=== PATIENT | female | born 1970 | race Caucasian/White ===

== ENCOUNTER → 2016-06-05 | Outpatient (CLI) | payer OTHER ==
[~2016-06-05] MED LIST: ACET160L7 PO; BENT10CA PO; COLA100C PO; DICY10SO PO; EQ A PO; IBUP80TA PO; LIDOCAINE 2% INJ 100 MG/5 ML SDV (FOR ANES.) As Ordered ONE; LISI-538 PO; NEUR300C PO; NS 1,000 ML IV SCH; OXYC1TAB23 PO; PROPOFOL 200 MG/20 ML VIAL As Ordered ONE; ZYRT10CA PO; fentaNYL 100 MCG/2 ML INJECTION (J3010) As Ordered ONE
--- NOTE | 2016-06-05 12:55 | ROOR ---
Patient Name: Krystal Robb Procedure Date: 06/05/2016 12:39 PM Date of : 1970 Age: 45 Room: [facility] Gender: Female Note Status: Finalized Procedure: Upper GI endoscopy Indications: Epigastric abdominal pain, Diarrhea, Endoscopy to assess diarrhea in patient suspected of having disease of the small-bowel Providers: Roger NORWOOD MD Referring MD: Cherelle DINH NP Requesting Provider: Medicines: Monitored Anesthesia Care Complications: No immediate complications. Procedure: Pre-Anesthesia Assessment: - The heart rate, respiratory rate, oxygen saturations, blood pressure, adequacy of pulmonary ventilation, and response to care were monitored throughout the procedure. The Endoscope was introduced through the mouth, and advanced to the third part of duodenum. The upper GI endoscopy was accomplished without difficulty. The patient tolerated the procedure well. Findings: The esophagus was normal. The stomach was normal. The examined duodenum was normal. Biopsies for histology were taken with a cold forceps for evaluation of celiac disease. Impression: - Normal esophagus. - Normal stomach. - Normal examined duodenum. Biopsied. Recommendation: - Telephone endoscopist for pathology results in 2 weeks. Roger Norwood MD Roger NORWOOD MD 06/05/2016 12:54:27 PM This report has been signed electronically. Number of Addenda: 0 Note Initiated On: 06/05/2016 12:39 PM Estimated Blood Loss: Estimated blood loss: none.
--- NOTE | 2016-06-05 13:10 | ROOR ---
Patient Name: Krystal Robb Procedure Date: 06/05/2016 12:39 PM Date of : 1970 Age: 45 Room: [facility] Gender: Female Note Status: Finalized Procedure: Colonoscopy Indications: Generalized abdominal pain, Clinically significant diarrhea of unexplained origin Providers: Roger NORWOOD MD Referring MD: Cherelle DINH NP Requesting Provider: Medicines: Monitored Anesthesia Care Complications: No immediate complications. Procedure: Pre-Anesthesia Assessment: - The heart rate, respiratory rate, oxygen saturations, blood pressure, adequacy of pulmonary ventilation, and response to care were monitored throughout the procedure. The Colonoscope was introduced through the anus and advanced to 10 cm into the ileum. The colonoscopy was performed without difficulty. The patient tolerated the procedure well. The quality of the bowel preparation was good. Findings: The perianal and digital rectal examinations were normal. (Exam: Complete, Prep: Good or Excellent.) Small Internal Hemorrhoids. The entire examined colon appeared normal on direct and retroflexion views. The terminal ileum appeared normal. Biopsies for histology were taken with a cold forceps for evaluation of microscopic colitis. Impression: - (Exam: Complete, Prep: Good or Excellent.) - Small Internal Hemorrhoids. - The entire examined colon is normal on direct and retroflexion views. - The examined portion of the ileum was normal. - Biopsies were taken with a cold forceps for evaluation of microscopic colitis. Recommendation: - Telephone endoscopist for pathology results in 2 weeks. - Miralax 1 capful (17 grams) in 8 ounces of water PO BID. - Note: I have reviewed multiple CT scans you have had over the past few years. The common theme is that the radiologist notes moderate to large stool on almost all the scans. (including the one in april 2016). I suspect your diarrhea is actually caused by severe constipation with "overflow" loose stool symptoms. The treatment for this is the daily routine use of laxative regimen.--I will try you on Miralax TWICE a day.--script sent to your pharmacy. Roger Norwood MD Roger NORWOOD MD 06/05/2016 1:10:46 PM This report has been signed electronically. Number of Addenda: 0 Note Initiated On: 06/05/2016 12:39 PM Estimated Blood Loss: Estimated blood loss: none.
[2016-06-05 13:30] VITALS: BP 136/88
== END | disposition home or self-care (01) ==
LOC: M OPP 11:01
PROVIDERS: ATTEND Internal Medicine Gastroenterology
DX: R19.7 Diarrhea, unspecified (principal); K64.8 Other hemorrhoids; R10.13 Epigastric pain; J45.909 Unspecified asthma, uncomplicated; I10 Essential (primary) hypertension; F17.200 Nicotine dependence, unspecified, uncomplicated; Z79.899 Other long term (current) drug therapy; Z97.2 Presence of dental prosthetic device (complete) (partial)
CPT/HCPCS: 43239; 45380; 88305; J3010

== ENCOUNTER 2016-06-23 08:49 | Emergency (ER) | payer OTHER ==
[~2016-06-23 08:49] MED LIST changes: -LIDOCAINE 2% INJ 100 MG/5 ML SDV (FOR ANES.) As Ordered ONE; -NS 1,000 ML IV SCH; -PROPOFOL 200 MG/20 ML VIAL As Ordered ONE; -fentaNYL 100 MCG/2 ML INJECTION (J3010) As Ordered ONE
[2016-06-23] MEDS ORDERED: KETOROLAC 30 MG/ML VIAL (J1885) As Ordered ONE (09:24)
--- NOTE | 2016-06-23 10:40 | EDDOCDS ---
Physician Documentation [facility] Name: Krystal Robb Age: 45 yrs Sex: Female : 1970 Arrival Date: 06/23/2016 Time: 08:49 Bed PR Private MD: William Gonzalez Disposition: 06/23/16 10:07 Discharged to Home/Self Care. Impression: Pain in left hip, Low back pain - Acute, Fall (on)(from) sidewalk curb - Slipped and fell while getting onto bus, Other intervertebral disc disorders, lumbosacral region. - Condition is Stable. - Discharge Instructions: Back Pain, Adult, Hip Pain, Fall Prevention and Home Safety, [id number]. - Prescriptions for Mobic 7.5 mg Oral Tablet - take 1 tablet by ORAL route once daily take with food; 20 tablet. Percocet 5- 325 mg Oral Tablet - take 1 tablet by ORAL route every 6 hours As needed MDD: 4 tabs; Do not take while driving/operating heavy machinery.; 10 tablet. Prednisone 20 mg Oral Tablet - take 3 tablet by ORAL route once daily for 5 days; 15 tablet. Zanaflex 4 mg Oral Tablet - take 1 tablet by ORAL route At bedtime As needed Will cause drowsiness, do not take while driving/operating heavy machinery.; 20 tablet. - Medication Reconciliation, Local Pharmacy Hours, Work Release Form - 2 day form. - Follow up: William Gonzalez; When: 1 - 2 days; Reason: Recheck today's complaints, Continuance of care. Follow up: Emergency Department; Reason: Worsening of conditions. Follow up: [facility]; When: Call to arrange an appointment; Reason: Further diagnostic work-up, Recheck today's complaints, Continuance of care. - Problem is new. - Symptoms have improved. Historical: - Allergies: PENICILLINS (Hives); - Home Meds: 1. lisinopril 20 mg Oral tab once daily 2. Vitamin D 5000 units weekly Oral 3. Miralax 17 gram/dose oral powd 17 g twice a day - PMHx: chronic abdominal pain for over 2 years [address] is seeing Dr. Kidd; Chronic Back pain; heel spurs; Hypertension; right ventral hernia; Kidney stones; - PSHx: Hernia repair; ; Adenoidectomy; Tonsillectomy; Exploratory lap; D & C; Tubal ligation; - Social history: Smoking status: Patient uses tobacco products, light tobacco smoker. No barriers to communication noted, The patient speaks fluent Chinese. - Family history: Not pertinent. - : The pt / caregiver states he / she is not on anticoagulants. Home medication list is obtained from the patient, [employer] import data. - Exposure Risk Screening:: None identified. 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 3 in. (160.02 cm) (R); 10:20 Pain 8/10; kcs 10:35 BP 124 / 80; Pulse 76; Resp 18; Temp 97.8; Pulse Ox 98% on R/A; Pain 4/10; dls 08:51 Body Mass Index 25.68 (65.77 kg, 160.02 cm) kcs MDM: 09:20 Vital Signs ordered. ef1 09:20 ketorolac 60 mg IM once ordered. ef1 09:20 Ice Pack ordered. ef1 09:21 Spine. Lumbosacral, Complete Ordered. EDMS 09:21 Hip,AP,LAT to include Pelvis Ordered. EDMS 09:31 Financial registration complete. mm15 09:31 [facility] Payment Agreement was scanned into [employer] and attached to record. mm15 Administered Medications: 09:30 Drug: ketorolac 60 mg [ketorolac 30 mg/mL (1 mL) injection solution (2 mL)] Route: IM; kcs Site: left gluteus; 10:20 Follow up: Pain 8/10 Adult kcs 10:35 Follow up: Response: No significant change. dls Signatures: Dispatcher [employer] EDCharlee Garza RN RN kcs Scott, Debra, RN RN dls Kimberly Zimmerman, PA-C PABreezy ef1 Stefano Johnson mm15 The chart was reviewed and I authenticate all verbal orders and agree with the evaluation and treatment provided.Attachments: 09:31 [facility] Payment Agreement mm15 MTDD
--- NOTE | 2016-06-23 10:40 | EDDOCDS ---
Nurse's Notes Name: Krystal Robb Age: 45 yrs Sex: Female : 1970 Arrival Date: 06/23/2016 Time: 08:49 Bed PR1 / 25 Private MD: William Gonzalez Diagnosis: Pain in left hip;Low back pain-Acute;Fall (on)(from) sidewalk curb-Slipped and fell while getting onto bus;Other intervertebral disc disorders, lumbosacral region Presentation: 06/23 09:00 Presenting complaint: Patient states: this am she was walking out to her bus and kcs slipped on the ice landing on her lower back and left hip - work related. Adult Sepsis Screening: The patient does not have new or worsening altered mentation. Patient's respiratory rate is less than 22. Systolic blood pressure is greater than 100. Patient has a qSOFA score of 0- Negative Sepsis Screen. Suicide/Homicide risk assessment- the patient denies having any suicidal and/or homicidal ideations and does not present with any other emotional, behavioral or mental health complaints. 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 Transition of care: patient was not received from another setting of care. 09:00 Acuity: JOYCE Level 4 kcs 09:00 Method Of Arrival: Walkin/Carried/Asstd kcs Triage Assessment: 09:03 General: Appears uncomfortable, well developed, well nourished, Behavior is kcs cooperative, pleasant. Pain: Location: low back and left hip Pain currently is 8 out of 10 on a pain scale. HIV screening NA for this visit Offered previously. Neurological: Level of Consciousness is awake, alert. Respiratory: Airway is patent Respiratory effort is even, unlabored, Respiratory pattern is regular, symmetrical. Derm: Skin is intact, is healthy with good turgor, Skin is dry, Skin is normal. 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 lisinopril 20 mg Oral tab once daily 2. Vitamin D 5000 units weekly Oral 3. Miralax 17 gram/dose oral powd 17 g twice a day - PMHx: chronic abdominal pain for over [address] seeing Dr[address] Kidd; Chronic Back pain; heel spurs; Hypertension; right ventral hernia; Kidney stones; - PSHx: Hernia repair; ; Adenoidectomy; Tonsillectomy; Exploratory lap; D & C; Tubal ligation; - Social history: Smoking status: Patient uses tobacco products, light tobacco smoker. No barriers to communication noted, The patient speaks fluent South Sudanese. - Family history: Not pertinent. - : The pt / caregiver states he / she is not on anticoagulants. Home medication list is obtained from the patient, [email or web address] import data. - Exposure Risk Screening:: None identified. Screenin:37 Screening information is obtained from the patient. Primary language is South Sudanese. Fall dls risk: No risks identified. Assistance ADL's: requires no assistance with activities of daily living. Abuse/DV Screen: The patient / caregiver reports he/she is: not in a situation that causes fear, pain or injury. Nutritional screening: No deficits noted. Advance Directives: Currently, there is no health care proxy. There is no active DNR order. There is no living will. There is no Power of Floor Framer. Advance directive information has not previously been placed in an [facility] medical record. home support is adequate. Assessment: 10:36 General: Appears slender, uncomfortable, Behavior is cooperative. Awake, alert, dls oriented. Skin warm and dry. Moves all extremities. Bilateral breath sounds clear. Respirations unlabored. Abdomen soft, non-tender. No apparent distress. The patient / caregiver is instructed regarding the plan of care and ED course. Vital Signs: 08:51 BP 127 / 86; Pulse 78; Resp 18 S; Temp 99.9(TE); Pulse Ox 97% on R/A; Weight 65.77 kg kcs (R); Height 5 ft. 3 in. (160.02 cm) (R); 10:20 Pain 8/10; kcs 10:35 BP 124 / 80; Pulse 76; Resp 18; Temp 97.8; Pulse Ox 98% on R/A; Pain 4/10; dls 08:51 Body Mass Index 25.68 (65.77 kg, 160.02 cm) [facility] Vitals: 08:51 Log In Time: June 23, 2016 at 08:48. dd6 ED Course: 08:51 Patient visited by Bebo Worrell PCA. dd6 08:51 William Gonzalez is Private Physician. dd6 08:51 Patient moved to Waiting dd6 08:52 Patient moved to Pre RCE dd6 09:01 Triage Initiated kcs 09:04 Patient moved to Triage 1 kcs 09:09 [facility] ef1 09:09 Ramos Holliday MD is Attending Physician. ef1 09:18 Patient visited by Kimberly Zimmerman PA-C. ef1 09:30 Patient moved to TR1 kcs 09:31 [facility] Payment Agreement was scanned into [employer] and attached to record. mm15 10:04 Patient visited by Kimberly Zimmerman PA-C. ef1 10:07 William Gonzalez is Referral Physician. ef1 10:07 [facility] is Referral Physician. ef1 10:18 Patient moved to PR kcs 10:37 Patient has correct armband on for positive identification. Bed in low position. Call dls light in reach. 10:38 No IV's were initiated during this patient's visit. No procedures done that require dls assistance. Administered Medications: 09:30 Drug: ketorolac 60 mg [ketorolac 30 mg/mL (1 mL) injection solution (2 mL)] Route: IM; kcs Site: left gluteus; 10:20 Follow up: Pain 01/01 Adult kcs 10:35 Follow up: Response: No significant change. dls Order Results: There are currently no results for this order. Outcome: 10:07 Discharge ordered by Provider. ef1 10:37 The following High Risk Discharge criteria are identified: None. Discharged to home dls ambulatory. Condition: stable. Discharge instructions given to patient, Instructed on discharge instructions, follow up and referral plans. medication usage, Demonstrated understanding of instructions, medications, Pt was receptive of discharge instructions/ teaching. Prescriptions given X 4, Work note provided to patient. No special radiology studies were completed. 10:38 Discharge Assessment: Patient awake, alert and oriented x 3. No cognitive and/or dls functional deficits noted. Patient verbalized understanding of disposition instructions. patient administered narcotics - no. The following High Risk Discharge criteria are identified: None. Discharged to home ambulatory. Property :Personal belongings accompany Pt. 10:39 Patient left the ED. dls Signatures: Charlee Platt RN RN kcs Scott, Debra, RN RN dls Bebo Worrell, DIRECTOR LEARNING DIRECTOR LEARNING dd6 Kimberly Zimmerman PA-C PA-C ef1 Stefano Johnson mm15 Corrections: (The following items were deleted from the chart) 09:23 08:51 BP 127 / 86; Pulse 78bpm; Resp 18bpm; Spontaneous; Pulse Ox 97% RA; 65.77 kg kcs Reported; Height 5 ft. 3 in. Reported; BMI: 25.6; dd6 MTDD
--- NOTE | 2016-06-23 13:25 | REP ---
PELVIS LEFT HIP: THREE VIEWS. HISTORY: Trauma. FINDINGS: AP view of the pelvis demonstrates an intact bony pelvic ring. Femoral heads are smooth and rounded, and hip joint spaces are preserved. No hip or pelvic fracture is seen. No sacral fractures noted. AP and frogleg views of the left hip are unremarkable as well. IMPRESSION: No fracture seen. Signed by Dewayne Edmond MD 06/23/2016 01:26 P
--- NOTE | 2016-06-23 13:25 | REP ---
Lumbar spine series: Five views. History: Trauma. Comparison study: April 06, 2015. Findings: Lumbar vertebral body heights are preserved. Disc spaces are maintained. There is mild disc space narrowing at L4-5. Pedicles and posterior elements are intact. There is mild facet hypertrophy at L5-S1 bilaterally. Findings are unchanged from April 06, 2015. Impression: Minimal degenerative changes. No fracture or other traumatic abnormality is appreciated. Signed by Dewayne Edmond MD 06/23/2016 01:26 P
--- NOTE | 2016-06-25 11:40 | EDDOCDS ---
Nurse's Notes [facility] Name: Krystal Robb Age: 45 yrs Sex: Female : 1970 Arrival Date: 06/23/2016 Time: 08:49 Bed PR1 / 25 Private MD: William Gonzalez Diagnosis: Pain in left hip;Low back pain-Acute;Fall (on)(from) sidewalk curb-Slipped and fell while getting onto bus;Other intervertebral disc disorders, lumbosacral region Presentation: 06/23 09:00 Presenting complaint: Patient states: this am she was walking out to her bus and kcs slipped on the ice landing on her lower back and left hip - work related. Adult Sepsis Screening: The patient does not have new or worsening altered mentation. Patient's respiratory rate is less than 22. Systolic blood pressure is greater than 100. Patient has a qSOFA score of 0- Negative Sepsis Screen. Suicide/Homicide risk assessment- the patient denies having any suicidal and/or homicidal ideations and does not present with any other emotional, behavioral or mental health complaints. 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 Transition of care: patient was not received from another setting of care. 09:00 Acuity: JOYCE Level 4 kcs 09:00 Method Of Arrival: Walkin/Carried/Asstd kcs Triage Assessment: 09:03 General: Appears uncomfortable, well developed, well nourished, Behavior is kcs cooperative, pleasant. Pain: Location: low back and left hip Pain currently is 8 out of 10 on a pain scale. HIV screening NA for this visit Offered previously. Neurological: Level of Consciousness is awake, alert. Respiratory: Airway is patent Respiratory effort is even, unlabored, Respiratory pattern is regular, symmetrical. Derm: Skin is intact, is healthy with good turgor, Skin is dry, Skin is normal. 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 lisinopril 20 mg Oral tab once daily 2. Vitamin D 5000 units weekly Oral 3. Miralax 17 gram/dose oral powd 17 g twice a day - PMHx: chronic abdominal pain for over [address] Kidd; Chronic Back pain; heel spurs; Hypertension; right ventral hernia; Kidney stones; - PSHx: Hernia repair; ; Adenoidectomy; Tonsillectomy; Exploratory lap; D & C; Tubal ligation; - Social history: Smoking status: Patient uses tobacco products, light tobacco smoker. No barriers to communication noted, The patient speaks fluent Niuean. - Family history: Not pertinent. - : The pt / caregiver states he / she is not on anticoagulants. Home medication list is obtained from the patient, [employer] import data. - Exposure Risk Screening:: None identified. Screenin:37 Screening information is obtained from the patient. Primary language is Niuean. Fall dls risk: No risks identified. Assistance ADL's: requires no assistance with activities of daily living. Abuse/DV Screen: The patient / caregiver reports he/she is: not in a situation that causes fear, pain or injury. Nutritional screening: No deficits noted. Advance Directives: Currently, there is no health care proxy. There is no active DNR order. There is no living will. There is no Power of Sales Consultant. Advance directive information has not previously been placed in an [facility] medical record. home support is adequate. Assessment: 10:36 General: Appears slender, uncomfortable, Behavior is cooperative. Awake, alert, dls oriented. Skin warm and dry. Moves all extremities. Bilateral breath sounds clear. Respirations unlabored. Abdomen soft, non-tender. No apparent distress. The patient / caregiver is instructed regarding the plan of care and ED course. Vital Signs: 08:51 BP 127 / 86; Pulse 78; Resp 18 S; Temp 99.9(TE); Pulse Ox 97% on R/A; Weight 65.77 kg kcs (R); Height 5 ft. 3 in. (160.02 cm) (R); 10:20 Pain 8/10; kcs 10:35 BP 124 / 80; Pulse 76; Resp 18; Temp 97.8; Pulse Ox 98% on R/A; Pain 4/10; dls 08:51 Body Mass Index 25.68 (65.77 kg, 160.02 cm) [facility] Vitals: 08:51 Log In Time: June 23, 2016 at 08:48. dd6 ED Course: 08:51 Patient visited by Bebo Worrell PCA. dd6 08:51 William Gonzalez is Private Physician. dd6 08:51 Patient moved to Waiting dd6 08:52 Patient moved to Pre RCE dd6 09:01 Triage Initiated kcs 09:04 Patient moved to Triage 1 kcs 09:09 Kimberly Zimmerman [facility]-C [facility] ef1 09:09 Ramos Holliday MD is Attending Physician. ef1 09:18 Patient visited by Kimberly Zimmerman PA-C. ef1 09:30 Patient moved to TR1 kcs 09:31 [facility] Payment Agreement was scanned into [employer] and attached to record. mm15 10:04 Patient visited by Kimberly Zimmerman PA-C. ef1 10:07 William Gonzalez is Referral Physician. ef1 10:07 [facility]. ef1 10:18 Patient moved to PR kcs 10:37 Patient has correct armband on for positive identification. Bed in low position. Call dls light in reach. 10:38 No IV's were initiated during this patient's visit. No procedures done that require dls assistance. 13:37 Hip,AP,LAT to include Pelvis Returned. EDMS 13:37 Spine. Lumbosacral, Complete Returned. EDMS 14:58 T-Sheet-- Draft Copy was scanned into [employer] and attached to record. gb 14:59 Radiology Report was scanned into [employer] and attached to record. gb Administered Medications: 09:30 Drug: ketorolac 60 mg [ketorolac 30 mg/mL (1 mL) injection solution (2 mL)] Route: IM; kcs Site: left gluteus; 10:20 Follow up: Pain 8/10 Adult kcs 10:35 Follow up: Response: No significant change. dls Order Results: Radiology Order: Spine. Lumbosacral, Complete Test: Spine. Lumbosacral, Complete REASON FOR EXAMINATION: Trauma; Lumbar spine series: Five views.; ; History: Trauma.; ; Comparison study: April 06, 2015.; ; Findings: Lumbar vertebral body heights are preserved. Disc spaces are; maintained. There is mild disc space narrowing at L4-5. Pedicles and posterior; elements are intact. There is mild facet hypertrophy at L5-S1 bilaterally.; Findings are unchanged from April 06, 2015.; ; Impression:; ; Minimal degenerative changes. No fracture or other traumatic abnormality is; appreciated.; ; ; Signed by; Dewayne Edmond MD 06/23/2016 01:26 P; Radiology Order: Hip,AP,LAT to include Pelvis Test: Hip,AP,LAT to include Pelvis REASON FOR EXAMINATION: Trauma; PELVIS LEFT HIP: THREE VIEWS.; ; HISTORY: Trauma.; ; FINDINGS: AP view of the pelvis demonstrates an intact bony pelvic ring.; Femoral heads are smooth and rounded, and hip joint spaces are preserved. No hip; or pelvic fracture is seen. No sacral fractures noted. AP and frogleg views of; the left hip are unremarkable as well.; ; IMPRESSION:; ; No fracture seen.; ; ; Signed by; Dewayne Edmond MD 06/23/2016 01:26 P; Outcome: 10:07 Discharge ordered by Provider. ef1 10:37 The following High Risk Discharge criteria are identified: None. Discharged to home dls ambulatory. Condition: stable. Discharge instructions given to patient, Instructed on discharge instructions, follow up and referral plans. medication usage, Demonstrated understanding of instructions, medications, Pt was receptive of discharge instructions/ teaching. Prescriptions given X 4, Work note provided to patient. No special radiology studies were completed. 10:38 Discharge Assessment: Patient awake, alert and oriented x 3. No cognitive and/or dls functional deficits noted. Patient verbalized understanding of disposition instructions. patient administered narcotics - no. The following High Risk Discharge criteria are identified: None. Discharged to home ambulatory. Property :Personal belongings accompany Pt. 10:39 Patient left the ED. dls Signatures: Dispatcher [employer] EDMS Charlee Platt RN RN kcs Scott, Debra, RN RN dls Anca Stephen, Reg Reg Bebo Jean, CLINICAL LAW PROFESSOR CLINICAL LAW PROFESSOR dd6 Kimberly Zimmerman PA-C PA-C ef1 Stefano Johnson mm15 Corrections: (The following items were deleted from the chart) 09:23 08:51 BP 127 / 86; Pulse 78bpm; Resp 18bpm; Spontaneous; Pulse Ox 97% RA; 65.77 kg kcs Reported; Height 5 ft. 3 in. Reported; BMI: 25.6; dd6 Chart Complete MTDD
--- NOTE | 2016-06-25 11:40 | EDDOCDS ---
Physician Documentation [facility] Name: Krystal Robb Age: 45 yrs Sex: Female : 1970 Arrival Date: 06/23/2016 Time: 08:49 Bed PR Private MD: William Gonzalez Disposition: 06/23/16 10:07 Discharged to Home/Self Care. Impression: Pain in left hip, Low back pain - Acute, Fall (on)(from) sidewalk curb - Slipped and fell while getting onto bus, Other intervertebral disc disorders, lumbosacral region. - Condition is Stable. - Discharge Instructions: Back Pain, Adult, Hip Pain, Fall Prevention and Home Safety, [id number]-Cegy. - Prescriptions for Mobic 7.5 mg Oral Tablet - take 1 tablet by ORAL route once daily take with food; 20 tablet. Percocet 5- 325 mg Oral Tablet - take 1 tablet by ORAL route every 6 hours As needed MDD: 4 tabs; Do not take while driving/operating heavy machinery.; 10 tablet. Prednisone 20 mg Oral Tablet - take 3 tablet by ORAL route once daily for 5 days; 15 tablet. Zanaflex 4 mg Oral Tablet - take 1 tablet by ORAL route At bedtime As needed Will cause drowsiness, do not take while driving/operating heavy machinery.; 20 tablet. - Medication Reconciliation, Local Pharmacy Hours, Work Release Form - 2 day form. - Follow up: William Gonzalez; When: 1 - 2 days; Reason: Recheck today's complaints, Continuance of care. Follow up: Emergency Department; Reason: Worsening of conditions. Follow up: [facility]; When: Call to arrange an appointment; Reason: Further diagnostic work-up, Recheck today's complaints, Continuance of care. - Problem is new. - Symptoms have improved. Historical: - Allergies: PENICILLINS (Hives); - Home Meds: 1. lisinopril 20 mg Oral tab once daily 2. Vitamin D 5000 units weekly Oral 3. Miralax 17 gram/dose oral powd 17 g twice a day - PMHx: chronic abdominal pain for over [address] seeing Dr. Kidd; Chronic Back pain; heel spurs; Hypertension; right ventral hernia; Kidney stones; - PSHx: Hernia repair; ; Adenoidectomy; Tonsillectomy; Exploratory lap; D & C; Tubal ligation; - Social history: Smoking status: Patient uses tobacco products, light tobacco smoker. No barriers to communication noted, The patient speaks fluent Divehi. - Family history: Not pertinent. - : The pt / caregiver states he / she is not on anticoagulants. Home medication list is obtained from the patient, [employer] import data. - Exposure Risk Screening:: None identified. 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 3 in. (160.02 cm) (R); 10:20 Pain 8/10; kcs 10:35 BP 124 / 80; Pulse 76; Resp 18; Temp 97.8; Pulse Ox 98% on R/A; Pain 4/10; dls 08:51 Body Mass Index 25.68 (65.77 kg, 160.02 cm) kcs MDM: 09:20 Vital Signs ordered. ef1 09:20 ketorolac 60 mg IM once ordered. ef1 09:20 Ice Pack ordered. ef1 09:21 Spine. Lumbosacral, Complete Ordered. EDMS 09:21 Hip,AP,LAT to include Pelvis Ordered. EDMS 09:31 Financial registration complete. mm15 09:31 [facility] Payment Agreement was scanned into [employer] and attached to record. mm15 14:58 T-Sheet-- Draft Copy was scanned into [employer] and attached to record. gb 14:59 Radiology Report was scanned into [employer] and attached to record. gb Administered Medications: 09:30 Drug: ketorolac 60 mg [ketorolac 30 mg/mL (1 mL) injection solution (2 mL)] Route: IM; kcs Site: left gluteus; 10:20 Follow up: Pain 8/10 Adult kcs 10:35 Follow up: Response: No significant change. dls Signatures: Dispatcher [employer] EDMS Charlee Platt RN RN kcs Scott, Debra, RN RN dls Anca Stephen, Reg Reg gb Kimberly Zimmerman, PA-C PA-C ef1 Stefano Johnson mm15 The chart was reviewed and I authenticate all verbal orders and agree with the evaluation and treatment provided.Attachments: 09:31 [facility] Payment Agreement mm15 14:58 T-Sheet-- Draft Copy gb Chart Complete MTDD
--- NOTE | 2016-06-25 11:40 | EDDOCDS ---
Physician Documentation [facility] Name: Krystal Robb Age: 45 yrs Sex: Female : 1970 Arrival Date: 06/23/2016 Time: 08:49 Bed PR Private MD: William Gonzalez Disposition: 06/23/16 10:07 Discharged to Home/Self Care. Impression: Pain in left hip, Low back pain - Acute, Fall (on)(from) sidewalk curb - Slipped and fell while getting onto bus, Other intervertebral disc disorders, lumbosacral region. - Condition is Stable. - Discharge Instructions: Back Pain, Adult, Hip Pain, Fall Prevention and Home Safety, Nflx-ce-[id number]. - Prescriptions for Mobic 7.5 mg Oral Tablet - take 1 tablet by ORAL route once daily take with food; 20 tablet. Percocet 5- 325 mg Oral Tablet - take 1 tablet by ORAL route every 6 hours As needed MDD: 4 tabs; Do not take while driving/operating heavy machinery.; 10 tablet. Prednisone 20 mg Oral Tablet - take 3 tablet by ORAL route once daily for 5 days; 15 tablet. Zanaflex 4 mg Oral Tablet - take 1 tablet by ORAL route At bedtime As needed Will cause drowsiness, do not take while driving/operating heavy machinery.; 20 tablet. - Medication Reconciliation, Local Pharmacy Hours, Work Release Form - 2 day form. - Follow up: William Gonzalez; When: 1 - 2 days; Reason: Recheck today's complaints, Continuance of care. Follow up: Emergency Department; Reason: Worsening of conditions. Follow up: [facility]; When: Call to arrange an appointment; Reason: Further diagnostic work-up, Recheck today's complaints, Continuance of care. - Problem is new. - Symptoms have improved. Historical: - Allergies: PENICILLINS (Hives); - Home Meds: 1. lisinopril 20 mg Oral tab once daily 2. Vitamin D 5000 units weekly Oral 3. Miralax 17 gram/dose oral powd 17 g twice a day - PMHx: chronic abdominal pain for over [address] seeing Dr[address] Kidd; Chronic Back pain; heel spurs; Hypertension; right ventral hernia; Kidney stones; - PSHx: Hernia repair; ; Adenoidectomy; Tonsillectomy; Exploratory lap; D & C; Tubal ligation; - Social history: Smoking status: Patient uses tobacco products, light tobacco smoker. No barriers to communication noted, The patient speaks fluent Macedonian. - Family history: Not pertinent. - : The pt / caregiver states he / she is not on anticoagulants. Home medication list is obtained from the patient, [employer] import data. - Exposure Risk Screening:: None identified. 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 3 in. (160.02 cm) (R); 10:20 Pain 8/10; kcs 10:35 BP 124 / 80; Pulse 76; Resp 18; Temp 97.8; Pulse Ox 98% on R/A; Pain 4/10; dls 08:51 Body Mass Index 25.68 (65.77 kg, 160.02 cm) kcs MDM: 09:20 Vital Signs ordered. ef1 09:20 ketorolac 60 mg IM once ordered. ef1 09:20 Ice Pack ordered. ef1 09:21 Spine. Lumbosacral, Complete Ordered. EDMS 09:21 Hip,AP,LAT to include Pelvis Ordered. EDMS 09:31 Financial registration complete. mm15 09:31 [facility] Payment Agreement was scanned into [employer] and attached to record. mm15 14:58 T-Sheet-- Draft Copy was scanned into [employer] and attached to record. gb 14:59 Radiology Report was scanned into [employer] and attached to record. gb Administered Medications: 09:30 Drug: ketorolac 60 mg [ketorolac 30 mg/mL (1 mL) injection solution (2 mL)] Route: IM; kcs Site: left gluteus; 10:20 Follow up: Pain 8/10 Adult kcs 10:35 Follow up: Response: No significant change. dls Signatures: Dispatcher [employer] EDMS Charlee Platt RN RN kcs Scott, Debra, RN RN dls Anca Stephen, Reg Reg gb Kimberly Zimmerman, PA-C PA-C ef1 Stefano Johnson mm15 The chart was reviewed and I authenticate all verbal orders and agree with the evaluation and treatment provided.Attachments: 09:31 [facility] Payment Agreement mm15 14:58 T-Sheet-- Draft Copy gb Chart Complete MTDD
== END 2016-06-23 10:39 | disposition home or self-care (01) ==
LOC: M ED 08:49
DX: M25.552 Pain in left hip (principal); M54.5 Low back pain; M51.36 Other intervertebral disc degeneration, lumbar region; W00.9XXA Unspecified fall due to ice and snow, initial encounter; Y92.410 Unspecified street and highway as the place of occurrence of the external cause; Y93.89 Activity, other specified; Y99.0 Civilian activity done for income or pay; G89.29 Other chronic pain; R10.9 Unspecified abdominal pain; I10 Essential (primary) hypertension; K43.9 Ventral hernia without obstruction or gangrene; M77.30 Calcaneal spur, unspecified foot; Z87.442 Personal history of urinary calculi; Z90.89 Acquired absence of other organs; F17.200 Nicotine dependence, unspecified, uncomplicated; Z79.899 Other long term (current) drug therapy; Z88.0 Allergy status to penicillin
CPT/HCPCS: 72110; 73502; 96372; 99283; J1885

== ENCOUNTER 2016-06-27 18:45 | Emergency (ER) | payer OTHER ==
--- NOTE | 2016-06-27 20:31 | EDDOCDS ---
Nurse's Notes [facility] Name: Krystal Robb Age: 45 yrs Sex: Female : 1970 Arrival Date: 06/27/2016 Time: 18:45 Bed TR8 Private MD: Cherelle Mendez Diagnosis: Contusion of left knee Presentation: 06/27 19:02 Presenting complaint: Patient states: that she injured her L knee last night. Adult ms18 Sepsis Screening: The patient does not have new or worsening altered mentation. Patient's respiratory rate is less than 22. Systolic blood pressure is greater than 100. Patient has a qSOFA score of 0- Negative Sepsis Screen. Suicide/Homicide risk assessment- the patient denies having any suicidal and/or homicidal ideations and does not present with any other emotional, behavioral or mental health complaints. Status: Patient is not a pharmacy services representative or dependent. Transition of care: patient was not received from another setting of care. 19:02 Acuity: JOYCE Level 4 ms18 19:02 Method Of Arrival: Walkin/Carried/Asstd ms18 Triage Assessment: 19:06 General: Appears in no apparent distress, Behavior is appropriate for age, cooperative. ms18 Pain: Location: left knee Pain currently is 8 out of 10 on a pain scale. HIV screening NA for this visit Offered previously. Neurological: No deficits noted. Moves all extremities. Gait is steady. Respiratory: No deficits noted. Derm: Skin is pink, warm & dry. 19:06 Derm: Bruising that is dark purple, on left knee. 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 lisinopril 20 mg Oral tab once daily 2. Zanaflex Oral 1 cap nightly 3. Prednisone Oral last dose taken this AM 4. Vitamin D 5000 units weekly Oral 5. Miralax 17 gram/dose Oral powd 17 g twice a day - PMHx: chronic abdominal pain for over [address] Dr[address] Kidd; Chronic Back pain; heel spurs; Hypertension; Kidney stones; right ventral hernia; - PSHx: ; D & C; Tonsillectomy; Adenoidectomy; Hernia repair; Laparoscopy; - Social history: Smoking status: Patient uses tobacco products, current every day smoker. No barriers to communication noted, The patient speaks fluent Guatemalan. - Family history: Not pertinent. - : The pt / caregiver states he / she is not on anticoagulants. Home medication list is obtained from the patient. - Exposure Risk Screening:: None identified. Screenin:28 Screening information is obtained from the patient. Fall risk: At risk due to prior ttb history of falls, The following interventions are performed due to a positive Fall Risk Screen: Fall Risk is added to Special Handling on the patient Summary Screen. A Fall Risk Bracelet was applied to the patient. Side Rails are placed in the up position. A Call Buchanan is given with instruction to call for help when getting out of bed. Assistance ADL's: requires no assistance with activities of daily living. Abuse/DV Screen: The patient / caregiver reports he/she is: not in a situation that causes fear, pain or injury. Nutritional screening: No deficits noted. Advance Directives: Currently, there is no health care proxy. home support is adequate. Assessment: 20:28 General: Appears in no apparent distress, well nourished, well groomed, Behavior is ttb appropriate for age, cooperative, pleasant. Pain: Location: left knee. Neurological: Level of Consciousness is awake, alert. Cardiovascular: Chest pain is denied. Respiratory: No deficits noted. Airway is patent. Derm: Skin is normal. Musculoskeletal: Range of motion limited in left knee. Injury Description: hit knee on dash board. Vital Signs: 18:47 BP 154 / 76; Pulse 102; Resp 18; Temp 98.2; Pulse Ox 97% on R/A; Weight 67.13 kg (R); ct3 Height 5 ft. 2 in. (157.48 cm) (R); Pain 8/10; 20:20 BP 140 / 76; Pulse 86; Resp 18; Pulse Ox 99% on R/A; jb5 18:47 Body Mass Index 27.07 (67.13 kg, 157.48 cm) ct3 Vitals: 18:47 Log In Time: June 27, 2016 at 18:45. ct3 ED Course: 18:47 Patient visited by Chayo Wood PCA. ct3 18:47 Cherelle Mendez is Private Physician. ct3 18:47 Patient moved to Waiting ct3 18:48 Patient moved to Pre RCE ct3 19:04 Triage Initiated ms18 19:54 Patient moved to Triage 3 jb5 19:55 [facility] dk1 19:55 Fidel Shepard DO is Attending Physician. dk1 19:57 Patient visited by Sarah Neely PCA. jb5 19:58 Patient visited by Roger Martínez PA-C. dk1 20:21 Patient visited by Sarah Neely PCA. jb5 20:23 [facility] is Referral Physician. dk1 20:28 Patient moved to TR8 cz 20:28 The patient / caregiver is instructed regarding the plan of care and ED course. ttb Accompanied by Significant Other, Patient has correct armband on for positive identification. 20:28 No IV's were initiated during this patient's visit. No procedures done that require ttb assistance. Adam wrap to left knee. Patient has positive distal pulse, brisk capillary refill, and positive sensation after application. Order Results: There are currently no results for this order. Outcome: 20:23 Discharge ordered by Provider. dk1 20:28 Discharge Assessment: Patient awake, alert and oriented x 3. No cognitive and/or ttb functional deficits noted. Patient verbalized understanding of disposition instructions. Patient awake and alert. patient administered narcotics - no. The following High Risk Discharge criteria are identified: None. Discharged to home ambulatory, with significant other. Condition: good Condition: stable Condition: improved. Discharge instructions given to patient, significant other, Instructed on discharge instructions, follow up and referral plans. medication usage, Rest, Ice, Compression and Elevation. Demonstrated understanding of instructions, medications, RICE Pt was receptive of discharge instructions/ teaching. No special radiology studies were completed. Property :Personal belongings accompany Pt. 20:31 Patient left the ED. ttb Signatures: John Sheikh, RN RN cz Sarah Neely PCA OCCUPATIONAL SAFETY SPECIALIST jb5 Roger Martínez PA-C PA-C dk1 Chayo Wood PCA OCCUPATIONAL SAFETY SPECIALIST ct3 Marlene Aranda RN RN ttb Ria Peng RN RN ms18 MTDD
--- NOTE | 2016-06-27 20:31 | EDDOCDS ---
Physician Documentation [facility] Name: Krystal Robb Age: 45 yrs Sex: Female : 1970 Arrival Date: 06/27/2016 Time: 18:45 Bed TR8 Private MD: Cherelle Mendez Disposition: 06/27/16 20:23 Discharged to Home/Self Care. Impression: Contusion of left knee. - Condition is Stable. - Discharge Instructions: Knee Pain. - Medication Reconciliation, Local Pharmacy Hours form. - Follow up: [facility]; When: 2 - 3 days; Reason: Continuance of care. Follow up: Emergency Department; When: As needed; Reason: Worsening of conditions. - Problem is new. - Symptoms have improved. Historical: - Allergies: PENICILLINS (Hives); - Home Meds: 1. lisinopril 20 mg Oral tab once daily 2. Zanaflex Oral 1 cap nightly 3. Prednisone Oral last dose taken this AM 4. Vitamin D 5000 units weekly Oral 5. Miralax 17 gram/dose Oral powd 17 g twice a day - PMHx: chronic abdominal pain for over [address] Dr[address] Kidd; Chronic Back pain; heel spurs; Hypertension; Kidney stones; right ventral hernia; - PSHx: ; D & C; Tonsillectomy; Adenoidectomy; Hernia repair; Laparoscopy; - Social history: Smoking status: Patient uses tobacco products, current every day smoker. No barriers to communication noted, The patient speaks fluent Brazilian. - Family history: Not pertinent. - : The pt / caregiver states he / she is not on anticoagulants. Home medication list is obtained from the patient. - Exposure Risk Screening:: None identified. 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 2 in. (157.48 cm) (R); Pain 8/10; 20:20 BP 140 / 76; Pulse 86; Resp 18; Pulse Ox 99% on R/A; jb5 18:47 Body Mass Index 27.07 (67.13 kg, 157.48 cm) ct3 MDM: 19:06 Knee, Complete Ordered. EDMS 20:22 Adam Wrap ordered. dk1 20:29 Financial registration complete. zo Signatures: Dispatcher [employer] Roger George PA-C PA-C dk1 Lindsey Patton Teresa, RN RN ttRia Cervantes RN RN ms18 MTDD
--- NOTE | 2016-06-28 07:37 | REP ---
LEFT KNEE SERIES: Five views. HISTORY: Injury. FINDINGS: Five views left knee demonstrate normal bones, joints, and soft tissues. A normal fabella is seen. No fracture or subluxation is seen. No evidence of joint effusion. IMPRESSION: Negative left knee series. Signed by Dewayne Edmond MD 06/28/2016 10:04 A
--- NOTE | 2016-06-29 21:31 | EDDOCDS ---
Nurse's Notes [facility] Name: Krystal Robb Age: 45 yrs Sex: Female : 1970 Arrival Date: 06/27/2016 Time: 18:45 Bed TR8 Private MD: Cherelle Mendez Diagnosis: Contusion of left knee Presentation: 06/27 19:02 Presenting complaint: Patient states: that she injured her L knee last night. Adult ms18 Sepsis Screening: The patient does not have new or worsening altered mentation. Patient's respiratory rate is less than 22. Systolic blood pressure is greater than 100. Patient has a qSOFA score of 0- Negative Sepsis Screen. Suicide/Homicide risk assessment- the patient denies having any suicidal and/or homicidal ideations and does not present with any other emotional, behavioral or mental health complaints. Status: Patient is not a alarm service technician or dependent. Transition of care: patient was not received from another setting of care. 19:02 Acuity: JOYCE Level 4 ms18 19:02 Method Of Arrival: Walkin/Carried/Asstd ms18 Triage Assessment: 19:06 General: Appears in no apparent distress, Behavior is appropriate for age, cooperative. ms18 Pain: Location: left knee Pain currently is 8 out of 10 on a pain scale. HIV screening NA for this visit Offered previously. Neurological: No deficits noted. Moves all extremities. Gait is steady. Respiratory: No deficits noted. Derm: Skin is pink, warm & dry. 19:06 Derm: Bruising that is dark purple, on left knee. 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 lisinopril 20 mg Oral tab once daily 2. Zanaflex Oral 1 cap nightly 3. Prednisone Oral last dose taken this AM 4. Vitamin D 5000 units weekly Oral 5. Miralax 17 gram/dose Oral powd 17 g twice a day - PMHx: chronic abdominal pain for over [address] Kidd; Chronic Back pain; heel spurs; Hypertension; Kidney stones; right ventral hernia; - PSHx: ; D & C; Tonsillectomy; Adenoidectomy; Hernia repair; Laparoscopy; - Social history: Smoking status: Patient uses tobacco products, current every day smoker. No barriers to communication noted, The patient speaks fluent Turkmen. - Family history: Not pertinent. - : The pt / caregiver states he / she is not on anticoagulants. Home medication list is obtained from the patient. - Exposure Risk Screening:: None identified. Screenin:28 Screening information is obtained from the patient. Fall risk: At risk due to prior ttb history of falls, The following interventions are performed due to a positive Fall Risk Screen: Fall Risk is added to Special Handling on the patient Summary Screen. A Fall Risk Bracelet was applied to the patient. Side Rails are placed in the up position. A Call Buchanan is given with instruction to call for help when getting out of bed. Assistance ADL's: requires no assistance with activities of daily living. Abuse/DV Screen: The patient / caregiver reports he/she is: not in a situation that causes fear, pain or injury. Nutritional screening: No deficits noted. Advance Directives: Currently, there is no health care proxy. home support is adequate. Assessment: 20:28 General: Appears in no apparent distress, well nourished, well groomed, Behavior is ttb appropriate for age, cooperative, pleasant. Pain: Location: left knee. Neurological: Level of Consciousness is awake, alert. Cardiovascular: Chest pain is denied. Respiratory: No deficits noted. Airway is patent. Derm: Skin is normal. Musculoskeletal: Range of motion limited in left knee. Injury Description: hit knee on dash board. Vital Signs: 18:47 BP 154 / 76; Pulse 102; Resp 18; Temp 98.2; Pulse Ox 97% on R/A; Weight 67.13 kg (R); ct3 Height 5 ft. 2 in. (157.48 cm) (R); Pain 8/10; 20:20 BP 140 / 76; Pulse 86; Resp 18; Pulse Ox 99% on R/A; jb5 18:47 Body Mass Index 27.07 (67.13 kg, 157.48 cm) ct3 Vitals: 18:47 Log In Time: June 27, 2016 at 18:45. ct3 ED Course: 18:47 Patient visited by Chayo Wood PCA. ct3 18:47 Cherelle Mendez is Private Physician. ct3 18:47 Patient moved to Waiting ct3 18:48 Patient moved to Pre RCE ct3 19:04 Triage Initiated ms18 19:54 Patient moved to Triage 3 jb5 19:55 Roger Martínez PA-C is PHCP. dk1 19:55 Fidel Shepard DO is Attending Physician. dk1 19:57 Patient visited by Sarah Neely PCA. jb5 19:58 Patient visited by Roger Martíenz PA-C. dk1 20:21 Patient visited by Sarah Neely PCA. jb5 20:23 [facility] is Referral Physician. dk1 20:28 Patient moved to TR8 cz 20:28 The patient / caregiver is instructed regarding the plan of care and ED course. ttb Accompanied by Significant Other, Patient has correct armband on for positive identification. 20:28 No IV's were initiated during this patient's visit. No procedures done that require ttb assistance. Adam wrap to left knee. Patient has positive distal pulse, brisk capillary refill, and positive sensation after application. 21:19 [facility] Payment Agreement was scanned into [employer] and attached to record. zo 06/28 08:12 Knee, Complete Returned. EDMS 10:28 T-Sheet-- Draft Copy was scanned into [employer] and attached to record. mm15 Order Results: Radiology Order: Knee, Complete Test: Knee, Complete REASON FOR EXAMINATION: left knee pain/injury; LEFT KNEE SERIES: Five views.; ; HISTORY: Injury.; ; FINDINGS: Five views left knee demonstrate normal bones, joints, and soft; tissues. A normal fabella is seen. No fracture or subluxation is seen. No; evidence of joint effusion.; ; IMPRESSION:; ; Negative left knee series.; ; ; Signed by; Dewayne Edmond MD 06/28/2016 10:04 A; Outcome: 06/27 20:23 Discharge ordered by Provider. dk1 20:28 Discharge Assessment: Patient awake, alert and oriented x 3. No cognitive and/or ttb functional deficits noted. Patient verbalized understanding of disposition instructions. Patient awake and alert. patient administered narcotics - no. The following High Risk Discharge criteria are identified: None. Discharged to home ambulatory, with significant other. Condition: good Condition: stable Condition: improved. Discharge instructions given to patient, significant other, Instructed on discharge instructions, follow up and referral plans. medication usage, Rest, Ice, Compression and Elevation. Demonstrated understanding of instructions, medications, RICE Pt was receptive of discharge instructions/ teaching. No special radiology studies were completed. Property :Personal belongings accompany Pt. 20:31 Patient left the ED. ttb Signatures: Dispatcher [employer] EDMS John Sheikh, RN RN cz Sarah Neely, ENVIRONMENTAL COMPLIANCE INSPECTOR ENVIRONMENTAL COMPLIANCE INSPECTOR jb5 Roger Martínez, MILANA PABreezy dk1 Lidnsey Patton Consuelo, ENVIRONMENTAL COMPLIANCE INSPECTOR ENVIRONMENTAL COMPLIANCE INSPECTOR ct3 Marlene Aranda RN RN ttb Stefano Johnson mm15 Ria Peng RN RN ms18 Chart Complete MTDD
--- NOTE | 2016-06-29 21:31 | EDDOCDS ---
Physician Documentation [facility] Name: Krystal Robb Age: 45 yrs Sex: Female : 1970 Arrival Date: 06/27/2016 Time: 18:45 Bed TR8 Private MD: Cherelle Mendez Disposition: 06/27/16 20:23 Discharged to Home/Self Care. Impression: Contusion of left knee. - Condition is Stable. - Discharge Instructions: Knee Pain. - Medication Reconciliation, Local Pharmacy Hours form. - Follow up: [facility]; When: 2 - 3 days; Reason: Continuance of care. Follow up: Emergency Department; When: As needed; Reason: Worsening of conditions. - Problem is new. - Symptoms have improved. Historical: - Allergies: PENICILLINS (Hives); - Home Meds: 1. lisinopril 20 mg Oral tab once daily 2. Zanaflex Oral 1 cap nightly 3. Prednisone Oral last dose taken this AM 4. Vitamin D 5000 units weekly Oral 5. Miralax 17 gram/dose Oral powd 17 g twice a day - PMHx: chronic abdominal pain for over [address] is seeing Dr[address] Kidd; Chronic Back pain; heel spurs; Hypertension; Kidney stones; right ventral hernia; - PSHx: ; D & C; Tonsillectomy; Adenoidectomy; Hernia repair; Laparoscopy; - Social history: Smoking status: Patient uses tobacco products, current every day smoker. No barriers to communication noted, The patient speaks fluent Mongolian. - Family history: Not pertinent. - : The pt / caregiver states he / she is not on anticoagulants. Home medication list is obtained from the patient. - Exposure Risk Screening:: None identified. KILN HAND: 06/27 19:06 LMP 06/15/2016 ms18 Vital Signs: 18:47 BP 154 / 76; Pulse 102; Resp 18; Temp 98.2; Pulse Ox 97% on R/A; Weight 67.13 kg / 148 ct3 lbs (R); Height 5 ft. 2 in. (157.48 cm) (R); Pain 8/10; 20:20 BP 140 / 76; Pulse 86; Resp 18; Pulse Ox 99% on R/A; jb5 18:47 Body Mass Index 27.07 (67.13 kg, 157.48 cm) ct3 MDM: 19:06 Knee, Complete Ordered. EDMS 20:22 Adam Wrap ordered. dk1 20:29 Financial registration complete. zo :19 [facility] Payment Agreement was scanned into Libretto and attached to record. zo 06/28 10:28 T-Sheet-- Draft Copy was scanned into Libretto and attached to record. mm15 Signatures: Dispatcher [employer] EDMS Roger Martínez PA-C PABreezy dk1 Lindsey Patton Teresa, RN RN ttb Stefano Johnson mm15 Ria Peng RN RN ms18 The chart was reviewed and I authenticate all verbal orders and agree with the evaluation and treatment provided.Attachments: 06/27 21:19 [facility] Payment Agreement zo 06/28 10:28 T-Sheet-- Draft Copy mm15 Chart Complete MTDD
--- NOTE | 2016-06-29 21:31 | EDDOCDS ---
Physician Documentation [facility] Name: Krystal Robb Age: 45 yrs Sex: Female : 1970 Arrival Date: 06/27/2016 Time: 18:45 Bed TR8 Private MD: Cherelle Mendez Disposition: 06/27/16 20:23 Discharged to Home/Self Care. Impression: Contusion of left knee. - Condition is Stable. - Discharge Instructions: Knee Pain. - Medication Reconciliation, Local Pharmacy Hours form. - Follow up: [facility]; When: 2 - 3 days; Reason: Continuance of care. Follow up: Emergency Department; When: As needed; Reason: Worsening of conditions. - Problem is new. - Symptoms have improved. Historical: - Allergies: PENICILLINS (Hives); - Home Meds: 1. lisinopril 20 mg Oral tab once daily 2. Zanaflex Oral 1 cap nightly 3. Prednisone Oral last dose taken this AM 4. Vitamin D 5000 units weekly Oral 5. Miralax 17 gram/dose Oral powd 17 g twice a day - PMHx: chronic abdominal pain for over [address] seeing Dr[address] Kidd; Chronic Back pain; heel spurs; Hypertension; Kidney stones; right ventral hernia; - PSHx: ; D & C; Tonsillectomy; Adenoidectomy; Hernia repair; Laparoscopy; - Social history: Smoking status: Patient uses tobacco products, current every day smoker. No barriers to communication noted, The patient speaks fluent Nepalese. - Family history: Not pertinent. - : The pt / caregiver states he / she is not on anticoagulants. Home medication list is obtained from the patient. - Exposure Risk Screening:: None identified. 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 2 in. (157.48 cm) (R); Pain 8/10; 20:20 BP 140 / 76; Pulse 86; Resp 18; Pulse Ox 99% on R/A; jb5 18:47 Body Mass Index 27.07 (67.13 kg, 157.48 cm) ct3 MDM: 19:06 Knee, Complete Ordered. EDMS 20:22 Adam Wrap ordered. dk1 20:29 Financial registration complete. zo :19 [facility] Payment Agreement was scanned into Yo que Vos and attached to record. zo 06/28 10:28 T-Sheet-- Draft Copy was scanned into Yo [employer] V[employer] and attached to record. mm15 Signatures: Dispatcher [employer] EDMS Roger Martínez PA-C PABreezy dk1 Lindsey Patton Teresa, RN RN ttb Stefano Johnson mm15 Ria Peng RN RN ms18 The chart was reviewed and I authenticate all verbal orders and agree with the evaluation and treatment provided.Attachments: 06/27 21:19 [facility] Payment Agreement zo 06/28 10:28 T-Sheet-- Draft Copy mm15 Chart Complete MTDD
== END 2016-06-27 20:31 | disposition home or self-care (01) ==
LOC: M ED 18:45
DX: S80.02XA Contusion of left knee, initial encounter (principal); W22.8XXA Striking against or struck by other objects, initial encounter; Y92.89 Other specified places as the place of occurrence of the external cause; Y93.89 Activity, other specified; Y99.8 Other external cause status; R10.9 Unspecified abdominal pain; M54.9 Dorsalgia, unspecified; M77.30 Calcaneal spur, unspecified foot; I10 Essential (primary) hypertension; Z87.442 Personal history of urinary calculi; K43.9 Ventral hernia without obstruction or gangrene; F17.210 Nicotine dependence, cigarettes, uncomplicated; Z79.899 Other long term (current) drug therapy; Z79.52 Long term (current) use of systemic steroids; Z88.0 Allergy status to penicillin

== ENCOUNTER → 2016-08-18 | Outpatient (CLI) | payer OTHER ==
--- NOTE | 2016-08-18 10:19 | REP ---
MRI LUMBAR SPINE WITHOUT CONTRAST: HISTORY: Back pain. COMPARISON: 05/02/2015. There is no disc bulge or herniation at the L1-2 through L3-4 levels. The nerves exit the neural foramina without compression. A diffuse disc bulge is present at the L4-5 level. There is minimal compression of the thecal sac. The L4 nerves exit the neural foramina without compression. A small central disc protrusion is present at the L5-S1 level. This abuts the thecal sac. There is hypertrophy of the posterior articulating facets. The L5 nerves exit the neural foramina without compression. The conus medullaris is normal in appearance terminating at the level of the L1-2 intervertebral disc. Nerve root sleeve diverticula or perineural cysts are present at the L2 level. 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 A hemangioma is present in the L5 vertebral body. Normal signal intensity is present in the remaining lumbar vertebral bodies. IMPRESSION: 1. Diffuse disc bulge at the L4-5 level with minimal thecal sac compression. 2. Small central disc protrusion at the L5-S1 level. This abuts the thecal sac. There is no change compared to the previous study. Signed by Will Clifford MD 08/18/2016 10:26 A
== END ==
LOC: M RAD 08:57
PROVIDERS: ATTEND Physician Assistant
DX: M51.06 Intervertebral disc disorders with myelopathy, lumbar region (principal); M51.27 Other intervertebral disc displacement, lumbosacral region

== ENCOUNTER 2016-09-02 12:51 | Emergency (ER) | payer OTHER ==
[~2016-09-02] VITALS: Ht 157.5 cm; Wt 65.3 kg
[~2016-09-02 12:51] MED LIST changes: -COLA100C PO; +COLA100C3 PO
[2016-09-02] MEDS ORDERED: POLY1POW4 PO (13:28)
[2016-09-02] MEDS ORDERED: TIZA2CAP3 PO (13:28)
[2016-09-02] MEDS ORDERED: PRED20TA PO (14:04)
[2016-09-02] MEDS ORDERED: NAPR500T PO (14:04)
[2016-09-02] MEDS ORDERED: CEFD300CAP FT (14:04)
[2016-09-02 14:21] VITALS: BP 147/102
== END 2016-09-02 14:27 | disposition home or self-care (01) ==
LOC: M ED 14:01
DX: J02.9 Acute pharyngitis, unspecified (principal); F17.210 Nicotine dependence, cigarettes, uncomplicated; Z88.0 Allergy status to penicillin; Z79.899 Other long term (current) drug therapy; K58.9 Irritable bowel syndrome, unspecified

== ENCOUNTER → 2016-11-18 | Outpatient (CLI) | payer OTHER ==
[~2016-11-18] MED LIST changes: -ACET160L7 PO; +ACET1LIQ PO; +BACT800T5 PO; +CEFD300CAP FT; -COLA100C3 PO; +COLA100C5 PO; +NAPR500T PO; +NAPR500T3 PO; +POLY1POW4 PO; +PRED20TA PO; +ROBA500T PO; +TIZA2CAP3 PO
[2016-11-18 12:47] LABS: BASO % 0.3 % (0.0-1.0); EOS % 0.5 % (0.0-3.0); LARGE UNSTAINED CELL # 0.1 K/mm3 (0.0-0.4); LYMPH # 2.2 K/mm3 (1.5-4.5); LYMPH % 20.4 % (24.0-44.0); MEAN CORPUSCULAR HEMOGLOBIN 36.1 pg (27.0-33.0); MEAN CORPUSCULAR HGB CONC 33.9 g/dl (32.0-36.5); MEAN CORPUSCULAR VOLUME 106.3 fl (80.0-96.0); MONO # 0.5 K/mm3 (0.0-0.8); MONO % 5.2 % (0.0-5.0); NEUTROPHILS # 7.5 K/mm3 (1.8-7.7); NEUTROPHILS % 72.6 % (36.0-66.0); PLATELET COUNT, AUTOMATED 347 k/mm3 (150-450); RED CELL DISTRIBUTION WIDTH 12.7 % (11.5-14.5); WHITE BLOOD COUNT 10.4 K/mm3 (4.0-10.0)
== END ==
LOC: M LAB 11:53
PROVIDERS: ATTEND Family Medicine Addiction Medicine
DX: R59.0 Localized enlarged lymph nodes (principal)

== ENCOUNTER → 2017-02-20 | Outpatient (CLI) | payer OTHER ==
[2017-02-20 17:37] LABS: ALBUMIN 3.8 GM/DL (3.2-5.2); ALBUMIN/GLOBULIN RATIO 1.19 (1.00-1.93); ALKALINE PHOSPHATASE 91 U/L (45-117); ALT/SGPT 36 U/L (12-78); ANION GAP 6 MEQ/L (8-16); AST/SGOT 22 U/L (15-37); BILIRUBIN,TOTAL 0.4 MG/DL (0.2-1.0); BLOOD UREA NITROGEN 8 MG/DL (7-18); CALCIUM LEVEL 8.5 MG/DL (8.5-10.1); CARBON DIOXIDE LEVEL 28 MEQ/L (21-32); CHLORIDE LEVEL 108 MEQ/L (98-107); CREATININE FOR GFR 0.71 MG/DL (0.55-1.02); GLOMERULAR FILTRATION RATE > 60.0 (>58); GLUCOSE, FASTING 91 MG/DL (70-105); POTASSIUM SERUM 3.8 MEQ/L (3.5-5.1); SODIUM LEVEL 142 MEQ/L (136-145)
[2017-02-20 18:04] LABS: BASO % 0.4 % (0.0-1.0); EOS # 0.1 10^3/uL (0.0-0.50); EOS % 0.6 % (0.0-3.0); IMMATURE GRANULOCYTE % 0.2 % (0-0); LYMPH # 2.2 10^3/uL (1.5-4.5); LYMPH % 26.3 % (24.0-44.0); MEAN CORPUSCULAR HEMOGLOBIN 35.5 pg (27.0-33.0); MEAN CORPUSCULAR HGB CONC 34.6 g/dl (32.0-36.5); MEAN CORPUSCULAR VOLUME 102.7 fl (80.0-96.0); MONO # 0.7 10^3/uL (0.0-0.8); MONO % 7.8 % (0.0-5.0); NEUTROPHILS # 5.5 10^3/uL (1.8-7.7); NEUTROPHILS % 64.7 % (36.0-66.0); PLATELET COUNT, AUTOMATED 305 10^3/uL (150-450); RED CELL DISTRIBUTION WIDTH 12.3 % (11.5-14.5); WHITE BLOOD COUNT 8.5 10^3/uL (4.0-10.0)
[2017-02-20 18:05] LABS: ADD MORPHOLOGY? NO
[2017-02-20 19:00] LABS: ERYTHROCYTE SEDIMENTATION RATE 1 mm/hr (0-20)
== END ==
LOC: M LAB 16:23
PROVIDERS: ATTEND Family Medicine Addiction Medicine
DX: R59.0 Localized enlarged lymph nodes (principal)

== ENCOUNTER → 2017-03-11 | Outpatient (REF) | payer OTHER ==
[2017-03-11 13:11] LABS: INR 0.96
[2017-03-11 13:14] LABS: FOLATE 19.5 NG/ML; VITAMIN B12 LEVEL 535 PG/ML
[2017-03-12 14:20] LABS: SJOGREN'S ANTI SS-A <0.2 AI (0.0-0.9); SJOGREN'S ANTI SS-B <0.2 AI (0.0-0.9); TOXOPLASMA IgG ABY <3.0 IU/mL (0.0-7.1)
== END ==
LOC: M LAB REF 12:36
PROVIDERS: ATTEND Internal Medicine Medical Oncology
DX: R59.0 Localized enlarged lymph nodes (principal)

== ENCOUNTER → 2017-04-17 | Outpatient (CLI) | payer OTHER ==
--- NOTE | 2017-04-17 15:39 | ECGEPIP ---
Stationary ECG Study 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
== END ==
LOC: M EKG 09:23
PROVIDERS: ATTEND Family Medicine Addiction Medicine
DX: R00.2 Palpitations (principal)

== ENCOUNTER → 2017-05-14 | Outpatient (CLI) | payer OTHER ==
--- NOTE | 2017-05-19 13:17 | REP ---
Clinical: Abdominal pain. Sitz marker study. Technique: Single supine view of the abdomen and pelvis. Findings: Bowel gas pattern is nonspecific although mild fecal stasis cannot be excluded. No residual sitz markers are appreciated. There is no evidence for bowel obstruction. No organomegaly. No abnormal calcifications. Skeletal structures are intact. Impression: Nonspecific examination. No residual sitz markers identified. Signed by Juaquin Worthington MD 05/19/2017 01:08 P
== END ==
LOC: M RAD 11:43
PROVIDERS: ATTEND Physician Assistant Medical
DX: R10.84 Generalized abdominal pain (principal); R19.8 Other specified symptoms and signs involving the digestive system and abdomen

== ENCOUNTER → 2017-05-14 | Outpatient (REF) | payer OTHER | LOC: M LAB REF 16:25 | PROVIDERS: ATTEND Internal Medicine | DX: D51.9 Vitamin B12 deficiency anemia, unspecified (principal) ==

== ENCOUNTER 2017-06-02 18:51 | Emergency (ER) | payer OTHER ==
[2017-06-02 21:29] LABS: KETONE, URINE AUTO RFX TRACE mg/dL (NEGATIVE); LEUKOCYTE ESTERASE UR AUTO RFX NEGATIVE (NEGATIVE); MUCUS, URINE RFX SMALL (NEGATIVE); NITRITE, URINE AUTO RFX NEGATIVE (NEGATIVE); RBC, URINE AUTO RFX 2 /HPF (0-3); SQUAM EPITHELIAL CELL UR AURFX 2 /HPF (0-6); WBC, URINE AUTO RFX 2 /HPF (0-3)
[2017-06-02 22:39] LABS: BASO % 0.2 % (0.0-1.0); EOS # 0.1 10^3/uL (0.0-0.50); EOS % 0.6 % (0.0-3.0); HEMATOCRIT 43.6 % (36.0-47.0); HEMOGLOBIN 15.3 g/dl (12.0-16.0); IMMATURE GRANULOCYTE # 0.1 10^3/uL (0-0); IMMATURE GRANULOCYTE % 0.4 % (0-0); LYMPH # 2.6 10^3/uL (1.5-4.5); LYMPH % 20.7 % (24.0-44.0); MEAN CORPUSCULAR HEMOGLOBIN 34.9 pg (27.0-33.0); MEAN CORPUSCULAR HGB CONC 35.1 g/dl (32.0-36.5); MEAN CORPUSCULAR VOLUME 99.5 fl (80.0-96.0); MONO # 0.7 10^3/uL (0.0-0.8); MONO % 5.7 % (0.0-5.0); NEUTROPHILS # 9.1 10^3/uL (1.8-7.7); NEUTROPHILS % 72.4 % (36.0-66.0); PLATELET COUNT, AUTOMATED 321 10^3/uL (150-450); RED BLOOD COUNT 4.38 10^6/uL (4.00-5.40); RED CELL DISTRIBUTION WIDTH 11.3 % (11.5-14.5); WHITE BLOOD COUNT 12.6 10^3/uL (4.0-10.0)
[2017-06-02] MEDS: ONDANSETRON 4MG/2ML VIAL (J2405) IV (22:49)
[2017-06-02] MEDS: MORPHINE 4 MG/ML 1ML SYRINGE IV (22:49)
[2017-06-02] MEDS: NS 1,000 ML IV (22:49)
[2017-06-02 23:31] LABS: ALBUMIN/GLOBULIN RATIO 1.33 (1.00-1.93); ALKALINE PHOSPHATASE 67 U/L (45-117); ALT/SGPT 24 U/L (12-78); ANION GAP 7 MEQ/L (8-16); AST/SGOT 11 U/L (7-37); BILIRUBIN,DIRECT 0.2 MG/DL (0.0-0.2); BILIRUBIN,TOTAL 0.7 MG/DL (0.2-1.0); BLOOD UREA NITROGEN 10 MG/DL (7-18); CALCIUM LEVEL 8.9 MG/DL (8.5-10.1); CARBON DIOXIDE LEVEL 26 MEQ/L (21-32); CHLORIDE LEVEL 104 MEQ/L (98-107); CREATININE FOR GFR 0.72 MG/DL (0.55-1.02); GLOMERULAR FILTRATION RATE > 60.0 (>58); GLUCOSE, FASTING 77 MG/DL (70-105); LIPASE 143 U/L (73-393); POTASSIUM SERUM 4.1 MEQ/L (3.5-5.1); SODIUM LEVEL 137 MEQ/L (136-145)
[2017-06-02] MEDS ORDERED: ISOVUE-370 76% 100ML VIAL (Q9967) As Ordered (23:37)
[2017-06-03] MEDS: MORPHINE 4 MG/ML 1ML SYRINGE IV
[2017-06-03] MEDS: metroNIDAZOLE (FLAGYL) 500 MG TAB PO (01:12)
[2017-06-03] MEDS: CIPROFLOXACIN 500 MG TAB PO (01:12)
[2017-06-03] MEDS: OXYCODONE/APAP 5MG/325MG(BULK FOR ED) 1 TABLET PO (01:13)
== END 2017-06-03 01:21 | disposition home or self-care (01) ==
LOC: M ED 06-03 01:21
DX: A09 Infectious gastroenteritis and colitis, unspecified (principal); K59.00 Constipation, unspecified; J45.909 Unspecified asthma, uncomplicated; G43.909 Migraine, unspecified, not intractable, without status migrainosus; K58.9 Irritable bowel syndrome, unspecified; M54.9 Dorsalgia, unspecified; Z87.440 Personal history of urinary (tract) infections; Z87.442 Personal history of urinary calculi; K57.92 Diverticulitis of intestine, part unspecified, without perforation or abscess without bleeding; Z87.19 Personal history of other diseases of the digestive system; F17.210 Nicotine dependence, cigarettes, uncomplicated; Z88.0 Allergy status to penicillin; Z79.899 Other long term (current) drug therapy
CPT/HCPCS: J2405

== ENCOUNTER → 2017-06-10 | Outpatient (REF) | payer OTHER ==
[2017-06-13 00:07] LABS: ANTI DOUBLE STRAND-DNA AB <1 IU/mL (0-9); ANTINUCLEAR ANTIBODIES DIRECT Positive (Negative); RNP ANTIBODIES 5.6 AI (0.0-0.9); SJOGREN'S ANTI SS-A <0.2 AI (0.0-0.9); SJOGREN'S ANTI SS-B <0.2 AI (0.0-0.9); SMITH ANTIBODIES <0.2 AI (0.0-0.9)
== END ==
LOC: M LAB REF 16:04
DX: R53.83 Other fatigue (principal)

== ENCOUNTER → 2017-06-26 | Outpatient (REF) | payer OTHER ==
[2017-06-26 12:39] LABS: HEMATOCRIT 43.1 % (36.0-47.0)
[2017-06-26 15:10] LABS: VITAMIN B12 LEVEL 506 PG/ML (247-911)
[2017-06-26 15:11] LABS: FOLATE 8.4 NG/ML (>5.4)
[2017-06-30 10:35] LABS: PRETREATED FOLATE FOR RBCFOL 18.6 NG/ML; RBC FOLATE 906.3 NG/ML (280-791)
== END ==
LOC: M LAB REF 12:06
DX: C53.9 Malignant neoplasm of cervix uteri, unspecified (principal)

== ENCOUNTER → 2017-07-15 | Outpatient (REF) | payer OTHER | LOC: M LAB REF 16:33 | DX: N39.0 Urinary tract infection, site not specified (principal) ==

== ENCOUNTER → 2017-07-15 | Outpatient (CLI) | payer OTHER | LOC: M WHC 15:00 | DX: E34.9 Endocrine disorder, unspecified (principal) | CPT/HCPCS: 77080 ==

== ENCOUNTER → 2017-07-15 | Outpatient (CLI) | payer OTHER | LOC: M RAD 16:29 | DX: Z87.442 Personal history of urinary calculi (principal) | CPT/HCPCS: 76775 ==

== ENCOUNTER 2017-07-20 15:01 | Emergency (ER) | payer OTHER ==
[2017-07-20 16:54] LABS: BASO % 0.4 % (0.0-1.0); EOS # 0.1 10^3/uL (0.0-0.50); EOS % 0.8 % (0.0-3.0); HEMATOCRIT 47.7 % (36.0-47.0); HEMOGLOBIN 16.6 g/dl (12.0-16.0); IMMATURE GRANULOCYTE % 0.3 % (0-3.0); LYMPH # 2.1 10^3/uL (1.5-4.5); LYMPH % 23.4 % (24.0-44.0); MEAN CORPUSCULAR HEMOGLOBIN 34.2 pg (27.0-33.0); MEAN CORPUSCULAR HGB CONC 34.8 g/dl (32.0-36.5); MEAN CORPUSCULAR VOLUME 98.4 fl (80.0-96.0); MONO # 0.5 10^3/uL (0.0-0.8); MONO % 5.3 % (0.0-5.0); NEUTROPHILS # 6.3 10^3/uL (1.8-7.7); NEUTROPHILS % 69.8 % (36.0-66.0); PLATELET COUNT, AUTOMATED 347 10^3/uL (150-450); RED BLOOD COUNT 4.85 10^6/uL (4.00-5.40); RED CELL DISTRIBUTION WIDTH 11.8 % (11.5-14.5); WHITE BLOOD COUNT 9.1 10^3/uL (4.0-10.0)
[2017-07-20] MEDS: ONDANSETRON 4MG/2ML VIAL (J2405) IV (16:57)
[2017-07-20] MEDS: MORPHINE 4 MG/ML 1ML VIAL (J2270) IV (16:57)
[2017-07-20] MEDS: NS 1,000 ML IV (16:58)
[2017-07-20 17:03] LABS: KETONE, URINE AUTO RFX NEGATIVE (NEGATIVE); LEUKOCYTE ESTERASE UR AUTO RFX NEGATIVE (NEGATIVE); NITRITE, URINE AUTO RFX NEGATIVE (NEGATIVE); RBC, URINE AUTO RFX 0 /HPF (0-3); SPECIFIC GRAVITY UR AUTO RFX 1.001 (1.002-1.035); SQUAM EPITHELIAL CELL UR AURFX 0 /HPF (0-6); WBC, URINE AUTO RFX 0 /HPF (0-3)
[2017-07-20 17:20] LABS: ANION GAP 10 MEQ/L (8-16); BLOOD UREA NITROGEN 10 MG/DL (7-18); CALCIUM LEVEL 8.9 MG/DL (8.5-10.1); CARBON DIOXIDE LEVEL 24 MEQ/L (21-32); CHLORIDE LEVEL 108 MEQ/L (98-107); CREATININE FOR GFR 0.83 MG/DL (0.55-1.30); ETHYL ALCOHOL (ETHANOL) 0.199 % (0.000-0.010); GLOMERULAR FILTRATION RATE > 60.0 (>58); GLUCOSE, FASTING 80 MG/DL (70-100); POTASSIUM SERUM 5.1 MEQ/L (3.5-5.1); SODIUM LEVEL 142 MEQ/L (136-145)
== END 2017-07-20 19:21 | disposition home or self-care (01) ==
LOC: M ED 15:01
DX: R10.9 Unspecified abdominal pain (principal); F11.20 Opioid dependence, uncomplicated; F10.120 Alcohol abuse with intoxication, uncomplicated; R31.9 Hematuria, unspecified; G43.909 Migraine, unspecified, not intractable, without status migrainosus; E21.3 Hyperparathyroidism, unspecified; M32.9 Systemic lupus erythematosus, unspecified; Z87.440 Personal history of urinary (tract) infections; K58.9 Irritable bowel syndrome, unspecified; F17.210 Nicotine dependence, cigarettes, uncomplicated; Z88.0 Allergy status to penicillin; Z79.899 Other long term (current) drug therapy; Z79.2 Long term (current) use of antibiotics
CPT/HCPCS: J2270

== ENCOUNTER → 2017-07-27 | Outpatient (REF) | payer OTHER ==
[2017-07-27 19:41] LABS: PTH INTACT 75.2 PG/ML (18.5-88.0)
== END ==
LOC: M LAB REF 17:50
DX: R79.89 Other specified abnormal findings of blood chemistry (principal); Z87.442 Personal history of urinary calculi

== ENCOUNTER → 2017-08-14 | Outpatient (CLI) | payer OTHER ==
[2017-08-14 15:35] LABS: BLOOD UREA NITROGEN 12 MG/DL (7-18)
[2017-08-14 15:35] LABS: GLOMERULAR FILTRATION RATE > 60.0 (>58)
== END ==
LOC: M LAB 14:38
DX: M54.16 Radiculopathy, lumbar region (principal); M51.27 Other intervertebral disc displacement, lumbosacral region; M72.2 Plantar fascial fibromatosis; M47.817 Spondylosis without myelopathy or radiculopathy, lumbosacral region
CPT/HCPCS: 82565

== ENCOUNTER → 2017-08-18 | Outpatient (REF) | payer OTHER ==
[2017-08-18 18:48] LABS: APPEARANCE, URINE CLEAR (CLEAR); BACTERIA, URINE AUTO 1+ (NEGATIVE); BILIRUBIN, URINE AUTO NEGATIVE (NEGATIVE); BLOOD, URINE BLOOD NEGATIVE (NEGATIVE); COLOR, URINE YELLOW (YELLOW); GLUCOSE, URINE (UA) AUTO NEGATIVE (NEGATIVE); KETONE, URINE AUTO NEGATIVE (NEGATIVE); LEUKOCYTE ESTERASE, URINE AUTO NEGATIVE (NEGATIVE); MUCUS, URINE SMALL (NEGATIVE); NITRITE, URINE AUTO NEGATIVE (NEGATIVE); PROTEIN, URINE AUTO NEGATIVE (NEGATIVE); RBC, URINE AUTO 1 /HPF (0-3); SPECIFIC GRAVITY URINE AUTO 1.015 (1.002-1.035); SQUAMOUS EPITHELIAL CELL UR AU 1 /HPF (0-6); UROBILINOGEN, URINE AUTO 0.2 mg/dL (0.0-2.0); WBC, URINE AUTO 2 /HPF (0-3)
== END ==
LOC: M SMT 17:14
DX: R32 Unspecified urinary incontinence (principal)

== ENCOUNTER → 2017-10-21 | Outpatient (CLI) | payer OTHER ==
[2017-10-22 14:17] LABS: ANTI DOUBLE STRAND-DNA AB <1 IU/mL (0-9); SMITHS ANTIBODY < 0.2 AI (0.0-0.9)
== END ==
LOC: M LAB 09:10
DX: M79.7 Fibromyalgia (principal); R76.8 Other specified abnormal immunological findings in serum; E34.9 Endocrine disorder, unspecified
CPT/HCPCS: 86255

== ENCOUNTER → 2017-10-23 | Outpatient (REF) | payer OTHER ==
[2017-10-23 13:03] LABS: TOTAL VOLUME, URINE 1500 ML
[2017-10-23 13:10] LABS: CALCIUM, URINE 9.2 MG/DL
== END ==
LOC: M LAB REF 12:11
DX: Z09 Encounter for follow-up examination after completed treatment for conditions other than malignant neoplasm (principal); Z87.442 Personal history of urinary calculi

== ENCOUNTER → 2017-11-02 | Outpatient (REF) | payer OTHER ==
[2017-11-02 18:31] LABS: PTH INTACT 70.5 PG/ML (18.5-88.0)
[2017-11-05 00:07] LABS: ANTI DOUBLE STRAND-DNA AB <1 IU/mL (0-9); ANTINUCLEAR ANTIBODIES DIRECT Positive (Negative); RNP ANTIBODIES 6.1 AI (0.0-0.9); SJOGREN'S ANTI SS-A <0.2 AI (0.0-0.9); SJOGREN'S ANTI SS-B <0.2 AI (0.0-0.9); SMITH ANTIBODIES <0.2 AI (0.0-0.9)
== END ==
LOC: M LAB REF 17:45
DX: M79.7 Fibromyalgia (principal); M06.4 Inflammatory polyarthropathy

== ENCOUNTER 2018-05-08 20:15 | Emergency (ER) | payer OTHER ==
[2018-05-08 20:58] LABS: BASO % 0.2 % (0.0-1.0); EOS % 0.1 % (0.0-3.0); HEMATOCRIT 45.6 % (36.0-47.0); HEMOGLOBIN 16.3 g/dl (12.0-15.5); IMMATURE GRANULOCYTE % 0.4 % (0-3.0); LYMPH # 1.9 10^3/uL (1.5-4.5); LYMPH % 9.5 % (24.0-44.0); MEAN CORPUSCULAR HEMOGLOBIN 36.2 pg (27.0-33.0); MEAN CORPUSCULAR HGB CONC 35.7 g/dl (32.0-36.5); MEAN CORPUSCULAR VOLUME 101.3 fl (80.0-96.0); MONO # 1.1 10^3/uL (0.0-0.8); MONO % 5.8 % (0.0-5.0); NEUTROPHILS # 16.4 10^3/uL (1.8-7.7); PLATELET COUNT, AUTOMATED 354 10^3/uL (150-450); RED CELL DISTRIBUTION WIDTH 11.7 % (11.5-14.5); WHITE BLOOD COUNT 19.6 10^3/uL (4.0-10.0)
[2018-05-08] MEDS: NS 1,000 ML IV (21:04)
[2018-05-08] MEDS: HYDROMORPHONE HCL 0.5 MG/ 0.5 ML SYRINGE (J1170 PER 1) IV ×2 (21:06→21:44)
[2018-05-08] MEDS: ONDANSETRON 4MG/2ML VIAL (J2405) IV (21:07)
[2018-05-08 21:13] LABS: CONTROL LINE HCG INT CTR LINE PRESENT; HCG, SERUM QUALITATIVE NEGATIVE (NEGATIVE)
[2018-05-08 21:21] LABS: ALBUMIN 3.6 GM/DL (3.2-5.2); ALBUMIN/GLOBULIN RATIO 1.06 (1.00-1.93); ALKALINE PHOSPHATASE 168 U/L (45-117); ALT/SGPT 26 U/L (12-78); ANION GAP 13 MEQ/L (8-16); AST/SGOT 23 U/L (7-37); BILIRUBIN,DIRECT 0.2 MG/DL (0.0-0.2); BILIRUBIN,TOTAL 0.6 MG/DL (0.2-1.0); BLOOD UREA NITROGEN 6 MG/DL (7-18); CALCIUM LEVEL 8.5 MG/DL (8.5-10.1); CARBON DIOXIDE LEVEL 23 MEQ/L (21-32); CHLORIDE LEVEL 104 MEQ/L (98-107); CREATININE FOR GFR 0.83 MG/DL (0.55-1.30); GLOMERULAR FILTRATION RATE > 60.0 (>58); GLUCOSE, FASTING 109 MG/DL (70-100); LIPASE 112 U/L (73-393); POTASSIUM SERUM 3.5 MEQ/L (3.5-5.1); SODIUM LEVEL 140 MEQ/L (136-145)
[2018-05-08 22:00] LABS: AMORPHOUS SEDIMENT RFX SMALL (NEGATIVE); KETONE, URINE AUTO RFX NEGATIVE (NEGATIVE); RBC, URINE AUTO RFX 67 /HPF (0-3); SPECIFIC GRAVITY UR AUTO RFX 1.005 (1.002-1.035); SQUAM EPITHELIAL CELL UR AURFX 8 /HPF (0-6); TRANSITIONAL EPITHELIAL AU RFX 1 /HPF
[2018-05-08 22:01] LABS: LEUKOCYTE ESTERASE UR AUTO RFX 3+ (NEGATIVE); NITRITE, URINE AUTO RFX POSITIVE (NEGATIVE); WBC, URINE AUTO RFX TNTC /HPF (0-3)
[2018-05-08 22:07] LABS: AMPHETAMINES LEVEL URINE NEGATIVE (NEGATIVE); BARBITURATES URINE NEGATIVE (NEGATIVE); BENZODIAZEPINES URINE NEGATIVE (NEGATIVE); CANNABINOIDS URINE NEGATIVE (NEGATIVE); COCAINE METABOLITE URINE NEGATIVE (NEGATIVE); METHADONE URINE NEGATIVE (NEGATIVE); OPIATES URINE NEGATIVE (NEGATIVE); PHENCYCLIDINE URINE NEGATIVE (NEGATIVE)
[2018-05-08] MEDS: KETOROLAC 30 MG/ML VIAL (J1885) IV (23:33)
[2018-05-09] MEDS: cefTRIAXone SOD 1 GM in D5W MINI-BAG PLUS 50 ML IV (00:11)
[2018-05-09] MEDS: NS 1,000 ML IV (00:11)
[2018-05-09] MEDS: OXYCODONE/APAP 5MG/325MG(BULK FOR ED) 1 TABLET PO (00:46)
== END 2018-05-09 01:02 | disposition home or self-care (01) ==
LOC: M ED 05-09 01:02
DX: N10 Acute pyelonephritis (principal); Z87.442 Personal history of urinary calculi; Z87.440 Personal history of urinary (tract) infections; K76.0 Fatty (change of) liver, not elsewhere classified; Z72.0 Tobacco use; Z88.0 Allergy status to penicillin
CPT/HCPCS: J2405

== ENCOUNTER 2018-08-02 12:43 | Emergency (ER) | payer OTHER ==
[~2018-08-02] VITALS: Ht 157.5 cm; Wt 69.1 kg
[~2018-08-02 12:43] MED LIST changes: +CIPR-249 PO; +CYCL10TA PO; +FLAG500T PO; +IBUP-1114 PO; +NAPR-50 PO; +NAPR-885 PO; -NAPR500T PO; -NAPR500T3 PO; +PERC5TAB12 PO; -POLY1POW4 PO; +POLY33503 PO; +TIZA2CAP PO; -TIZA2CAP3 PO
[2018-08-02 13:18] LABS: BASO % 0.6 % (0.0-1.0); EOS # 0.1 10^3/uL (0.0-0.50); EOS % 0.8 % (0.0-3.0); HEMATOCRIT 44.1 % (36.0-47.0); HEMOGLOBIN 15.1 g/dl (12.0-15.5); LYMPH # 1.9 10^3/uL (1.5-4.5); LYMPH % 29.4 % (24.0-44.0); MEAN CORPUSCULAR HEMOGLOBIN 34.6 pg (27.0-33.0); MEAN CORPUSCULAR HGB CONC 34.2 g/dl (32.0-36.5); MEAN CORPUSCULAR VOLUME 101.1 fl (80.0-96.0); MONO # 1.2 10^3/uL (0.0-0.8); MONO % 19.1 % (0.0-5.0); NEUTROPHILS # 3.2 10^3/uL (1.8-7.7); NEUTROPHILS % 49.8 % (36.0-66.0); PLATELET COUNT, AUTOMATED 289 10^3/uL (150-450); RED BLOOD COUNT 4.36 10^6/uL (4.00-5.40); WHITE BLOOD COUNT 6.4 10^3/uL (4.0-10.0)
[2018-08-02 14:08] LABS: ALT/SGPT 29 U/L (12-78); AMYLASE 41 U/L (25-115); BILIRUBIN,DIRECT < 0.1 MG/DL (0.0-0.2); BILIRUBIN,TOTAL 0.2 MG/DL (0.2-1.0); BLOOD UREA NITROGEN 9 MG/DL (7-18); CALCIUM LEVEL 8.5 MG/DL (8.5-10.1); CARBON DIOXIDE LEVEL 24 MEQ/L (21-32); CHLORIDE LEVEL 107 MEQ/L (98-107); GLOMERULAR FILTRATION RATE > 60.0 (>58); GLUCOSE, FASTING 93 MG/DL (70-100); POTASSIUM SERUM 4.1 MEQ/L (3.5-5.1); SODIUM LEVEL 140 MEQ/L (136-145)
[2018-08-02 14:09] LABS: ALBUMIN 3.6 GM/DL (3.2-5.2); LIPASE 151 U/L (73-393); TOTAL PROTEIN 6.4 GM/DL (6.4-8.2)
[2018-08-02] MEDS ORDERED: KETOROLAC 30 MG/ML VIAL (J1885) IM ONE (16:15)
[2018-08-02 16:31] LABS: CK-MB VALUE MASS < 1.0 NG/ML (<3.6); CPK CREATINE PHOSPHOKINASE 54 U/L (26-192); MB/CK RELATIVE INDEX 1.85 (< OR =4); TROPONIN I < 0.02 NG/ML (< 0.10)
--- NOTE | 2018-08-02 16:33 | REP ---
Chest two views HISTORY: Cough Comparison: 03/08/2015 The lungs are clear. The heart is normal in size. The pulmonary vasculature is normal in appearance. The bony structure is intact. IMPRESSION: No acute disease. Electronically Signed by Will Clifford MD 08/02/2018 04:24 P
--- NOTE | 2018-08-02 17:12 | REP ---
CT ABDOMEN PELVIS WITHOUT CONTRAST: 08/02/2018. Clinical history: Left flank pain. Prior history of renal stone disease and diverticulitis. Comparison: 05/08/2018, 07/20/2017. Findings: CT abdomen: Standard noncontrast protocol followed. Lung bases clear. Heart not enlarged. There is no pericardial thickening or effusion and no hiatal hernia. Stomach with some retained food. There is no hepatosplenomegaly, focal hepatic or splenic lesion nor intrahepatic biliary dilatation nor calcifications in these organs. The gallbladder shows no calcified stone or mass. Adrenal glands normal. The pancreas without mass, ductal dilatation or adjacent inflammatory change. No peripancreatic adenopathy or fluid collection. Kidneys show extrarenal pelves bilaterally but in each case there are smaller than the previous study. There is no hydronephrosis. Ureters show normal course to the bladder. Coronal images suggest a narrowed UPJ configuration as on previous studies. There is a 2 mm stone in a pyramid lower pole on the left but none in the collecting system, extrarenal pelvis or ureter. Adrenal glands are normal. Small bowel loops and colon intact. The bones are unchanged from April. No acute finding in the bony spine, its posterior elements with the visualized ribs. There is no ascites, perforation or free air in the abdomen or pelvis. CT pelvis: Sacrum, SI joints, pelvis, hips and ischia along the acetabuli were all grossly intact. There is a small bone island in the posterior column of the left acetabulum, unchanged. The uterus is anteverted, unchanged. No adnexal mass. Bladder partially filled without mass or wall thickening. No ureteral dilatation or stone. No inguinal or pelvic adenopathy. I see no ventral or inguinal hernia. Impression: 1. 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 Both extrarenal pelves are smaller than the previous two studies. 2. 2 mm calcification in pyramid lower pole left kidney unchanged. No dilatation of the collecting system, collecting system stone but extrarenal pelvis prominent bilaterally as described. Ureters show normal course to the bladder without dilatation or stone. Bladder unremarkable. 3. The solid organs in the upper abdomen, gallbladder, stomach and, small bowel loops and colon without acute finding. 4. No ventral or inguinal hernia. No adenopathy, ascites, abscess, perforation or free air. Electronically Signed by Qasim Valdovinos MD 08/02/2018 08:04 P
[2018-08-02 17:17] LABS: INFLUENZA A AMPLIFICATION NEGATIVE (NEGATIVE); INFLUENZA B AMPLIFICATION NEGATIVE (NEGATIVE)
[2018-08-02] MEDS ORDERED: PROAAER10 INH (17:38)
[2018-08-02 17:46] VITALS: BP 136/88
--- NOTE | 2018-08-02 22:10 | ECGEPIP ---
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
== END 2018-08-02 17:53 | disposition home or self-care (01) ==
LOC: M ED 12:43
DX: N20.0 Calculus of kidney (principal); R00.0 Tachycardia, unspecified; I10 Essential (primary) hypertension; E78.5 Hyperlipidemia, unspecified; F17.210 Nicotine dependence, cigarettes, uncomplicated; Z87.442 Personal history of urinary calculi; Z98.890 Other specified postprocedural states; Z88.0 Allergy status to penicillin
CPT/HCPCS: 71046; 74176; 80048; 80076; 81001; 82150; 82550; 82553; 83690; 84484; 85025; 87502; 93005; 96372; 99284; J1885

== ENCOUNTER 2018-08-22 20:09 | Emergency (ER) | payer OTHER ==
[~2018-08-22] VITALS: Ht 157.5 cm; Wt 69.1 kg
[~2018-08-22 20:09] MED LIST changes: +ACET-908 PO; -EQ A PO; -NAPR-50 PO; +NAPR-837 PO; +PROAAER10 INH
--- NOTE | 2018-08-22 20:37 | ECGEPIP ---
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
[2018-08-22] MEDS: IPRATROPIUM 0.5MG/ALBUTEROL 2.5MG INH SOL UD 3ML (DUONEB)(J7620) NEB SCH ×3 (21:00→22:01)
[2018-08-22] MEDS ORDERED: dexameTHASONE 20 MG/5 ML VIAL (J1100) IV ONE (21:00)
[2018-08-22] MEDS ORDERED: DEXTROMETHORPHAN 5 ML SYRUP (ROBITUSSIN PEDIATRIC COUGH) PO ONE (21:45)
[2018-08-22] MEDS ORDERED: KETOROLAC 30 MG/ML VIAL (J1885) IV ONE (22:00)
[2018-08-22] MEDS ORDERED: METOCLOPRAMIDE INJ 10MG/2ML VIAL (J2765) IV ONE (22:00)
[2018-08-22] MEDS ORDERED: ZITHTAB PO (23:07)
[2018-08-22] MEDS ORDERED: PRED20TA PO (23:07)
[2018-08-22 23:30] VITALS: BP 117/67
--- NOTE | 2018-08-23 08:16 | REP ---
Chest x-ray: Two views. History: Dyspnea. Comparison study: August 02, 2018. Findings: Oxygen delivery tubing is seen. The lungs are exposed at a somewhat lesser level of inspiration but are clear. The pleural angles are sharp. Heart size is normal. Pulmonary vasculature is not increased. No significant bony abnormality. Impression: Somewhat lower level of inspiration. Otherwise negative chest x-ray. No infiltrate seen. Electronically Signed by Dewayne Edmond MD 08/23/2018 08:08 A
[2018-08-23] MEDS ORDERED: VICKLIQ28 PO (14:46)
[2018-08-23] MEDS ORDERED: MUCI600T37 PO (18:05)
[2018-08-23] MEDS ORDERED: BENZ200C70 PO (18:05)
== END 2018-08-22 23:55 | disposition home or self-care (01) ==
LOC: M ED 20:09
DX: J40 Bronchitis, not specified as acute or chronic (principal); J42 Unspecified chronic bronchitis; M54.9 Dorsalgia, unspecified; G89.29 Other chronic pain; F17.200 Nicotine dependence, unspecified, uncomplicated
CPT/HCPCS: 71046; 93005; 94640; 96374; 96375; 99284; J1100; J1885; J2765

== ENCOUNTER 2018-08-23 14:28 | Emergency (ER) | payer OTHER ==
[~2018-08-23] VITALS: Ht 157.5 cm; Wt 69.5 kg
[~2018-08-23 14:28] MED LIST changes: +ZITHTAB PO
[2018-08-23] MEDS ORDERED: VICKLIQ28 PO (14:46)
[2018-08-23] MEDS: IPRATROPIUM 0.5MG/ALBUTEROL 2.5MG INH SOL UD 3ML (DUONEB)(J7620) NEB SCH ×3 (16:30→17:14)
[2018-08-23 17:08] LABS: INFLUENZA A AMPLIFICATION NEGATIVE (NEGATIVE); INFLUENZA B AMPLIFICATION NEGATIVE (NEGATIVE)
[2018-08-23] MEDS ORDERED: MUCI600T37 PO (18:05)
[2018-08-23] MEDS ORDERED: BENZ200C70 PO (18:05)
[2018-08-23 18:10] VITALS: BP 137/101
[2018-08-23] MEDS ORDERED: ALBUTEROL 90 MCG/ACT 8GM HFA INHALER INH ONE (18:15)
== END 2018-08-23 18:30 | disposition home or self-care (01) ==
LOC: M ED 14:28
DX: J21.9 Acute bronchiolitis, unspecified (principal); Z79.52 Long term (current) use of systemic steroids; Z79.899 Other long term (current) drug therapy; Z79.2 Long term (current) use of antibiotics; Z87.891 Personal history of nicotine dependence; Z87.09 Personal history of other diseases of the respiratory system; Z88.0 Allergy status to penicillin

== ENCOUNTER 2018-08-26 11:31 | Inpatient (IN) | payer OTHER ==
[~2018-08-26] VITALS: Ht 160 cm; Wt 78.9 kg
[~2018-08-26 11:31] MED LIST changes: +BENZ200C70 PO; +MUCI600T37 PO; +VICKLIQ28 PO
[2018-08-26] MEDS ORDERED: LEVAINH INH (11:59)
[2018-08-26] MEDS ORDERED: IPRATROPIUM 0.5MG/ALBUTEROL 2.5MG INH SOL UD 3ML (DUONEB)(J7620) NEB ONE (12:15)
[2018-08-26] MEDS: IPRATROPIUM 0.5MG/ALBUTEROL 2.5MG INH SOL UD 3ML (DUONEB)(J7620) NEB PRN ×3 (12:37→13:58)
[2018-08-26 12:42] LABS: VENOUS BASE EXCESS 0.4 (-2.0-2.0); VENOUS HCO3 23.8 MEQ/L (23.0-27.0); VENOUS O2 SATURATION 96.4 % (60.0-80.0); VENOUS PARTIAL PRESSURE CO2 35.1 mmHg (38.0-50.0); VENOUS PARTIAL PRESSURE O2 85.4 mmHg (30.0-50.0); VENOUS STANDARD HCO3 24.8 MEQ/L; VENOUS TOTAL CO2 24.9 MEQ/L (24.0-28.0)
[2018-08-26 12:48] LABS: BASO % 0.4 % (0.0-1.0); EOS # 0.1 10^3/uL (0.0-0.50); EOS % 0.6 % (0.0-3.0); HEMATOCRIT 40.9 % (36.0-47.0); HEMOGLOBIN 14.4 g/dl (12.0-15.5); LYMPH % 39.4 % (24.0-44.0); MEAN CORPUSCULAR HEMOGLOBIN 35.2 pg (27.0-33.0); MEAN CORPUSCULAR HGB CONC 35.2 g/dl (32.0-36.5); MONO # 0.7 10^3/uL (0.0-0.8); MONO % 7.2 % (0.0-5.0); NEUTROPHILS # 5.2 10^3/uL (1.8-7.7); NEUTROPHILS % 51.5 % (36.0-66.0); PLATELET COUNT, AUTOMATED 375 10^3/uL (150-450); RED BLOOD COUNT 4.09 10^6/uL (4.00-5.40); WHITE BLOOD COUNT 10.2 10^3/uL (4.0-10.0)
--- NOTE | 2018-08-26 12:56 | REP ---
Chest x-ray: Two views. History: Cough shortness of breath. Congestion . Comparison study: August 22, 2018 . Findings: The lungs are well inflated and free of infiltrate. The pleural angles are sharp. The heart size is normal. Pulmonary vasculature is not increased. No significant bony abnormality is seen. Impression: Negative chest x-ray. Electronically Signed by Dewayne Edmond MD 08/26/2018 12:47 P
[2018-08-26 13:00] LABS: PROTHROMBIN TIME 13.3 SECONDS (12.1-14.4)
[2018-08-26 13:01] LABS: PARTIAL THROMBOPLASTIN TIME 23.9 SECONDS (25.4-37.6)
[2018-08-26 13:25] LABS: ALBUMIN 3.4 GM/DL (3.2-5.2); ALT/SGPT 23 U/L (12-78); BILIRUBIN,DIRECT < 0.1 MG/DL (0.0-0.2); BILIRUBIN,TOTAL 0.2 MG/DL (0.2-1.0); BLOOD UREA NITROGEN 9 MG/DL (7-18); CALCIUM LEVEL 8.6 MG/DL (8.5-10.1); CARBON DIOXIDE LEVEL 25 MEQ/L (21-32); CHLORIDE LEVEL 108 MEQ/L (98-107); CK-MB VALUE MASS < 1.0 NG/ML (<3.6); CPK CREATINE PHOSPHOKINASE 48 U/L (26-192); CREATININE FOR GFR 0.59 MG/DL (0.55-1.30); FREE T4 1.15 NG/DL (0.76-1.46); GLOMERULAR FILTRATION RATE > 60.0 (>58); GLUCOSE, FASTING 97 MG/DL (70-100); LIPASE 154 U/L (73-393); MB/CK RELATIVE INDEX 2.08 (< OR =4); NT-PRO BNP 31 PG/ML (<125); POTASSIUM SERUM 3.2 MEQ/L (3.5-5.1); SODIUM LEVEL 143 MEQ/L (136-145); THYROID STIMULATING HORMONE 0.648 uIU/ML (0.358-3.740); TROPONIN I < 0.02 NG/ML (< 0.10)
[2018-08-26 13:26] LABS: INFLUENZA A AMPLIFICATION NEGATIVE (NEGATIVE); INFLUENZA B AMPLIFICATION NEGATIVE (NEGATIVE)
[2018-08-26] MEDS ORDERED: ISOVUE-370 76% 100ML VIAL (Q9967) As Ordered ONE (13:27)
[2018-08-26] MEDS ORDERED: methylPREDNISolone INJ 125 MG/2 ML VIAL (J2930) IV ONE (13:45)
[2018-08-26] MEDS ORDERED: NS 1,000 ML IV ONE (13:45)
[2018-08-26] MEDS ORDERED: PROAAER10 INH (14:35)
[2018-08-26] MEDS ORDERED: BENZONATATE 100 MG CAP PO PRN (14:45)
[2018-08-26] MEDS: IPRATROPIUM 0.5MG/ALBUTEROL 2.5MG INH SOL UD 3ML (DUONEB)(J7620) NEB SCH ×2 (16:18→20:00)
[2018-08-26] MEDS: POTASSIUM CHLORIDE 10 MEQ SR TABLET PO SCH ×2 (18:07→19:00)
[2018-08-26] MEDS: methylPREDNISolone INJ 125 MG/2 ML VIAL (J2930) IV SCH (18:12)
[2018-08-26 18:15] VITALS: BP 143/97
--- NOTE | 2018-08-26 19:32 | HPEPDOC ---
General Date of Admission Aug 26, 2018 at 14:33 Chief Complaint Shortness of breath, cough, wheezing, sinus pain, chest wall painlikely seconda ry to acute asthma exacerbationfailed outpatient treatment Source: Patient History of Present Illness Patient is a 48-year-old female with a previous history of asthma as a child as well as a [id number] history of smoking, who has been having problems with cough, shortness of breath as well as wheezing ongoing for last 9 days. She denies any prior sick contacts. She reports she was sick a couple weeks prior to this as well but had improved. With her symptoms this time, she reports she was treated with azithromycin as well as prednisone as well as Tessalon Perlesthe patient finished the treatment but still had no improvement in her symptoms. She was seen in her primary care provider's office today for the shortness of breath as well as cough. The patient also has been using albuterol inhaler as needed without any improvement in her symptoms. The patient reported shortness of breath with minimal exertion. She also reported lightheadedness in the ER with minimal exertion. She reports she had a couple of episodes of diarrhea yesterday morning. Denies any fevers chills or sweats associated with the symptoms. Does report some flushing she also reports some chest wall pain particularly with coughing. She also reports headache and sinus pain. Reports she has not been able to sleep well. In the ER, the patient was initially noted to have oxygen saturation of 95% on room air. She however had wheezing as well as coughing and was quite short of breath. She was treated with 3 rounds of prolapse as well as a dose of IV Solu- Medrol 125 mg. Following this, with ambulating on the 15-20 feet, the patient was still feeling lightheaded and quite short of breath. CT scan of the chest PE protocol did not show any pulmonary embolism. Final report is pending. Initial troponin was also negative in the ER. EKG had shown sinus tachycardia with left ventricular hypertrophy but no acute ST changes. The EKG was personally reviewed. Lactic acid was elevated at 2.6. Rapid flu test was negative. Given that patient has failed outpatient treatment and is having significant symptoms even with minimal exertion, admission was requested. Home Medications Scheduled Azithromycin (Zithromax Z-Jude) 250 Mg Tab, 250 MG PO ASDIRECTED Day 1- take two tablets once. Day 2, 3, 4 , 5 take one tablet once daily Guaifenesin (Mucinex) 600 Mg Tab, 600 MG PO BID Scheduled PRN Albuterol Sulfate (Proair Hfa) 108 Mcg/Act Aer, 2 PUFF INH Q4H PRN for SHORTNESS OF BREATH, (Reported) Benzonatate (Benzonatate) 200 Mg Cap, 200 MG PO TID PRN for COUGH Levalbuterol Tartrate (Xopenex Hfa) 45 Mcg/Act Aer, 2 PUFF INH Q4H PRN for SOB/WHEEZING, (Reported) Allergies Coded Allergies: Penicillins (Verified Allergy, Intermediate, RASH, 08/22/18) Past Medical History Medical History Asthma as a child, hypertension, nicotine dependence/cigarette smokingrecently quit smoking a week ago Surgical History Tonsillectomy and adenoidectomy, 4 sections, D&C, ventral hernia repair, exploratory laparoscopy Family History Dad when she was [address] [place]. Mom from bleeding into her lungs at the age of 42 related to some pulmonary artery problem per the patient. Son at 4-1/2 years age from tetralogy of fallot. Brother is healthy. Social History * Smoker: other (smoked one pack per day cigarettes for 35 years quit one week ago) Alcohol: occationally Drugs: denies Recent Travel/Sick Contacts: Denies: Recent sick contacts Review of Systems Other systems Negative for 10 systems except as noted under history of present illness Vital Signs Vital Signs Date Time Temp Pulse Resp B/P (MAP) Pulse Ox O2 Delivery O2 Flow Rate FiO2 08/26/18 18:15 98.8 108 24 143/97 (112) 94 08/26/18 17:36 Room Air Laboratory Data Labs 24H Laboratory Tests 2 08/26/18 12:30: Lactic Acid Level 2.6*H 08/26/18 12:32: Prothrombin Time 13.3, Prothromb Time International Ratio 1.00, Activated Partial Thromboplast Time 23.9L, Anion Gap 10, Glomerular Filtration Rate > 60.0, Calcium Level 8.6, Magnesium Level 2.0, Aspartate Amino Transf (AST/SGOT) 12, Alanine Aminotransferase (ALT/SGPT) 23, Alkaline Phosphatase 107, Total Bilirubin 0.2, Direct Bilirubin < 0.1, Total Creatine Kinase 48, Creatine Kinase MB < 1.0, Creatine Kinase MB Relative Index 2.08, Troponin I < 0.02, DN-Wis-I-Type Natriuretic Peptide 31, Total Protein 6.0L, Albumin 3.4, Albumin/Globulin Ratio 1.31, Lipase 154, Thyroid Stimulating Hormone (TSH) 0.648, Free Thyroxine 1.15, Influenza Type A (RT-PCR) NEGATIVE, Influenza Type B (RT-PCR) NEGATIVE, Respiratory Syncytial Virus (RT-PCR NEGATIVE 08/26/18 12:33: Immature Granulocyte % (Auto) 0.9, White Blood Count 10.2H, Red Blood Count 4.09, Hemoglobin 14.4, Hematocrit 40.9, Mean Corpuscular Volume 100.0H, Mean Corpuscular Hemoglobin 35.2H, Mean Corpuscular Hemoglobin Concent 35.2, Red Cell Distribution Width 12.9, Platelet Count 375, Neutrophils (%) (Auto) 51.5, Lymphocytes (%) (Auto) 39.4, Monocytes (%) (Auto) 7.2H, Eosinophils (%) (Auto) 0.6, Basophils (%) (Auto) 0.4, Neutrophils # (Auto) 5.2, Lymphocytes # (Auto) 4.0, Monocytes # (Auto) 0.7, Eosinophils # (Auto) 0.1, Basophils # (Auto) 0.0, Nucleated Red Blood Cells % (auto) 0.0, Blood Gas Bicarbonate Standard 24.8, Venous Blood pH 7.450H, Venous Blood Partial Pressure CO2 35.1L, Venous Blood Partial Pressure O2 85.4H, Venous Blood Total Carbon Dioxide 24.9, Venous Blood HCO3 23.8, Venous Blood Oxygen Saturation 96.4H, Venous Blood Base Excess 0.4 08/26/18 17:30: Troponin I < 0.02, Lactic Acid Followup at 4 Hours 5.0*H CBC/BMP Laboratory Tests 08/26/18 12:32 08/26/18 12:33 Red Blood Count 4.09, Mean Corpuscular Volume 100.0 H, Mean Corpuscular Hemoglobin 35.2 H, Mean Corpuscular Hemoglobin Concent 35.2, Red Cell Distribution Width 12.9, Neutrophils (%) (Auto) 51.5, Lymphocytes (%) (Auto) 39.4, Monocytes (%) (Auto) 7.2 H, Eosinophils (%) (Auto) 0.6, Basophils (%) (Auto) 0.4, Neutrophils # (Auto) 5.2, Lymphocytes # (Auto) 4.0, Monocytes # (Auto) 0.7, Eosinophils # (Auto) 0.1, Basophils # (Auto) 0.0 Microbiology Microbiology 08/26/18 Blood Culture, Received Pending 08/26/18 Blood Culture, Received Pending RAD Interpretation STUDY: CXR (no acute findings. CT chest preliminary reportno pulmonary embolism.) Assessment/Plan Acute asthma exacerbation with failed outpatient treatment likely secondary to upper respiratory infection: -The patient may also have a component of COPD exacerbation with her extensive smoking history, although she has never been formally diagnosed with COPD -Discussed with patient regarding outpatient permanent function testing upon discharge to rule out underlying COPD -Patient will be continued on IV Solu-Medrol 60 kg every 6 hours, DuoNeb's 4 times a day and when necessary albuterol nebs, Tessalon Perles prn cough, Robitussin-AC prn cough -Oral doxycycline as patient may have underlying upper respiratory infection/sinusitis that did not seem to respond to oral azithromycin -Toradol as needed for sinus pain and chest wall pain Worsening lactic acidosis: -Suspect related to her respiratory symptoms and shortness of breath rather than sepsis -Patient will be given 2 additional liters of normal saline boluses in addition to the fluids in the ER -We will check lactic acid in 6 hours Chest pain: -Suspect musculoskeletal as it seems to occur when she coughs -CT chest did not show pulmonary embolism on rnfa report -EKG does not show acute ST changes on personal review -Initial troponin negativeadditional sets have been ordered -When necessary Toradol for pain Hypertension with medication noncompliance with hypertensive heart disease/left ventricular hypertrophy noted on EKG: -Patient reports she was on Lisinopril 20 mg daily at home, but stopped taking the same after her blood pressure was doing good -Resume Lisinopril -May benefit from outpatient 2-D echocardiogram -BNP is normal, no lower extremity edema and no effusion or pulmonary edema on chest x-rayno indication for echocardiogram at this time Nicotine dependence/cigarette smoking: -Quit smoking a week ago -Encouraged to stay off smoking Hypokalemia: -Replete and recheck DVT prophylaxis: -SCDs -Encourage ambulation CODE STATUS: -Full code per my discussion with the patient Disposition: -Admit as an inpatient to med/surg unit with telemetry for further management of acute asthma exacerbation with failed outpatient treatment in setting of upper respiratory infection. Anticipated length of stay more than 2 midnights. Anticipate eventual discharge home once medically stable. Plan / VTE VTE Prophylaxis Ordered?: Yes RAVEN DOBBINS MD Aug 26, 2018 19:32
--- NOTE | 2018-08-26 20:00 | ECGEPIP ---
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
[2018-08-26] MEDS: guaiFENesin/CODEINE SYRUP 5 ML UDC PO PRN (20:35)
[2018-08-26] MEDS: NS 1,000 ML IV SCH (20:35)
[2018-08-26] MEDS ORDERED: ENOXAPARIN 40 MG/0.4 ML SYRINGE (J1650) SC SCH (21:00)
[2018-08-26] MEDS: guaiFENesin ER 600 MG TAB PO SCH (21:34)
[2018-08-26] MEDS: DOXYCYCLINE HYCLATE 100 MG TAB PO SCH (21:34)
[2018-08-26] MEDS: SODIUM CHLORIDE NASAL 0.65% SPRAY BTL (OCEAN) SCH (21:37)
[2018-08-26] MEDS: KETOROLAC 30 MG/ML VIAL (J1885) IV PRN (21:53)
[2018-08-26 22:00] VITALS: BP 172/100
[2018-08-26 22:30] VITALS: BP 160/74
[2018-08-27] MEDS: methylPREDNISolone INJ 125 MG/2 ML VIAL (J2930) IV SCH ×5 (00:24→23:55)
[2018-08-27 00:28] LABS: CPK CREATINE PHOSPHOKINASE 52 U/L (26-192); TROPONIN I < 0.02 NG/ML (< 0.10)
[2018-08-27] MEDS ORDERED: POTASSIUM CHLORIDE 10 MEQ SR TABLET PO ONE (00:30)
[2018-08-27] MEDS: NS 1,000 ML IV SCH (01:23)
[2018-08-27] MEDS: IPRATROPIUM 0.5MG/ALBUTEROL 2.5MG INH SOL UD 3ML (DUONEB)(J7620) NEB SCH ×8 (01:37→20:21)
[2018-08-27] MEDS: ALBUTEROL SULFATE 2.5 MG/0.5 ML INH NEB SOLN NEB PRN ×3 (04:45→20:21)
[2018-08-27 04:50] LABS: HEMATOCRIT 37.6 % (36.0-47.0); HEMOGLOBIN 12.7 g/dl (12.0-15.5); MEAN CORPUSCULAR HEMOGLOBIN 34.1 pg (27.0-33.0); MEAN CORPUSCULAR HGB CONC 33.8 g/dl (32.0-36.5); MEAN CORPUSCULAR VOLUME 101.1 fl (80.0-96.0); PLATELET COUNT, AUTOMATED 281 10^3/uL (150-450); RED BLOOD COUNT 3.72 10^6/uL (4.00-5.40); WHITE BLOOD COUNT 9.9 10^3/uL (4.0-10.0)
[2018-08-27 05:19] LABS: BLOOD UREA NITROGEN 11 MG/DL (7-18); CALCIUM LEVEL 7.5 MG/DL (8.5-10.1); CARBON DIOXIDE LEVEL 24 MEQ/L (21-32); CHLORIDE LEVEL 107 MEQ/L (98-107); CREATININE FOR GFR 0.77 MG/DL (0.55-1.30); GLOMERULAR FILTRATION RATE > 60.0 (>58); GLUCOSE, FASTING 141 MG/DL (70-100); MAGNESIUM LEVEL 1.4 MG/DL (1.8-2.4); POTASSIUM SERUM 4.1 MEQ/L (3.5-5.1); SODIUM LEVEL 138 MEQ/L (136-145)
[2018-08-27 06:00] VITALS: BP 150/83
[2018-08-27] MEDS: guaiFENesin/CODEINE SYRUP 5 ML UDC PO PRN ×2 (06:12→17:24)
[2018-08-27] MEDS: BUDESONIDE 0.5 MG/2 ML INHALATION SUSPENSION INH SCH ×2 (08:00→20:21)
[2018-08-27] MEDS: MAG SULF 1GM/100ML (MAG RUN) 1 GM in APPROPRIATE DILUENT 1 EA IV SCH ×3 (08:39→09:56)
[2018-08-27] MEDS: SODIUM CHLORIDE NASAL 0.65% SPRAY BTL (OCEAN) SCH ×2 (08:39→21:00)
[2018-08-27] MEDS: DOXYCYCLINE HYCLATE 100 MG TAB PO SCH ×2 (08:40→21:00)
[2018-08-27] MEDS: LISINOPRIL 20 MG TAB PO SCH (08:40)
[2018-08-27] MEDS: guaiFENesin ER 600 MG TAB PO SCH ×2 (08:40→21:00)
--- NOTE | 2018-08-27 12:30 | IPNPDOC ---
Subjective Date Seen The patient was seen on 08/27/18. Subjective Chief Complaint/HPI Shortness of breath, cough, wheezing, sinus pain, chest wall painlikely secondary to acute asthma exacerbationfailed outpatient treatment Events since last encounter The patient reports she is still having quite a bit of coughing. She was not able to sleep well last night. Reports her shortness of breath also feels about the sameperhaps slightly better. Denies any chest pain besides when she coughs. No overnight fevers/chills/sweats. Sinus pressure seems a little improved today compared to yesterday. No nausea or vomiting. Tolerating oral intake. No problems with bladder/bowel habits. Objective Physical Examination General Exam: Positive: Alert, Cooperative Eye Exam: Positive: PERRLA Chest Exam: Positive: Wheezing, Other (bilateral slight wheeze. Slight rhonchi. No overt distress.) Heart Exam: Positive: Rate Normal, Normal S1, Normal S2 Abdomen Exam: Positive: Soft, Other (nontender) Skin Exam: Positive: Nl turgor and temperature Neuro Exam: Positive: Other (awake, alert, answering questions appropriately. Moving all 4 extremities.) Assessment /Plan Assessment Acute asthma exacerbation with failed outpatient treatment likely secondary to acute bronchitis: -The patient may also have a component of COPD exacerbation with her extensive smoking history, although she has never been formally diagnosed with COPD -Discussed with patient regarding [facility] to rule out underlying COPD -Unclear if she currently has bacterial or viral bronchitissymptoms have been going on for 10 days now and did not improve with azithromycin. I have ordered pro-calcitonin levelpending. -Continue IV Solu-Medrol 60 kg every 6 hours, DuoNeb's 4 times a day and when necessary albuterol nebs, Tessalon Perles prn cough, Robitussin-AC prn cough -Added Pulmicort nebs -Continue oral doxycycline as patient may have underlying upper respiratory infection/sinusitis that did not seem to respond to oral azithromycin - may discontinue same if pro-calcitonin is normal. -Toradol as needed for sinus pain and chest wall pain Lactic acidosis: -Suspect related to her respiratory symptoms and shortness of breath rather than sepsis -Patient was given IV 3 L normal saline fluid boluses initially. -Lactic acid is down trending. -Taking adequate oral fluid intake. Chest pain: -Suspect musculoskeletal as it seems to occur when she coughs -CT chest did not show pulmonary embolism on preliminary report -EKG does not show acute ST changes on personal review -Troponins negative x 3 -Discontinue telemetry -When necessary Toradol for pain Hypertension with medication noncompliance with hypertensive heart disease/left ventricular hypertrophy noted on EKG: -Continue Lisinopril 20 mg daily -May benefit from outpatient 2-D echocardiogram - advised patient to discuss with the primary care provider regarding same on discharge -BNP is normal, no lower extremity edema and no effusion or pulmonary edema on chest x-rayno indication for echocardiogram at this time Nicotine dependence/cigarette smoking: -Quit smoking a week prior to admission -Encouraged to stay off smoking Hypokalemia: -Resolved Hypomagnesemia: Replete and recheck DVT prophylaxis: -SCDs -Encourage ambulation CODE STATUS: -Full code Disposition: Anticipate eventual discharge home once able to transition to oral prednisone, possibly over the next 48-72 hours. Plan/VTE VTE Prophylaxis Ordered?: Yes [facility] V[facility] Signs/I&O Vital Signs Date Time Temp Pulse Resp B/P (MAP) Pulse Ox O2 Delivery O2 Flow Rate FiO2 08/27/18 08:40 150/83 08/27/18 06:00 98.2 81 20 95 08/26/18 17:36 Room Air I&O- Last 24 Hours up to 6 AM 08/27/18 06:00 Intake Total 2660 ml Output Total 1100 ml Balance 1560 ml Laboratory Data 24H LABS Laboratory Tests 2 08/26/18 12:30: Lactic Acid Level 2.6*H 08/26/18 12:32: Prothrombin Time 13.3, Prothromb Time International Ratio 1.00, Activated Partial Thromboplast Time 23.9L, Anion Gap 10, Glomerular Filtration Rate > 60.0, Calcium Level 8.6, Magnesium Level 2.0, Aspartate Amino Transf (AST/SGOT) 12, Alanine Aminotransferase (ALT/SGPT) 23, Alkaline Phosphatase 107, Total Bilirubin 0.2, Direct Bilirubin < 0.1, Total Creatine Kinase 48, Creatine Kinase MB < 1.0, Creatine Kinase MB Relative Index 2.08, Troponin I < 0.02, NT-Pro-B- Type Natriuretic Peptide 31, Total Protein 6.0L, Albumin 3.4, Albumin/Globulin Ratio 1.31, Lipase 154, Thyroid Stimulating Hormone (TSH) 0.648, Free Thyroxine 1.15, Influenza Type A (RT-PCR) NEGATIVE, Influenza Type B (RT-PCR) NEGATIVE, Respiratory Syncytial Virus (RT-PCR NEGATIVE 08/26/18 12:33: Immature Granulocyte % (Auto) 0.9, White Blood Count 10.2H, Red Blood Count 4.09, Hemoglobin 14.4, Hematocrit 40.9, Mean Corpuscular Volume 100.0H, Mean Corpuscular Hemoglobin 35.2H, Mean Corpuscular Hemoglobin Concent 35.2, Red Cell Distribution Width 12.9, Platelet Count 375, Neutrophils (%) (Auto) 51.5, Lymphocytes (%) (Auto) 39.4, Monocytes (%) (Auto) 7.2H, Eosinophils (%) (Auto) 0.6, Basophils (%) (Auto) 0.4, Neutrophils # (Auto) 5.2, Lymphocytes # (Auto) 4.0, Monocytes # (Auto) 0.7, Eosinophils # (Auto) 0.1, Basophils # (Auto) 0.0, Nucleated Red Blood Cells % (auto) 0.0, Blood Gas Bicarbonate Standard 24.8, Venous Blood pH 7.450H, Venous Blood Partial Pressure CO2 35.1L, Venous Blood Partial Pressure O2 85.4H, Venous Blood Total Carbon Dioxide 24.9, Venous Blood HCO3 23.8, Venous Blood Oxygen Saturation 96.4H, Venous Blood Base Excess 0.4 08/26/18 17:30: Troponin I < 0.02, Lactic Acid Followup at 4 Hours 5.0*H 08/26/18 23:51: Lactic Acid Level 5.5*H, Total Creatine Kinase 52, Troponin I < 0.02 08/27/18 04:35: Nucleated Red Blood Cells % (auto) 0.0, Anion Gap 7L, Glomerular Filtration Rate > 60.0, Lactic Acid Followup at 4 Hours 3.9*H, Blood Urea Nitrogen 11, Creatinine 0.77, Sodium Level 138, Potassium Level 4.1#, Chloride Level 107, Carbon Dioxide Level 24, Calcium Level 7.5L, Magnesium Level 1.4L CBC/BMP Laboratory Tests 08/26/18 12:32 08/26/18 12:33 Red Blood Count 4.09, Mean Corpuscular Volume 100.0 H, Mean Corpuscular Hemoglobin 35.2 H, Mean Corpuscular Hemoglobin Concent 35.2, Red Cell Distribution Width 12.9, Neutrophils (%) (Auto) 51.5, Lymphocytes (%) (Auto) 3 9.4, Monocytes (%) (Auto) 7.2 H, Eosinophils (%) (Auto) 0.6, Basophils (%) (Auto) 0.4, Neutrophils # (Auto) 5.2, Lymphocytes # (Auto) 4.0, Monocytes # (Auto) 0.7, Eosinophils # (Auto) 0.1, Basophils # (Auto) 0.0 08/27/18 04:35 Red Blood Count 3.72 L, Mean Corpuscular Volume 101.1 H, Mean Corpuscular Hemoglobin 34.1 H, Mean Corpuscular Hemoglobin Concent 33.8, Red Cell Distrib ution Width 12.8, Calcium Level 7.5 L Microbiology Microbiology 08/26/18 Blood Culture, Received Pending 08/26/18 Blood Culture, Received Pending RAVEN DOBBINS MD Aug 27, 2018 12:11
[2018-08-27 14:00] VITALS: BP 165/90
[2018-08-27] MEDS: KETOROLAC 30 MG/ML VIAL (J1885) IV PRN (15:16)
[2018-08-27] MEDS: diphenhydrAMINE 25 MG CAP PO PRN (21:33)
[2018-08-27 22:00] VITALS: BP_SYST 145; BP_SYST 175; BP_DIAS 84; BP_DIAS 95
[2018-08-28] MEDS: ALBUTEROL SULFATE 2.5 MG/0.5 ML INH NEB SOLN NEB PRN (02:08)
[2018-08-28] MEDS: methylPREDNISolone INJ 125 MG/2 ML VIAL (J2930) IV SCH ×2 (05:00→12:44)
[2018-08-28] MEDS: guaiFENesin/CODEINE SYRUP 5 ML UDC PO PRN ×4 (05:15→23:30)
[2018-08-28 05:45] LABS: BASO % 0.1 % (0.0-1.0); HEMATOCRIT 37.7 % (36.0-47.0); HEMOGLOBIN 12.8 g/dl (12.0-15.5); LYMPH # 0.6 10^3/uL (1.5-4.5); LYMPH % 3.5 % (24.0-44.0); MEAN CORPUSCULAR HEMOGLOBIN 34.6 pg (27.0-33.0); MEAN CORPUSCULAR VOLUME 101.9 fl (80.0-96.0); MONO # 0.2 10^3/uL (0.0-0.8); MONO % 1.5 % (0.0-5.0); NEUTROPHILS # 14.7 10^3/uL (1.8-7.7); NEUTROPHILS % 93.9 % (36.0-66.0); PLATELET COUNT, AUTOMATED 298 10^3/uL (150-450); WHITE BLOOD COUNT 15.6 10^3/uL (4.0-10.0)
[2018-08-28 06:00] VITALS: BP 143/84
[2018-08-28 06:20] LABS: BLOOD UREA NITROGEN 17 MG/DL (7-18); CALCIUM LEVEL 7.9 MG/DL (8.5-10.1); CARBON DIOXIDE LEVEL 23 MEQ/L (21-32); CHLORIDE LEVEL 110 MEQ/L (98-107); GLOMERULAR FILTRATION RATE > 60.0 (>58); GLUCOSE, FASTING 136 MG/DL (70-100); MAGNESIUM LEVEL 2.4 MG/DL (1.8-2.4); PHOSPHORUS LEVEL 2.7 MG/DL (2.5-4.9); POTASSIUM SERUM 3.9 MEQ/L (3.5-5.1); SODIUM LEVEL 142 MEQ/L (136-145)
[2018-08-28] MEDS: BUDESONIDE 0.5 MG/2 ML INHALATION SUSPENSION INH SCH (07:32)
[2018-08-28] MEDS: IPRATROPIUM 0.5MG/ALBUTEROL 2.5MG INH SOL UD 3ML (DUONEB)(J7620) NEB SCH ×4 (07:32→18:16)
--- NOTE | 2018-08-28 09:43 | REP ---
Clinical: Acute chest pain. Technique: Axial contrast enhanced images from the thoracic inlet to the upper abdomen using 100 ml Isovue 370 intravenous contrast material with coronal and sagittal re-formations. Findings: Suboptimal enhancement of the pulmonary vasculature may be secondary to technical factors and image acquisition timing. However, no obvious pulmonary embolus is appreciated involving the bilateral first or second order pulmonary arteries. The lung pardo are relatively clear without focal consolidation, effusion, or pneumothorax. No obvious significant nodule or mass lesion. Tracheobronchial tree is patent. Mediastinal and hilar lymph nodes measure up to 8.5 mm short axis diameter and are nonspecific. Musculoskeletal structures are intact. Impression: Limited examination. No evidence for pulmonary embolus. No acute pleuroparenchymal or mediastinal process. Electronically Signed by Juaquin Worthington MD 08/28/2018 09:34 A
[2018-08-28] MEDS: DOXYCYCLINE HYCLATE 100 MG TAB PO SCH ×2 (10:13→23:17)
[2018-08-28] MEDS: LISINOPRIL 20 MG TAB PO SCH (10:16)
[2018-08-28] MEDS: guaiFENesin ER 600 MG TAB PO SCH ×2 (10:17→23:17)
[2018-08-28] MEDS: SODIUM CHLORIDE NASAL 0.65% SPRAY BTL (OCEAN) SCH ×2 (10:18→23:17)
[2018-08-28 14:00] VITALS: BP_SYST 150
[2018-08-28] MEDS: KETOROLAC 30 MG/ML VIAL (J1885) IV PRN (15:12)
--- NOTE | 2018-08-28 17:38 | IPNPDOC ---
Date Seen The patient was seen on 08/28/18. Progress Note SUBJECTIVE: Patient is a 48 yo female admitted for asthma exacerbation. Patient is also a current smoker with an extensive cigarette smoking history (about 30pack years). She said she is feeling better but still sob and wheezy. she denied fever,chills, chest pain or dizziness OBJECTIVE PHYSICAL EXAMINATION: VITAL SIGNS: Please see below. Physical exam Gen: NAD, healthy appearing , obese HEENT: normocephalic, atraumatic, no discharge from ears or nose, no oropharyngeal erythema or exudate, neck is supple, no lymphadenopathy, trachea midline CVS: RRR, normal S1n S2, no murmur, rubs, or gallops, no edema, no jvd Resp: LCTAB, no rhonchi, bilateral wheezes and coarse breath sounds, productive cough, but no crackles Abd : soft nontender, normal bowel sounds, no rebound tenderness or guarding MSK: no swelling, full range of motion, strength 5/5 Neuro: AOAx3, no confusion, no focal deficit Psych: normal mood and affect, good judgment LABORATORY DATA, IMAGING STUDIES, MICROBIOLOGY: Please see below. DVT prophylaxis ordered?: [yes] ASSESSMENT AND PLAN: Acute asthma exacerbation with failed outpatient treatment likely secondary to acute bronchitis, in setting of likely undiagnosed copd -taper IV Solu-Medrol 60 kg every 6 hours to 40mg q8h -DuoNeb's 4 times a day and when necessary albuterol nebs, Tessalon Perles prn cough, Robitussin-AC prn cough -dc Pulmicort nebs and start advair bid -Continue oral doxycycline -procalcitonin is indeterminate and patient was already on abx for a few days b4 it was collected -Toradol as needed for sinus pain and chest wall pain -f/u sputum gs and cx and resp panel Lactic acidosis: -Suspect related to her respiratory symptoms and shortness of breath rather than sepsis -Patient was given IV 3 L normal saline fluid boluses initially. -Lactic acid is down trending. -Taking adequate oral fluid intake. -will repeat level in AM Chest pain: -Suspect musculoskeletal as it seems to occur when she coughs -CT chest did not show pulmonary embolism on preliminary report -EKG does not show acute ST changes on personal review -Troponins negative x 3 -no need for telemetry -When necessary Toradol for pain Hypertension with medication noncompliance with hypertensive heart disease/left ventricular hypertrophy noted on EKG: -Continue Lisinopril 20 mg daily -May benefit from outpatient 2-D echocardiogram - advised patient to discuss with the primary care provider regarding same on discharge -BNP is normal, no lower extremity edema and no effusion or pulmonary edema on chest x-rayno indication for echocardiogram at this time Nicotine dependence/cigarette smoking: -Quit smoking a week prior to admission due to illness -Encouraged to stay off smoking DVT prophylaxis: -SCDs -Encourage ambulation CODE STATUS: -Full code Disposition: Anticipate eventual discharge home once able to transition to oral prednisone, possibly over the next 48-72 hours. VS, I&O, 24H, [facility] Vital Signs/I&O Vital Signs Date Time Temp Pulse Resp B/P (MAP) Pulse Ox O2 Delivery O2 Flow Rate FiO2 08/28/18 14:00 98.4 108 18 150/ (50) 97 150.0 08/26/18 17:36 Room Air I&O- Last 24 Hours up to 6 AM 08/28/18 06:00 Intake Total 3330 ml Output Total 2975 ml Balance 355 ml Laboratory Data 24H LABS Laboratory Tests 2 08/28/18 05:29: Immature Granulocyte % (Auto) 1.0, White Blood Count 15.6H, Red Blood Count 3.70L, Hemoglobin 12.8, Hematocrit 37.7, Mean Corpuscular Volume 101.9H, Mean Corpuscular Hemoglobin 34.6H, Mean Corpuscular Hemoglobin Concent 34.0, Red Cell Distribution Width 12.9, Platelet Count 298, Neutrophils (%) (Auto) 93.9H, Lymphocytes (%) (Auto) 3.5L, Monocytes (%) (Auto) 1.5, Eosinophils (%) (Auto) 0.0, Basophils (%) (Auto) 0.1, Neutrophils # (Auto) 14.7H, Lymphocytes # (Auto) 0.6L, Monocytes # (Auto) 0.2, Eosinophils # (Auto) 0.0, Basophils # (Auto) 0.0, Nucleated Red Blood Cells % (auto) 0.0, Anion Gap 9, Glomerular Filtration Rate > 60.0, Blood Urea Nitrogen 17#, Creatinine 0.70, Sodium Level 142, Potassium Level 3.9, Chloride Level 110H, Carbon Dioxide Level 23, Calcium Level 7.9L, Phosphorus Level 2.7, Magnesium Level 2.4 CBC/BMP Laboratory Tests 08/28/18 05:29 Red Blood Count 3.70 L, Mean Corpuscular Volume 101.9 H, Mean Corpuscular Hemoglobin 34.6 H, Mean Corpuscular Hemoglobin Concent 34.0, Red Cell Distr ibution Width 12.9, Neutrophils (%) (Auto) 93.9 H, Lymphocytes (%) (Auto) 3.5 L, Monocytes (%) (Auto) 1.5, Eosinophils (%) (Auto) 0.0, Basophils (%) (Auto) 0.1, Neutrophils # (Auto) 14.7 H, Lymphocytes # (Auto) 0.6 L, Monocytes # (Auto) 0.2, Eosinophils # (Auto) 0.0, Basophils # (Auto) 0.0, Calcium Level 7.9 L Microbiology Microbiology 08/26/18 Blood Culture - Preliminary, Resulted No Growth after 48 hours. All Specime... 08/26/18 Blood Culture - Preliminary, Resulted No Growth after 48 hours. All Specime... VALERIA WHITAKER MD Aug 28, 2018 17:38
[2018-08-28] MEDS: ADVAIR HFA 115/21MCG INHALER INH SCH (18:15)
[2018-08-28 22:00] VITALS: BP 130/74
[2018-08-28] MEDS: methylPREDNISolone INJ 40 MG/1 ML VIAL (J2920) IV SCH (23:16)
[2018-08-28] MEDS: diphenhydrAMINE 25 MG CAP PO PRN (23:17)
[2018-08-29] MEDS: CEPACOL LOZENGE PO PRN ×3 (02:44→22:12)
[2018-08-29] MEDS: methylPREDNISolone INJ 40 MG/1 ML VIAL (J2920) IV SCH ×3 (04:49→21:51)
[2018-08-29] MEDS: KETOROLAC 30 MG/ML VIAL (J1885) IV PRN (04:55)
[2018-08-29 06:00] VITALS: BP 152/83
[2018-08-29 06:08] LABS: HEMATOCRIT 36.9 % (36.0-47.0); HEMOGLOBIN 12.5 g/dl (12.0-15.5); MEAN CORPUSCULAR HEMOGLOBIN 34.1 pg (27.0-33.0); MEAN CORPUSCULAR HGB CONC 33.9 g/dl (32.0-36.5); MEAN CORPUSCULAR VOLUME 100.5 fl (80.0-96.0); PLATELET COUNT, AUTOMATED 275 10^3/uL (150-450); RED BLOOD COUNT 3.67 10^6/uL (4.00-5.40); WHITE BLOOD COUNT 18.4 10^3/uL (4.0-10.0)
[2018-08-29 06:56] LABS: BLOOD UREA NITROGEN 20 MG/DL (7-18); CALCIUM LEVEL 7.7 MG/DL (8.5-10.1); CARBON DIOXIDE LEVEL 22 MEQ/L (21-32); CHLORIDE LEVEL 108 MEQ/L (98-107); CREATININE FOR GFR 0.71 MG/DL (0.55-1.30); GLOMERULAR FILTRATION RATE > 60.0 (>58); GLUCOSE, FASTING 128 MG/DL (70-100); PHOSPHORUS LEVEL 2.9 MG/DL (2.5-4.9); POTASSIUM SERUM 4.3 MEQ/L (3.5-5.1); SODIUM LEVEL 138 MEQ/L (136-145)
[2018-08-29] MEDS: IPRATROPIUM 0.5MG/ALBUTEROL 2.5MG INH SOL UD 3ML (DUONEB)(J7620) NEB SCH ×4 (07:52→19:51)
[2018-08-29] MEDS: ADVAIR HFA 115/21MCG INHALER INH SCH ×2 (07:52→21:00)
[2018-08-29] MEDS: guaiFENesin ER 600 MG TAB PO SCH (10:24)
[2018-08-29] MEDS: DOXYCYCLINE HYCLATE 100 MG TAB PO SCH ×2 (10:24→21:51)
[2018-08-29] MEDS: SODIUM CHLORIDE NASAL 0.65% SPRAY BTL (OCEAN) SCH ×2 (10:25→21:52)
[2018-08-29] MEDS: LISINOPRIL 20 MG TAB PO SCH (10:25)
[2018-08-29 14:00] VITALS: BP 143/99
--- NOTE | 2018-08-29 16:06 | IPNPDOC ---
Date Seen The patient was seen on 08/29/18. Progress Note SUBJECTIVE: Patient is a 48 yo female admitted for asthma exacerbation. Patient is also a current smoker with an extensive cigarette smoking history (about 30pack years). She said she is not feeling so great today still sob and wheezy with chest tightness, but she denied fever,chills, chest pain or dizziness OBJECTIVE PHYSICAL EXAMINATION: VITAL SIGNS: Please see below. Gen: NAD, healthy appearing , obese HEENT: normocephalic, atraumatic, no discharge from ears or nose, no oropharyn geal erythema or exudate, neck is supple, no lymphadenopathy, trachea midline CVS: RRR, normal S1n S2, no murmur, rubs, or gallops, no edema, no jvd Resp: no rhonchi, crackles or wheezes, but coarse breath sounds, and improved productive cough, Abd : soft nontender, normal bowel sounds, no rebound tenderness or guarding MSK: no swelling, full range of motion, strength 5/5 Neuro: AOAx3, no confusion, no focal deficit Psych: normal mood and affect, good judgment LABORATORY DATA, IMAGING STUDIES, MICROBIOLOGY: Please see below.reviewed DVT prophylaxis ordered?: [yes] ASSESSMENT AND PLAN: Acute asthma exacerbation with failed outpatient treatment likely secondary to acute bronchitis, in setting of likely undiagnosed copd -c/w 40mg q8h iv - will switch to po tomorrow -DuoNeb's 4 times a day and when necessary albuterol nebs, Tessalon Perles prn cough, Robitussin-AC prn cough -c/w advair bid -Continue oral doxycycline -procalcitonin is indeterminate and patient was already on abx for a few days before it was collected -Toradol as needed for sinus pain and chest wall pain - resp panel + parainfluenza virus 3 - contact isolation - sputum gs and cx pending Lactic acidosis: -Suspect related to her respiratory symptoms and shortness of breath rather than sepsis -Patient was given IV 3 L normal saline fluid boluses initially. -Lactic acid is down trending. -Taking adequate oral fluid intake. -slightly improved compared to the -blood cx negative -lactic acid of 2.4, and wbc increased, but afebrile and clinically improved- will give another liter of ivf and monitor Chest pain: -Suspect musculoskeletal as it seems to occur when she coughs -CT chest did not show pulmonary embolism on preliminary report -EKG does not show acute ST changes on personal review -Troponins negative x 3 -no need for telemetry -When necessary Toradol for pain Hypertension with medication noncompliance with hypertensive heart disease/left ventricular hypertrophy noted on EKG: -Continue Lisinopril 20 mg daily -May benefit from outpatient 2-D echocardiogram - advised patient to discuss with the primary care provider regarding same on discharge -BNP is normal, no lower extremity edema and no effusion or pulmonary edema on chest x-rayno indication for echocardiogram at this time Nicotine dependence/cigarette smoking: -Quit smoking a week prior to admission due to illness -Encouraged to stay off smoking DVT prophylaxis: -SCDs -Encourage ambulation CODE STATUS: -Full code Disposition: VS, I&O, 24H, [facility] Vital Signs/I&O Vital Signs Date Time Temp Pulse Resp B/P (MAP) Pulse Ox O2 Delivery O2 Flow Rate FiO2 08/29/18 14:00 96.6 100 18 143/99 (114) 97 08/28/18 14:00 150.0 08/26/18 17:36 Room Air I&O- Last 24 Hours up to 6 AM 08/29/18 06:00 Intake Total 3320 ml Output Total 2575 ml Balance 745 ml Laboratory Data 24H LABS Laboratory Tests 2 08/29/18 05:55: Nucleated Red Blood Cells % (auto) 0.0, Anion Gap 8, Glomerular Filtration Rate > 60.0, Lactic Acid Level 2.6*H, Blood Urea Nitrogen 20H, Creatinine 0.71, Sodium Level 138, Potassium Level 4.3, Chloride Level 108H, Carbon Dioxide Level 22, Calcium Level 7.7L, Phosphorus Level 2.9, Magnesium Level 2.0 08/29/18 10:13: Lactic Acid Followup at 4 Hours 2.4*H CBC/BMP Laboratory Tests 08/29/18 05:55 Red Blood Count 3.67 L, Mean Corpuscular Volume 100.5 H, Mean Corpuscular Hemoglobin 34.1 H, Mean Corpuscular Hemoglobin Concent 33.9, Red Cell Distribution Width 12.9, Calcium Level 7.7 L Microbiology Microbiology 08/26/18 Blood Culture - Preliminary, Resulted No Growth after 72 hours. All specime... 08/26/18 Blood Culture - Preliminary, Resulted No Growth after 72 hours. All specime... 08/28/18 Respiratory Virus Panel (PCR) ([facility]) - Final, Complete Parainfluenza 3 (Piv3) 08/28/18 Gram Stain - Final, Resulted 08/28/18 Sputum Culture, Resulted Pending VALERIA WHITAKER MD Aug 29, 2018 16:06
[2018-08-29] MEDS ORDERED: NS 1,000 ML IV ONE (16:15)
[2018-08-29] MEDS: guaiFENesin/CODEINE SYRUP 5 ML UDC PO PRN (20:02)
[2018-08-29] MEDS: diphenhydrAMINE 25 MG CAP PO PRN (21:52)
[2018-08-29 22:00] VITALS: BP 160/90
[2018-08-30] MEDS: methylPREDNISolone INJ 40 MG/1 ML VIAL (J2920) IV SCH ×2 (03:18→12:00)
[2018-08-30] MEDS: KETOROLAC 30 MG/ML VIAL (J1885) IV PRN (03:25)
[2018-08-30] MEDS: CEPACOL LOZENGE PO PRN ×2 (03:25→08:53)
[2018-08-30 06:00] VITALS: BP 156/86
[2018-08-30 06:06] LABS: HEMATOCRIT 37.2 % (36.0-47.0); HEMOGLOBIN 12.5 g/dl (12.0-15.5); MEAN CORPUSCULAR HEMOGLOBIN 33.6 pg (27.0-33.0); MEAN CORPUSCULAR HGB CONC 33.6 g/dl (32.0-36.5); PLATELET COUNT, AUTOMATED 267 10^3/uL (150-450); RED BLOOD COUNT 3.72 10^6/uL (4.00-5.40); WHITE BLOOD COUNT 16.1 10^3/uL (4.0-10.0)
[2018-08-30 06:31] LABS: BLOOD UREA NITROGEN 16 MG/DL (7-18); CALCIUM LEVEL 7.7 MG/DL (8.5-10.1); CARBON DIOXIDE LEVEL 25 MEQ/L (21-32); CHLORIDE LEVEL 108 MEQ/L (98-107); CREATININE FOR GFR 0.68 MG/DL (0.55-1.30); GLOMERULAR FILTRATION RATE > 60.0 (>58); GLUCOSE, FASTING 126 MG/DL (70-100); MAGNESIUM LEVEL 1.9 MG/DL (1.8-2.4); PHOSPHORUS LEVEL 2.7 MG/DL (2.5-4.9); POTASSIUM SERUM 4.3 MEQ/L (3.5-5.1); SODIUM LEVEL 140 MEQ/L (136-145)
[2018-08-30] MEDS: IPRATROPIUM 0.5MG/ALBUTEROL 2.5MG INH SOL UD 3ML (DUONEB)(J7620) NEB SCH ×2 (08:00→11:56)
[2018-08-30] MEDS: ADVAIR HFA 115/21MCG INHALER INH SCH (08:02)
[2018-08-30 08:53] VITALS: BP 151/92
[2018-08-30] MEDS: LISINOPRIL 20 MG TAB PO SCH (08:53)
[2018-08-30] MEDS: DOXYCYCLINE HYCLATE 100 MG TAB PO SCH (08:53)
[2018-08-30] MEDS: guaiFENesin/CODEINE SYRUP 5 ML UDC PO PRN (08:54)
[2018-08-30] MEDS: SODIUM CHLORIDE NASAL 0.65% SPRAY BTL (OCEAN) SCH (08:54)
[2018-08-30] MEDS ORDERED: LISI-538 PO (12:21)
[2018-08-30] MEDS ORDERED: FLUTICASONE INH (12:21)
[2018-08-30] MEDS ORDERED: SALMETEROL INH (12:21)
[2018-08-30] MEDS ORDERED: PRED10TA2 PO (12:25)
--- NOTE | 2018-08-30 12:37 | DS.PDOC ---
Discharge Summary General Date of Admission Aug 26, 2018 at 14:33 Date of Discharge 08/30/18 Discharge Summary PROCEDURES PERFORMED DURING STAY: [None]. ADMITTING DIAGNOSES: 1. Asthma exacerbation with a possible COPD component DISCHARGE DIAGNOSES: 1. Asthma and undiagnosed COPD exacerbation 2/2 parainfluenza virus 3 COMPLICATIONS/CHIEF COMPLAINT: Asthma Exacerbation. HISTORY OF PRESENT ILLNESS: Patient is a 48-year-old female with a previous history of asthma as a child as well as a 25-[id number]-brfq history of smoking, who has been having problems with cough, shortness of breath as well as wheezing ongoing for last 9 days. She denies any prior sick contacts. She reports she was sick a couple weeks prior to this as well but had improved. With her symptoms this time, she reports she was treated with azithromycin as well as prednisone as well as Tessalon Perlesthe patient finished the treatment but still had no improvement in her symptoms. She was seen in her primary care provider's office today for the shortness of breath as well as cough. The patient also has been using albuterol inhaler as needed without any improvement in her symptoms. The patient reported shortness of breath with minimal exertion. She also reported lightheadedness in the ER with minimal exertion. She reports she had a couple of episodes of diarrhea yesterday morning. Denies any fevers chills or sweats associated with the symptoms. Does report some flushing she also reports some chest wall pain particularly with coughing. She also reports headache and sinus pain. Reports she has not been able to sleep well. In the ER, the patient was initially noted to have oxygen saturation of 95% on room air. She however had wheezing as well as coughing and was quite short of breath. She was treated with 3 rounds of prolapse as well as a dose of IV Solu- Medrol 125 mg. Following this, with ambulating on the 15-20 feet, the patient was still feeling lightheaded and quite short of breath. CT scan of the chest PE protocol did not show any pulmonary embolism. Final report is pending. Initial troponin was also negative in the ER. EKG had shown sinus tachycardia with left ventricular hypertrophy but no acute ST changes. The EKG was personally reviewed. Lactic acid was elevated at 2.6. Rapid flu test was negative. Given that patient has failed outpatient treatment and is having significant symptoms even with minimal exertion, admission was requested. HOSPITAL COURSE: Patient was initially treated for acute asthma exacerbation with failed outpatient treatment likely secondary to acute bronchitis, in setting of likely undiagnosed copd. She was treated with high dose solumedrol, duonebs 4 times a day, prn albuterol , Tessalon Perles prn cough, Robitussin-AC prn cough and oral doxycycline. She improving slowing so advair was added and steroid was tapered to 40mg iv q8h. Respiratory panel was done and was positive for parainfluenza virus 3. Sputum gram stain grew QUALITY: GOOD MODERATE WBCS FEW EPITHELIAL CELLS MODERATE GRAM POSITIVE COCCI IN PAIRS, CHAINS AND CLUSTERS MODERATE GRAM NEGATIVE RODS Culture is pending. She received 4 days course of doxycycline and will complete 3 more days for a total of 7 days course. Treatment above continued and patient is doing very well today- no wheezes, saturating well on room air and afebrile and is stable for discharge. She was also found to have Lactic acidosis, which could be a sign of sepsis vs hypoxia. She was given over 3 L of NS , but her lactic acid only went for 3.9 to 2.4. She wasn't complaining of any concerning signs for possible ischemia. Blood cultures and UA a are negative; However her sputum gram stain above is growing some bacteria and culrue is pending. This could be a source of possibly bacterial bronchitis or pneumonia. She did also complain of chest pain on admission, likely secondary to her wheezing and cough. EKG and troponins (x3) were not concerning for acute coronary syndrome. CTPE was negative for blood clot in the lung. She was given toradol which improved the pain. Her blood pressure was found to be elevated. Talia does have history of hypertension with medication noncompliance, ekg showed hypertensive heart disease/left ventricular hypertrophy. She was started on Lisinopril 20 mg daily. She has an extensive history of smoking cigarette, said she quit 1 week before coming to the hospital. She received smoking cessation counseling. DISCHARGE MEDICATIONS: Please see below. ALLERGIES: Please see below. PHYSICAL EXAMINATION ON DISCHARGE: VITAL SIGNS: Please see below. Gen: NAD, healthy appearing , HEENT: normocephalic, atraumatic, no discharge from ears or nose, no oropharyngeal erythema or exudate, neck is supple, no lymphadenopathy, trachea midline CVS: RRR, normal S1n S2, no murmur, rubs, or gallops, no edema, no jvd Resp: LCTAB, no rhonchi, wheezes or crackles Abd : soft nontender, normal bowel sounds, no rebound tenderness or guarding MSK: no swelling, full range of motion, strength 5/5 Neuro: AOAx3, no confusion, no focal deficit Psych: normal mood and affect, good judgment LABORATORY DATA: Please see below. IMAGING: NAME: BRENDAN MANRIQUE DATE OF : 1970 AGE: 48 SEX: F REPORT #: [id number] ROOM: [facility] TECHNOLOGIST: JANET DOCTOR: ANA SMITH PA-C Ordered for Date&Time: 08/26/181216 cc: [~ rep ct ivnm] Service Date&Time: 08/26/18 1245 EXAMINATION REQUESTED: Chest, 2 view PA, Lat REASON FOR PATIENT VISIT: COUGH, SOB REASON FOR EXAM/COMMENT: cough; SOB; congestion Chest x-ray: Two views. History: Cough shortness of breath. Congestion . Comparison study: August 22, 2018 . Findings: The lungs are well inflated and free of infiltrate. The pleural angles are sharp. The heart size is normal. Pulmonary vasculature is not increased. No significant bony abnormality is seen. Impression: Negative chest x-ray. Electronically Signed by Dewayne Edmond MD 08/26/2018 12:47 P DD: Dewayne Edmond MD 08/26/18 1246 DT: Nova 08/26/18 1247 DS: MARSHALL 08/26/18 1247 08/26/18 1247 [facility] NAME: BRENDAN MANRIQUE DATE OF : 1970 AGE: 48 SEX: F REPORT #: [id number] ROOM: [facility] TECHNOLOGIST: FORTUNATO DOCTOR: ANA SMITH PA-C Ordered for Date&Time: 08/26/18 1215 cc: [~ rep ct ivnm] Service Date&Time: This report is in Signed status. If this report is in a DRAFT status it has not yet been reviewed by the radiologist for accuracy. Thank you for having your radiology procedures performed at [facility] RADIOLOGY REPORT Date&Time printed: [~ rep prt dt last] [~ rep prt tm last] Page [address] [address] RADIOLOGY REPORT This report is in Signed status. If this report is in a DRAFT status it has not yet been reviewed by the ra diologist for accuracy. Thank you for having your radiology procedures performed at [facility] RADIOLOGY REPORT Date&Time printed: [~ rep prt dt last] [~ rep prt tm last] Page 1 of 1 NAME: BRENDAN MANRIQUE DATE OF : 1970 AGE: 48 SEX: F REPORT #: [id number] ROOM: [facility] TECHNOLOGIST: FORTUNATO DOCTOR: ANA SMITH PA-C Ordered for Date&Time: 08/26/18 1215 cc: [~ rep ct ivnm] Service Date&Time: EXAMINATION REQUESTED: CT ANGIO CHEST REASON FOR PATIENT VISIT: ASTHMA EXACERBATION REASON FOR EXAM/COMMENT: R/O PE Clinical: Acute chest pain. Technique: Axial contrast enhanced images from the thoracic inlet to the upper abdomen using 100 ml Isovue 370 intravenous contrast material with coronal and sagittal re-formations. Findings: Suboptimal enhancement of the pulmonary vasculature may be secondary to technical factors and image acquisition timing. However, no obvious pulmonary embolus is appreciated involving the bilateral first or second order pulmonary arteries. The lung pardo are relatively clear without focal consolidation, effusion, or pneumothorax. No obvious significant nodule or mass lesion. Tracheobronchial tree is patent. Mediastinal and hilar lymph nodes measure up to 8.5 mm short axis diameter and are nonspecific. Musculoskeletal structures are intact. Impression: Limited examination. No evidence for pulmonary embolus. No acute pleuroparenchymal or mediastinal process. Electronically Signed by Juaquin Worthington MD 08/28/2018 09:34 A DD: Juaquin Worthington MD 08/26/18 1400 DT: Nova 08/28/18933 DS: INA 08/28/1893308/28/18933 [~ rep ct labl] PROGNOSIS: ACTIVITY: [As tolerated]. DIET: [as tolerated] DISCHARGE INSTRUCTIONS: follow up with PMD in 1-2 weeks. You will likely need to be evaluated by a director of cardiac rehabilitation for diagnosis of COPD DISCHARGE CONDITION: [Stable]. TIME SPENT ON DISCHARGE: Greater than [25 mins]. Vital Signs/I&Os Vital Signs Date Time Temp Pulse Resp B/P (MAP) Pulse Ox O2 Delivery O2 Flow Rate FiO2 08/30/18 08:53 151/92 08/30/18 06:00 97.0 84 21 93 08/28/18 14:00 150.0 08/26/18 17:36 Room Air I&O- Last 24 Hours up to 6 AM 08/30/18 06:00 Intake Total 2200 ml Output Total 3875 ml Balance -1675 ml Laboratory Data Labs 24H Laboratory Tests 2 08/30/18 05:41: Nucleated Red Blood Cells % (auto) 0.2H, Anion Gap 7L, Glomerular Filtration Rate > 60.0, Blood Urea Nitrogen 16, Creatinine 0.68, Sodium Level 140, Potassium Level 4.3, Chloride Level 108H, Carbon Dioxide Level 25, Calcium Level 7.7L, Phosphorus Level 2.7, Magnesium Level 1.9 08/30/18 08:25: 25-Hydroxy Vitamin D Total 13.1L CBC/BMP Laboratory Tests 08/30/18 05:41 Red Blood Count 3.72 L, Mean Corpuscular Volume 100.0 H, Mean Corpuscular Hemoglobin 33.6 H, Mean Corpuscular Hemoglobin Concent 33.6, Red Cell Distribution Width 13.1, Calcium Level 7.7 L Microbiology Microbiology 08/26/18 Blood Culture - Preliminary, Resulted No Growth after 72 hours. All specime... 08/26/18 Blood Culture - Preliminary, Resulted No Growth after 72 hours. All specime... 08/28/18 Respiratory Virus Panel (PCR) (OMER) - Final, Complete Parainfluenza 3 (Piv3) 08/28/18 Gram Stain - Final, Resulted 08/28/18 Sputum Culture, Resulted Pending Discharge Medications Scheduled Azithromycin (Zithromax Z-Jude) 250 Mg Tab, 250 MG PO ASDIRECTED Day 1- take two tablets once. Day 2, 3, 4 , 5 take one tablet once daily Fluticasone Propion/Salmeterol (Advair Hfa 115-21 Mcg Inhaler) 12 Gm Hfa.aer.ad, 2 PUFF INH BID Guaifenesin (Mucinex) 600 Mg Tab, 600 MG PO BID Prednisone (Prednisone) 10 Mg Tab, 10 MG PO TAPER Take 4 tabs daily x 3 days, then 3 tabs daily x 3 days, then 2 tabs daily x 3 days, then 1 tab daily x 3 days and stop Scheduled PRN Albuterol Sulfate (Proair Hfa) 108 Mcg/Act Aer, 2 PUFF INH Q4H PRN for SHORTNESS OF BREATH, (Reported) Benzonatate (Benzonatate) 200 Mg Cap, 200 MG PO TID PRN for COUGH Levalbuterol Tartrate (Xopenex Hfa) 45 Mcg/Act Aer, 2 PUFF INH Q4H PRN for SOB/WHEEZING, (Reported) Allergies Coded Allergies: Penicillins (Verified Allergy, Intermediate, RASH, 08/22/18) VALERIA WHITAKER MD Aug 30, 2018 12:36
[2018-08-30] MEDS ORDERED: ADVA115A INH (12:42)
[2018-08-30] MEDS ORDERED: Doxycycline Hyclate PO (13:09)
[2018-08-30] MEDS ORDERED: DOXY-350 PO (13:11)
[2018-08-30] MEDS ORDERED: PRIN20TA3 PO (13:16)
[2018-08-30 14:00] VITALS: BP 141/81
== END 2018-08-30 14:29 | disposition home or self-care (01) | DRG 141 ==
LOC: M ED 11:31 → M ED INP 14:33 → M MSPAV 17:54
PROVIDERS: ADMIT Internal Medicine; ATTEND Internal Medicine
DX: J45.901 Unspecified asthma with (acute) exacerbation (principal); E87.2 Acidosis; I11.9 Hypertensive heart disease without heart failure; J44.1 Chronic obstructive pulmonary disease with (acute) exacerbation; Z79.899 Other long term (current) drug therapy; Z88.0 Allergy status to penicillin; Z87.891 Personal history of nicotine dependence; Z91.14 Patient's other noncompliance with medication regimen; E87.6 Hypokalemia

== ENCOUNTER 2018-09-21 16:51 | Inpatient (IN) | payer OTHER ==
[~2018-09-21] VITALS: Ht 160 cm; Wt 71.0 kg
[~2018-09-21 16:51] MED LIST changes: +ADVA115A INH; +DOXY-350 PO; +Doxycycline Hyclate PO; +FLUTICASONE INH; +LEVAINH INH; +PRED10TA2 PO; +PRIN20TA3 PO; +SALMETEROL INH
[2018-09-21 17:59] LABS: HEMATOCRIT 41.4 % (36.0-47.0); HEMOGLOBIN 14.4 g/dl (12.0-15.5); MEAN CORPUSCULAR HGB CONC 34.8 g/dl (32.0-36.5); MEAN CORPUSCULAR VOLUME 100.5 fl (80.0-96.0); PLATELET COUNT, AUTOMATED 443 10^3/uL (150-450); RED BLOOD COUNT 4.12 10^6/uL (4.00-5.40); WHITE BLOOD COUNT 6.2 10^3/uL (4.0-10.0)
[2018-09-21 18:37] LABS: ACETAMINOPHEN LEVEL < 2.0 UG/ML (10.0-30.0); ALBUMIN 3.5 GM/DL (3.2-5.2); ALT/SGPT 24 U/L (12-78); BILIRUBIN,DIRECT < 0.1 MG/DL (0.0-0.2); BILIRUBIN,TOTAL 0.2 MG/DL (0.2-1.0); BLOOD UREA NITROGEN 6 MG/DL (7-18); CALCIUM LEVEL 7.9 MG/DL (8.5-10.1); CARBON DIOXIDE LEVEL 25 MEQ/L (21-32); CHLORIDE LEVEL 109 MEQ/L (98-107); CPK CREATINE PHOSPHOKINASE 75 U/L (26-192); CREATININE FOR GFR 0.62 MG/DL (0.55-1.30); ETHYL ALCOHOL (ETHANOL) 0.208 % (0.000-0.010); GLOMERULAR FILTRATION RATE > 60.0 (>58); GLUCOSE, FASTING 95 MG/DL (70-100); POTASSIUM SERUM 3.8 MEQ/L (3.5-5.1); SALICYLATE LEVEL 3.3 MG/DL (5.0-30.0); SODIUM LEVEL 142 MEQ/L (136-145); THYROID STIMULATING HORMONE 0.572 uIU/ML (0.358-3.740); TOTAL PROTEIN 6.3 GM/DL (6.4-8.2)
[2018-09-21 18:43] LABS: HCG, SERUM QUALITATIVE NEGATIVE (NEGATIVE)
[2018-09-21 18:51] LABS: AMPHETAMINES LEVEL URINE NEGATIVE (NEGATIVE); BARBITURATES URINE NEGATIVE (NEGATIVE); BENZODIAZEPINES URINE NEGATIVE (NEGATIVE); CANNABINOIDS URINE NEGATIVE (NEGATIVE); COCAINE METABOLITE URINE NEGATIVE (NEGATIVE); METHADONE URINE NEGATIVE (NEGATIVE); OPIATES URINE NEGATIVE (NEGATIVE); PHENCYCLIDINE URINE NEGATIVE (NEGATIVE)
[2018-09-22] MEDS ORDERED: cloNIDine 0.1 MG TAB PO ONE (00:45)
[2018-09-22] MEDS ORDERED: LISI-542 PO (00:52)
[2018-09-22] MEDS ORDERED: ADVA115A INH (00:52)
[2018-09-22] MEDS ORDERED: TIZA4TAB4 PO (00:53)
[2018-09-22] MEDS ORDERED: tiZANidine 4 MG TAB PO PRN (01:45)
[2018-09-22] MEDS ORDERED: ACETAMINOPHEN TAB 650MG DOSE (2X325MG) PO PRN (01:45)
[2018-09-22] MEDS ORDERED: MAALOX 30 ML SUSP *UDC PO PRN (01:45)
[2018-09-22] MEDS ORDERED: MOM 30ML SUSPENSION UDC PO PRN (01:45)
[2018-09-22] MEDS ORDERED: traZODone 50 MG TAB PO PRN (01:45)
[2018-09-22] MEDS ORDERED: ALBUTEROL 90 MCG/ACT 8GM HFA INHALER INH PRN (01:45)
[2018-09-22] MEDS ORDERED: ADVAIR HFA 115/21MCG INHALER INH PRN (01:45)
[2018-09-22] MEDS ORDERED: OXAZEPAM 15 MG CAP PO PRN (01:45)
[2018-09-22 03:06] VITALS: BP 142/90
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
[2018-09-22] MEDS: LISINOPRIL 5 MG TAB PO SCH (09:33)
[2018-09-22] MEDS ORDERED: hydrOXYzine 50 MG TAB PO PRN (13:45)
--- NOTE | 2018-09-22 14:26 | HPEPDOC ---
General Date of Admission September 22, 2018 at 01:43 Chief Complaint The patient is a 48-year-old female admitted with a reason for visit of Unspecif ied Depressive D/O;Alcohol Use D/O. Source: Patient Timing/Duration: Unsure Severity: Moderate History of Present Illness Patient is a 48-year-old female, past medical history significant for anxiety disorder, hypertension, degenerative disc disease, admitted due to complaints of having a bad day. Review of medical records report patient called her primary care physician while intoxicated, but reports of suicidal thoughts and plan to overdose on Benadryl pills. Her primary care physician called the police and patient was brought in and admitted to the psychiatric unit for evaluation and management. On evaluation she reports feeling better and complained only of low back pain with radiation to right lower extremity. Home Medications Scheduled Lisinopril (Lisinopril) 5 Mg Tablet, 5 MG PO DAILY, (Reported) Scheduled PRN Albuterol Sulfate (Proair Hfa) 108 Mcg/Act Aer, 2 PUFF INH Q4H PRN for SHORTNESS OF BREATH, (Reported) Fluticasone Propion/Salmeterol (Advair Hfa 115-21 Mcg Inhaler) 12 Gm Hfa.aer.ad, 2 PUFF INH BID PRN for SHORTNESS OF BREATH, (Reported) Tizanidine HCl (Tizanidine HCl) 4 Mg Tablet, 4 MG PO TID PRN for MUSCLE SPASMS, (Reported) Allergies Coded Allergies: Penicillins (Verified Allergy, Intermediate, RASH, 08/22/18) Past Medical History Medical History 1.Hypertension 2.DDD 3.Asthma 4. Nicotine dependence 5. ETOH abuse Surgical History -4 C-sections -D/C -Exploratory laproscopy for ectopic -ventral wall hernia repair -tonsilectomy -adenectomy) Social History Social history: Smokes 1 pack per day,1-2 4locos(12% ETOH). Denies polysubstance abuse A-FIB/CHADSVASC A-FIB History Current/History of A-Fib/PAF?: No Age/Risk Factor Scoring CHADSVASC: CHADSVASC Response (Comments) Value Age Risk Factor Age < 65 years old 0 Gender Risk Factor Female 1 Hx of CHF No 0 Hx of HTN Yes 1 Hx of Stroke/TIA/or VTE No 0 Hx of Diabetes No 0 Hx of Vascular Disease No 0 Total 2 Review of Systems Other systems A 10 point pertinent review of systems was completed, negative except as stated in the history of presenting illness Physical Examination Other physical findings General: NAD. Skin: Warm, dry, intact. Cardiovascular: Regular rate and rhythm, no MRG, no jugular venous distention, no edema. Respiratory:CTAB, no accessory muscle use noted. Abdomen: Bowel sounds +, no tenderness, no distention Musculoskeletal: No joint deformities, Neurologic: CN 2-12 grossly intact, pain with right straight leg raise, alert and oriented 3 Psychiatric: Appropriate mood and affect, no anxiety or agitation. Vital Signs Vital Signs Date Time Temp Pulse Resp B/P (MAP) Pulse Ox O2 Delivery O2 Flow Rate FiO2 09/22/18 09:33 125/77 09/22/18 03:06 97.6 96 20 09/22/18 02:13 98 Room Air Laboratory Data Labs 24H Laboratory Tests 2 09/21/18 17:46: Nucleated Red Blood Cells % (auto) 0.0, Anion Gap 8, Glomerular Filtration Rate > 60.0, Calcium Level 7.9L, Aspartate Amino Transf (AST/SGOT) 16, Alanine Aminotransferase (ALT/SGPT) 24, Alkaline Phosphatase 118H, Total Bilirubin 0.2, Direct Bilirubin < 0.1, Total Creatine Kinase 75, Total Protein 6.3L, Albumin 3.5, Albumin/Globulin Ratio 1.25, Thyroid Stimulating Hormone (TSH) 0.572, Human Chorionic Gonadotropin, Qual NEGATIVE, Salicylates Level 3.3L, Urine Amphetamines Screen NEGATIVE, Urine Benzodiazepines Screen NEGATIVE, Urine Opiates Screen NEGATIVE, Urine Methadone Screen NEGATIVE, Acetaminophen Level < 2.0L, Urine Barbiturates Screen NEGATIVE, Urine Phencyclidine Screen NEGATIVE, Urine Cocaine Metabolite Screen NEGATIVE, Urine Cannabinoids Screen NEGATIVE, Ethyl Alcohol Level 0.208H CBC/BMP Laboratory Tests 09/21/18 17:46 Red Blood Count 4.12, Mean Corpuscular Volume 100.5 H, Mean Corpuscular Hemoglobin 35.0 H, Mean Corpuscular Hemoglobin Concent 34.8, Red Cell Distribution Width 13.3 Problems (1) Hypertension Problem Text: -Continue lisinopril with monitoring of blood pressure unit protocol (2) Psychosocial stressors Status: Chronic Problem Text: -Evaluation and management by primary team (3) Alcohol use disorder Status: Chronic Problem Text: -Evaluation and management by primary team (4) DDD (degenerative disc disease), lumbar Problem Text: -Add naproxen to current regimen -Continue tizanidine (5) Anxiety Status: Acute Problem Text: -Management by primary team Plan / VTE VTE Prophylaxis Ordered?: No VTE Exclusion Mechanical Proph: Low Risk for VTE DELMER KIRKLAND September 22, 2018 14:26
[2018-09-22] MEDS ORDERED: NAPROXEN 250 MG TAB PO PRN (14:30)
[2018-09-22 18:00] VITALS: BP 120/70
[2018-09-22] MEDS ORDERED: MIRTAZAPINE 15 MG TAB PO SCH (21:00)
--- NOTE | 2018-09-23 06:57 | ECGEPIP ---
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
[2018-09-23 07:20] VITALS: BP 121/69
[2018-09-23 09:28] VITALS: BP 133/88
[2018-09-23] MEDS: LISINOPRIL 5 MG TAB PO SCH (09:28)
[2018-09-23] MEDS ORDERED: REME15TA PO (10:27)
[2018-09-23] MEDS ORDERED: TRAZO50TA PO (10:27)
[2018-09-23] MEDS ORDERED: HYDRO50TAB PO (10:27)
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
== END 2018-09-23 12:10 | disposition home or self-care (01) | DRG 756 ==
LOC: M ED 16:51 → M ED INP 09-22 01:43 → M PSY 09-22 02:56
PROVIDERS: ADMIT Psychiatry & Neurology Psychiatry; ATTEND Psychiatry & Neurology Psychiatry
DX: F41.9 Anxiety disorder, unspecified (principal); I10 Essential (primary) hypertension; R45.851 Suicidal ideations; F10.10 Alcohol abuse, uncomplicated; F60.89 Other specific personality disorders; Z79.899 Other long term (current) drug therapy; J45.909 Unspecified asthma, uncomplicated; F17.200 Nicotine dependence, unspecified, uncomplicated; M51.36 Other intervertebral disc degeneration, lumbar region

== ENCOUNTER 2018-10-04 20:11 | Emergency (ER) | payer OTHER ==
[~2018-10-04] VITALS: Ht 157.5 cm; Wt 71.8 kg
[~2018-10-04 20:11] MED LIST changes: +HYDRO50TAB PO; +LISI-542 PO; +REME15TA PO; +TIZA4TAB4 PO; +TRAZO50TA PO
[2018-10-04 22:51] VITALS: BP 132/77
== END 2018-10-04 22:57 | disposition home or self-care (01) ==
LOC: M ED 20:11
DX: F10.229 Alcohol dependence with intoxication, unspecified (principal); F17.200 Nicotine dependence, unspecified, uncomplicated

== ENCOUNTER → 2018-11-24 | Outpatient (REF) | payer OTHER ==
[~2018-11-24] MED LIST changes: +TRAZ1TAB10 PO; -TRAZO50TA PO
== END ==
LOC: M LAB REF 08:31
PROVIDERS: ATTEND Physician Assistant
DX: R31.9 Hematuria, unspecified (principal)

== ENCOUNTER 2019-01-30 15:34 | Emergency (ER) | payer OTHER ==
[~2019-01-30] VITALS: Ht 157.5 cm; Wt 69.1 kg
[~2019-01-30 15:34] MED LIST changes: +HYDR1TAB33 PO; -HYDRO50TAB PO
[2019-01-30] MEDS ORDERED: NS 1,000 ML IV ONE (16:45)
[2019-01-30] MEDS ORDERED: KETOROLAC 30 MG/ML VIAL (J1885) IV ONE (17:00)
[2019-01-30 17:36] LABS: BASO % 0.4 % (0.0-1.0); EOS # 0.1 10^3/uL (0.0-0.5); EOS % 1.1 % (0.0-3.0); HEMATOCRIT 46.8 % (36.0-47.0); HEMOGLOBIN 16.6 g/dl (12.0-15.5); LYMPH # 2.9 10^3/uL (1.5-5.0); MEAN CORPUSCULAR HEMOGLOBIN 35.1 pg (27.0-33.0); MEAN CORPUSCULAR HGB CONC 35.5 g/dl (32.0-36.5); MEAN CORPUSCULAR VOLUME 98.9 fl (80.0-96.0); MONO # 0.7 10^3/uL (0.0-0.8); MONO % 6.1 % (0.0-5.0); NEUTROPHILS # 6.9 10^3/uL (1.5-8.5); NEUTROPHILS % 64.8 % (36.0-66.0); PLATELET COUNT, AUTOMATED 302 10^3/uL (150-450); RED BLOOD COUNT 4.73 10^6/uL (4.00-5.40); WHITE BLOOD COUNT 10.7 10^3/uL (4.0-10.0)
[2019-01-30 17:41] LABS: ALBUMIN 3.7 GM/DL (3.2-5.2); BILIRUBIN,DIRECT 0.1 MG/DL (0.0-0.2); BILIRUBIN,TOTAL 0.4 MG/DL (0.2-1.0); ETHYL ALCOHOL (ETHANOL) 0.171 % (0.000-0.010); TOTAL PROTEIN 6.5 GM/DL (6.4-8.2)
--- NOTE | 2019-01-30 17:50 | REPVR ---
EXAM: CT Abdomen and Pelvis Without Contrast EXAM DATE/TIME: 01/30/2019 5:00 PM CLINICAL HISTORY: 48 years old, female; Abdominal pain; Localized; Left; Additional info: Left flank pain; R/O stone TECHNIQUE: Imaging protocol: Computed tomography of the abdomen and pelvis without contrast. Radiation optimization: All CT scans at this facility use at least one of these dose optimization techniques: automated exposure control; mA and/or kV adjustment per patient size (includes targeted exams where dose is matched to clinical indication); or iterative reconstruction. COMPARISON: CT ABD PELVIS W/O CONTRAST 08/02/2018 4:13 PM FINDINGS: Limited evaluation without enteric or IV contrast. Lungs: Atelectatic change is present in the right lung base. Liver: Noncontrast liver shows no obvious lesion. Gallbladder and bile ducts: Gallbladder is present and shows no evidence of gallstone. Pancreas: Noncontrast pancreas shows no obvious mass or adjacent fluid. Spleen: Noncontrast spleen shows no obvious focal deformity. Adrenals: Adrenal glands are normal in appearance. Kidneys and ureters: Kidneys demonstrate no calculi. Symmetric bilateral renal pelvis dilatation, with mild bilateral ureter prominence but no ureter calculus. A left pelvis calculus on axial image 137 is extra urinary. Stomach and bowel: No evidence of small bowel obstruction. No evidence of acute diverticulitis. Appendix: Normal caliber appendix is identified, with no adjacent inflammation. Intraperitoneal space: No pneumoperitoneum. Vasculature: No aortic aneurysm. Lymph nodes: No enlarged lymph nodes. Bladder: Urinary bladder appears normal. Reproductive: Uterus and ovaries appear overall normal in size. Bones/joints: Bony structures show no acute fracture or destructive process. IMPRESSION: No evidence of obstructing renal stone. Bilateral parapelvic cysts, symmetric, without ureter stone. Electronically signed by: Cullen López On 01/30/2019 17:49:50 PM
[2019-01-30 18:45] VITALS: BP 130/87
== END 2019-01-30 19:18 | disposition home or self-care (01) ==
LOC: M ED 15:34
DX: R31.9 Hematuria, unspecified (principal); F10.929 Alcohol use, unspecified with intoxication, unspecified; I10 Essential (primary) hypertension; Z87.442 Personal history of urinary calculi; G43.909 Migraine, unspecified, not intractable, without status migrainosus; Z88.0 Allergy status to penicillin; Z79.899 Other long term (current) drug therapy
CPT/HCPCS: 36415; 74176; 80047; 80076; 83690; 85025; 93041; 96361; 96374; 99285; G0480; J1885

== ENCOUNTER → 2019-05-30 | Outpatient (CLI) | payer OTHER ==
--- NOTE | 2019-05-30 20:05 | REP ---
Clinical: Pelvic pain and prolonged menstrual cycles. Technique: Transabdominal pelvic ultrasound followed by transvaginal examination for better evaluation of the endometrium and adnexa with color Doppler evaluation of the ovaries. Findings: Anteverted uterus measures 10.3 x 4.2 x 5.1 cm. Endometrial complex measures 5.7 mm thickness. No discrete endometrial or uterine abnormality appreciated. The bilateral ovaries are normal in appearance and vascularity without torsion. Right ovary measures 2.2 x 2.0 x 1.5 cm (RI 0.58). Left ovary measures 2.5 x 1.8 x 1.7 cm (RI 0.51) and includes 1.6 cm dominant follicle. No pelvic free fluid or adnexal mass lesion. Bladder appears normal and measures 12.4 x 7.9 x 8.7 cm. Impression: Essentially normal pelvic ultrasound. Electronically Signed by Juaquin Worthington MD 05/30/2019 07:56 P
== END ==
LOC: M RAD 13:10
PROVIDERS: ATTEND Nurse Practitioner Women's Health
DX: N92.1 Excessive and frequent menstruation with irregular cycle (principal); R10.2 Pelvic and perineal pain

== ENCOUNTER → 2019-06-06 | Outpatient (REF) | payer OTHER | LOC: M SFHCWAGY 19:02 | PROVIDERS: ATTEND Nurse Practitioner Women's Health | DX: N92.1 Excessive and frequent menstruation with irregular cycle (principal) ==

== ENCOUNTER → 2019-07-01 | Outpatient (REF) | payer OTHER ==
[2019-07-01 16:22] LABS: COMPLEMENT C3 121 MG/DL (90-180); COMPLEMENT C4 26 MG/DL (10-40); RHEUMATOID FACTOR QUANT < 10.0 IU/ML (<15.0)
[2019-07-01 16:32] LABS: VITAMIN B12 LEVEL 400 PG/ML (247-911)
== END ==
LOC: M LAB REF 15:57
PROVIDERS: ATTEND Internal Medicine
DX: M25.50 Pain in unspecified joint (principal); G62.9 Polyneuropathy, unspecified; R53.83 Other fatigue

== ENCOUNTER → 2019-07-27 | Outpatient (CLI) | payer OTHER ==
[~2019-07-27] MED LIST changes: +CYMB1CAP4 PO; +DULO1CAP5 PO
--- NOTE | 2019-07-27 17:03 | REPVR ---
PROCEDURE INFORMATION: Exam: MR Lumbar Spine Without Contrast. Exam date and time: 07/27/2019 4:44 PM Age: 48 years old Clinical indication: Condition or disease; Disc degeneration; Lumbar sacral region TECHNIQUE: Imaging protocol: Multiplanar magnetic resonance images of the lumbar spine without intravenous contrast. COMPARISON: MRI-Spine, L.S. without con 08/18/2016 9:28 AM FINDINGS: Vertebrae: Unremarkable. Spinal cord: Normal signal. No cord compression. L1-L2: No significant disc disease. No significant spinal canal stenosis. No neural foraminal stenosis. L2-L3: No significant disc disease. No significant spinal canal stenosis. No neural foraminal stenosis. L3-L4: No significant disc disease. No significant spinal canal stenosis. No neural foraminal stenosis. L4-L5: Mild annular bulge L4-L5 with slight flattening of the thecal sac. There is no central or lateral spinal stenosis. There is mild bilateral facet joint arthropathy. No foraminal stenosis. L5-S1: Bulging annulus at L5-S1 with a small posterior central disc protrusion minimally flattens the ventral subarachnoid space without significant compression or neural compromise. There is no lateral recess or foraminal stenosis. There is mild bilateral facet joint arthropathy. No significant interval change. Soft tissues: Unremarkable. IMPRESSION: 1. Bulging annulus at L5-S1 with a small posterior central disc protrusion minimally flattens the ventral subarachnoid space without significant compression or neural compromise. There is mild bilateral facet joint arthropathy. No significant interval change. 2. Mild annular bulge L4-L5 without neural compromise. Electronically signed by: Jose Roberto Gudino On 07/27/2019 17:02:43 PM
--- NOTE | 2019-07-27 17:14 | REPVR ---
PROCEDURE INFORMATION: Exam: MR Cervical Spine Without Contrast Exam date and time: 07/27/2019 4:44 PM Age: 48 years old Clinical indication: Condition or disease; Disc degeneration; Vertebra area not specified TECHNIQUE: Imaging protocol: Multiplanar magnetic resonance images of the cervical spine without contrast. COMPARISON: No relevant prior studies available. FINDINGS: Vertebrae: The cervical vertebral bodies are normal in height, without abnormal subluxation. There is a mild decrease in the AP diameter of the C4 and C5 vertebral bodies, which is likely developmental. The cervical lordosis is straightened. Spinal cord: No visualized cervical spinal cord edema. No cervical spinal cord compression. Multilevel findings: Degenerative disc disease is noted at multiple cervical levels, with a decrease in the T2 signal intensity of the discs as well as disc bulging. C2-C3: Mild disc bulging. No significant narrowing of the thecal sac. No significant neural foraminal narrowing bilaterally. C3-C4: Minimal disc bulging, without significant narrowing of the thecal sac or right neural foramen. Mild left neural foraminal narrowing, with uncovertebral hypertrophy. C4-C5: Minimal disc bulging, without significant narrowing of the thecal sac or neural foramina. C5-C6: Mild disc bulging, without significant narrowing of the thecal sac or neural foramina. C6-C7: Mild disc bulging, without significant narrowing of the thecal sac or neural foramina. C7-T1: There is no significant narrowing of the thecal sac or neural foramina. No posterior disc herniation. Vertebral arteries: Expected flow voids in the vertebral arteries. Soft tissues: No significant prevertebral soft tissue swelling. IMPRESSION: 1. Degenerative changes are noted at multiple cervical levels, as described above. 2. No significant narrowing of the thecal sac at any cervical level. 3. Mild left neural foraminal narrowing at C3-C4. 4. The cervical lordosis is straightened. This can be associated with muscle spasms. Electronically signed by: Jani Bello On 07/27/2019 17:13:47 PM
== END ==
LOC: M RAD 15:01
PROVIDERS: ATTEND Physician Assistant
DX: M50.30 Other cervical disc degeneration, unspecified cervical region (principal); M51.36 Other intervertebral disc degeneration, lumbar region

== ENCOUNTER → 2019-08-03 | Outpatient (CLI) | payer OTHER ==
[~2019-08-03] MED LIST changes: +ACET160L16 PO; -ACET1LIQ PO; +IBUP-1022 PO
[2019-08-03 13:14] LABS: BLOOD UREA NITROGEN 14 MG/DL (7-18); CALCIUM LEVEL 9.1 MG/DL (8.5-10.1); CARBON DIOXIDE LEVEL 26 MEQ/L (21-32); CHLORIDE LEVEL 105 MEQ/L (98-107); CREATININE FOR GFR 0.72 MG/DL (0.55-1.30); GLOMERULAR FILTRATION RATE > 60.0 (>58); GLUCOSE, FASTING 90 MG/DL (70-100); SODIUM LEVEL 137 MEQ/L (136-145)
--- NOTE | 2019-08-03 13:52 | ECGEPIP ---
[facility] Test Date: 2019-08-03 Pat Name: BRENDAN MANRIQUE Department: Room: - Gender: Female Analysis Manager: : 1970 Requested By: Sourav Marin Order Number: [id number] Reading MD: Candy Soriano Measurements Intervals [place] Rate: 77 P: 63 IA: 206 QRS: 1 QRSD: 86 T: 1 QT: 384 QTc: 435 Interpretive Statements SINUS RHYTHM fIRST DEGREE BLOGK MODERATE VOLTAGE CRITERIA FOR LVH, CONSIDER NORMAL VARIANT Left atrial enlargement SIMILAR TO 09/22/18 TO FIRST DEGREE BLOCK NEW Electronically Signed on 08-03-2019 13:51:53 EDT by Candy Soriano
== END ==
LOC: M LAB 11:44
PROVIDERS: ATTEND Anesthesiology
DX: Z01.818 Encounter for other preprocedural examination (principal)

== ENCOUNTER 2019-08-05 07:51 | Day surgery (SDC) | payer OTHER ==
[~2019-08-05] VITALS: Ht 157.5 cm; Wt 75.8 kg
[~2019-08-05 07:51] MED LIST changes: +ACETAMINOPHEN 1000MG 100ML IV BTL (OFIRMEV) (J0131 PER 10MG) As Ordered ONE; -IBUP-1022 PO; +KETOROLAC 60 MG/2 ML VIAL (J1885) As Ordered ONE; +LIDOCAINE 2% INJ 100 MG/5 ML SDV (FOR ANES.) As Ordered ONE; +MIDAZOLAM INJ 2 MG/2 ML VIAL (J2250) As Ordered ONE; +NS 1,000 ML IV ONE; +ONDANSETRON 4MG/2ML VIAL (J2405) As Ordered ONE; +ROCURONIUM BROMIDE 50 MG/5 ML VIAL As Ordered ONE; +SUGAMMADEX SODIUM 500 MG/5 ML VIAL (BRIDION) As Ordered ONE; +dexameTHASONE 4 MG/ML 1ML VIAL (J1100) As Ordered ONE; +fentaNYL 100 MCG/2 ML INJECTION (J3010) As Ordered ONE; +propofoL 200 MG/20 ML VIAL As Ordered ONE
[2019-08-05] MEDS ORDERED: BUPIVACAINE HCL 0.25% 30 ML VIAL As Ordered ONE (08:05)
[2019-08-05] MEDS ORDERED: ceFAZolin 2 GM/D5W 50 ML IV BAG (J0690 PER 500MG) As Ordered ONE (08:06)
[2019-08-05 08:21] LABS: HEMATOCRIT 44.6 % (36.0-47.0); HEMOGLOBIN 15.3 g/dl (12.0-15.5); MEAN CORPUSCULAR HEMOGLOBIN 33.7 pg (27.0-33.0); MEAN CORPUSCULAR HGB CONC 34.3 g/dl (32.0-36.5); MEAN CORPUSCULAR VOLUME 98.2 fl (80.0-96.0); PLATELET COUNT, AUTOMATED 355 10^3/uL (150-450); RED BLOOD COUNT 4.54 10^6/uL (4.00-5.40); WHITE BLOOD COUNT 8.8 10^3/uL (4.0-10.0)
[2019-08-05] MEDS ORDERED: LR 1,000 ML IV ONE (08:30)
[2019-08-05] MEDS ORDERED: ceFAZolin SOD 2 GM in IV 1 EA IV ONE (08:30)
[2019-08-05] MEDS ORDERED: HYDROmorphone HCL 2 MG/ML 1ML VIAL (J1170) As Ordered ONE (09:38)
[2019-08-05] MEDS ORDERED: oxyCODONE 5MG TAB As Ordered ONE (10:46)
[2019-08-05] MEDS ORDERED: OXYC1TAB23 PO (11:21)
[2019-08-05] MEDS ORDERED: IBUP-1022 PO (11:23)
[2019-08-05] MEDS ORDERED: PERCOCET 5MG/325MG TAB PO PRN (11:30)
[2019-08-05] MEDS ORDERED: oxyCODONE 5MG TAB PO PRN (11:30)
[2019-08-05] MEDS ORDERED: MORPHINE 4 MG/ML 1ML VIAL/SYRINGE (J2270) IV PRN (11:30)
[2019-08-05] MEDS ORDERED: LR 1,000 ML IV SCH ×2 (11:30)
[2019-08-05] MEDS ORDERED: ONDANSETRON 4MG/2ML VIAL (J2405) IV PRN ×2 (11:30)
[2019-08-05] MEDS ORDERED: KETOROLAC 30 MG/ML VIAL (J1885) IV PRN (11:30)
[2019-08-05] MEDS ORDERED: HYDROMORPHONE HCL 0.5 MG/ 0.5 ML SYRINGE (J1170 PER 1) IV PRN (11:30)
[2019-08-05] MEDS ORDERED: fentaNYL 100 MCG/2 ML INJECTION (J3010) IV PRN (11:30)
[2019-08-05 12:27] VITALS: BP 124/77
[2019-08-05 12:54] VITALS: BP 131/73
[2019-08-05 14:00] VITALS: BP 122/92
[2019-08-05] MEDS: PERCOCET 5MG/325MG TAB PO PRN ×2 (14:06→17:16)
[2019-08-05 17:16] VITALS: BP 122/92
[2019-08-05] MEDS ORDERED: DOCUSATE SODIUM 100 MG CAP PO SCH (21:00)
--- NOTE | 2019-08-07 14:25 | RO ---
DATE OF PROCEDURE: 08/05/2019 PREOPERATIVE DIAGNOSIS: Menorrhagia. POSTOPERATIVE DIAGNOSIS: Menorrhagia. PROCEDURE: Robotic-assisted laparoscopy hysterectomy. Bilateral salpingo-oophorectomy. Cystoscopy. SURGEON: Dr. Will Hamilton MACHINE VENEER REPAIRER: Raiza Rose NP ANESTHESIA: General endotracheal. ESTIMATED BLOOD LOSS: 100 mL. URINE OUTPUT: 400 mL. FINDINGS: Adhesions of omentum to the midline anterior abdominal wall near the umbilicus. Normal uterus, fallopian tubes and ovaries. Dense adhesions of the bladder to the lower uterine segment. OPERATIVE SUMMARY: The patient was taken to the operating room where general endotracheal anesthesia was induced. She was prepped and draped in a sterile fashion in the dorsal lithotomy position. A Morgan catheter was placed. A Yushinoare uterine manipulator was placed. A periumbilical incision made with the scalpel. Veress needle was placed through this incision. The intra-abdominal location of the Veress needle was assessed with the use of a saline filled syringe. A pneumoperitoneum was created. The Veress needle was removed. An 8 mm trocar using Belanitort was inserted through this incision. Three 8 mm suprapubic ports were placed under direct visualization without difficulty. Dense adhesions of the omentum to the anterior abdominal wall inhibited view of the pelvis. LigaSure device was utilized to take down all omental adhesions sharply. The patient was placed in Trendelenburg position. The [place] surgical robot was then docked to the ports. The vessel sealer and bipolar instrument were utilized. The IP ligaments were coagulated and incised. The broad ligament attachments were coagulated and incised. The round ligament was coagulated and incised. The anterior and posterior leaves of the broad ligament were . The uterine vessels were skeletonized, coagulated and incised. A bladder flap was created with a combination of blunt and sharp dissection. The bladder was noted to be densely adherent to the lower uterine segment and cervix. Peak Aim monopolar endoshear device was used to incise the upper vagina level at the VCare cup. This was extended circumferentially around the upper vagina. The specimen including the uterus, cervix and bilateral tubes and ovaries was removed through the vagina. The vaginal cuff was closed with #1 V-Loc suture in a running fashion. The pelvis was irrigated with good hemostasis noted. A cystoscopy was performed using a 70 degrees cystoscope. Bilateral ureteral jets were identified. There was no evidence of injury to the bladder. All instruments were removed. The skin was closed with #4-0 Monocryl subcuticular sutures. Sponge, instrument and needle counts were correct. Raiza Rose NP, assisted throughout the procedure from beginning to end. She helped insert the ports, manipulated the uterus throughout the procedure, removed the specimen, and helped close. She was indispensable to the procedure.
== END 2019-08-05 17:22 | disposition home or self-care (01) ==
LOC: M SDC 07:51 → M MS5PR 12:10 → M SDC 17:22
PROVIDERS: ATTEND Specialist
DX: N80.0 Endometriosis of uterus (principal); N83.202 Unspecified ovarian cyst, left side; N92.1 Excessive and frequent menstruation with irregular cycle; I10 Essential (primary) hypertension; Z79.899 Other long term (current) drug therapy; Z88.0 Allergy status to penicillin; F41.9 Anxiety disorder, unspecified; F17.218 Nicotine dependence, cigarettes, with other nicotine-induced disorders; K58.8 Other irritable bowel syndrome
CPT/HCPCS: 36415; 58571; 85027; 86850; 86900; 86901; 88307; J0131; J0690; J1100; J1170; J1885; J2250; J2405; J3010

== ENCOUNTER → 2019-08-24 | Outpatient (CLI) | payer OTHER ==
[~2019-08-24] MED LIST changes: -ACETAMINOPHEN 1000MG 100ML IV BTL (OFIRMEV) (J0131 PER 10MG) As Ordered ONE; +IBUP-1022 PO; -KETOROLAC 60 MG/2 ML VIAL (J1885) As Ordered ONE; -LIDOCAINE 2% INJ 100 MG/5 ML SDV (FOR ANES.) As Ordered ONE; -MIDAZOLAM INJ 2 MG/2 ML VIAL (J2250) As Ordered ONE; -NS 1,000 ML IV ONE; -ONDANSETRON 4MG/2ML VIAL (J2405) As Ordered ONE; -ROCURONIUM BROMIDE 50 MG/5 ML VIAL As Ordered ONE; -SUGAMMADEX SODIUM 500 MG/5 ML VIAL (BRIDION) As Ordered ONE; -dexameTHASONE 4 MG/ML 1ML VIAL (J1100) As Ordered ONE; -fentaNYL 100 MCG/2 ML INJECTION (J3010) As Ordered ONE; -propofoL 200 MG/20 ML VIAL As Ordered ONE
== END ==
LOC: M LABSMTC 10:09
PROVIDERS: ATTEND Family Medicine
DX: Z11.59 Encounter for screening for other viral diseases (principal); Z20.828 Contact with and (suspected) exposure to other viral communicable diseases

== ENCOUNTER 2019-09-10 20:54 | Emergency (ER) | payer OTHER ==
[~2019-09-10] VITALS: Ht 157.5 cm; Wt 77.7 kg
[~2019-09-10 20:54] MED LIST changes: +CYCL-707 PO; -CYCL10TA PO
[2019-09-10] MEDS ORDERED: NS 1,000 ML IV SCH (21:12)
[2019-09-10] MEDS ORDERED: MORPHINE 4 MG/ML 1ML VIAL/SYRINGE (J2270) IV ONE (21:15)
[2019-09-10] MEDS ORDERED: ONDANSETRON 4MG/2ML VIAL (J2405 PER 1MG) IV ONE (21:15)
[2019-09-10 21:54] LABS: BASO # 0.1 10^3/uL (0.0-0.2); BASO % 0.6 % (0.0-1.0); EOS # 0.1 10^3/uL (0.0-0.5); EOS % 1.5 % (0.0-3.0); HEMATOCRIT 44.2 % (36.0-47.0); HEMOGLOBIN 15.2 g/dl (12.0-15.5); LYMPH # 2.9 10^3/uL (1.5-5.0); LYMPH % 31.6 % (24.0-44.0); MEAN CORPUSCULAR HEMOGLOBIN 33.6 pg (27.0-33.0); MEAN CORPUSCULAR HGB CONC 34.4 g/dl (32.0-36.5); MEAN CORPUSCULAR VOLUME 97.8 fl (80.0-96.0); MONO # 0.7 10^3/uL (0.0-0.8); MONO % 7.2 % (0.0-5.0); NEUTROPHILS # 5.3 10^3/uL (1.5-8.5); NEUTROPHILS % 58.8 % (36.0-66.0); PLATELET COUNT, AUTOMATED 302 10^3/uL (150-450); RED BLOOD COUNT 4.52 10^6/uL (4.00-5.40); WHITE BLOOD COUNT 9.1 10^3/uL (4.0-10.0)
[2019-09-10 22:20] LABS: ALBUMIN 3.6 GM/DL (3.2-5.2); ALT/SGPT 31 U/L (12-78); BILIRUBIN,DIRECT < 0.1 MG/DL (0.0-0.2); BILIRUBIN,TOTAL 0.3 MG/DL (0.2-1.0); BLOOD UREA NITROGEN 15 MG/DL (7-18); CALCIUM LEVEL 8.6 MG/DL (8.5-10.1); CARBON DIOXIDE LEVEL 23 MEQ/L (21-32); CHLORIDE LEVEL 106 MEQ/L (98-107); CK-MB VALUE MASS < 1.0 NG/ML (<3.6); CPK CREATINE PHOSPHOKINASE 63 U/L (26-192); CREATININE FOR GFR 0.67 MG/DL (0.55-1.30); GLOMERULAR FILTRATION RATE > 60.0 (>58); GLUCOSE, FASTING 107 MG/DL (70-100); LIPASE 159 U/L (73-393); MB/CK RELATIVE INDEX 1.59 (< OR =4); POTASSIUM SERUM 3.9 MEQ/L (3.5-5.1); SODIUM LEVEL 138 MEQ/L (136-145); TOTAL PROTEIN 6.6 GM/DL (6.4-8.2); TROPONIN I < 0.02 NG/ML (< 0.10)
--- NOTE | 2019-09-10 22:41 | REPVR ---
PROCEDURE INFORMATION: Exam: US Abdomen Limited, Right Upper Quadrant Exam date and time: 09/10/2019 10:11 PM Age: 49 years old Clinical indication: Abdominal pain; Acute; Additional info: Ruq pain TECHNIQUE: Imaging protocol: Real-time ultrasound of the abdomen with image documentation. Examination was focused on the right upper quadrant. COMPARISON: RENAL US 07/15/2017 4:34 PM FINDINGS: Liver: Diffusely increased echogenicity. No focal lesion. Gallbladder: Normal. No gallstones. There is no gallbladder wall thickening. Common bile duct: Normal. No stones. No dilation. Pancreas: Obscured by bowel gas and cannot be visualized. Right kidney: Normal. No mass. No hydronephrosis. Extrarenal pelvis is. IMPRESSION: 1. Echogenic liver, probably steatosis. No focal lesion. 2. Normal gallbladder and bile ducts. Electronically signed by: Neo Bailey On 09/10/2019 22:40:46 PM
[2019-09-10] MEDS ORDERED: KETOROLAC 30 MG/ML 1ML VIAL (J1885 PER 15MG) IV ONE (22:45)
[2019-09-10] MEDS ORDERED: ISOVUE-370 76% 100ML VIAL (Q9967) As Ordered ONE (22:47)
--- NOTE | 2019-09-10 23:28 | REPVR ---
PROCEDURE INFORMATION: Exam: CT Angiography Chest With Contrast Exam date and time: 09/10/2019 10:56 PM Age: 49 years old Clinical indication: Chest pain; Additional info: Right pleuritic pain R/O pe TECHNIQUE: Imaging protocol: Computed tomographic angiography of the chest with intravenous contrast. 3D rendering: MIP and/or 3D reconstructed images were created by the technologist. Radiation optimization: All CT scans at this facility use at least one of these dose optimization techniques: automated exposure control; mA and/or kV adjustment per patient size (includes targeted exams where dose is matched to clinical indication); or iterative reconstruction. Contrast material: ISO 370; Contrast volume: 100 ml; Contrast route: IV; COMPARISON: CT ANGIO CHEST 08/26/2018 1:38 PM FINDINGS: Pulmonary arteries: No evidence of pulmonary arterial emboli. Aorta: No evidence of thoracic aortic aneurysm or dissection. Lungs: There is minor dependent atelectasis. No consolidation. No focal ground-glass opacities. There are small calcified granulomata in the right lower lobe. No noncalcified nodule or mass. Pleural space: Unremarkable. No pneumothorax. No pleural effusion. Heart: Unremarkable. No cardiomegaly. No pericardial effusion. Lymph nodes: There are small nonspecific mediastinal lymph nodes unchanged from prior scan. No significantly enlarged or progressive lymph nodes. Bones/joints: Unremarkable. No acute fracture. Soft tissues: Unremarkable. IMPRESSION: 1. No pulmonary emboli. 2. No thoracic aortic aneurysm or dissection. 3. No acute findings and no significant change from prior scan. Electronically signed by: Neo Bailey On 09/10/2019 23:28:04 PM
[2019-09-10 23:30] VITALS: BP 131/81
--- NOTE | 2019-09-10 23:36 | REPVR ---
PROCEDURE INFORMATION: Exam: CT Abdomen And Pelvis With Contrast Exam date and time: 09/10/2019 10:56 PM Age: 49 years old Clinical indication: Abdominal pain; Additional info: Right pleuritic pain R/O pe TECHNIQUE: Imaging protocol: Computed tomography of the abdomen and pelvis with intravenous contrast. Radiation optimization: All CT scans at this facility use at least one of these dose optimization techniques: automated exposure control; mA and/or kV adjustment per patient size (includes targeted exams where dose is matched to clinical indication); or iterative reconstruction. Contrast material: ISO 370; Contrast volume: 100 ml; Contrast route: IV; COMPARISON: CT ABD PELVIS W/O CONTRAST 01/30/2019 4:59 PM FINDINGS: Liver: There is a 7 mm cyst in the left lobe of the liver. There is diffuse hepatic steatosis. Liver is otherwise normal. No change from prior scan. Gallbladder and bile ducts: The gallbladder is normal. The bile ducts are not dilated. Pancreas: The pancreas is normal. Spleen: The spleen is normal. Adrenals: The adrenal glands are normal. Kidneys and ureters: The kidneys are normal. There are bilateral extrarenal pelves. No caliectasis. The ureters are mildly dilated. This appearance is unchanged from prior scan. No obstructive calculus or lesion. Stomach and bowel: Unremarkable. No obstruction. No mucosal thickening. Appendix: The appendix is normal. Intraperitoneal space: No evidence of free fluid or fluid collection. No free air. Vasculature: Unremarkable. No abdominal aortic aneurysm. Lymph nodes: Unremarkable. No enlarged lymph nodes. Bladder: The bladder is normal with no evidence of calculi. Reproductive: Status post hysterectomy. Bones/joints: Unremarkable. No acute fracture. Soft tissues: Unremarkable. IMPRESSION: 1. Hepatic steatosis. 2. No acute findings. Electronically signed by: Neo Bailey On 09/10/2019 23:36:12 PM
--- NOTE | 2019-09-11 06:29 | ECGEPIP ---
[facility] - ED Test Date: 2019-09-10 Pat Name: BRENDAN MANRIQUE Department: Room: - Gender: Female [employer]er: EMI : 1970 Requested By: ANDREI Martin Order Number: [id number] Reading MD: Mikael Katz Measurements Intervals [place] Rate: 107 P: 58 [place]: 191 QRS: 2 QRSD: 83 T: 14 QT: 335 QTc: 448 Interpretive Statements SINUS TACHYCARDIA W BORDERLINE FIRST DEGREE AV BLOCK MODERATE VOLTAGE CRITERIA FOR LVH, CONSIDER NORMAL VARIANT ABNORMAL RHYTHM ECG NONSPECIFIC ST T WAVE CHANGES CW 08/03/[address] T WAVE CHANGES Electronically Signed on 09-11-2019 6:28:46 EDT by Mikael Katz
== END 2019-09-11 00:02 | disposition home or self-care (01) ==
LOC: M ED 20:54
DX: R10.10 Upper abdominal pain, unspecified (principal); K76.0 Fatty (change of) liver, not elsewhere classified; R00.0 Tachycardia, unspecified; K58.9 Irritable bowel syndrome, unspecified; M79.9 Soft tissue disorder, unspecified; F41.9 Anxiety disorder, unspecified; M54.9 Dorsalgia, unspecified; G43.909 Migraine, unspecified, not intractable, without status migrainosus; Z87.442 Personal history of urinary calculi; F17.200 Nicotine dependence, unspecified, uncomplicated; Z88.0 Allergy status to penicillin; Z79.899 Other long term (current) drug therapy
CPT/HCPCS: 71275; 74177; 76705; 80048; 80076; 82550; 82553; 83690; 84484; 85025; 93005; 93041; 96361; 96374; 96375; 99284; J1885; J2270; J2405; Q9967

== ENCOUNTER 2019-09-12 15:40 | Emergency (ER) | payer OTHER ==
[~2019-09-12] VITALS: Ht 157.5 cm; Wt 76.6 kg
[2019-09-12] MEDS ORDERED: GI COCKTAIL 50ML BTL(HYOSCYAMINE/MAALOX/LIDOCAINE VISCOUS)(1:3:1) PO ONE (16:30)
[2019-09-12] MEDS ORDERED: MORPHINE 4 MG/ML 1ML VIAL/SYRINGE (J2270) IV ONE (16:30)
[2019-09-12 16:58] LABS: BASO % 0.4 % (0.0-1.0); EOS # 0.1 10^3/uL (0.0-0.5); EOS % 1.6 % (0.0-3.0); LYMPH # 2.8 10^3/uL (1.5-5.0); LYMPH % 34.3 % (24.0-44.0); MEAN CORPUSCULAR HEMOGLOBIN 33.7 pg (27.0-33.0); MEAN CORPUSCULAR HGB CONC 34.8 g/dl (32.0-36.5); MEAN CORPUSCULAR VOLUME 96.8 fl (80.0-96.0); MONO # 0.5 10^3/uL (0.0-0.8); MONO % 6.2 % (0.0-5.0); NEUTROPHILS # 4.6 10^3/uL (1.5-8.5); PLATELET COUNT, AUTOMATED 316 10^3/uL (150-450); RED BLOOD COUNT 4.75 10^6/uL (4.00-5.40)
[2019-09-12] MEDS ORDERED: ISOVUE-370 76% 100ML VIAL As Ordered ONE (16:58)
[2019-09-12 17:14] LABS: ALBUMIN 3.9 GM/DL (3.2-5.2); ALT/SGPT 32 U/L (12-78); BILIRUBIN,DIRECT 0.1 MG/DL (0.0-0.2); BILIRUBIN,TOTAL 0.5 MG/DL (0.2-1.0); BLOOD UREA NITROGEN 13 MG/DL (7-18); CALCIUM LEVEL 9.1 MG/DL (8.5-10.1); CARBON DIOXIDE LEVEL 22 MEQ/L (21-32); CHLORIDE LEVEL 108 MEQ/L (98-107); CK-MB VALUE MASS < 1.0 NG/ML (<3.6); CPK CREATINE PHOSPHOKINASE 73 U/L (26-192); CREATININE FOR GFR 0.74 MG/DL (0.55-1.30); ETHYL ALCOHOL (ETHANOL) 0.216 % (0.000-0.010); GLOMERULAR FILTRATION RATE > 60.0 (>58); GLUCOSE, FASTING 91 MG/DL (70-100); LIPASE 125 U/L (73-393); MB/CK RELATIVE INDEX 1.37 (< OR =4); POTASSIUM SERUM 4.3 MEQ/L (3.5-5.1); SODIUM LEVEL 138 MEQ/L (136-145); TROPONIN I < 0.02 NG/ML (< 0.10)
[2019-09-12] MEDS ORDERED: KETOROLAC 30 MG/ML 1ML VIAL IV ONE (17:45)
--- NOTE | 2019-09-12 18:10 | REPVR ---
PROCEDURE INFORMATION: Exam: CT Abdomen And Pelvis With Contrast Exam date and time: 09/12/2019 5:41 PM Age: 49 years old Clinical indication: Abdominal pain; Additional info: Severe/worsening right upper abdominal pain TECHNIQUE: Imaging protocol: Computed tomography of the abdomen and pelvis with intravenous contrast. Axial, coronal and sagittal reformatted images were created and reviewed. Radiation optimization: All CT scans at this facility use at least one of these dose optimization techniques: automated exposure control; mA and/or kV adjustment per patient size (includes targeted exams where dose is matched to clinical indication); or iterative reconstruction. Contrast material: ISO 370; Contrast volume: 100 ml; Contrast route: IV; COMPARISON: CT ABD/PEL W/IV CONTRAST ONLY 09/10/2019 10:49 PM FINDINGS: Liver: Diffuse hepatic steatosis. 7 mm simple cyst in the left hepatic lobe, similar to prior (no follow-up is indicated based on the imaging appearance). Gallbladder and bile ducts: No radiodense gallstones. No biliary ductal dilatation. Pancreas: Unremarkable. Spleen: Unremarkable. Adrenals: Unremarkable. Kidneys and ureters: Bilateral extrarenal pelves. No radiodense calculi. No hydronephrosis. Stomach and bowel: No bowel wall thickening. No obstruction. No pneumatosis. Appendix: Normal. Intraperitoneal space: No free fluid. No organized fluid collection. No free air. Vasculature: Unremarkable. No aneurysm. Lymph nodes: No pathologically enlarged lymph nodes. Bladder: Unremarkable. Reproductive: Status post hysterectomy. Bones/joints: No acute osseous abnormality. Soft tissues: Unremarkable. IMPRESSION: 1. No CT evidence of acute intra-abdominal or pelvic pathology. 2. Additional findings, as above. Electronically signed by: Delmer Gay On 09/12/2019 18:09:55 PM
[2019-09-12 18:34] VITALS: BP 158/94
--- NOTE | 2019-09-12 19:11 | ECGEPIP ---
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
== END 2019-09-12 18:37 | disposition home or self-care (01) ==
LOC: M ED 15:40
DX: R10.11 Right upper quadrant pain (principal); F10.10 Alcohol abuse, uncomplicated; I10 Essential (primary) hypertension; E78.5 Hyperlipidemia, unspecified; M79.7 Fibromyalgia; K58.8 Other irritable bowel syndrome; F41.9 Anxiety disorder, unspecified; F17.210 Nicotine dependence, cigarettes, uncomplicated; Z88.0 Allergy status to penicillin; Z79.899 Other long term (current) drug therapy
CPT/HCPCS: 74177; 80048; 80076; 81001; 82550; 82553; 83690; 84484; 85025; 93005; 96374; 96375; 99284; G0480; J1885; J2270; Q9967

== ENCOUNTER → 2019-11-30 | Outpatient (REF) | LOC: M LAB 13:17 | PROVIDERS: ATTEND Nurse Practitioner Adult Health | DX: Z00.00 Encounter for general adult medical examination without abnormal findings (principal) ==

== ENCOUNTER → 2020-02-29 | Outpatient (REF) | payer OTHER ==
[2020-03-02 08:09] LABS: LDL DIRECT 131 mg/dL (0-99)
== END ==
LOC: M LAB REF 17:10
PROVIDERS: ATTEND Internal Medicine
DX: E78.5 Hyperlipidemia, unspecified (principal)

== ENCOUNTER 2020-03-07 16:17 | Emergency (ER) | payer BC, OTHER ==
[~2020-03-07] VITALS: Ht 157.5 cm; Wt 68.2 kg
[2020-03-07] MEDS ORDERED: dexameTHASONE 20MG/5ML VIAL (J1100 PER 1MG) IV ONE (17:30)
[2020-03-07 17:36] LABS: BASO % 0.4 % (0.0-1.0); EOS # 0.1 10^3/uL (0.0-0.5); EOS % 1.1 % (0.0-3.0); LYMPH # 2.8 10^3/uL (1.5-5.0); LYMPH % 37.2 % (24.0-44.0); MEAN CORPUSCULAR HEMOGLOBIN 34.4 pg (27.0-33.0); MEAN CORPUSCULAR VOLUME 101.1 fl (80.0-96.0); MONO # 0.6 10^3/uL (0.0-0.8); MONO % 7.2 % (0.0-5.0); NEUTROPHILS # 4.1 10^3/uL (1.5-8.5); NEUTROPHILS % 53.7 % (36.0-66.0); PLATELET COUNT, AUTOMATED 308 10^3/uL (150-450); RED BLOOD COUNT 4.65 10^6/uL (4.00-5.40); WHITE BLOOD COUNT 7.6 10^3/uL (4.0-10.0)
[2020-03-07 18:00] LABS: ALBUMIN 3.7 GM/DL (3.2-5.2); ALT/SGPT 32 U/L (12-78); BILIRUBIN,DIRECT 0.1 MG/DL (0.0-0.2); BILIRUBIN,TOTAL 0.4 MG/DL (0.2-1.0); BLOOD UREA NITROGEN 12 MG/DL (7-18); CALCIUM LEVEL 9.1 MG/DL (8.5-10.1); CARBON DIOXIDE LEVEL 26 MEQ/L (21-32); CHLORIDE LEVEL 109 MEQ/L (98-107); CREATININE FOR GFR 0.63 MG/DL (0.55-1.30); GLOMERULAR FILTRATION RATE > 60.0 (>58); GLUCOSE, FASTING 99 MG/DL (70-100); POTASSIUM SERUM 3.9 MEQ/L (3.5-5.1); SODIUM LEVEL 142 MEQ/L (136-145); TOTAL PROTEIN 6.9 GM/DL (6.4-8.2)
[2020-03-07] MEDS: COMBIVENT RESPIMAT 100-20MCG INHALER 4GM INH SCH ×3 (18:02→18:30)
[2020-03-07] MEDS ORDERED: KETOROLAC 30 MG/ML 1ML VIAL IV ONE (18:45)
[2020-03-07] MEDS ORDERED: ISOVUE-370 76% 100ML VIAL As Ordered ONE (18:52)
--- NOTE | 2020-03-07 18:58 | REPVR ---
PROCEDURE INFORMATION: Exam: XR Chest, 1 View Exam date and time: 03/07/2020 4:37 PM Age: 49 years old Clinical indication: Cough and dyspnea; Additional info: Dyspnea/cough TECHNIQUE: Imaging protocol: XR of the chest Views: 1 view. COMPARISON: CT ANGIO CHEST 09/10/2019 10:49 PM FINDINGS: Lungs: Unremarkable. No consolidation. Pleural space: Unremarkable. No pleural effusion. No pneumothorax. Heart/Mediastinum: Unremarkable. No cardiomegaly. Bones/joints: Unremarkable. IMPRESSION: No acute findings. Electronically signed by: Jose Roberto Gudino On 03/07/2020 18:58:30 PM
[2020-03-07 19:16] LABS: CK-MB VALUE MASS < 1.0 NG/ML (<3.6); CPK CREATINE PHOSPHOKINASE 65 U/L (26-192); MB/CK RELATIVE INDEX 1.54 (< OR =4); TROPONIN I < 0.02 NG/ML (< 0.10)
--- NOTE | 2020-03-07 19:18 | REPVR ---
PROCEDURE INFORMATION: Exam: CT Angiography Chest With Contrast Exam date and time: 03/07/2020 6:55 PM Age: 49 years old Clinical indication: Chest pain; Additional info: Chest pain, SOB TECHNIQUE: Imaging protocol: Computed tomographic angiography of the chest with intravenous contrast. 3D rendering (Not supervised by radiologist): MIP and/or 3D reconstructed images were created by the technologist. Radiation optimization: All CT scans at this facility use at least one of these dose optimization techniques: automated exposure control; mA and/or kV adjustment per patient size (includes targeted exams where dose is matched to clinical indication); or iterative reconstruction. Contrast material: ISOVUE 370; Contrast volume: 75 ml; Contrast route: INTRAVENOUS (IV); COMPARISON: CT ANGIO CHEST 09/10/2019 10:49 PM FINDINGS: Pulmonary arteries: There are no pulmonary emboli. Aorta: There is no aortic dissection or aneurysm. Lungs: Calcified granulomas right lower lobe. Lungs otherwise clear. Pleural space: Unremarkable. No pneumothorax. No pleural effusion. Heart: Unremarkable. No cardiomegaly. No pericardial effusion. Lymph nodes: Unremarkable. No enlarged lymph nodes. Bones/joints: Unremarkable. No acute fracture. Soft tissues: Unremarkable. IMPRESSION: 1. There is no aortic dissection or aneurysm. 2. There are no pulmonary emboli. 3. No acute pulmonary parenchymal infiltrates. Electronically signed by: Jose Roberto Gudino On 03/07/2020 19:18:08 PM
[2020-03-07 19:35] VITALS: BP 111/68
[2020-03-07] MEDS ORDERED: PRED20TA PO (20:08)
[2020-03-07] MEDS ORDERED: PROAAER10 INH (20:08)
--- NOTE | 2020-03-08 19:14 | ECGEPIP ---
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
== END 2020-03-07 21:22 | disposition home or self-care (01) ==
LOC: M ED 16:17
DX: J20.9 Acute bronchitis, unspecified (principal); Z20.828 Contact with and (suspected) exposure to other viral communicable diseases; R94.31 Abnormal electrocardiogram [ECG] [EKG]; I10 Essential (primary) hypertension; K58.8 Other irritable bowel syndrome; M79.7 Fibromyalgia; F17.200 Nicotine dependence, unspecified, uncomplicated; Z88.0 Allergy status to penicillin; Z79.899 Other long term (current) drug therapy; Z79.51 Long term (current) use of inhaled steroids
CPT/HCPCS: 71045; 71275; 80048; 80076; 82550; 82553; 84484; 85025; 87040; 87486; 87581; 87633; 87798; 93005; 93041; 94640; 94760; 96374; 96375; 99285; J1100; J1885; Q9967

== ENCOUNTER → 2020-03-14 | Outpatient (CLI) | payer BC ==
--- NOTE | 2020-03-14 08:29 | REPVR ---
PROCEDURE INFORMATION: Exam: US Abdomen, Limited; Right Upper Quadrant Exam date and time: 03/14/20 (7:47am) Age: 49 years old Clinical indication: Acute RUQ pain TECHNIQUE: Imaging protocol: US abdomen. Real time ultrasound with image documentation. Limited examination focused on the right upper quadrant. COMPARISON: US GALLBLADDER of 09/10/19 FINDINGS: The liver is visually normal in size, with fatty infiltration (heterogeneous, echogenic texture). 2 small left hepatic lobe cysts (12 x 9 x 10 mm size; 7 x 5 x 7 mm size). The gallbladder has normal wall thickness (2 mm), with no stones nor sludge seen. No pericholecystic fluid is appreciated. The CBD is mildly prominent (5.8 mm diameter). The pancreas appears unremarkable. The right kidney measures 11.5 cm in length, with no hydronephrosis appreciated. No ascites is seen. IMPRESSION: No acute pathology. The gallbladder is unremarkable, with no stones identified. Fatty infiltration of the liver. The CBD is mildly prominent. Electronically signed by: Saumya Denney On 03/14/2020 08:29:39 AM
== END ==
LOC: M RAD 07:38
PROVIDERS: ATTEND Internal Medicine
DX: R10.9 Unspecified abdominal pain (principal)

== ENCOUNTER → 2020-05-15 | Outpatient (REF) | payer SELFPAY ==
[~2020-05-15] MED LIST changes: -LISI-538 PO; -LISI-542 PO; +LISI-898 PO; +LISI20TA33 PO; +MIRT-62 PO; -REME15TA PO
== END ==
LOC: EDSTATUS 12:15 → M LABSMTC 12:40
PROVIDERS: ATTEND Pediatrics
DX: Z20.828 Contact with and (suspected) exposure to other viral communicable diseases (principal)

== ENCOUNTER → 2020-06-11 | Outpatient (CLI) | payer SELFPAY | LOC: M LABSMTC 11:27 | PROVIDERS: ATTEND Pediatrics | DX: Z20.822 Contact with and (suspected) exposure to COVID-19 (principal) ==

== ENCOUNTER → 2020-06-28 | Outpatient (REF) ==
[~2020-06-28] MED LIST changes: +LISI-538 PO; +LISI-542 PO; -LISI-898 PO; -LISI20TA33 PO
== END ==
LOC: M LABSMTC 12:14
PROVIDERS: ATTEND Pediatrics
DX: Z20.828 Contact with and (suspected) exposure to other viral communicable diseases (principal)

== ENCOUNTER 2021-03-29 17:09 | Emergency (ER) | payer BC, SELFPAY ==
[~2021-03-29] VITALS: Ht 157.5 cm; Wt 71.1 kg
[~2021-03-29 17:09] MED LIST changes: -ACET-908 PO; +ACET-910 PO; -LISI-538 PO; -LISI-542 PO; +LISI-898 PO; +LISI20TA33 PO
[2021-03-29] MEDS ORDERED: LISI10TA22 (17:39)
[2021-03-29] MEDS ORDERED: BENZONATATE 100MG CAPSULE PO ONE (20:35)
[2021-03-29] MEDS ORDERED: COMBIVENT RESPIMAT 100-20MCG INHALER 4GM INH SCH (20:35)
--- OUTSIDE RECORDS SUMMARY | 2021-03-29 20:50 | CCD | Continuity of Care Document ---
Author Author Krystal BAKER DO Organization Unknown Address [phone] [address] Phone [phone] Care Team Providers Care Lead Accountant Name Role Phone Samantha Baker DO AUTM Unavailable [facility] AUTM Problems Description No Information Available Social History Type Date Description Comments Sex Unknown ETOH Use Occasionally consumes alcohol Tobacco Use Start: Unknown Patient is a current smoker, smo kes every day Been off tobacco use for one week Tobacco Use Start: Unknown End: Unknown Patient is a former smoker Allergies and adverse reactions Active Allergies Criticality Reaction | Severity Comments Date Penicillin Unable to assess criticality hIVES, n/v 05/14/2017 Medications Active Medications SIG Qnty Indications Ordering Provide r Date Lisinopril 10mg Tablets take one tablet by mouth twice a day 180tabs Samantha Baker DO 09/06/2020 Immunizations CPT Code Status Date Vaccine Lot # [id number] Refused 03/14/2021 Influenza Vaccin e Quadrivalent Preser/Antibiotic Free Im Use 94733 Refused 02/29/2020 Influenza Vaccin e Quadrivalent Preser/Antibiotic Free Im Use Vital Signs Date Vital Result Comment 03/14/2021 8:01am BP Systolic 122 mmHg BP Diastolic 76 mmHg Heart Rate 86 /min Height 62.50 inches 5'2.50" Weight 155.00 lb BMI (Body Mass Index) 27.9 kg/m2 09/06/2020 1:19pm BP Systolic 122 mmHg BP Diastolic 70 mmHg Heart Rate 102 /min Height 62.50 inches 5'2.50" Weight 163.00 lb O2 % BldC Oximetry 95 % RM Air BMI (Body Mass Index) 29.3 kg/m2 Results Test Acquired Date Facility Test Result H/L Range Note Basic Metabolic Panel 03/14/2021 [facility] [employer] Team Member: [place] [address] [phone] Glucose 89 mg/dL 74 - 99 1 BUN 19 mg/dL High 7 - 18 Creatinine 0.7 mg/dL 0.6 - 1.3 Sodium 137 mEq/L 136 - 145 Potassium 4.6 mEq/L 3.5 - 5.1 Chloride 102 mEq/L 98 - 107 Carbon Dioxide 28 mEq/L 21 - 32 Calcium 9.3 mg/dL 8.5 - 10.1 GFR >= 60 mL/min >60 GFR >= 60 mL/min >60 2 1 100-125 mg/dL PRE-DIABET ES/FASTING >126 mg/dL DIABETES/FASTING 2 CHRONIC KIDNEY DISEASE STAGI NG PER NKF STAGE I & II GFR >= 60 NORMAL TO MILDLY DECREASED STAGE III GFR 30-59 MODERATELY DECREASED STAGE IV GFR 15-29 SEVERELY DECREASED STAGE V GFR <15 VERY LITTLE GFR LEFT ESRD GFR <15 ON PRODUCT MANAGER Procedures Date Code Description Status 03/15/2020 19229331 Mammogram Completed 09/30/2017 285327579 Diabetic Retinal Eye Exam Comple [facility] 09/10/2017 376137677 Diabetic Retinal Eye Exam Comple [facility] 07/27/2017 [id number] Diabetic Retinal Eye Exam Comple [facility] 07/15/2017 [id number] Bone Mineral Density Test Comple [facility] Medical Devices Description No Information Available Encounters Description No Information Available Assessments Date Code Description Provider 03/14/2021 Z00.00 Encounter for genera l adult medical examination without abnormal findings Samantha Baker DO 03/14/2021 I10 Essential (primary) hypertension Samantha Baker DO 03/14/2021 Z80.3 Family history of malignant neop lasm of breast Samantha Baker DO 03/14/2021 J44.9 Chronic obstructive pulmonary di sease, unspecified Samantha Baker DO 03/14/2021 F17.210 Nicotine dependence, cigarettes, uncomplicated Samantha Baker DO Plan of Treatment Future Appointment(s):* 09/05/2021 8:00 am - Samantha Baker DO at [facility] 03/14/2021 - Samantha Baker DO* Z00.00 Encounter for general adult medical examination without abnormal findings * I10 Essential (primary) hypertension * Z80.3 Family history of malignant neoplasm of breast* New Xrays:* 3D Bi- Lateral Mammogram, Ordered: 03/14/21 * J44.9 Chronic obstructive pulmonary disease, unspecified* Comments:* using inhalers as prescribed and has not had to use rescue inhaler. * F17.210 Nicotine dependence, cigarettes, uncomplicated Functional Status Description No Information Available Mental Status Description No Information Available Referrals Description No Information Available
--- OUTSIDE RECORDS SUMMARY | 2021-03-29 20:50 | CCD | Continuity of Care Document ---
Author Author Krystla BAKER DO Organization Unknown Address [address] [address] Phone [phone] Care Team Providers Care Campaign Marketing Specialist Name Role Phone Samantha Baker DO AUTM Unavailable [facility] AUTM [phone] Problems Description No Information Available Social History [...] CPT Code Status Date Vaccine Lot # [id number] Refused 03/14/2021 Influenza Vaccin e Quadrivalent Preser/Antibiotic Free [place] Use [id number] Refused 02/29/2020 Influenza Vaccin e Quadrivalent Preser/Antibiotic [...] BMI (Body Mass Index) 29.3 kg/m2 Results Description No Information Available Procedures Date Code Description Status 03/15/2020 [id number] Mammogram Completed 09/30/2017 [id number] Diabetic Retinal Eye Exam Comple [facility] 09/10/2017 [id number] Diabetic Retinal Eye Exam Comple [facility] 07/27/2017 120789402 Diabetic Retinal Eye Exam Comple [facility] 07/15/2017 [id number] Bone Mineral Density Test Comple [facility] Medical Devices Description No Information Available Encounters Description No Information Available Assessments Description No Information Available Plan of Treatment Future Appointment(s):* 09/05/2021 8:00 am - Samantha Baker DO at [facility] 09/06/2020 - Samantha Baker DO* J44.9 Chronic obstructive pulmonary disease, unspecified* Comments:* using inhalers as prescribed and has not had to use rescue inhaler. 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
--- OUTSIDE RECORDS SUMMARY | 2021-03-29 20:50 | CCD ---
Author Author [facility] Organization [facility] Address Unknown Phone Unavailable Support Name Relationship Address Phone [facility]* Next Of Kin [address] [place] [address] [place] Next Of Kin [id number] [place] [address] [place] [address] [employer]ART[place]* Next Of Kin [address] [place] [address] UN Next Of Kin Unknown Unavailable NONE, PT PER Next Of Kin - -, - - - William Gonzalez Next Of Kin [address] [place] [address] UE Next Of Kin Unknown Unavailable [employer] BHAVIK Next Of Kin [address] [place] [address] Adrianne [place] [address] PIHARJEET MOFFETT Next Of Kin [address] [place] [address] JODRANA ZHANG Next Of Kin [address] [place] [address] TYRON [place]CR[place] [address] [employer] Next Of Kin [address] [place] [address] PRINCESS ROBB Next Of Kin [address] [facility] [place] [address] [employer] Next Of Kin [address] [facility] [place] [address] [employer] SUITS Next Of Kin [address] [facility] [place] [address] ADRIANNE MARIE Next Of Kin [address] [place] [id number] John ROBB Next Of Kin [address] [facility] [place] [address] Tadeo Robb ECON [address] [facility] [place] [place] [address] Unavailable Care Team Providers Care Sales Commissions Analyst Name Role Phone Sparks, Mireille HALL WORKER Unavailable Unavailable Sparks, Mireille HALL WORKER Unavailable Unavailable Sparks, Mireille HALL WORKER Unavailable Unavailable Sparks, Mireille HALL WORKER Unavailable Unavailable Sparks, Mireille HALL WORKER Unavailable Unavailable Sparks, Mireille HALL WORKER Unavailable Unavailable Sparks, Mireille HALL WORKER Unavailable Unavailable Sparks, Mireille HALL WORKER Unavailable Unavailable Sparks, Mireille HALL WORKER Unavailable Unavailable Sparks, Mireille HALL WORKER Unavailable Unavailable Sparks, Mireille HALL WORKER Unavailable Unavailable Sparks, Mireille HALL WORKER Unavailable Unavailable Sparks, Mireille HALL WORKER Unavailable Unavailable Nelly Kahn Unavailable Unavailable Myles, Samantha DO Unavailable Unavailable Myles, Samantha DO Unavailable Unavailable Myles, Samantha DO Unavailable Unavailable Myles, Samantha DO Unavailable Unavailable Myles, Samantha DO Unavailable Unavailable Myles, Samantha DO Unavailable Unavailable Myles, Samantha DO Unavailable Unavailable Myles, Samantha DO Unavailable Unavailable Myles, Samantha DO Unavailable Unavailable Myles, Samantha DO Unavailable Unavailable Myles, Samantha DO Unavailable Unavailable Myles, Samantha DO Unavailable Unavailable Myles, Samantha DO Unavailable Unavailable Myles, Samantha DO Unavailable Unavailable Myles, Samantha DO Unavailable Unavailable Myles, Samantha DO Unavailable Unavailable Myles, Samantha DO Unavailable Unavailable Myles, Samantha DO Unavailable Unavailable Myles, Samantha DO Unavailable Unavailable Myles, Samantha DO Unavailable Unavailable Myles, Samantha DO Unavailable Unavailable Myles, Samantha DO Unavailable Unavailable Myles, Samantha DO Unavailable Unavailable Myles, Samantha DO Unavailable Unavailable Myles, Samantha DO Unavailable Unavailable Myles, Samantha DO Unavailable Unavailable Myles, Samantha DO Unavailable Unavailable Myles, Samantha DO Unavailable Unavailable Myles, Samantah DO Unavailable Unavailable Myles, Samantha DO Unavailable Unavailable Myles, Samantha DO Unavailable Unavailable Myles, Samantha DO Unavailable Unavailable Myles, Samantha DO Unavailable Unavailable Myles, Samantha DO Unavailable Unavailable Myles, Samantha DO Unavailable Unavailable Myles, Samantha DO Unavailable Unavailable Myles, Samantha DO Unavailable Unavailable Myles, Samantha DO Unavailable Unavailable Myles, Samantha DO Unavailable Unavailable Myles, Samantha DO Unavailable Unavailable Myles, Samantha DO Unavailable Unavailable Myles, Samantha DO Unavailable Unavailable Myles, Samantha DO Unavailable Unavailable Myles, Samantha DO Unavailable Unavailable Myles, Samantha DO Unavailable Unavailable Myles, Samantha DO Unavailable Unavailable Myles, Samantha DO Unavailable Unavailable Myles, Samantha DO Unavailable Unavailable Myles, Samantha DO Unavailable Unavailable Myles, Samantha DO Unavailable Unavailable Myles, Samantha DO Unavailable Unavailable Myles, Samantha DO Unavailable Unavailable Myles, Samantha DO Unavailable Unavailable Myles, Samantha DO Unavailable Unavailable Myles, Samantha DO Unavailable Unavailable Myles, Samantha DO Unavailable Unavailable Myles, Samantha DO Unavailable Unavailable Myles, Samantha DO Unavailable Unavailable Myles, Samantha DO Unavailable Unavailable Myles, Samantha DO Unavailable Unavailable Myles, Samantha DO Unavailable Unavailable Myles, Samantha DO Unavailable Unavailable Myles, Samantha DO Unavailable Unavailable Myles, Samantha DO Unavailable Unavailable Myles, Samantha DO Unavailable Unavailable Myles, Samantha DO Unavailable Unavailable Myles, Samantha DO Unavailable Unavailable Myles, Samantha DO Unavailable Unavailable Myles, Samantha DO Unavailable Unavailable Myles, Samantha DO Unavailable Unavailable Myles, Samantha DO Unavailable Unavailable Myles, Samantha DO Unavailable Unavailable Myles, Samantha DO Unavailable Unavailable Myles, Samantha DO Unavailable Unavailable Samantha Haddad MD Unavailable Unavailable Samantha Haddad MD Unavailable Unavailable Samantha Haddad MD Unavailable Unavailable Samantha Haddad MD Unavailable Unavailable Samantha Haddad MD Unavailable Unavailable Samantha Haddad MD Unavailable Unavailable Samantha Haddad MD Unavailable Unavailable Samantha Haddad MD Unavailable Unavailable Samantha Haddad MD Unavailable Unavailable Samantha Haddad MD Unavailable Unavailable Samantha Haddad MD Unavailable Unavailable Samantha Haddad MD Unavailable Unavailable Samantha Haddad MD Unavailable Unavailable Samantha Haddad MD Unavailable Unavailable Samantha Haddad MD Unavailable Unavailable Samantha Haddad MD Unavailable Unavailable Samantha Haddad MD Unavailable Unavailable Samantha Haddad MD Unavailable Unavailable Samantha Haddad MD Unavailable Unavailable Samantha Haddad MD Unavailable Unavailable Samantha Haddad MD Unavailable Unavailable Samantha Haddad MD Unavailable Unavailable Samantha Haddad MD Unavailable Unavailable Samantha Haddad MD Unavailable Unavailable Samantha Haddad MD Unavailable Unavailable RING, K RALPH PA Unavailable Unavailable RING, K RALPH PA Unavailable Unavailable RING, K RALPH PA Unavailable Unavailable RING, K RALPH PA Unavailable Unavailable RING, K RALPH PA Unavailable Unavailable RING, K RALPH PA Unavailable Unavailable RING, K RALPH PA Unavailable Unavailable RING, K RALPH PA Unavailable Unavailable RING, K RALPH PA Unavailable Unavailable RING, K RALPH PA Unavailable Unavailable RING, K RALPH PA Unavailable Unavailable RING, K RALPH PA Unavailable Unavailable RING, K RALPH PA Unavailable Unavailable RING, K RALPH PA Unavailable Unavailable RING, K RALPH PA Unavailable Unavailable RING, K RALPH PA Unavailable Unavailable RING, K RALPH PA Unavailable Unavailable RING, K RALPH PA Unavailable Unavailable RING, K RALPH PA Unavailable Unavailable RING, K RALPH PA Unavailable Unavailable RING, K RALPH PA Unavailable Unavailable Re-disclosure Warning The records that you are about to access may contain information from federally-assisted alcohol or drug abuse programs. If such information is present, then the following federally mandated warning applies: This information has been disclosed to you from records protected by federal confidentiality rules (42 CFR part 2). The federal rules prohibit you from making any further disclosure of this information unless further disclosure is expressly permitted by the written consent of the person to whom it pertains or as otherwise permitted by 42 CFR part 2. A general authorization for the release of medical or other information is NOT sufficient for this purpose. The Federal rules restrict any use of the information to criminally investigate or prosecute any alcohol or drug abuse patient.The records that you are about to access may contain highly sensitive health information, the redisclosure of which is protected by Article 27-F of the [facility] Public Health law. If you continue you may have access to information: Regarding HIV / AIDS; Provided by facilities licensed or operated by the [facility] Office of Mental Health; or Provided by the [facility] Office for People With Developmental Disabilities. If such information is present, then the following [facility] mandated warning applies: This information has been disclosed to you from confidential records which are protected by state law. State law prohibits you from making any further disclosure of this information without the specific written consent of the person to whom it pertains, or as otherwise permitted by law. Any unauthorized further disclosure in violation of state law may result in a fine or halfway sentence or both. A general authorization for the release of medical or other information is NOT sufficient authorization for further disc losure. Family History Family Member Name Family Member Gender Family Member Status Date o f Status Description Data Source(s) Unknown Unknown Problem [facility] ([facility]) mgf Encounters Encounter Providers Location Date Indications Data Source(s ) Outpatient Attender: Nelly NG 09/2020 01:44:20 PM EDT - 03/29/2021 04:27:13 PM EDT [facility] ([facility]) Outpatient Attender: Caroline Haddad MD 1 11:43:32 AM EDT - 03/22/2021 02:50:14 PM EDT [facility] ([facility]) Outpatient Attender: Caroline Haddad MD 0 01/30/2021 10:07:41 AM EDT - 01/30/2021 12:12:25 PM EDT [facility] ([facility]) Outpatient Attender: Samantha Schultz 09/06 01:15:00 PM EDT [facility] ([facility] ) Outpatient Attender: RALPH Rene 06/10/2020 07:45:00 AM EST [facility] ([facility]) Outpatient Attender: Samantha Schultz 03/13 09:20:00 AM EDT [facility] ([facility] ) Outpatient Attender: Mireille albert 03/02/2020 09:10:00 AM EDT [facility] ([facility]) Outpatient Attender: Samantha Schultz 02/28 10:00:00 AM EDT [facility] ([facility] ) Outpatient Attender: Mireille albert 02/26/2020 09:55:00 AM EDT [facility] ([facility]) Immunizations Vaccine Date Status Description Data Source(s) Influenza, injectable, MDCK, preservative free, zuleika valent 03/14/2021 08:06:00 AM EDT completed [facility] ([facility]) COVID-19 VACCINE Pfizer 02/28/2021 12:00:00 AM EDT completed [place] Vaccine Series Complete: YESThis Data wa s Submitted to [facility] Via [employer]. COVID-19 VACCINE Pfizer 02/07/2021 12:00:00 AM EDT completed [place] Vaccine Series Complete: NOThis Data was Submitted to [facility] Via [employer]. Influenza, injectable, MDCK, preservative free, zuleika valent 02/29/2020 10:05:00 AM EDT completed [facility] ([facility]) Medications Medication Brand Name Start Date Product Form Dose Route Admi nistrative Instructions Pharmacy Instructions Status Indications Reaction Description Data Source(s) 5 mg/gram (0.5 %) 03/22/2021 12:00:00 AM EDT ointment 3 APPLY TO AFFECTED EYE(S) THREE TIMES A DAY FOR 5 DAYS APPLY TO AFFECTED EYE(S) THREE TIMES A D AY FOR 5 DAYS SOLD: 03/23/2021 [facility] 10 mg 03/14/2021 12:00:00 AM EDT tablet 180 TAKE ONE TABLET BY MOUTH TWICE A DAY TAKE ONE TABLET BY MOUTH TWICE A DAY SOLD: 03/23/2021 [facility] 500 mg 01/30/2021 12:00:00 AM EDT tablet 20 TAKE 1 TABLET BY MOUTH EVERY 12 HOURS FOR 10 DAYS TAKE 1 TABLET BY MOUTH EVERY 12 HOURS FOR 10 DAYS SOLD : 01/30/2021 [facility] 500 mg 01/30/2021 12:00:00 AM EDT tablet 80 TAKE TWO TABLETS BY MOUTH FOUR TIMES A DAY NEEDED FOR PAIN MAXIMUM DAILY DOSE = EIGHT TABLETS TAKE TWO TABLETS BY MOUTH FOUR TIMES A DAY NEEDED FOR PAIN MAXIMUM DAILY DOSE = EIGHT TABLETS SOLD: 01/30/2021 [facility] 10 mg 11/05/2020 12:00:00 AM EDT tablet 180 TAKE ONE TABLET BY MOUTH TWICE A DAY TAKE ONE TABLET BY MOUTH TWICE A DAY SOLD: 11/05/2020 [facility] Lisinopril 10 MG Oral Tablet Lisinopril 09/06/2020 12:00:00 AM EDT ORAL active [facility] ([facility]) 5 mg 08/06/2020 12:00:00 AM EDT tablet 180 TAKE ONE TABLET BY MOUTH TWICE A DAY TAKE ONE TABLET BY MOUTH TWICE A DAY SOLD: 08/11/2020 [facility] 500 mg 06/10/2020 12:00:00 AM EST tablet 8 TAKE ONE TABLET BY MOUTH EVERY DAY FOR 8 DAYS TAKE ONE TABLET BY MOUTH EVERY DAY FOR 8 DAYS SOLD: 06/10/2020 [facility] Doxycycline Monohydrate 100 MG Oral Capsule Doxycycline [place] hydrate 06/10/2020 12:00:00 AM EST ORAL active [facility] ([facility]) Prednisone 20 MG Oral Tablet Prednisone 06/10/2020 12:00:00 AM EST ORAL active [facility] ([facility]) 200 ACTUAT Albuterol 0.09 MG/ACTUAT Metered Dose Inhaler [Pr oAir] Proair HFA 06/10/2020 12:00:00 AM EST ORAL active [facility] ([facility]) 90 mcg/actuation 03/08/2020 12:00:00 AM EDT HFA aerosol inha ler 8 INHALE 2 PUFFS BY MOUTH EVERY 4 TO 6 HOURS NEEDED FOR WHEEZING INHALE 2 PUFFS BY MOUTH EVERY 4 TO 6 HOURS NEEDED FOR WHEEZING SOLD: 03/08/2020 [facility] 20 mg 03/08/2020 12:00:00 AM EDT tablet 12 TAKE THREE TABLETS BY MOUTH EVERY DAY TAKE THREE TABLETS BY MOUTH EVERY DAY SOLD: 03/08/2020 [facility] 0.5 mg (11)- 1 mg (42) 03/02/2020 12:00:00 AM EDT tablets,do se pack 53 TAKE BY MOUTH DAILY DIRECTED TAKE BY MOUTH DAILY DIRECTED SOLD: 03/08/2020 [facility] Chantix Starting Month Jude Chantix Starting Month Jude 2019 12:00:00 AM EDT active [facility] ([facility]) Dextromethorphan Hydrobromide 10 MG / Guaifenesin 200 MG Oral Capsule Coricidin HBP Chest Congestion & Cough 02/26/2020 12:00:00 AM EDT ORAL completed [facility] ([facility]) 5 mg 01/27/2020 12:00:00 AM EDT tablet 60 TAKE ONE TABLET BY MOUTH TWICE A DAY TAKE ONE TABLET BY MOUTH TWICE A DAY SOLD: 01/28/2020 [facility] Sucralfate 1000 MG Oral Tablet [Carafate] Carafate 09/13/2019 1 2:00:00 AM EDT completed [facility] ([facility]) Omeprazole 40 MG Delayed Release Oral Capsule Omeprazole 09/13/2019 12:00:00 AM EDT ORAL completed [facility] ([facility]) 5 mg 07/02/2019 12:00:00 AM EST tablet 60 TAKE ONE TABLET BY MOUTH TWICE A DAY TAKE ONE TABLET BY MOUTH TWICE A DAY SOLD: 03/23/2020 [facility] 5 mg 07/02/2019 12:00:00 AM EST tablet 60 TAKE ONE TABLET BY MOUTH TWICE A DAY TAKE ONE TABLET BY MOUTH TWICE A DAY SOLD: 05/04/2020 [facility] 5 mg 07/02/2019 12:00:00 AM EST tablet 60 TAKE ONE TABLET BY MOUTH TWICE A DAY TAKE ONE TABLET BY MOUTH TWICE A DAY SOLD: 06/16/2020 [facility] Insurance Providers Payer name Policy type / Coverage type Policy ID Covered libertarian ID Covered libertarian's relationship to pizano Policy [place] Plan Information BLUE CROSS F[place] PLAN [id number] SP [id number] O BLUE [id number] SP [id number] UNHC COMMUNITY PLAN MCDHMO [id number] SP [id number] HC COMMUNITY PLAN MCDHMO [facility] COMMUNITY PLAN MCDHMO [id number] Self BRENDAN ROBB UN COMMUNITY PLAN MCDHMO [facility] Community Plan Medigap Part B [id number] Self [id number] [facility] Community Plan Medigap Part B [id number] Self [id number] [facility] Community Plan Medigap Part B [id number] Self [id number] [facility] Community Plan Medigap Part B [id number] Self [id number] [facility] Community Plan Medigap Part B [id number] Self [id number] [facility] Community Plan Medigap Part B [id number] Self [id number] [facility] Community Plan Medigap Part B [id number] Self UN COMMUNITY PLAN MCDO [id number] SP [id number] UN COMMUNITY PLAN MCDO [id number] SP [id number] [facility] [id number] S [id number] [facility] () Workers Compensation [id number] Self [id number] [facility]) Workers Compensation [id number] Self [facility]) Workers Compensation [id number] Self [id number] [facility]) Workers Compensation [id number] Self [id number] [facility]) Workers Compensation [id number] Self [id number] [facility] () Workers Compensation [id number] Self [id number] [facility] () Workers Compensation [id number] Self [id number] [facility] (ok) Medigap Part B [id number] [facility] (pr) [facility] Part B [id number] [facility] (pr) Commercial [id number] [facility] (pr) Commercial [id number] [facility] (pr) [facility] Part B [id number] [facility] (pr) [facility] Part B [id number] [facility] (pr) [facility] Part B [id number] [facility] Commercial [id number] Self [id number] Cigna/MVP Con Gen/Prefcar Commercial [id number] Self [id number] Cigna Health Care P [id number] S [id number] CIGNA INSURANCE CO [id number] SP [id number] CIGNA HEALTHCARE [id number] SP U [id number] BCBS OF [place] 306/806 [id number] SP [id number] Excell[employer] Blue Cross and Blue Shield - [place] Blue Cross/B lue Shield [id number] Self [id number] [facility] COMMUNITY PLAN [facility] [id number] SP [id number] EXCELLUS BCBS P [id number] S [id number] [place] 306/806 [id number] SP [id number] SELF PAY ONLY [id number] CIGNA HealthCare Other 0 [id number] Family Dependent Tadeo Turnerzia 0 BCBS [place] PPO 302/307 [id number] SP [id number] EXCELLUS BCBS B [id number] S VYS [id number] [place]AT[place] 306/806 [id number] SP [id number] EXCELLUS BCBS B [id number] S VYS [id number] [place]AT[place] 306/806 [id number] SP [id number] CIGNA HEALTHCARE [id number] SP U [id number] CIGNA HEALTHCARE [id number] HU2 U [id number] CIGNA HE[employer]CARE O [id number] S U [id number] OTHER WORKERS COMPENSATION [id number] SP [id number] Cigna/Conn Gen/Equ[employer] Commercial [id number] Family Dependent [id number] Cigna/MVP Commercial [id number] Self [id number] Cigna/MVP Commercial [id number] Self [id number] CIGNA INSURANCE CO O [id number] O [id number] Cigna/MVP Commercial [id number] Self [id number] Cigna/Conn Gen/MVP Medigap Part B [id number] Self [id number] [facility] Medigap Part B [id number] Family Dependent [id number] [facility] Health Maintenance Organization (O) [id number] Self [id number] [facility] Healthcare Commercial [id number] Self [id number] Cigna/MVP Commercial [id number] Self [id number] CIGNA HEALTHCARE [id number] SP U [id number] C[employer] HE[employer] [id number] SP U [id number] [facility] [id number] [facility] INSURANCE FUND [id number] HU2 [id number] [facility] INSURANCE FUND [id number] SP [id number] [facility] Health Maintenance Organization ([facility]) [id number] Self [id number] [facility] [id number] [id number] [facility] INSURANCE FUND O [id number] S [id number] [facility] [id number] [id number] [facility] O [id number] P [id number] [facility] Health Maintenance Organization (O) [id number] Self [id number] [facility]) O [id number] S [id number] MEDICAID [id number] SP [id number] [facility] Health Maintenance Organization (O) [id number] Self Problems, Conditions, and Diagnoses No Information Surgeries/Procedures Procedure Description Date Indications Data Source(s) Mammogram 03/15/2020 12:00:00 AM LAILA LINARES ([facility]) Results ID Date Data Source [id number] 03/22/2021 01:30:00 PM EDT [facility] Name Value Range Interpretation Code Description Data Carie rce(s) Supporting Document(s) SARS-CoV-2 RNA Resp Ql HIRAL+probe NOT DETECTED [facility] This lab was ordered by TING h[place] and reported by TING Alexander. ID Date Data Source [id number] 03/14/2021 07:52:00 AM EDT [facility] ([facility]) Name Value Range Interpretation Code Description Data Carie rce(s) Supporting Document(s) Glucose [Mass/volume] in Serum or Plasma 89 mg/dL 74-99 [facility] ([facility]) 100-125 mg/dL PRE-DIABETES/FASTING >126 mg/dL DIABETES/FASTING Creatinine 0.7 mg/dL 0.6-1.3 [facility] ([facility] Urea nitrogen [Mass/volume] in Serum or Plasma 19 mg/dL 7-18 [facility] ([facility]) Potassium [Moles/volume] in Serum or Plasma 4.6 meq/L 3.5-5.1 [facility] ([facility]) Chloride [Moles/volume] in Serum or Plasma 102 meq/L 98-107 [facility] ([facility]) Sodium [Moles/volume] in Serum or Plasma 137 meq/L 136-145 [facility] ([facility]) Glomerular filtration rate/1.73 sq M pre dicted among non-blacks [Volume Rate/Area] in Serum or Plasma by Creatinine-based formula (MDRD) Laboratory test result [facility] ([facility] ) Calcium [Mass/volume] in Serum or Plasma 9.3 mg/dL 8.5-10.1 [facility] ([facility]) Carbon dioxide, total [Moles/volume] in Serum or Plasma 28 meq/L 21 -32 [facility] ([facility]) Glomerular filtration rate/1.73 sq M pre dicted among blacks [Volume Rate/Area] in Serum or Plasma by Creatinine-based formula (MDRD) Laboratory test result [facility] <content>CHRONIC KIDNEY DISEASE STAGING PER NKF</content>
<content></content>
<content>STAGE I & II GFR >= 60 NORMAL TO MILDLY DECREASED</content>
<content>STAGE III GFR 30-59 MODERATELY DECREASED</content>
<content>STAGE IV GFR 15-29 SEVERELY DECREASED</content>
<content>STAGE V GFR <15 VERY LITTLE GFR LEFT</content>
<content>ESRD GFR <15 ON OUTREACH REP</content>
<content></content> ID Date Data Source [id number] 09/06/2020 01:57:00 PM EDT [facility] ([facility]) Name Value Range Interpretation Code Description Data Carie rce(s) Supporting Document(s) Triglyceride [Mass/volume] in Serum or Plasma 330 mg/dL 30-150 [facility] ([facility]) Cholesterol [Mass/volume] in Serum or Plasma 233 mg/dL 131-200 [facility] ([facility]) Cholesterol in LDL [Mass/volume] in Serum or Plasma by calcu lation 110 CALC 50-159 [facility] ([facility]) Cholesterol in HDL [Mass/volume] in Serum or Plasma 57 mg/dL 35-60 [facility] ([facility]) ID Date Data Source [id number] 09/06/2020 01:57:00 PM EDT [facility] ([facility]) Name Value Range Interpretation Code Description Data Carie rce(s) Supporting Document(s) Glucose [Mass/volume] in Serum or Plasma 90 mg/dL 74-99 [facility] ([facility]) 100-125 mg/dL PRE-DIABETES/FASTING >126 mg/dL DIABETES/FASTING Creatinine 0.7 mg/dL 0.6-1.3 [facility] Urea nitrogen [Mass/volume] in Serum or Plasma 8 mg/dL 7-18 [facility] ([facility]) Potassium [Moles/volume] in Serum or Plasma 3.9 meq/L 3.5-5.1 [facility] ([facility]) Sodium [Moles/volume] in Serum or Plasma 137 meq/L 136-145 [facility] ([facility]) Chloride [Moles/volume] in Serum or Plasma 102 meq/L 98-107 [facility] ([facility]) Calcium [Mass/volume] in Serum or Plasma 9.1 mg/dL 8.5-10.1 [facility] ([facility]) Carbon dioxide, total [Moles/volume] in Serum or Plasma 28 meq/L 21 -32 [facility] ([facility]) Total Bilirubin 0.4 mg/dL 0.2-1.0 [facility] ([facility]) Alkaline phosphatase isoenzyme [Units/volume] in Serum or Pl asma 115 mg/dL 46-116 [facility] ([facility]) Aspartate aminotransferase [Enzymatic activity/volume] in Serum or Plasma 31 U/L 15-37 [facility] ([facility] ) Alanine aminotransferase [Enzymatic activity/volume] in Seru m or Plasma 39 U/L 12-78 [facility] ([facility]) Albumin [Mass/volume] in Serum or Plasma 3.9 g/dL 3.4-5.0 [facility] ([facility]) Proteinase 3 Ab [Units/volume] in Serum 7.0 g/dL 6.4-8.2 [facility] ([facility]) A/G Ratio 1.26 CALC 1.00-1.90 [facility]) Glomerular filtration rate/1.73 sq M pre dicted among blacks [Volume Rate/Area] in Serum or Plasma by Creatinine-based formula (MDRD) Laboratory test result [facility]) <content>CHRONIC KIDNEY DISEASE STAGING PER NKF</content>
<content></content>
<content>STAGE I & II GFR >= 60 NORMAL TO MILDLY DECREASED</content>
<content>STAGE III GFR 30-59 MODERATELY DECREASED</content>
<content>STAGE IV GFR 15-29 SEVERELY DECREASED</content>
<content>STAGE V GFR <15 VERY LITTLE GFR LEFT</content>
<content>ESRD GFR <15 ON OUTREACH REP</content>
<content></content> Glomerular filtration rate/1.73 sq M pre dicted among non-blacks [Volume Rate/Area] in Serum or Plasma by Creatinine-based formula (MDRD) Laboratory test result [facility] ([facility] ) ID Date Data Source [id number] 09/06/2020 01:57:00 PM EDT [facility] ([facility]) Name Value Range Interpretation Code Description Data Carie rce(s) Supporting Document(s) Leukocytes [#/volume] in Blood by Automated count 9.1 x10*3/UL 4.1-10 .9 [facility] ([facility]) Erythrocytes [#/volume] in Blood by Automated count 4.57 x10*6/UL 4.2 0-6.30 [facility] ([facility]) Hematocrit [Volume Fraction] of Blood by Automated count 46.3 % 3 7.0-51.0 [facility] ([facility]) MCV 101.1 fL 80.0-97.0 [facility]) Hemoglobin [Mass/volume] in Blood 15.9 g/dL 12.0-18.0 [facility] ([facility]) MCHC 34.3 g/dL 31.0-38.0 [facility]) MCH 34.7 pg 26.0-32.0 [facility]) Platelets [#/volume] in Blood by Automated count 373 x10*3/UL 140-440 [facility] ([facility]) Erythrocyte distribution width [Ratio] by Automated count 13.4 % 11.6-13.7 [facility] ([facility]) Lymph % 23.9 % 10.0-58.5 [facility]) MPV 7.3 FL 7.8-11.0 [facility]) Mid % 5.9 % 1.7-9.3 [facility] Neut % 70.2 % 37.0-92.0 [facility] Lymph # 2.1 x10*3/UL 0.6-4.1 [facility] ([facility]) Neut # 6.4 x10*3/UL 2.0-7.8 [facility] ([facility]) Mid # 0.6 x10*3/UL 0.1-0.6 [facility] ([facility]) ID Date Data Source [id number] 06/28/2020 01:00:00 PM EST [facility] Name Value Range Interpretation Code Description Data Carie rce(s) Supporting Document(s) SARS coronavirus 2 RNA Not Detected [facility] [place] This lab was ordered by [facility] and reported by [facility]. ID Date Data Source [id number] 06/11/2020 11:20:00 AM EST [facility] Name Value Range Interpretation Code Description Data Carie rce(s) Supporting Document(s) SARS coronavirus 2 RNA Not Detected [facility] [place] This lab was ordered by [facility] and reported by [facility]. ID Date Data Source [id number] 06/10/2020 12:00:00 AM EST [facility] Name Value Range Interpretation Code Description Data Carie rce(s) Supporting Document(s) SARS coronavirus 2 Ag Negative [facility] This lab was ordered by [facility] and reported by [facility]. ID Date Data Source [id number] 05/15/2020 12:15:00 PM EST [facility] Name Value Range Interpretation Code Description Data Carie rce(s) Supporting Document(s) SARS coronavirus 2 RNA [facility] This lab was ordered by [facility] and reported by [facility]. ID Date Data Source [id number] 03/15/2020 12:00:00 AM EDT [facility] Samantha Bueno DO Patient Name: MARLO [id number] Date of : 1970[address] [facility]: [id number] Fax: [phone] EXAM: MAMMO SCREENING WITH CADCLINICAL INFORMATION: Screening.Based on the personal and family history information your patient suppliedat the time of imaging, her lifetime risk of breast cancer estimated by theTyrer-Cuzick model is 13.4%. Given that this patient has less than 20% TCrisk score, no further medical management is currently recommended at thistime.Your patient's personal and/or family history of cancer submitted at thetime of imaging is suggestive of a hereditary cancer syndrome. She meetsthe criteria for genetic testing established by [facility] and [place] [employer] guidelines. She should pursue arisk assessment with a hereditary cancer specialist which may includetesting based on these criteria. The benefits and limitations of genetictesting would be discussed, including potential changes to medicalmanagement based on the results. Your patient declined myRisk genetictesting at this time.Digital screening (2D) mammography was performed bilaterally in the CC andMLO projections. Additionally, breast tomosynthesis (3D mammography) wasperformed bilaterally in the CC and MLO projections. Today's exam wascompared to the prior exam(s).By history, the patient has no complaints of a palpable breast abnormalityor other significant breast complaints.The patient states that a clinical breast exam was not performed.The breasts are unchanged in size and shape. Once again, denseheterogeneous fibroglandular elements are seen bilaterally in a stableappearing pattern but to such a degree that the sensitivity of themammogram in detecting cancer is decreased. There are no cyrus-soft tissuedensities or spiculated masses. There is no internal architecturaldistortion. There are no suspicious cyrus-calcific clusters. Skinthickening or nipple retraction is not present.The Volpara volumetric breast density category is C, the breasts areheterogeneously dense which may obscure small masses.IMPRESSION:BI-RADS Category 2 - Benign Finding(s). Stable mammogram. There is noevidence of malignant alteration of the breasts. Followup examinationrecommended in one year.This mammogram was read with the assistance of SRCH2Jessenia Bringme, an FDAapproved computer aided detection system for mammography.Negative x-ray reports should not delay surgical consultation if a dominantor clinically suspicious mass is present.Not all breast cancers can be identified by mammography. Therefore, werecommend that you continue to perform regular breast self-examination andphysical examination and then promptly contact your physician of anyconcerns or changes.Adenosis and dense breasts may obscure an underlying neoplasm.CHET Warner/Yolis you for referring BRENDAN ROBB to our office. Electronically Signed - ASHVIN BARR DO 03/15/20 16:49 Name Value Range Interpretation Code Description Data Carie rce(s) Supporting Document(s) ID Date Data Source [id number] 03/13/2020 09:48:00 AM EDT [facility] ([facility]) Name Value Range Interpretation Code Description Data Carie rce(s) Supporting Document(s) Alkaline phosphatase isoenzyme [Units/volume] in Serum or Pl asma 116 mg/dL 46-116 [facility] ([facility]) Total Bilirubin 1.0 mg/dL 0.2-1.0 [facility] ([facility]) Aspartate aminotransferase [Enzymatic activity/volume] in Serum or Plasma 22 U/L 15-37 [facility] ([facility] ) Albumin [Mass/volume] in Serum or Plasma 3.9 g/dL 3.4-5.0 [facility] ([facility]) Alanine aminotransferase [Enzymatic activity/volume] in Seru m or Plasma 35 U/L 12-78 [facility] ([facility]) Proteinase 3 Ab [Units/volume] in Serum 7.0 g/dL 6.4-8.2 [facility] ([facility]) A/G Ratio 1.26 CALC 1.00-1.90 [facility]) Direct Bilirubin 0.2 mg/dL 0.0-0.2 [facility] ([facility]) ID Date Data Source [id number] 03/07/2020 05:15:00 PM EDT [facility] ([facility]) Name Value Range Interpretation Code Description Data Carie rce(s) Supporting Document(s) Respiratory Panel Laboratory test result [facility]) This respiratory PCR panel detects Influ eduar A H1, H3 and 2009 H1 viruses, Influenza B virus, Resp iratory Syncytial Virus, Human metapneumovirus, Parainfluenza virus 1, 2, 3 and 4, Adenovirus, Rhinovirus/Enterovirus, Coronavirus HKU1, NL63, OC43, 229E and SARS-CoV-2 (COVID 19), Bordetella pertussis, Bordetella parapertussis, Mycoplasma pneumoniae and Chlamydia pneumoniae. NEGATIVE by MULTIPLEXED NUCLEIC ACID PCR SARS-CoV-2 (COVID 19) NEGATIVE - SARS-CoV-2 (COVID19) ID Date Data Source [id number] 03/07/2020 05:04:00 PM EDT [facility] Name Value Range Interpretation Code Description Data Carie rce(s) Supporting Document(s) Blood Culture Laboratory test result [facility] No growth after 72 hours . All specimens observed for 5 days. Results final at that time. No growth after 48 hours . All specimens observed for 5 days. Results final at that time. No growth after 24 hours . All specimens observed for 5 days. Results final at that time. NO GROWTH AFTER 5 DAYS ID Date Data Source [id number] 03/07/2020 04:37:00 PM EDT [facility]) Name Value Range Interpretation Code Description Data Carie rce(s) Supporting Document(s) Glucose, Fasting 99 mg/dL 70-100 [facility] ([facility]) Blood Urea Nitrogen 12 mg/dL 7-18 [facility] ([facility]) Glomerular Filtration Rate Laboratory test result [facility] ([facility]) <content>Units are mL/min/1.73 m2</content>
<content></content>
<content>Chronic Kidney Disease Staging per NKF:</content>
<content></content>
<content>Stage I & II GFR >=60 Normal to Mildly Decreased</content>
<content>Stage III GFR 30- 59 Moderately Decreased</content>
<content>Stage IV GFR 15-29 Severely Decreased</content>
<content>Stage V GFR <15 Very Little GFR Left</content>
<content>ESRD GFR <15 on OUTREACH REP</content>
<content></content> Creatinine For GFR 0.63 mg/dL 0.55-1.30 [facility] ([facility]) Chloride Level 109 meq/L 98-107 [facility] ([facility]) Potassium Serum 3.9 meq/L 3.5-5.1 [facility] ([facility]) Sodium Level 142 meq/L 136-145 [facility] ([facility]) Anion Gap 7 meq/L 8-16 [facility] ([facility]) Carbon Dioxide Level 26 meq/L 21-32 [facility] ([facility]) Calcium Level 9.1 mg/dL 8.5-10.1 [facility] ([facility]) ID Date Data Source [id number] 03/07/2020 04:37:00 PM EDT [facility] ([facility]) Name Value Range Interpretation Code Description Data Carie rce(s) Supporting Document(s) Alt/SGPT 32 U/L 12-78 [facility] ([facility]) Alkaline Phosphatase 109 U/L 45-117 [facility] ([facility]) Ast/Sgot 16 U/L 7-37 [facility] ([facility]) Bilirubin,Total 0.4 mg/dL 0.2-1.0 [facility] ([facility]) Total Protein 6.9 GM/DL 6.4-8.2 [facility] ([facility]) Bilirubin,Direct 0.1 mg/dL 0.0-0.2 [facility] ([facility]) Albumin/Globulin Ratio 1.2 1.2-2.2 [facility] ([facility]) Albumin 3.7 GM/DL 3.2-5.2 [facility]) ID Date Data Source [id number] 03/07/2020 04:37:00 PM EDT [facility] ([facility]) Name Value Range Interpretation Code Description Data Carie rce(s) Supporting Document(s) CPK Creatine Phosphokinase 65 U/L 26-192 [facility] ([facility]) CK-MB Value Mass Laboratory test result [facility]) MB/CK Relative Index 1.54 [facility] ([facility]) <content>DIAGNOSIS CRITERIA</content>
<content>MMB ng/ml Relative Index (RI)</content>
<content>NON-AMI < or = 5 N/A</content>
<content>HARDEN ZONE > 5 < or = 4</content>
<content>AMI > 5 > 4</content>
<content></content> Troponin I Laboratory test result [facility] ([facility]) <content>Troponin I Reference Interval f or Siemens [place] LOCI:</content>
<content></content>
<content>99th Percentile= 0.00-0.045 ng/ml</content>
<content></content>
<content>Risk Stratification:</content>
<content><= 0.10 ng/ml Decreased Risk for Adverse Clinical</content>
<content>Events.</content>
<content>0.10-1.50 ng/ml Increased Risk for Adverse Clinical</content>
<content>Events. Evaluation of additional</content>
<content>criterion and/or repeat testing in 2-6</content>
<content>hours is suggested to rule out myocardial</content>
<content>damage.</content>
<content>>= 1.50 ng/ml Indicative of Myocardial Injury.</content>
<content></content> ID Date Data Source [id number] 03/07/2020 04:37:00 PM EDT [facility] ([facility]) Name Value Range Interpretation Code Description Data Carie rce(s) Supporting Document(s) White Blood Count 7.6 10 4.0-10.0 [facility] ([facility]) Red Blood Count 4.65 10 4.00-5.40 [facility] ([facility]) Hemoglobin 16.0 g/dL 12.0-15.5 [facility] ([facility]) Hematocrit 47.0 % 36.0-47.0 [facility] Mean Corpuscular Hemoglobin 34.4 pg 27.0-33.0 [facility] ([facility]) Mean Corpuscular Volume 101.1 fl 80.0-96.0 [facility] ([facility]) Red Cell Distribution Width 12.0 % 11.5-14.5 [facility] ([facility]) Mean Corpuscular HGB Conc 34.0 g/dL 32.0-36.5 [facility] ([facility]) Neutrophils % 53.7 % 36.0-66.0 [facility] ([facility]) Platelet Count, Automated 308 10 150-450 [facility] ([facility]) [place] % 7.2 % 0.0-5.0 [facility]) Eos % 1.1 % 0.0-3.0 [facility]) Lymph % 37.2 % 24.0-44.0 [facility]) Baso % 0.4 % 0.0-1.0 [facility] Nucleated Red Blood Cell % 0.0 % 0-0 [facility] ([facility]) Immature Granulocyte % 0.4 % 0-3.0 [facility] ([facility]) [place] # 0.6 10 0.0-0.8 [facility]) Lymph # 2.8 10 1.5-5.0 [facility]) Neutrophils # 4.1 10 1.5-8.5 [facility] ([facility]) Baso # 0.0 10 0.0-0.2 [facility]) Eos # 0.1 10 0.0-0.5 [facility]) ID Date Data Source [id number] 02/29/2020 10:24:00 AM EDT [facility] ([facility]) Name Value Range Interpretation Code Description Data Carie rce(s) Supporting Document(s) LDL Direct 131 mg/dL 0-99 [facility] ([facility]) Comment LDL Direct Laboratory test result [facility] ([facility]) Performed at: RN - [facility] [address] [id number] Resident Assistant: Bethanie Dale MD, Phone: [phone] ID Date Data Source [id number] 02/29/2020 10:24:00 AM EDT [facility] ([facility]) Name Value Range Interpretation Code Description Data Carie rce(s) Supporting Document(s) Cholesterol [Mass/volume] in Serum or Plasma 249 mg/dL 131-200 [facility] ([facility]) Cholesterol in HDL [Mass/volume] in Serum or Plasma 40 mg/dL 35-60 [facility] ([facility]) Triglyceride [Mass/volume] in Serum or Plasma 481 mg/dL 30-150 [facility] ([facility]) Cholesterol in LDL [Mass/volume] in Serum or Plasma by calculation Laboratory test result 50-159 [facility] ([facility] ) Unable to calculate ID Date Data Source [id number] 02/29/2020 10:24:00 AM EDT [facility] ([facility]) Name Value Range Interpretation Code Description Data Carie rce(s) Supporting Document(s) Glucose [Mass/volume] in Serum or Plasma 107 mg/dL 74-99 [facility] ([facility]) 100-125 mg/dL PRE-DIABETES/FASTING >126 mg/dL DIABETES/FASTING Urea nitrogen [Mass/volume] in Serum or Plasma 11 mg/dL 7-18 [facility] ([facility]) Potassium [Moles/volume] in Serum or Plasma 4.0 meq/L 3.5-5.1 [facility] ([facility]) Creatinine 0.7 mg/dL 0.6-1.3 [facility]) Sodium [Moles/volume] in Serum or Plasma 140 meq/L 136-145 [facility] ([facility]) Carbon dioxide, total [Moles/volume] in Serum or Plasma 26 meq/L 21 -32 [facility] ([facility]) Chloride [Moles/volume] in Serum or Plasma 103 meq/L 98-107 [facility] ([facility]) Calcium [Mass/volume] in Serum or Plasma 9.1 mg/dL 8.5-10.1 [facility] ([facility]) Glomerular filtration rate/1.73 sq M pre dicted among non-blacks [Volume Rate/Area] in Serum or Plasma by Creatinine-based formula (MDRD) Laboratory test result [facility] ([facility] ) Glomerular filtration rate/1.73 sq M pre dicted among blacks [Volume Rate/Area] in Serum or Plasma by Creatinine-based formula (MDRD) Laboratory test result [facility] ([facility]) <content>CHRONIC KIDNEY DISEASE STAGING PER NKF</content>
<content></content>
<content>STAGE I & II GFR >= 60 NORMAL TO MILDLY DECREASED</content>
<content>STAGE III GFR 30-59 MODERATELY DECREASED</content>
<content>STAGE IV GFR 15-29 SEVERELY DECREASED</content>
<content>STAGE V GFR <15 VERY LITTLE GFR LEFT</content>
<content>ESRD GFR <15 ON OUTREACH REP</content>
<content></content> ID Date Data Source [id number] 02/29/2020 10:24:00 AM EDT [facility] ([facility]) Name Value Range Interpretation Code Description Data Carie rce(s) Supporting Document(s) Hemoglobin [Mass/volume] in Blood 16.4 g/dL 12.0-18.0 [facility] ([facility]) Leukocytes [#/volume] in Blood by Automated count 7.4 x10*3/UL 4.1-[address] [facility] ([facility]) Erythrocytes [#/volume] in Blood by Automated count 4.79 x10*6/UL 4.2 0-6.30 [facility] ([facility]) Hematocrit [Volume Fraction] of Blood by Automated count 47.9 % 3 7.0-51.0 [facility] ([facility]) MCHC 34.3 g/dL 31.0-38.0 [facility] MCH 34.3 pg 26.0-32.0 [facility]) MCV 100.0 fL 80.0-97.0 [facility] Platelets [#/volume] in Blood by Automated count 354 x10*3/UL 140-440 [facility] ([facility]) MPV 8.2 FL 7.8-11.0 [facility]) Erythrocyte distribution width [Ratio] by Automated count 12.6 % 11.6-13.7 [facility] ([facility]) Lymph # 1.3 x10*3/UL 0.6-4.1 [facility] ([facility]) Neut % 77.6 % 37.0-92.0 [facility] ([facility]) Lymph % 18.2 % 10.0-58.5 [facility] ([facility]) Mid % 4.2 % 1.7-9.3 [facility] ([facility]) Mid # 0.3 x10*3/UL 0.1-0.6 [facility] ([facility]) Neut # 5.8 x10*3/UL 2.0-7.8 [facility] ([facility]) ID Date Data Source [id number] 02/29/2020 10:24:00 AM EDT [facility] ([facility]) Name Value Range Interpretation Code Description Data Carie rce(s) Supporting Document(s) Cholesterol in LDL [Mass/volume] in Serum or Plasma by Direct assay Laboratory test result [facility] ([facility] ) Procedure Social History Code Duration Value Status Description Data Source(s ) Smoking 12/05/2020 08:10:00 AM EDT Ex-smoker (finding) [facility] Ex-smoker (finding) [place] (Roger Alford MD [facility]) Vital Signs ID Date Data Source UNK Name Value Range Interpretation Code Description Data Source(s) Systolic blood pressure 122 mm[Hg] 122 mm[Hg] [facility] ([facility]) Diastolic blood pressure 76 mm[Hg] 76 mm[Hg] [facility] ([facility]) Heart rate 86 /min 86 /min [facility] ([facility]) Body height 62.50 [in_i] 62.50 [in_i] [facility] 5'2.50" Body weight 155.00 [lb_av] 155.00 [lb_av] [facility] ([facility]) Body mass index (BMI) [Ratio] 27.9 kg/m2 27.9 k g/m2 [facility]) Body mass index (BMI) [Ratio] 29.3 kg/m2 29.3 k g/m2 [facility] ([facility]) Systolic blood pressure 122 mm[Hg] 122 mm[Hg] [facility] Diastolic blood pressure 70 mm[Hg] 70 mm[Hg] [facility] ([facility]) Heart rate 102 /min 102 /min [facility] ([facility]) Body height 62.50 [in_i] 62.50 [in_i] [facility] ([facility]) 5'2.50" Body weight 163.00 [lb_av] 163.00 [lb_av] [facility] ([facility]) Oxygen saturation in Arterial blood by Pulse oximetry 95 % 95 % [facility] ([facility]) RM Air Respiratory rate 18 /min 18 /min [facility]) Oxygen saturation in Arterial blood by Pulse oximetry 97 % 97 % [facility] ([facility], [facility]) Body temperature 98.3 [degF] 98.3 [degF] [facility], [facility]) Body weight 165.00 [lb_av] 165.00 [lb_av] [facility] ([facility], [facility]) Body height 62 [in_i] 62 [in_i] [facility] ([facility], [facility]) 5'2" Body mass index (BMI) [Ratio] 30.2 kg/m2 30.2 k g/m2 [facility] ([facility], [facility]) Systolic blood pressure 138 mm[Hg] 138 mm[Hg] [facility]) Diastolic blood pressure 100 mm[Hg] 100 mm[Hg] [facility] ([facility], [facility]) Heart rate 103 /min 103 /min [facility] ([facility], [facility]) Systolic blood pressure 120 mm[Hg] 120 mm[Hg] [facility] Diastolic blood pressure 82 mm[Hg] 82 mm[Hg] [facility] ([facility]) Body height 62.50 [in_i] 62.50 [in_i] [facility] 5'2.50" Body weight 163.00 [lb_av] 163.00 [lb_av] MEDEN T ([facility]) Body mass index (BMI) [Ratio] 29.3 kg/m2 29.3 k g/m2 MEDENT ([facility]) Body height 62 [in_i] 62 [in_i] MEDENT ([facility], [facility]) 5'2" Systolic blood pressure 139 mm[Hg] 139 mm[Hg] EDENT ([facility], [facility]) Diastolic blood pressure 96 mm[Hg] 96 mm[Hg] MEDENT ([facility], [facility]) Body temperature 98.7 [degF] 98.7 [degF] MEDENT ([facility], [facility]) Body mass index (BMI) [Ratio] 30.2 kg/m2 30.2 k g/m2 MEDENT ([facility], [facility]) Heart rate 100 /min 100 /min MEDENT ([facility], [facility]) Respiratory rate 14 /min 14 /min [facility], [facility]) Oxygen saturation in Arterial blood by Pulse oximetry 98 % 98 % MEDENT ([facility], [facility]) Body weight 165.00 [lb_av] 165.00 [lb_av] MEDEN T ([facility], [facility]) Heart rate 87 /min 87 /min MEDENT ([facility]) Body height 62.50 [in_i] 62.50 [in_i] [facility] 5'2.50" Diastolic blood pressure 82 mm[Hg] 82 mm[Hg] MEDENT ([facility]) Body weight 165.00 [lb_av] 165.00 [lb_av] MEDEN T ([facility]) Body mass index (BMI) [Ratio] 29.7 kg/m2 29.7 k g/m2 MEDENT ([facility]) Oxygen saturation in Arterial blood by Pulse oximetry 100 % 100 % [facility] RM Air Systolic blood pressure 122 mm[Hg] 122 mm[Hg] M EDPANTERA ([facility]) Body weight 159.00 [lb_av] 159.00 [lb_av] MEDEN T ([facility], [facility]) Systolic blood pressure 157 mm[Hg] 157 mm[Hg] [facility]) pt has not taken meds in 2+ days Diastolic blood pressure 111 mm[Hg] 111 mm[Hg] [facility] ([facility], [facility]) pt has not taken meds in 2+ days Heart rate 113 /min 113 /min [facility] ([facility], [facility]) Oxygen saturation in Arterial blood by Pulse oximetry 98 % 98 % [facility] ([facility], [facility]) Body temperature 98.7 [degF] 98.7 [degF] [facility] ([facility], [facility]) Body height 62 [in_i] 62 [in_i] [facility] ([facility]) 5'2" Body mass index (BMI) [Ratio] 29.1 kg/m2 29.1 k g/m2 [facility] ([facility])
[2021-03-29 22:17] VITALS: BP 137/82
[2021-03-29] MEDS ORDERED: LEVO750T13 PO (22:17)
[2021-03-29] MEDS ORDERED: BENZ200C70 PO (22:19)
[2021-03-29] MEDS ORDERED: MUCI600T31 PO (22:19)
[2021-03-29] MEDS ORDERED: LevoFLOXacin 750 MG TABLET PO ONE (22:20)
[2021-03-29] MEDS ORDERED: VENTAER INH (22:43)
== END 2021-03-29 22:30 | disposition home or self-care (01) ==
LOC: M ED 17:09
DX: J20.9 Acute bronchitis, unspecified (principal); F17.200 Nicotine dependence, unspecified, uncomplicated; I10 Essential (primary) hypertension; Z88.0 Allergy status to penicillin; Z79.899 Other long term (current) drug therapy

== ENCOUNTER 2021-04-02 14:29 | Inpatient (IN) | payer BC ==
[~2021-04-02] VITALS: Ht 157.5 cm; Wt 70.6 kg
[~2021-04-02 14:29] MED LIST changes: +LEVO750T13 PO; +LISI10TA22; +MUCI600T31 PO; +VENTAER INH
[2021-04-02 14:53] LABS: BASO % 0.4 % (0.0-1.0); EOS % 0.1 % (0.0-3.0); HEMOGLOBIN 16.6 g/dl (12.0-15.5); LYMPH # 2.5 10^3/uL (1.5-5.0); LYMPH % 22.2 % (24.0-44.0); MEAN CORPUSCULAR HEMOGLOBIN 34.7 pg (27.0-33.0); MEAN CORPUSCULAR HGB CONC 34.6 g/dl (32.0-36.5); MEAN CORPUSCULAR VOLUME 100.2 fl (80.0-96.0); MONO # 0.6 10^3/uL (0.0-0.8); MONO % 5.7 % (2.0-8.0); NEUTROPHILS # 7.9 10^3/uL (1.5-8.5); NEUTROPHILS % 70.9 % (36.0-66.0); PLATELET COUNT, AUTOMATED 375 10^3/uL (150-450); RED BLOOD COUNT 4.79 10^6/uL (4.00-5.40); WHITE BLOOD COUNT 11.2 10^3/uL (4.0-10.0)
[2021-04-02] MEDS ORDERED: methylPREDNISolone 125MG 2ML VIAL IV ONE (14:55)
[2021-04-02] MEDS ORDERED: COMBIVENT RESPIMAT 100-20MCG INHALER 4GM INH ONE (15:00)
[2021-04-02] MEDS ORDERED: ACETAMINOPHEN TAB 650MG DOSE (2X325MG) PO ONE (15:05)
--- NOTE | 2021-04-02 15:06 | REP ---
INDICATION: DYSPNEA/COUGH. COMPARISON: 03/07/2020 TECHNIQUE: Portable FINDINGS: The technique utilized in obtaining the radiograph has magnified the cardiac silhouette and accentuated the interstitial markings. The superior mediastinal structures are midline. The cardiac silhouette is unremarkable in size, shape, and position. The diaphragmatic surfaces of the lungs are regular, and the costophrenic angles are clear. The pulmonary pardo are clear. The imaged osseous structures are intact. IMPRESSION: There is no acute cardiopulmonary disease. <Electronically signed by Jeet Becerril > 04/02/21 [id number]
[2021-04-02] MEDS ORDERED: LISI20TA33 PO (15:15)
[2021-04-02 15:17] LABS: ALBUMIN 3.7 GM/DL (3.2-5.2); ALT/SGPT 37 U/L (12-78); BILIRUBIN,DIRECT < 0.1 MG/DL (0.0-0.2); BILIRUBIN,TOTAL 0.6 MG/DL (0.2-1.0); BLOOD UREA NITROGEN 12 MG/DL (7-18); CALCIUM LEVEL 9.5 MG/DL (8.5-10.1); CARBON DIOXIDE LEVEL 24 MEQ/L (21-32); CHLORIDE LEVEL 105 MEQ/L (98-107); CK-MB VALUE MASS 1.6 NG/ML (<3.6); CPK CREATINE PHOSPHOKINASE 158 U/L (26-192); CREATININE FOR GFR 0.67 MG/DL (0.55-1.30); GLOMERULAR FILTRATION RATE > 60.0 (>58); GLUCOSE, FASTING 95 MG/DL (70-100); MB/CK RELATIVE INDEX 1.01 (< OR =4); NT-PRO BNP 48 PG/ML (<125); POTASSIUM SERUM 4.3 MEQ/L (3.5-5.1); SODIUM LEVEL 138 MEQ/L (136-145); TROPONIN I < 0.02 NG/ML (< 0.10)
[2021-04-02] MEDS ORDERED: ISOVUE-370 76% 100ML VIAL As Ordered ONE (15:53)
[2021-04-02] MEDS ORDERED: MORPHINE 2 MG/ML 1ML VIAL (J2270) IV ONE (16:05)
[2021-04-02] MEDS: IPRATROPIUM 0.5MG/ALBUTEROL 2.5MG INH SOL UD 3ML (DUONEB) NEB PRN ×2 (16:22→16:24)
[2021-04-02 16:28] LABS: VENOUS BASE EXCESS -0.5 (-2.0-2.0); VENOUS HCO3 23.1 MEQ/L (23.0-27.0); VENOUS O2 SATURATION 96.6 % (60.0-80.0); VENOUS PARTIAL PRESSURE CO2 35.2 mmHg (38.0-50.0); VENOUS PH 7.435 UNITS (7.330-7.430); VENOUS STANDARD HCO3 24.1 MEQ/L; VENOUS TOTAL CO2 24.2 MEQ/L (24.0-28.0)
--- NOTE | 2021-04-02 16:42 | REP ---
INDICATION: cough sob. COMPARISON: 09/10/2019 CTA TECHNIQUE: CT angiogram chest performed following the intravenous administration of 75 cc of Isovue 370. Sagittal and coronal standard and MIP reconstruction images are performed. FINDINGS: Lungs: Clear, no infiltrate or nodule. Mediastinum: No pathologic sized adenopathy. Largest nodes are 8 mm short axis precarinal and AP window. Pulmonary arteries: No evidence of pulmonary embolism. Radha: No adenopathy. Axilla: No adenopathy. Pleura: No effusion. Heart: Not enlarged. No pericardial thickening or effusion. Thoracic aorta: No aneurysm or dissection. Upper abdominal structures: Unremarkable. Visualized osseous structures: Unremarkable. IMPRESSION: No CT evidence of pulmonary embolism.No infiltrate seen. Stable exam from 09/10/2019. <Electronically signed by Qasim Valdovinos > 04/02/21 [id number]
[2021-04-02] MEDS ORDERED: MOM 30ML SUSPENSION UDC PO PRN (17:00)
[2021-04-02] MEDS ORDERED: LEVO750T13 PO (17:24)
[2021-04-02] MEDS ORDERED: MUCI600T31 PO (17:24)
[2021-04-02] MEDS ORDERED: PRED20TA PO (17:24)
[2021-04-02] MEDS ORDERED: BENZ200C70 PO (17:24)
[2021-04-02] MEDS ORDERED: LISI10TA22 PO (17:24)
[2021-04-02] MEDS ORDERED: PROAAER10 INH (17:24)
[2021-04-02] MEDS ORDERED: HOME MED LIST COMPLETE! XX SCH (17:25)
--- OUTSIDE RECORDS SUMMARY | 2021-04-02 18:42 | CCD ---
Author Author [facility] Organization [facility] Address Unknown Phone Unavailable Support Name Relationship Address Phone [facility]* Next Of Kin [address] [place] [address] [place] Next Of Kin [id number] [place] [address] [place] [address] [employer]* Next Of Kin [address] [place] [address] UN Next Of Kin Unknown Unavailable NONE, PT PER Next Of Kin - -, - - - William Gonzalez Next Of Kin [address] [place] [address] UE Next Of Kin Unknown Unavailable [employer] BHAVIK Next Of Kin [address] [place] [address] [place] [address] PIHARJEET MOFFETT Next Of Kin [address] [place] [address] JORDANA ZHANG Next Of Kin [address] [place] [address] TYRON [place] [address] [employer] Next Of Kin [address] [place] [address] PRINCESS ROBB Next Of Kin [address] [facility] [place] [address] [employer] Next Of Kin [address] [facility] [place] [address] [employer] Next Of Kin [address] [facility] [place] [address] ADRIANNE MARIE Next Of [address] [place] [id number] John ROBB Next Of Kin [address] [facility] [place] [address] Tadeo Robb ECON [address] [facility] [address] Unavailable Care Team Providers Care Healthcare Administrative Assistant Name Role Phone Sparks, Mireille STATE GAME PROTECTOR Unavailable Unavailable Sparks, Mireille STATE GAME PROTECTOR Unavailable Unavailable Sparks, Mireille STATE GAME PROTECTOR Unavailable Unavailable Sparks, Mireille STATE GAME PROTECTOR Unavailable Unavailable Sparks, Mireille STATE GAME PROTECTOR Unavailable Unavailable Sparks, Mireille STATE GAME PROTECTOR Unavailable Unavailable Sparks, Mireille STATE GAME PROTECTOR Unavailable Unavailable Sparks, Mireille STATE GAME PROTECTOR Unavailable Unavailable Sparks, Mireille STATE GAME PROTECTOR Unavailable Unavailable Sparks, Mireille STATE GAME PROTECTOR Unavailable Unavailable Sparks, Mireille STATE GAME PROTECTOR Unavailable Unavailable Sparks, Mireille STATE GAME PROTECTOR Unavailable Unavailable Sparks, Mireille STATE GAME PROTECTOR Unavailable Unavailable Nelly Kahn Unavailable Unavailable Myles, Samantha DO Unavailable Unavailable Myles, Samantha DO Unavailable Unavailable Myles, Samantha DO Unavailable Unavailable Myles, Samantha DO Unavailable Unavailable Myles, Samantha DO Unavailable Unavailable Myles, Samantha DO Unavailable Unavailable Myles, Samantha DO Unavailable Unavailable Mylse, Samantah DO Unavailable Unavailable Myles, Samantha DO [...] is protected by Article 27-F of the [place] [facility] Public Health law. If you continue you may have access to information: Regarding HIV / AIDS; Provided by facilities licensed or operated by the [facility] Office of Mental Health; or Provided by the [facility] Office for People With Developmental Disabilities. If such information is present, then the following [facility] mandated warning applies: This information has been [...] law may result in a fine or detention sentence or both. A general authorization for [...] Samantha Schultz 09/06 01:15:00 PM EDT [facility] ([facility] ) Outpatient Attender: RALPH Rene 06/10/2020 07:45:00 AM EST [facility] ([facility]) Outpatient Attender: Samantha Schultz 03/13 09:20:00 AM EDT [facility] ([facility] ) Outpatient Attender: Mireille albert 03/02/2020 09:10:00 AM EDT [facility] ([facility]) Outpatient Attender: Samantha Schultz 02/28 10:00:00 AM EDT [facility] ([facility] ) Outpatient Attender: Mireille albert 02/26/2020 09:55:00 AM EDT [facility] ([facility]) Immunizations Vaccine Date Status Description Data Source(s) Influenza, injectable, MDCK, preservative free, zuleika valent 03/14/2021 08:06:00 AM EDT completed [facility]) COVID-19 VACCINE Pfizer 02/28/2021 12:00:00 AM EDT completed [facility] Vaccine Series Complete: YESThis Data wa s Submitted to [facility] Via [employer]. COVID-19 VACCINE Pfizer 02/07/2021 12:00:00 AM EDT completed [facility] Vaccine Series Complete: NOThis Data was Submitted to [facility] Via [employer]. Influenza, injectable, MDCK, preservative free, zuleika valent 02/29/2020 10:05:00 AM EDT completed [facility]) Medications Medication Brand Name Start Date Product Form Dose Route Admi nistrative Instructions Pharmacy Instructions Status Indications Reaction Description Data Source(s) 750 mg 03/30/2021 12:00:00 AM EDT tablet 6 TAKE ONE TABLET BY MOUTH EVERY DAY TAKE ONE TABLET BY MOUTH EVERY DAY SOLD: 03/30/2021 [facility] 12 HR Guaifenesin 600 MG Extended Release Oral Tablet GUAIFE NESIN 03/30/2021 12:00:00 AM EDT tablet extended release 12hr 20 ALEX E ONE TABLET BY MOUTH TWICE A DAY FOR COUGH TAKE ONE TABLET BY MOUTH TWICE A DAY FOR COUGH SOLD: 021 [facility] 200 mg 03/30/2021 12:00:00 AM EDT capsule 9 TAKE ONE CAPSULE BY MOUTH THREE TIMES A DAY NEEDED FOR COUGH, MAXIMUM DAILY DOSE = 3 TAKE ONE CAPSULE BY MOUTH THREE TIMES A DAY NEEDED FOR COUGH, MAXIMUM DAILY DOSE = 3 SOLD: 03/30/2021 [facility] 20 mg 03/22/2021 12:00:00 AM EDT tablet 10 TAKE ONE TABLET BY MOUTH TWO TIMES A DAY FOR 5 DAYS TAKE ONE TABLET BY MOUTH TWO TIMES A DAY FOR 5 DAYS SO LD: 03/30/2021 [facility] 90 mcg/actuation 03/22/2021 12:00:00 AM EDT HFA aerosol inha ler 18 INHALE 1- 2 PUFFS EVERY 4 HOURS NEEDED INHALE 1-2 PUFFS EVERY 4 HOURS NEEDED SOLD: 03/30/2021 [facility] 5 mg/gram (0.5 %) 03/22/2021 12:00:00 AM [...] BY MOUTH TWICE A DAY SOLD: 11/05/2020 [facility] Lisinopril 10 MG Oral Tablet Lisinopril 09/06/2020 12:00:00 AM EDT ORAL active [facility] 5 mg 08/06/2020 12:00:00 AM EDT tablet [...] Doxycycline Monohydrate 100 MG Oral Capsule Doxycycline [place] hydrate 06/10/2020 12:00:00 AM EST ORAL active M [facility]ENT ([facility]) Prednisone 20 MG Oral Tablet Prednisone 06/10/2020 12:00:00 AM EST ORAL active [facility] ([facility]) 200 ACTUAT Albuterol 0.09 MG/ACTUAT Metered Dose Inhaler [Pr oAir] Proair HFA 06/10/2020 12:00:00 AM EST ORAL active [facility] ([facility]) 90 mcg/actuation 03/08/2020 12:00:00 AM EDT HFA [...] Jude 2019 12:00:00 AM EDT active [facility] ([facility]) Dextromethorphan Hydrobromide 10 MG / Guaifenesin 200 MG Oral Capsule Coricidin HBP Chest Congestion & Cough 02/26/2020 12:00:00 AM EDT ORAL completed [facility] ([facility]) Sucralfate 1000 MG Oral Tablet [Carafate] Carafate 09/13/2019 1 2:00:00 AM EDT completed [facility] ([facility]) Omeprazole 40 MG Delayed Release Oral Capsule Omeprazole 09/13/2019 12:00:00 AM EDT ORAL completed [facility] ([facility]) 5 mg 07/02/2019 12:00:00 AM EST tablet 60 TAKE ONE TABLET BY MOUTH TWICE A DAY TAKE ONE TABLET BY MOUTH TWICE A DAY SOLD: 05/04/2020 [facility] 5 mg 07/02/2019 12:00:00 AM EST tablet 60 TAKE ONE TABLET BY MOUTH TWICE A DAY TAKE ONE TABLET BY MOUTH TWICE A DAY SOLD: 06/16/2020 [facility] 5 mg 07/02/2019 12:00:00 AM EST tablet 60 TAKE ONE TABLET BY MOUTH TWICE A DAY TAKE ONE TABLET BY MOUTH TWICE A DAY SOLD: 03/23/2020 [facility] Insurance Providers Payer name Policy type / Coverage type Policy ID Covered alliance party ID Covered alliance party's relationship to pizano Policy [place] Plan Information BLUE CROSS F[place]ING PLAN [id number] SP [id number] HMO BLUE [id number] SP [id number] UNHC COMMUNITY PLAN MCDHMO [id number] SP [id number] UNHC COMMUNITY PLAN MCDHMO UNHC COMMUNITY PLAN MCDHMO [id number] Self BRENDAN ROBB UNHC COMMUNITY PLAN MCDHMO [facility] Community Plan Medigap Part B [id number] Self [id number] Community Plan Medigap Part B [id number] Self [id number] [facility] Community Plan Medigap Part B [id number] Self [id number] [facility] Community Plan Medigap Part B [id number] Self [id number] [facility] Community Plan Medigap Part B [id number] Self [id number] [facility] Community Plan Medigap Part B [id number] Self [id number] c Community Plan Medigap Part B .[id number]. [id number] Self UNHC COMMUNITY PLAN MCDHMO [id number] SP [id number] UNHC COMMUNITY PLAN MCDHMO [id number] SP [id number] [facility] P [id number] S [id number] [facility] [employer] [facility] () Workers Compensation [id number] Self [id number] [facility] [employer] [facility] () Workers Compensation .[id number] Self [facility]) Workers Compensation [id number] Self [id number] [facility] Workers Compensation [id number] Self [id number] [facility]) Workers Compensation [id number] Self [id number] [facility]) Workers Compensation [id number] Self [id number] [facility] Workers Compensation [id number] Self [id number] [employer] (pr) Medigap Part B [id number] [employer] (pr) Medigap Part B [id number] [employer] (pr) Commercial [id number] [employer] (pr) Commercial [id number] [employer] (pr) Medigap Part B [id number] [employer] (pr) Medigap Part B [id number] [id number] [employer] (pr) Medigap Part B [id number] .[id number] [employer] Healthcare Commercial [id number] 02 .[id number] .[id number] Self [id number] Cigna/MVP Con Gen/Prefcar Commercial [id number] 02 .[id number] Self [id number] Cigna Health Care P [id number] S [id number] CIGNA INSURANCE CO [id number] SP [id number] CIGNA HEALTHCARE [id number] SP U [id number] BC[place] 306/806 [id number] SP [id number] Excellus Blue Cross and Blue Shield - [place] Blue Cross/B lue Shield [id number] Self [id number] [facility] PLAN [facility] [id number] SP [id number] EXCELLUS BCBS P [id number] S [id number] [place] 306/806 [id number] SP [id number] SELF PAY ONLY [id number] CIGNA HealthCare Other 0 [id number] Family Dependent Tadeo Tarzia 0 BCBS [place] PPO 302/307 [id number] SP [id number] EXCELLUS BCBS B [id number] S VYS [id number] [place] 306/806 [id number] SP [id number] EXCELLUS BCBS B [id number] S VYS [id number] [place] 306/806 [id number] SP [id number] CIGNA HEALTHCARE [id number] SP U [id number] CIGNA HEALTHCARE [id number] HU2 U [id number] CIGNA HEALTHCARE O [id number] S U [id number] OTHER WORKERS COMPENSATION [id number] Cigna/Conn Gen/Equicor Commercial [id number] Family Dependent [id number] Cigna/MVP Commercial [id number] 2..[id number] .[id number] Self [id number] Cigna/MVP Commercial [id number] 2..[id number] .[id number] Self [id number] CIGNA INSURANCE CO O [id number] O [id number] Cigna/MVP Commercial [id number] 2..[id number] .0 Self [id number] Cigna/Conn Gen/MVP Medigap Part B [id number] 2..[id number] Self [id number] [facility] [id number] 2..[id number] Family Dependent [id number] [facility] Health Maintenance Organization (HMO) [id number] 2..[id number] Self [id number] P Healthcare Commercial [id number] 02 .[id number] .[id number] Self [id number] Cigna/MVP Commercial [id number] .[id number] .0 Self [id number] CIGNA HEALTHCARE [id number] SP U [id number] CIGNA HEALTHCARE [id number] SP U [id number] [facility] [id number] 2 [id number] COUNT INCLUDES THE [facility] INSURANCE [facility] [id number] [facility] [id number] [facility] [id number] SP [id number] [facility] Health Maintenance Organization (O) [id number] Self [id number] [facility] [id number] HU2 [id number] COUNT INCLUDES THE [facility] INSURANCE FUND O [id number] S [id number] [facility] [id number] HU2 [id number] [facility] O [id number] P [id number] [facility] Matias/MCR Health Maintenance Organization (HMO) [id number] Self [id number] [facility](MCAID) O [id number] S [id number] MEDICAID [id number] SP [id number] [facility] Health Maintenance Organization (O) [id number] Self Problems, Conditions, and Diagnoses No Information Surgeries/Procedures Procedure Description Date Indications Data Source(s) Mammogram 03/15/2020 12:00:00 AM EDT M EDPANTERA ([facility]) Results ID Date Data Source [id number] 03/22/2021 01:30:00 PM EDT [facility] Name Value Range Interpretation Code Description Data Carie rce(s) Supporting Document(s) SARS-CoV-2 RNA Resp Ql HIRAL+probe NOT DETECTED [facility] This lab was ordered by [facility] and reported by [facility]. ID Date Data Source [id number] 03/14/2021 07:52:00 AM EDT [facility] ([facility]) Name Value Range Interpretation Code Description Data Carie rce(s) Supporting Document(s) Glucose [Mass/volume] in Serum or Plasma 89 mg/dL 74-99 [facility] ([facility]) 100-125 mg/dL PRE-DIABETES/FASTING >126 mg/dL DIABETES/FASTING Creatinine 0.7 mg/dL 0.6-1.3 [facility] Urea nitrogen [Mass/volume] in Serum or Plasma 19 mg/dL 7-18 [facility] ([facility]) Potassium [Moles/volume] in Serum or Plasma 4.6 meq/L 3.5-5.1 [facility] ([facility]) Chloride [Moles/volume] in Serum or Plasma 102 meq/L 98-107 [facility] Sodium [Moles/volume] in Serum or Plasma 137 meq/L 136-145 [facility] ([facility]) Glomerular filtration rate/1.73 sq M pre dicted among non-blacks [Volume Rate/Area] in Serum or Plasma by Creatinine-based formula (MDRD) Laboratory test result [facility] ([facility] ) Calcium [Mass/volume] in Serum or Plasma 9.3 mg/dL 8.5-10.1 [facility] ([facility]) Carbon dioxide, total [Moles/volume] in Serum or Plasma 28 meq/L 21 -32 [facility] ([facility]) Glomerular filtration rate/1.73 sq M pre dicted among blacks [Volume Rate/Area] in Serum or Plasma by Creatinine-based formula (MDRD) Laboratory [facility] <content>CHRONIC KIDNEY DISEASE STAGING PER NKF</content>
<content></content>
<content>STAGE I & II GFR >= 60 NORMAL TO MILDLY DECREASED</content>
<content>STAGE III GFR 30-59 MODERATELY DECREASED</content>
<content>STAGE IV GFR 15-29 SEVERELY DECREASED</content>
<content>STAGE V GFR <15 VERY LITTLE GFR LEFT</content>
<content>ESRD GFR <15 ON ACIDIZER</content>
<content></content> ID Date Data Source [id number] 09/06/2020 01:57:00 PM EDT [facility] Name Value Range Interpretation Code Description Data Carie rce(s) Supporting Document(s) Triglyceride [Mass/volume] in Serum or Plasma 330 mg/dL 30-150 [facility] Cholesterol [Mass/volume] in Serum or Plasma 233 mg/dL 131-200 [facility] Cholesterol in LDL [Mass/volume] in Serum or Plasma by calcu lation 110 CALC 50-159 [facility] Cholesterol in HDL [Mass/volume] in Serum or Plasma 57 mg/dL 35-60 [facility] ([facility]) ID Date Data Source [id number] 09/06/2020 01:57:00 PM EDT [facility] ([facility]) Name Value Range Interpretation Code Description Data Carie rce(s) Supporting Document(s) Glucose [Mass/volume] in Serum or Plasma 90 mg/dL 74-99 [facility] ([facility]) 100-125 mg/dL PRE-DIABETES/FASTING >126 mg/dL DIABETES/FASTING Creatinine 0.7 mg/dL 0.6-1.3 [facility] ([facility]) Urea nitrogen [Mass/volume] in Serum or Plasma 8 mg/dL 7-18 [facility] ([facility]) Potassium [Moles/volume] in Serum or Plasma 3.9 meq/L 3.5-5.1 [facility] ([facility]) Sodium [Moles/volume] in Serum or Plasma 137 meq/L 136-145 [facility] ([facility]) Chloride [Moles/volume] in Serum or Plasma 102 meq/L 98-107 [facility] ([facility]) Calcium [Mass/volume] in Serum or Plasma 9.1 mg/dL 8.5-10.1 [facility] ([facility]) Carbon dioxide, total [Moles/volume] in Serum or Plasma 28 meq/L 21 -32 [facility] Total Bilirubin 0.4 mg/dL 0.2-1.0 [facility] Alkaline phosphatase isoenzyme [Units/volume] in Serum or Pl asma 115 mg/dL 46-116 [facility] ([facility]) Aspartate aminotransferase [Enzymatic activity/volume] in Serum or Plasma 31 U/L 15-37 [facility] ([facility] ) Alanine aminotransferase [Enzymatic activity/volume] in Seru m or Plasma 39 U/L 12-78 [facility] ([facility]) Albumin [Mass/volume] in Serum or Plasma 3.9 g/dL 3.4-5.0 [facility] ([facility]) Proteinase 3 Ab [Units/volume] in Serum 7.0 g/dL 6.4-8.2 [facility] ([facility]) A/G Ratio 1.26 CALC 1.00-1.90 [facility] ([facility]) Glomerular filtration rate/1.73 sq M pre dicted among blacks [Volume Rate/Area] in Serum or Plasma by Creatinine-based formula (MDRD) Laboratory test result [facility] ([facility] <content>CHRONIC KIDNEY DISEASE STAGING PER NKF</content>
<content></content>
<content>STAGE I & II GFR >= 60 NORMAL TO MILDLY DECREASED</content>
<content>STAGE III GFR 30-59 MODERATELY DECREASED</content>
<content>STAGE IV GFR 15-29 SEVERELY DECREASED</content>
<content>STAGE V GFR <15 VERY LITTLE GFR LEFT</content>
<content>ESRD GFR <15 ON ACIDIZER</content>
<content></content> Glomerular filtration rate/1.73 sq M pre dicted among non-blacks [Volume Rate/Area] in Serum or Plasma by Creatinine-based formula (MDRD) Laboratory test result [facility] ([facility] ) ID Date Data Source [id number] 09/06/2020 01:57:00 PM EDT [facility] Name Value Range Interpretation Code Description Data Carie rce(s) Supporting Document(s) Leukocytes [#/volume] in Blood by Automated count 9.1 x10*3/UL 4.1-10 .9 [facility] Erythrocytes [#/volume] in Blood by Automated count 4.57 x10*6/UL 4.2 0-6.30 [facility] Hematocrit [Volume Fraction] of Blood by Automated count 46.3 % 3 7.0-51.0 [facility] MCV 101.1 fL 80.0-97.0 [facility] ([facility]) Hemoglobin [Mass/volume] in Blood 15.9 g/dL 12.0-18.0 [facility] MCHC 34.3 g/dL 31.0-38.0 [facility] ([facility]) MCH 34.7 pg 26.0-32.0 [facility] Platelets [#/volume] in Blood by Automated count 373 x10*3/UL 140-440 [facility] ([facility]) Erythrocyte distribution width [Ratio] by Automated count 13.4 % 11.6-13.7 [facility] ([facility]) Lymph % 23.9 % 10.0-58.5 [facility] MPV 7.3 FL 7.8-11.0 [facility] Mid % 5.9 % 1.7-9.3 [facility] Neut % 70.2 % 37.0-92.0 [facility] Lymph # 2.1 x10*3/UL 0.6-4.1 [facility] ([facility]) Neut # 6.4 x10*3/UL 2.0-7.8 [facility] ([facility]) Mid # 0.6 x10*3/UL 0.1-0.6 [facility] ([facility]) ID Date Data Source [id number] 06/28/2020 01:00:00 PM EST [facility] Name Value Range Interpretation Code Description Data Carie rce(s) Supporting Document(s) SARS coronavirus 2 RNA Not Detected [facility] [place] This lab was ordered by [facility] and reported by [facility]. ID Date Data Source [id number] 06/11/2020 11:20:00 AM EST [facility] Name Value Range Interpretation Code Description Data Carie rce(s) Supporting Document(s) SARS coronavirus 2 RNA Not Detected [facility] [place] This lab was ordered by [facility] and reported by [facility]. ID Date Data Source [id number] 06/10/2020 12:00:00 AM EST [facility] Name Value Range Interpretation Code Description Data Carie rce(s) Supporting Document(s) SARS coronavirus 2 Ag Negative [facility] This lab was ordered by [facility] and reported by [facility]. ID Date Data Source [id number] 05/15/2020 12:15:00 PM EST [facility] Name Value Range Interpretation Code Description Data Carie rce(s) Supporting Document(s) SARS coronavirus 2 RNA [facility] This lab was ordered by [facility] and reported by [facility]. ID Date Data Source [id number] 03/15/2020 12:00:00 AM EDT [facility] Samantha Bueno DO Patient Name: MARLO [id number] Date of : 1970[address] Date of Exam: 03/15/2020TING [place] [id number]#: Fax: [id number] EXAM: MAMMO SCREENING WITH CADCLINICAL [...] criteria for genetic testing established by National [facility] Centercer Network and [employer] guidelines. She should pursue arisk [...] Skinthickening or nipple retraction is not present.[facility] volumetric breast density category is C, the breasts areheterogeneously dense which may obscure small masses.IMPRESSION:BI-RADS Category 2 - Benign Finding(s). Stable mammogram. There is noevidence of malignant alteration of the breasts. Followup examinationrecommended in one year.This mammogram was read with the assistance of [employer], an FDAapproved computer aided detection system for [...] Name Value Range Interpretation Code Description Data [facility] rce(s) Supporting Document(s) ID Date Data Source [id number] 03/13/2020 09:48:00 AM EDT [facility] ([facility]) Name Value Range Interpretation Code Description Data Carie rce(s) Supporting Document(s) Alkaline phosphatase isoenzyme [Units/volume] in Serum or Pl asma 116 mg/dL 46-116 [facility] ([facility]) Total Bilirubin 1.0 mg/dL 0.2-1.0 [facility] ([facility]) Aspartate aminotransferase [Enzymatic activity/volume] in Serum or Plasma 22 U/L 15-37 [facility] Albumin [Mass/volume] in Serum or Plasma 3.9 g/dL 3.4-5.0 [facility] ([facility]) Alanine aminotransferase [Enzymatic activity/volume] in Seru m or Plasma 35 U/L 12-78 [facility] Proteinase 3 Ab [Units/volume] in Serum 7.0 g/dL 6.4-8.2 [facility] A/G Ratio 1.26 CALC 1.00-1.90 [facility] ([place] [facility]) Direct Bilirubin 0.2 mg/dL 0.0-0.2 [facility] ID Date Data Source [id number] 03/07/2020 05:15:00 PM EDT [facility] Name Value Range Interpretation Code Description Data Carie rce(s) Supporting Document(s) Respiratory Panel Laboratory test result [facility] ([facility]) This respiratory PCR panel detects Influ eduar [...] - SARS-CoV-2 (COVID19) ID Date Data Source [id number] 03/07/2020 05:04:00 PM EDT [facility] Name Value Range Interpretation Code Description Data Carie rce(s) Supporting Document(s) Blood Culture Laboratory test result [facility] ([facility]) No growth after 72 hours . All specimens observed for 5 days. Results final at that time. No growth after 48 hours . All specimens observed for 5 days. Results final at that time. No growth after 24 hours . All specimens observed for 5 days. Results final at that time. NO GROWTH AFTER 5 DAYS ID Date Data Source [id number] 03/07/2020 04:37:00 PM EDT [facility] Name Value Range Interpretation Code Description Data Carie rce(s) Supporting Document(s) Glucose, Fasting 99 mg/dL 70-100 [facility] ([facility]) Blood Urea Nitrogen 12 mg/dL 7-18 [facility] ([facility]) Glomerular Filtration Rate Laboratory test result [facility] ([facility]) <content>Units are mL/min/1.73 m2</content>
<content></content>
<content>Chronic Kidney Disease Staging per NKF:</content>
<content></content>
<content>Stage I & II GFR >=60 Normal to Mildly Decreased</content>
<content>Stage III GFR 30- 59 Moderately Decreased</content>
<content>Stage IV GFR 15-29 Severely Decreased</content>
<content>Stage V GFR <15 Very Little GFR Left</content>
<content>ESRD GFR <15 on ACIDIZER</content>
<content></content> Creatinine For GFR 0.63 mg/dL 0.55-1.30 [facility] ([facility]) Chloride Level 109 meq/L 98-107 [facility] ([facility]) Potassium Serum 3.9 meq/L 3.5-5.1 [facility] ([facility]) Sodium Level 142 meq/L 136-145 [facility] ([facility]) Anion Gap 7 meq/L 8-16 [facility] ([facility]) Carbon Dioxide Level 26 meq/L 21-32 [facility] ([facility]) Calcium Level 9.1 mg/dL 8.5-10.1 [facility] ([facility]) ID Date Data Source [id number] 03/07/2020 04:37:00 PM EDT [facility] ([facility]) Name Value Range Interpretation Code Description Data Carie rce(s) Supporting Document(s) Alt/SGPT 32 U/L 12-78 [facility] ([place] [facility]) Alkaline Phosphatase 109 U/L 45-117 [facility] ([facility]) Ast/Sgot 16 U/L 7-37 [facility] Bilirubin,Total 0.4 mg/dL 0.2-1.0 [facility]) Total Protein 6.9 GM/DL 6.4-8.2 [facility] ([facility]) Bilirubin,Direct 0.1 mg/dL 0.0-0.2 [facility] ([facility]) Albumin/Globulin Ratio 1.2 1.2-2.2 [facility] ([facility]) Albumin 3.7 GM/DL 3.2-5.2 [facility] ([place] [facility]) ID Date Data Source [id number] 03/07/2020 04:37:00 PM EDT [facility]) Name Value Range Interpretation Code Description Data Carie rce(s) Supporting Document(s) CPK Creatine Phosphokinase 65 U/L 26-192 [facility] ([facility]) CK-MB Value Mass Laboratory test result [facility] ([facility]) MB/CK Relative Index 1.54 [facility] ([facility]) <content>DIAGNOSIS CRITERIA</content>
<content>MMB ng/ml Relative Index (RI)</content>
<content>NON-AMI < or = 5 N/A</content>
<content>HARDEN ZONE > 5 < or = 4</content>
<content>AMI > 5 > 4</content>
<content></content> Troponin I Laboratory test result [facility] ([facility]) <content>Troponin I Reference Interval f or Siemens [facility] LOCI:</content>
<content></content>
<content>99th Percentile= 0.00-0.045 ng/ml</content>
<content></content>
<content>Risk Stratification:</content>
<content><= 0.10 ng/ml Decreased Risk for Adverse Clinical</content>
<content>Events.</content>
<content>0.10-1.50 ng/ml Increased Risk for Adverse Clinical</content>
<content>Events. Evaluation of additional</content>
<content>criterion and/or repeat testing in 2-6</content>
<content>hours is suggested to rule out myocardial</content>
<content>damage.</content>
<content>>= 1.50 ng/ml Indicative of Myocardial Injury.</content>
<content></content> ID Date Data Source [id number] 03/07/2020 04:37:00 PM EDT [facility] ([facility]) Name Value Range Interpretation Code Description Data Carie rce(s) Supporting Document(s) White Blood Count 7.6 10 4.0-10.0 [facility] ([facility]) Red Blood Count 4.65 10 4.00-5.40 [facility] ([facility]) Hemoglobin 16.0 g/dL 12.0-15.5 [facility] ([place]) Hematocrit 47.0 % 36.0-47.0 [facility] ([facility]) Mean Corpuscular Hemoglobin 34.4 pg 27.0-33.0 [facility] ([facility]) Mean Corpuscular Volume 101.1 fl 80.0-96.0 [facility] ([facility]) Red Cell Distribution Width 12.0 % 11.5-14.5 [facility] ([facility]) Mean Corpuscular HGB Conc 34.0 g/dL 32.0-36.5 [facility] ([facility]) Neutrophils % 53.7 % 36.0-66.0 [facility] ([facility]) Platelet Count, Automated 308 10 150-450 [facility] ([facility]) [place] % 7.2 % 0.0-5.0 [facility] ([facility]) Eos % 1.1 % 0.0-3.0 [facility] ([facility]) Lymph % 37.2 % 24.0-44.0 [facility] ([facility]) Baso % 0.4 % 0.0-1.0 [facility] ([facility]) Nucleated Red Blood Cell % 0.0 % 0-0 [facility] ([facility]) Immature Granulocyte % 0.4 % 0-3.0 [facility] ([facility]) [place] # 0.6 10 0.0-0.8 [facility] ([facility]) Lymph # 2.8 10 1.5-5.0 [facility] ([facility]) Neutrophils # 4.1 10 1.5-8.5 [facility] ([facility]) Baso # 0.0 10 0.0-0.2 [facility] ([facility]) Eos # 0.1 10 0.0-0.5 [facility] ID Date Data Source [id number] 02/29/2020 10:24:00 AM EDT [facility] ([facility]) Name Value Range Interpretation Code Description Data Carie rce(s) Supporting Document(s) LDL Direct 131 mg/dL 0-99 [facility] ([facility]) Comment LDL Direct Laboratory test result [facility] ([facility]) Performed at: RN - [facility] [address] [id number] [employer]er: Bethanie Dale MD, Phone: [phone] ID Date Data Source [id number] 02/29/2020 10:24:00 AM EDT [facility] ([facility]) Name Value Range Interpretation Code Description Data Carie rce(s) Supporting Document(s) Cholesterol [Mass/volume] in Serum or Plasma 249 mg/dL 131-200 [facility] ([facility]) Cholesterol in HDL [Mass/volume] in Serum or Plasma 40 mg/dL 35-60 [facility] ([facility]) Triglyceride [Mass/volume] in Serum or Plasma 481 mg/dL 30-150 [facility] ([facility]) Cholesterol in LDL [Mass/volume] in Serum or Plasma by calculation Laboratory test result 50-159 [facility] ([facility] ) Unable to calculate ID Date Data Source [id number] 02/29/2020 10:24:00 AM EDT [facility] ([facility]) Name Value Range Interpretation Code Description Data Carie rce(s) Supporting Document(s) Glucose [Mass/volume] in Serum or Plasma 107 mg/dL 74-99 [facility] ([facility]) 100-125 mg/dL PRE-DIABETES/FASTING >126 mg/dL DIABETES/FASTING Urea nitrogen [Mass/volume] in Serum or Plasma 11 mg/dL 7-18 [facility] ([facility]) Potassium [Moles/volume] in Serum or Plasma 4.0 meq/L 3.5-5.1 [facility] ([facility]) Creatinine 0.7 mg/dL 0.6-1.3 [facility] ([facility]) Sodium [Moles/volume] in Serum or Plasma 140 meq/L 136-145 [facility] ([facility]) Carbon dioxide, total [Moles/volume] in Serum or Plasma 26 meq/L 21 -32 [facility] ([facility]) Chloride [Moles/volume] in Serum or Plasma 103 meq/L 98-107 [facility] ([facility]) Calcium [Mass/volume] in Serum or Plasma 9.1 mg/dL 8.5-10.1 [facility] ([facility]) Glomerular filtration rate/1.73 sq M pre dicted among non-blacks [Volume Rate/Area] in Serum or Plasma by Creatinine-based formula (MDRD) Laboratory test result [facility] [facility] Glomerular filtration rate/1.73 sq M pre dicted among blacks [Volume Rate/Area] in Serum or Plasma by Creatinine-based formula (MDRD) Laboratory test result [facility] ([facility]) <content>CHRONIC KIDNEY DISEASE STAGING PER NKF</content>
<content></content>
<content>STAGE I & II GFR >= 60 NORMAL TO MILDLY DECREASED</content>
<content>STAGE III GFR 30-59 MODERATELY DECREASED</content>
<content>STAGE IV GFR 15-29 SEVERELY DECREASED</content>
<content>STAGE V GFR <15 VERY LITTLE GFR LEFT</content>
<content>ESRD GFR <15 ON ACIDIZER</content>
<content></content> ID Date Data Source [id number] 02/29/2020 10:24:00 AM EDT [facility] ([facility]) Name Value Range Interpretation Code Description Data Carie rce(s) Supporting Document(s) Hemoglobin [Mass/volume] in Blood 16.4 g/dL 12.0-18.0 [facility] ([facility]) Leukocytes [#/volume] in Blood by Automated count 7.4 x10*3/UL 4.1-10 .9 [facility] ([facility]) Erythrocytes [#/volume] in Blood by Automated count 4.79 x10*6/UL 4.2 0-6.30 [facility] ([facility]) Hematocrit [Volume Fraction] of Blood by Automated count 47.9 % 3 7.0-51.0 [facility] ([facility]) MCHC 34.3 g/dL 31.0-38.0 [facility] ([place] [facility]) MCH 34.3 pg 26.0-32.0 [facility] ([place] [facility]) MCV 100.0 fL 80.0-97.0 [facility] ([place] [facility]) Platelets [#/volume] in Blood by Automated count 354 x10*3/UL 140-440 [facility] ([facility]) MPV 8.2 FL 7.8-11.0 [facility] ([place] [facility]) Erythrocyte distribution width [Ratio] by Automated count 12.6 % 11.6-13.7 [facility] ([facility]) Lymph # 1.3 x10*3/UL 0.6-4.1 [facility] ([facility]) Neut % 77.6 % 37.0-92.0 [facility] ([place] [facility]) Lymph % 18.2 % 10.0-58.5 [facility] ([place] [facility]) Mid % 4.2 % 1.7-9.3 [facility] [facility] Mid # 0.3 x10*3/UL 0.1-0.6 [facility] ([facility]) Neut # 5.8 x10*3/UL 2.0-7.8 [facility] ([facility]) ID Date Data Source [id number] 02/29/2020 10:24:00 AM EDT [facility] ([facility]) Name Value Range Interpretation Code Description Data Carie rce(s) Supporting Document(s) Cholesterol in LDL [Mass/volume] in Serum or Plasma by Direct assay Laboratory test result [facility] ([facility] ) Procedure Social History Code Duration Value Status Description Data Source(s ) Smoking 12/05/2020 08:10:00 AM EDT Ex-smoker (finding) [facility] ed Ex-smoker (finding) [facility] (Roger Alford MD [facility]) Vital Signs ID Date Data Source UNK Name Value Range Interpretation Code Description Data Source(s) Body weight 155.00 [lb_av] 155.00 [lb_av] [facility] ([facility]) Body mass index (BMI) [Ratio] 27.9 kg/m2 27.9 k g/m2 [facility] ([facility]) Systolic blood pressure 122 mm[Hg] 122 mm[Hg] M [facility] ([facility]) Diastolic blood pressure 76 mm[Hg] 76 mm[Hg] [facility] ([facility]) Heart rate 86 /min 86 /min [facility] ([facility]) Body height 62.50 [in_i] 62.50 [in_i] [facility] ([facility]) 5'2.50" Systolic blood pressure 122 mm[Hg] 122 mm[Hg] [facility] ([facility]) Diastolic blood pressure 70 mm[Hg] 70 mm[Hg] [facility] ([facility]) Heart rate 102 /min 102 /min [facility] ([facility]) Body height 62.50 [in_i] 62.50 [in_i] [facility] ([facility]) 5'2.50" Body weight 163.00 [lb_av] 163.00 [lb_av] [facility] ([facility]) Oxygen saturation in Arterial blood by Pulse oximetry 95 % 95 % [facility] ([facility]) RM Air Body mass index (BMI) [Ratio] 29.3 kg/m2 29.3 k g/m2 [facility]) Respiratory rate 18 /min 18 /min [facility] ( [facility], [facility]) Oxygen saturation in Arterial blood by Pulse oximetry 97 % 97 % [facility] ([facility], [facility]) Body temperature 98.3 [degF] 98.3 [degF] [facility] ([facility], [facility]) Body weight 165.00 [lb_av] 165.00 [lb_av] [facility] ([facility], [facility]) Body height 62 [in_i] 62 [in_i] [facility] ([facility], [facility]) 5'2" Body mass index (BMI) [Ratio] 30.2 kg/m2 30.2 k g/m2 [facility] ([facility], [facility]) Systolic blood pressure 138 mm[Hg] 138 mm[Hg] [facility], [facility]) Diastolic blood pressure 100 mm[Hg] 100 mm[Hg] [facility] ([facility], [facility]) Heart rate 103 /min 103 /min [facility] ([facility], [facility]) Systolic blood pressure 120 mm[Hg] 120 mm[Hg] [facility]) Diastolic blood pressure 82 mm[Hg] 82 mm[Hg] [facility] ([facility]) Body height 62.50 [in_i] 62.50 [in_i] [facility] ([facility]) 5'2.50" Body weight 163.00 [lb_av] 163.00 [lb_av] [facility] ([facility]) Body mass index (BMI) [Ratio] 29.3 kg/m2 29.3 k g/m2 [facility]) Body height 62 [in_i] 62 [in_i] [facility] ([facility], [facility]) 5'2" Systolic blood pressure 139 mm[Hg] 139 mm[Hg] [facility] ([facility], [facility]) Diastolic blood pressure 96 mm[Hg] 96 mm[Hg] [facility] ([facility], [facility]) Body temperature 98.7 [degF] 98.7 [degF] [facility] ([facility], [facility]) Body mass index (BMI) [Ratio] 30.2 kg/m2 30.2 k g/m2 [facility] ([facility], [facility]) Heart rate 100 /min 100 /min [facility] ([facility], [facility]) Respiratory rate 14 /min 14 /min [facility] ( [facility], [facility]) Oxygen saturation in Arterial blood by Pulse oximetry 98 % 98 % [facility] ([facility], [facility]) Body weight 165.00 [lb_av] 165.00 [lb_av] [facility] ([facility], [facility]) Diastolic blood pressure 82 mm[Hg] 82 mm[Hg] [facility] ([facility]) Heart rate 87 /min 87 /min [facility] ([facility]) Body height 62.50 [in_i] 62.50 [in_i] [facility] ([facility]) 5'2.50" Body weight 165.00 [lb_av] 165.00 [lb_av] [facility] ([facility]) Body mass index (BMI) [Ratio] 29.7 kg/m2 29.7 k g/m2 [facility] ([facility]) Oxygen saturation in Arterial blood by Pulse oximetry 100 % 100 % [facility] ([facility]) Air Systolic blood pressure 122 mm[Hg] 122 mm[Hg] M [facility] ([facility]) Body weight 159.00 [lb_av] 159.00 [lb_av] [facility] ([facility], [facility]) Systolic blood pressure 157 mm[Hg] 157 mm[Hg] M [facility] ([facility], [facility]) pt has not taken meds in 2+ days Diastolic blood pressure 111 mm[Hg] 111 mm[Hg] [facility] ([facility], [facility]) pt has not taken meds in 2+ days Heart rate 113 /min 113 /min [facility] ([facility], [facility]) Oxygen saturation in Arterial blood by Pulse oximetry 98 % 98 % [facility] ([facility], [facility]) Body temperature 98.7 [degF] 98.7 [degF] [facility] ([facility], [facility]) Body height 62 [in_i] 62 [in_i] [facility] ([facility], [facility]) 5'2" Body mass index (BMI) [Ratio] 29.1 kg/m2 29.1 k g/m2 [facility] ([facility], [facility])
--- OUTSIDE RECORDS SUMMARY | 2021-04-02 18:50 | CCD ---
Author Author [facility] Organization [facility] Address Unknown Phone Unavailable Support Name Relationship Address Phone [facility]* Next Of Kin [address] [place] [address] [place] Next Of Kin [id number] [place] [address] [place] [address] [place]* Next Of Kin [address] [place] [address] UN Next Of Kin Unknown Unavailable NONE, PT PER Next Of Kin - -, - - - William Gonzalez Next Of Kin [address] [place] [address] UE Next Of Kin Unknown Unavailable [employer] BHAVIK Next Of Kin [address] [place] [address] [place] [address] PIHARJEET MOFFETT Next Of Kin [address] [place] [address] JORDANA ZHANG Next Of Kin [address] [place] [address] TYORN [place] [address] [employer] Next Of Kin [address] [place] [address] PRINCESS ROBB Next Of Kin [address] [facility] [place] [address] [employer] Next Of Kin [address] [facility] [place] [address] [employer] Next Of Kin [address] [facility] [place] [address] ADRIANNE MARIE Next Of [address] [id number] John ROBB Next Of Kin [address] [facility] [place] [address] Tadeo Robb ECON [address] [facility] [address] Unavailable Care Team Providers Care Spot Billing Clerk Name Role Phone Sparks, Mireille DATABASES SOFTWARE CONSULTANT Unavailable Unavailable Sparks, Mireille DATABASES SOFTWARE CONSULTANT Unavailable Unavailable Sparks, Mireille DATABASES SOFTWARE CONSULTANT Unavailable Unavailable Sparks, Mireille DATABASES SOFTWARE CONSULTANT Unavailable Unavailable Sparks, Mireille DATABASES SOFTWARE CONSULTANT Unavailable Unavailable Sparks, Mireille DATABASES SOFTWARE CONSULTANT Unavailable Unavailable Sparks, Mireille DATABASES SOFTWARE CONSULTANT Unavailable Unavailable Sparks, Mireille DATABASES SOFTWARE CONSULTANT Unavailable Unavailable Sparks, Mireille DATABASES SOFTWARE CONSULTANT Unavailable Unavailable Sparks, Mireille DATABASES SOFTWARE CONSULTANT Unavailable Unavailable Sparks, Mireille DATABASES SOFTWARE CONSULTANT Unavailable Unavailable Sparks, Mireille DATABASES SOFTWARE CONSULTANT Unavailable Unavailable Sparks, Mireille DATABASES SOFTWARE CONSULTANT Unavailable Unavailable Nelly Kahn Unavailable Unavailable Myles, [...] Unavailable Samantha Haddad MD Unavailable Unavailable Samantha Hdadad MD Unavailable Unavailable Samantha Haddad MD Unavailable [...] is protected by Article 27-F of the [facility] Public Health law. If you continue you may have access to information: Regarding HIV / AIDS; Provided by facilities licensed or operated by the [facility] Office of Mental Health; or Provided by the [facility] Office for People With Developmental Disabilities. If such information is present, then the following [facility] mandated warning applies: This information has been [...] law may result in a fine or [place] health care facility sentence or both. A general authorization for [...] Samantha Schultz 09/06 01:15:00 PM EDT [facility] ([facility] ) Outpatient Attender: RALPH Rene 06/10/2020 07:45:00 AM EST [facility] ([facility] Outpatient Attender: Samantha Schultz 03/13 09:20:00 AM EDT [facility] ([facility] ) Outpatient Attender: Mireille albert 03/02/2020 09:10:00 AM EDT [facility] ([facility]) Outpatient Attender: Samantha Schultz 02/28 10:00:00 AM EDT [facility] ([facility] ) Outpatient Attender: Mireille albert 02/26/2020 09:55:00 AM EDT [facility] ([facility]) Immunizations Vaccine Date Status Description Data Source(s) Influenza, injectable, MDCK, preservative free, zuleika valent 03/14/2021 08:06:00 AM EDT completed [facility]) COVID-19 VACCINE Pfizer 02/28/2021 12:00:00 AM EDT completed [facility] Vaccine Series Complete: YESThis Data wa s Submitted to [facility]. COVID-19 VACCINE Pfizer 02/07/2021 12:00:00 AM EDT completed [facility] Vaccine Series Complete: NOThis Data was Submitted to [facility] [employer]. Influenza, injectable, MDCK, preservative free, zuleika valent 02/29/2020 10:05:00 AM EDT completed [facility] Medications Medication Brand Name Start [...] 09/06/2020 12:00:00 AM EDT ORAL active [facility] 5 mg 08/06/2020 12:00:00 AM EDT tablet [...] Doxycycline Monohydrate 100 MG Oral Capsule Doxycycline [place] hydrate 06/10/2020 12:00:00 AM EST ORAL active M [facility]ENT ([facility]) Prednisone 20 MG Oral Tablet Prednisone 06/10/2020 12:00:00 AM EST ORAL active [facility] ([facility]) 200 ACTUAT Albuterol 0.09 MG/ACTUAT Metered Dose Inhaler [Pr oAir] Proair HFA 06/10/2020 12:00:00 AM EST ORAL active [facility] ([facility]) 90 mcg/actuation 03/08/2020 12:00:00 AM EDT [...] Jude 2019 12:00:00 AM EDT active [facility] ([facility]) Dextromethorphan Hydrobromide 10 MG / Guaifenesin 200 MG Oral Capsule Coricidin HBP Chest Congestion & Cough 02/26/2020 12:00:00 AM EDT ORAL completed [facility] ([facility]) Sucralfate 1000 MG Oral Tablet [Carafate] Carafate 09/13/2019 1 2:00:00 AM EDT completed [facility] ([facility]) Omeprazole 40 MG Delayed Release Oral Capsule Omeprazole 09/13/2019 12:00:00 AM EDT ORAL completed [facility] ([facility]) 5 mg 07/02/2019 12:00:00 AM EST [...] type / Coverage type Policy ID Covered democrat ID Covered democrat's relationship to pizano Policy P[place]ano Plan Information BLUE CROSS FLEMING PLAN [id number] SP [id number] HMO BLUE [id number] SP [id number] UNHC COMMUNITY PLAN MCDHMO [id number] SP [id number] UNHC COMMUNITY PLAN MCDHMO UNHC COMMUNITY PLAN MCDHMO [id number] Self BRENDAN ROBB UNHC COMMUNITY PLAN MCDHMO Uhc Community Plan Medigap Part B [id number] Self [id number] Community Plan Medigap Part B [id number] Self [id number] [facility] Community Plan Medigap Part B [id number] Self [id number] [facility] Community Plan Medigap Part B [id number] Self [id number] [facility] Community Plan Medigap Part B [id number] Self [id number] [facility] Community Plan Medigap Part B [id number] Self [id number] c Community Plan Medigap Part B .[id number] Self UNHC COMMUNITY PLAN MCDHMO [id number] SP [id number] UNHC COMMUNITY PLAN MCDHMO [id number] SP [id number] [facility] P [id number] S [id number] [facility] () Workers Compensation [id number] Self [id number] [facility] () Workers Compensation .[id number] Self [facility]) Workers Compensation [id number] Self [id number] [facility] Workers Compensation [id number] Self [id number] [facility]) Workers Compensation [id number] Self [id number] [facility]) Workers Compensation [id number] Self [id number] [facility] Workers Compensation [id number] Self [id number] [employer] (pr) Medigap Part B [id number] [employer] (pr) Medigap Part B [id number] [employer] (pr) Commercial [id number] [id number] [employer] (pr) Commercial [id number] [id number] [employer] (pr) Medigap Part B [id number] [id number] [employer] (pr) Medigap Part B [id number] [id number] United [employer] (pr) Medigap Part B [id number] .[id number] MVP Healthcare Commercial [id number] 02 .[id number] .[id number] Self [id number] Cigna/MVP Con Gen/Prefcar Commercial [id number] 02 .[id number] Self [id number] Cigna Health Care P [id number] S [id number] CIGNA INSURANCE CO [id number] SP [id number] CIGNA HEALTHCARE [id number] SP U [id number] [place] 306/806 [id number] SP [id number] Excellus Blue Cross and Blue Shield - [place] Blue Cross/B lue Shield [id number] Self [id number] [facility] PLAN [facility] [id number] SP [id number] EXCELLUS BCBS P [id number] S [id number] [place] 306/806 [id number] SP [id number] SELF PAY ONLY [id number] CIGNA HealthCare Other 0 [id number] Family Dependent Tadeo Tarzia 0 BCBS [place] PPO 302/307 [id number] SP [id number] EXCELLUS BCBS B [id number] S VYS [id number] BC[place] 306/806 [id number] SP [id number] EXCELLUS BCBS B [id number] S VYS [id number] [place] 306/806 [id number] SP [id number] CIGNA HEALTHCARE [id number] SP U [id number] CIGNA HEALTHCARE [id number] HU2 U [id number] CIGNA HEALTHCARE O [id number] S U [id number] OTHER WORKERS COMPENSATION [id number] Cigna/Conn Gen/Equicor Commercial [id number] Family Dependent [id number] Cigna/MVP Commercial [id number] 2..[id number] .[id number] Self [id number] Cigna/MVP Commercial [id number] 2..[id number] .[id number] Self [id number] CIGNA INSURANCE CO O [id number] O [id number] Cigna/MVP Commercial [id number] 2..[id number] .0 Self [id number] Cigna/Conn Gen/MVP Medigap Part B [id number] 2..[id number] Self [id number] [facility] [id number] 2..[id number] Family Dependent [id number] [facility] Health Maintenance Organization (HMO) [id number] 2..[id number] Self [id number] P Healthcare Commercial [id number] 02 .[id number] .[id number] Self [id number] Cigna/MVP Commercial [id number] .[id number] .[id number] Self [id number] CIGNA HEALTHCARE [id number] SP U [id number] CIGNA HEALTHCARE [id number] SP U [id number] [facility] [id number] 2 [id number] COMMUNITY HEALTH INSURANCE [facility] [id number] [facility] [id number] [facility] [id number] SP [id number] [facility] Health Maintenance Organization (O) [id number] Self [id number] [facility] [id number] HU2 [id number] COMMUNITY HEALTH INSURANCE FUND O [id number] S [id number] [facility] [id number] HU2 [id number] [facility] O [id number] P [id number] [facility] Matias/MCR Health Maintenance Organization (HMO) [id number] Self [id number] [facility](MCAID) O [id number] S [id number] MEDICAID [id number] SP [id number] [facility] Health Maintenance Organization (O) [id number] Self Problems, Conditions, and Diagnoses No Information Surgeries/Procedures Procedure Description Date Indications Data Source(s) Mammogram 03/15/2020 12:00:00 AM EDT M EDPANTERA ([facility]) Results ID Date Data Source [id number] 03/22/2021 01:30:00 PM EDT [facility] Name Value Range Interpretation Code Description Data Carie rce(s) Supporting Document(s) SARS-CoV-2 RNA Resp Ql HIRAL+probe NOT DETECTED [facility] This lab was ordered by [facility] and reported by [facility]. ID Date Data Source [id number] 03/14/2021 07:52:00 AM EDT [facility] ([facility]) Name Value Range Interpretation Code Description Data Carie rce(s) Supporting Document(s) Glucose [Mass/volume] in Serum or Plasma 89 mg/dL 74-99 [facility] ([facility]) 100-125 mg/dL PRE-DIABETES/FASTING >126 mg/dL DIABETES/FASTING Creatinine 0.7 mg/dL 0.6-1.3 [facility] Urea nitrogen [Mass/volume] in Serum or Plasma 19 mg/dL 7-18 [facility] ([facility]) Potassium [Moles/volume] in Serum or Plasma 4.6 meq/L 3.5-5.1 [facility] ([facility]) Chloride [Moles/volume] in Serum or Plasma 102 meq/L 98-107 [facility] Sodium [Moles/volume] in Serum or Plasma 137 meq/L 136-145 [facility] ([facility]) Glomerular filtration rate/1.73 sq M pre dicted among non-blacks [Volume Rate/Area] in Serum or Plasma by Creatinine-based formula (MDRD) Laboratory test result [facility] ([facility] ) Calcium [Mass/volume] in Serum or Plasma 9.3 mg/dL 8.5-10.1 [facility] ([facility]) Carbon dioxide, total [Moles/volume] in Serum or Plasma 28 meq/L 21 -32 [facility] ([facility]) Glomerular filtration rate/1.73 sq M pre dicted among blacks [Volume Rate/Area] in Serum or Plasma by Creatinine-based formula (MDRD) [facility]) <content>CHRONIC KIDNEY DISEASE STAGING PER NKF</content>
<content></content>
<content>STAGE I & II GFR >= 60 NORMAL TO MILDLY DECREASED</content>
<content>STAGE III GFR 30-59 MODERATELY DECREASED</content>
<content>STAGE IV GFR 15-29 SEVERELY DECREASED</content>
<content>STAGE V GFR <15 VERY LITTLE GFR LEFT</content>
<content>ESRD GFR <15 ON HOISTING LABORER</content>
<content></content> ID Date Data Source [id number] 09/06/2020 01:57:00 PM EDT [facility] Name Value Range Interpretation Code Description Data Carie rce(s) Supporting Document(s) Triglyceride [Mass/volume] in Serum or Plasma 330 mg/dL 30-150 [facility] Cholesterol [Mass/volume] in Serum or Plasma 233 mg/dL 131-200 [facility] Cholesterol in LDL [Mass/volume] in Serum or Plasma by calcu lation 110 CALC 50-159 [facility] Cholesterol in HDL [Mass/volume] in Serum or Plasma 57 mg/dL 35-60 [facility] ([facility]) ID Date Data Source [id number] 09/06/2020 01:57:00 PM EDT [facility] ([facility]) Name Value Range Interpretation Code Description Data Carie rce(s) Supporting Document(s) Glucose [Mass/volume] in Serum or Plasma 90 mg/dL 74-99 [facility] ([facility]) 100-125 mg/dL PRE-DIABETES/FASTING >126 mg/dL DIABETES/FASTING Creatinine 0.7 mg/dL 0.6-1.3 [facility] ([facility]) Urea nitrogen [Mass/volume] in Serum or Plasma 8 mg/dL 7-18 [facility] ([facility]) Potassium [Moles/volume] in Serum or Plasma 3.9 meq/L 3.5-5.1 [facility] ([facility]) Sodium [Moles/volume] in Serum or Plasma 137 meq/L 136-145 [facility] ([facility]) Chloride [Moles/volume] in Serum or Plasma 102 meq/L 98-107 [facility] ([facility]) Calcium [Mass/volume] in Serum or Plasma 9.1 mg/dL 8.5-10.1 [facility] ([facility]) Carbon dioxide, total [Moles/volume] in Serum or Plasma 28 meq/L 21 -32 [facility] Total Bilirubin 0.4 mg/dL 0.2-1.0 [facility] ([facility] Alkaline phosphatase isoenzyme [Units/volume] in Serum or Pl asma 115 mg/dL 46-116 [facility] ([facility]) Aspartate aminotransferase [Enzymatic activity/volume] in Serum or Plasma 31 U/L 15-37 [facility] ([facility] ) Alanine aminotransferase [Enzymatic activity/volume] in Seru m or Plasma 39 U/L 12-78 [facility] ([facility]) Albumin [Mass/volume] in Serum or Plasma 3.9 g/dL 3.4-5.0 [facility] ([facility]) Proteinase 3 Ab [Units/volume] in Serum 7.0 g/dL 6.4-8.2 [facility] ([facility]) A/G Ratio 1.26 CALC 1.00-1.90 [facility] ([facility]) Glomerular filtration rate/1.73 sq M pre dicted among blacks [Volume Rate/Area] in Serum or Plasma by Creatinine-based formula (MDRD) Laboratory test result [facility] ([facility] <content>CHRONIC KIDNEY DISEASE STAGING PER NKF</content>
<content></content>
<content>STAGE I & II GFR >= 60 NORMAL TO MILDLY DECREASED</content>
<content>STAGE III GFR 30-59 MODERATELY DECREASED</content>
<content>STAGE IV GFR 15-29 SEVERELY DECREASED</content>
<content>STAGE V GFR <15 VERY LITTLE GFR LEFT</content>
<content>ESRD GFR <15 ON HOISTING LABORER</content>
<content></content> Glomerular filtration rate/1.73 sq M pre dicted among non-blacks [Volume Rate/Area] in Serum or Plasma by Creatinine-based formula (MDRD) Laboratory test result [facility] ([facility] ) ID Date Data Source [id number] 09/06/2020 01:57:00 PM EDT [facility] ([facility] Name Value Range Interpretation Code Description Data Carie rce(s) Supporting Document(s) Leukocytes [#/volume] in Blood by Automated count 9.1 x10*3/UL 4.1-10 .9 [facility] ([facility] Erythrocytes [#/volume] in Blood by Automated count 4.57 x10*6/UL 4.2 0-6.30 [facility] ([facility] Hematocrit [Volume Fraction] of Blood by Automated count 46.3 % 3 7.0-51.0 [facility] ([facility] MCV 101.1 fL 80.0-97.0 [facility] ([facility]) Hemoglobin [Mass/volume] in Blood 15.9 g/dL 12.0-18.0 [facility] ([facility] MCHC 34.3 g/dL 31.0-38.0 [facility] ([facility]) MCH 34.7 pg 26.0-32.0 [facility] Platelets [#/volume] in Blood by Automated count 373 x10*3/UL 140-440 [facility] ([facility]) Erythrocyte distribution width [Ratio] by Automated count 13.4 % 11.6-13.7 [facility] ([facility]) Lymph % 23.9 % 10.0-58.5 [facility] MPV 7.3 FL 7.8-11.0 [facility] Mid % 5.9 % 1.7-9.3 [facility] Neut % 70.2 % 37.0-92.0 [facility] Lymph # 2.1 x10*3/UL 0.6-4.1 [facility] ([facility]) Neut # 6.4 x10*3/UL 2.0-7.8 [facility] ([facility]) Mid # 0.6 x10*3/UL 0.1-0.6 [facility] ([facility]) ID Date Data Source [id number] 06/28/2020 01:00:00 PM EST [facility] Name Value Range Interpretation Code Description Data Carie rce(s) Supporting Document(s) SARS coronavirus 2 RNA Not Detected [facility] This lab was ordered by [facility] and reported by [facility]. ID Date Data Source [id number] 06/11/2020 11:20:00 AM EST [facility] Name Value Range Interpretation Code Description Data Carie rce(s) Supporting Document(s) SARS coronavirus 2 RNA Not Detected [facility] This lab was ordered by [facility] and reported by [facility]. ID Date Data Source [id number] 06/10/2020 12:00:00 AM EST [facility] Name Value Range Interpretation Code Description Data Carie rce(s) Supporting Document(s) SARS coronavirus 2 Ag Negative [facility] This lab was ordered by [facility] and reported by [facility]. ID Date Data Source [id number] 05/15/2020 12:15:00 PM EST [facility] Name Value Range Interpretation Code Description Data Carie rce(s) Supporting Document(s) SARS coronavirus 2 RNA [facility] This lab was ordered by [facility] and reported by [facility]. ID Date Data Source [id number] 03/15/2020 12:00:00 AM EDT [facility] Samantha Bueno DO Patient Name: MARLO [id number] Date of : 1970[address] Date of Exam: 03/15/2020TING [place] [id number]#: Fax: [phone] EXAM: MAMMO SCREENING WITH CADCLINICAL [...] criteria for genetic testing established by National [facility] and [employer] guidelines. She should pursue arisk [...] Skinthickening or nipple retraction is not present.The [facility] volumetric breast density category is C, the breasts areheterogeneously dense which may obscure small masses.IMPRESSION:BI-RADS Category 2 - Benign Finding(s). Stable mammogram. There is noevidence of malignant alteration of the breasts. Followup examinationrecommended in one year.This mammogram was read with the assistance of [employer], an FDAapproved computer aided detection system for [...] Name Value Range Interpretation Code Description Data [facility] rce(s) Supporting Document(s) ID Date Data Source [id number] 03/13/2020 09:48:00 AM EDT [facility] Name Value Range Interpretation Code Description Data Carie rce(s) Supporting Document(s) Alkaline phosphatase isoenzyme [Units/volume] in Serum or Pl asma 116 mg/dL 46-116 [facility] ([facility]) Total Bilirubin 1.0 mg/dL 0.2-1.0 [facility] ([facility]) Aspartate aminotransferase [Enzymatic activity/volume] in Serum or Plasma 22 U/L 15-37 [facility] ([facility] Albumin [Mass/volume] in Serum or Plasma 3.9 g/dL 3.4-5.0 [facility] ([facility]) Alanine aminotransferase [Enzymatic activity/volume] in Seru m or Plasma 35 U/L 12-78 [facility] Proteinase 3 Ab [Units/volume] in Serum 7.0 g/dL 6.4-8.2 [facility] ([facility] A/G Ratio 1.26 CALC 1.00-1.90 [facility]) Direct Bilirubin 0.2 mg/dL 0.0-0.2 [facility] ([facility] ID Date Data Source [id number] 03/07/2020 05:15:00 PM EDT [facility] ([facility] Name Value Range Interpretation Code Description Data Carie rce(s) Supporting Document(s) Respiratory Panel Laboratory test result [facility] ([facility]) This respiratory PCR panel detects Influ edaur A H1, H3 and 2009 H1 viruses, Influenza B virus, Resp iratory Syncytial Virus, Human metapneumovirus, Parainfluenza virus 1, 2, 3 and 4, Adenovirus, Rhinovirus/Enterovirus, Coronavirus HKU1, NL63, OC43, 229E and SARS-CoV-2 (COVID 19), Bordetella pertussis, Bordetella parapertussis, Mycoplasma pneumoniae and Chlamydia pneumoniae. NEGATIVE by MULTIPLEXED NUCLEIC ACID PCR SARS-CoV-2 (COVID 19) NEGATIVE - SARS-CoV-2 (COVID19) ID Date Data Source [id number] 03/07/2020 05:04:00 PM EDT [facility] ([facility] Name Value Range Interpretation Code Description Data Carie rce(s) Supporting Document(s) Blood Culture Laboratory test result [facility] ([facility]) No growth after 72 hours . All specimens observed for 5 days. Results final at that time. No growth after 48 hours . All specimens observed for 5 days. Results final at that time. No growth after 24 hours . All specimens observed for 5 days. Results final at that time. NO GROWTH AFTER 5 DAYS ID Date Data Source [id number] 03/07/2020 04:37:00 PM EDT [facility] Name Value Range Interpretation Code Description Data Carie rce(s) Supporting Document(s) Glucose, Fasting 99 mg/dL 70-100 [facility] ([facility]) Blood Urea Nitrogen 12 mg/dL 7-18 [facility] ([facility]) Glomerular Filtration Rate Laboratory test result [facility] ([facility]) <content>Units are mL/min/1.73 m2</content>
<content></content>
<content>Chronic Kidney Disease Staging per NKF:</content>
<content></content>
<content>Stage I & II GFR >=60 Normal to Mildly Decreased</content>
<content>Stage III GFR 30- 59 Moderately Decreased</content>
<content>Stage IV GFR 15-29 Severely Decreased</content>
<content>Stage V GFR <15 Very Little GFR Left</content>
<content>ESRD GFR <15 on HOISTING LABORER</content>
<content></content> Creatinine For GFR 0.63 mg/dL 0.55-1.30 [facility] ([facility]) Chloride Level 109 meq/L 98-107 [facility] ([facility]) Potassium Serum 3.9 meq/L 3.5-5.1 [facility] ([facility]) Sodium Level 142 meq/L 136-145 [facility] ([facility]) Anion Gap 7 meq/L 8-16 [facility] ([facility]) Carbon Dioxide Level 26 meq/L 21-32 [facility] ([facility]) Calcium Level 9.1 mg/dL 8.5-10.1 [facility] ([facility]) ID Date Data Source [id number] 03/07/2020 04:37:00 PM EDT [facility] ([facility]) Name Value Range Interpretation Code Description Data Carie rce(s) Supporting Document(s) Alt/SGPT 32 U/L 12-78 [facility] [facility]) Alkaline Phosphatase 109 U/L 45-117 [facility] ([facility]) Ast/Sgot 16 U/L 7-37 [facility] Bilirubin,Total 0.4 mg/dL 0.2-1.0 [facility] Total Protein 6.9 GM/DL 6.4-8.2 [facility] ([facility]) Bilirubin,Direct 0.1 mg/dL 0.0-0.2 [facility]) Albumin/Globulin Ratio 1.2 1.2-2.2 [facility] ([facility]) Albumin 3.7 GM/DL 3.2-5.2 [facility] [facility]) ID Date Data Source [id number] 03/07/2020 04:37:00 PM EDT [facility]) Name Value Range Interpretation Code Description Data Carie rce(s) Supporting Document(s) CPK Creatine Phosphokinase 65 U/L 26-192 [facility] ([facility]) CK-MB Value Mass Laboratory test result [facility] ([facility]) MB/CK Relative Index 1.54 [facility] ([facility]) <content>DIAGNOSIS CRITERIA</content>
<content>MMB ng/ml Relative Index (RI)</content>
<content>NON-AMI < or = 5 N/A</content>
<content>HARDEN ZONE > 5 < or = 4</content>
<content>AMI > 5 > 4</content>
<content></content> Troponin I Laboratory test result [facility] ([facility]) <content>Troponin I Reference Interval f or Siemens Dragoon LOCI:</content>
<content></content>
<content>99th Percentile= 0.00-0.045 ng/ml</content>
<content></content>
<content>Risk Stratification:</content>
<content><= 0.10 ng/ml Decreased Risk for Adverse Clinical</content>
<content>Events.</content>
<content>0.10-1.50 ng/ml Increased Risk for Adverse Clinical</content>
<content>Events. Evaluation of additional</content>
<content>criterion and/or repeat testing in 2-6</content>
<content>hours is suggested to rule out myocardial</content>
<content>damage.</content>
<content>>= 1.50 ng/ml Indicative of Myocardial Injury.</content>
<content></content> ID Date Data Source [id number] 03/07/2020 04:37:00 PM EDT [facility] ([facility]) Name Value Range Interpretation Code Description Data Carie rce(s) Supporting Document(s) White Blood Count 7.6 10 4.0-10.0 [facility] ([facility]) Red Blood Count 4.65 10 4.00-5.40 [facility] ([facility]) Hemoglobin 16.0 g/dL 12.0-15.5 [facility] ([place] [facility]) Hematocrit 47.0 % 36.0-47.0 [facility] ([facility]) Mean Corpuscular Hemoglobin 34.4 pg 27.0-33.0 [facility] ([facility]) Mean Corpuscular Volume 101.1 fl 80.0-96.0 [facility] ([facility]) Red Cell Distribution Width 12.0 % 11.5-14.5 [facility] ([facility]) Mean Corpuscular HGB Conc 34.0 g/dL 32.0-36.5 [facility] ([facility]) Neutrophils % 53.7 % 36.0-66.0 [facility] ([facility]) Platelet Count, Automated 308 10 150-450 [facility] ([facility]) [place] % 7.2 % 0.0-5.0 [facility]) Eos % 1.1 % 0.0-3.0 [facility]) Lymph % 37.2 % 24.0-44.0 [facility]) Baso % 0.4 % 0.0-1.0 [facility]) Nucleated Red Blood Cell % 0.0 % 0-0 [facility] ([facility]) Immature Granulocyte % 0.4 % 0-3.0 [facility] ([facility]) [place] # 0.6 10 0.0-0.8 [facility]) Lymph # 2.8 10 1.5-5.0 [facility]) Neutrophils # 4.1 10 1.5-8.5 [facility] ([facility]) Baso # 0.0 10 0.0-0.2 [facility]) Eos # 0.1 10 0.0-0.5 [facility] ID Date Data Source [id number] 02/29/2020 10:24:00 AM EDT [facility] ([facility]) Name Value Range Interpretation Code Description Data Carie rce(s) Supporting Document(s) LDL Direct 131 mg/dL 0-99 [facility] Comment LDL Direct Laboratory test result [facility] ([facility]) Performed at: RN - [facility] [address] [id number] Toxics Program Officer: Bethanie Dale MD, Phone: [phone] ID Date Data Source [id number] 02/29/2020 10:24:00 AM EDT [facility] ([facility]) Name Value Range Interpretation Code Description Data Carie rce(s) Supporting Document(s) Cholesterol [Mass/volume] in Serum or Plasma 249 mg/dL 131-200 [facility] ([facility]) Cholesterol in HDL [Mass/volume] in Serum or Plasma 40 mg/dL 35-60 [facility] ([facility]) Triglyceride [Mass/volume] in Serum or Plasma 481 mg/dL 30-150 [facility] ([facility]) Cholesterol in LDL [Mass/volume] in Serum or Plasma by calculation Laboratory test result 50-159 [facility] ([facility] ) Unable to calculate ID Date Data Source [id number] 02/29/2020 10:24:00 AM EDT [facility] ([facility]) Name Value Range Interpretation Code Description Data Carie rce(s) Supporting Document(s) Glucose [Mass/volume] in Serum or Plasma 107 mg/dL 74-99 [facility] ([facility]) 100-125 mg/dL PRE-DIABETES/FASTING >126 mg/dL DIABETES/FASTING Urea nitrogen [Mass/volume] in Serum or Plasma 11 mg/dL 7-18 [facility] ([facility]) Potassium [Moles/volume] in Serum or Plasma 4.0 meq/L 3.5-5.1 [facility] ([facility]) Creatinine 0.7 mg/dL 0.6-1.3 [facility] ([facility]) Sodium [Moles/volume] in Serum or Plasma 140 meq/L 136-145 [facility] ([facility]) Carbon dioxide, total [Moles/volume] in Serum or Plasma 26 meq/L 21 -32 [facility] ([facility]) Chloride [Moles/volume] in Serum or Plasma 103 meq/L 98-107 [facility] ([facility]) Calcium [Mass/volume] in Serum or Plasma 9.1 mg/dL 8.5-10.1 [facility] ([facility]) Glomerular filtration rate/1.73 sq M pre dicted among non-blacks [Volume Rate/Area] in Serum or Plasma by Creatinine-based formula (MDRD) Laboratory test result [facility] Glomerular filtration rate/1.73 sq M pre dicted among blacks [Volume Rate/Area] in Serum or Plasma by Creatinine-based formula (MDRD) Laboratory test result [facility] ([facility]) <content>CHRONIC KIDNEY DISEASE STAGING PER NKF</content>
<content></content>
<content>STAGE I & II GFR >= 60 NORMAL TO MILDLY DECREASED</content>
<content>STAGE III GFR 30-59 MODERATELY DECREASED</content>
<content>STAGE IV GFR 15-29 SEVERELY DECREASED</content>
<content>STAGE V GFR <15 VERY LITTLE GFR LEFT</content>
<content>ESRD GFR <15 ON HOISTING LABORER</content>
<content></content> ID Date Data Source [id number] 02/29/2020 10:24:00 AM EDT [facility] ([facility]) Name Value Range Interpretation Code Description Data Carie rce(s) Supporting Document(s) Hemoglobin [Mass/volume] in Blood 16.4 g/dL 12.0-18.0 [facility] ([facility]) Leukocytes [#/volume] in Blood by Automated count 7.4 x10*3/UL 4.1-10 .9 [facility] ([facility]) Erythrocytes [#/volume] in Blood by Automated count 4.79 x10*6/UL 4.2 0-6.30 [facility] ([facility]) Hematocrit [Volume Fraction] of Blood by Automated count 47.9 % 3 7.0-51.0 [facility] ([facility]) MCHC 34.3 g/dL 31.0-38.0 [facility] ([place] [facility]) MCH 34.3 pg 26.0-32.0 [facility] ([place] [facility]) MCV 100.0 fL 80.0-97.0 [facility] ([place] [facility]) Platelets [#/volume] in Blood by Automated count 354 x10*3/UL 140-440 [facility] ([facility]) MPV 8.2 FL 7.8-11.0 [facility] ([place] [facility]) Erythrocyte distribution width [Ratio] by Automated count 12.6 % 11.6-13.7 [facility] ([facility]) Lymph # 1.3 x10*3/UL 0.6-4.1 [facility] ([facility]) Neut % 77.6 % 37.0-92.0 [facility] ([place] [facility]) Lymph % 18.2 % 10.0-58.5 [facility] ([place] [facility]) Mid % 4.2 % 1.7-9.3 [facility] [facility] Mid # 0.3 x10*3/UL 0.1-0.6 [facility] ([facility]) Neut # 5.8 x10*3/UL 2.0-7.8 [facility] ([facility]) ID Date Data Source [id number] 02/29/2020 10:24:00 AM EDT [facility] Name Value Range Interpretation Code Description Data Carie rce(s) Supporting Document(s) Cholesterol in LDL [Mass/volume] in Serum or Plasma by Direct assay Laboratory test result [facility] ([facility] ) Procedure Social History Code Duration Value Status Description Data Source(s ) Smoking 12/05/2020 08:10:00 AM EDT Ex-smoker (finding) [facility] ed Ex-smoker (finding) [place] (Roger Alford MD [facility]) Vital Signs ID Date Data Source UNK Name Value Range Interpretation Code Description Data Source(s) Systolic blood pressure 122 mm[Hg] 122 mm[Hg] [facility] ([facility]) Diastolic blood pressure 76 mm[Hg] 76 mm[Hg] [facility] ([facility]) Heart rate 86 /min 86 /min [facility] ([facility]) Body height 62.50 [in_i] 62.50 [in_i] [facility] ([facility]) 5'2.50" Body weight 155.00 [lb_av] 155.00 [lb_av] [facility] ([facility]) Body mass index (BMI) [Ratio] 27.9 kg/m2 27.9 k g/m2 [facility] ([facility]) Systolic blood pressure 122 mm[Hg] 122 mm[Hg] [facility] ([facility]) Diastolic blood pressure 70 mm[Hg] 70 mm[Hg] [facility] ([facility]) Heart rate 102 /min 102 /min [facility] ([facility]) Body height 62.50 [in_i] 62.50 [in_i] [facility] ([facility]) 5'2.50" Body weight 163.00 [lb_av] 163.00 [lb_av] [facility] Oxygen saturation in Arterial blood by Pulse oximetry 95 % 95 % [facility] ([facility]) RM Air Body mass index (BMI) [Ratio] 29.3 kg/m2 29.3 k g/m2 [facility] ([facility]) Systolic blood pressure 138 mm[Hg] 138 mm[Hg] [facility] ([facility], [facility]) Diastolic blood pressure 100 mm[Hg] 100 mm[Hg] [facility] ([facility], [facility]) Heart rate 103 /min 103 /min [facility] ([facility], [facility]) Respiratory rate 18 /min 18 /min [facility] ( [facility], [facility]) Oxygen saturation in Arterial blood by Pulse oximetry 97 % 97 % [facility] ([facility], [facility]) Body temperature 98.3 [degF] 98.3 [degF] [facility] ([facility], [facility]) Body weight 165.00 [lb_av] 165.00 [lb_av] [facility] ([facility], [facility]) Body height 62 [in_i] 62 [in_i] [facility], [facility]) 5'2" Body mass index (BMI) [Ratio] 30.2 kg/m2 30.2 k g/m2 [facility]) Systolic blood pressure 120 mm[Hg] 120 mm[Hg] [facility] ([facility]) Diastolic blood pressure 82 mm[Hg] 82 mm[Hg] [facility] ([facility]) Body height 62.50 [in_i] 62.50 [in_i] [facility] ([facility]) 5'2.50" Body weight 163.00 [lb_av] 163.00 [lb_av] [facility] ([facility]) Body mass index (BMI) [Ratio] 29.3 kg/m2 29.3 k g/m2 [facility] ([facility]) Systolic blood pressure 139 mm[Hg] 139 mm[Hg] [facility] ([facility], [facility]) Diastolic blood pressure 96 mm[Hg] 96 mm[Hg] [facility] ([facility], [facility]) Heart rate 100 /min 100 /min [facility] ([facility], [facility]) Respiratory rate 14 /min 14 /min [facility] ( [facility], [facility]) Body temperature 98.7 [degF] 98.7 [degF] [facility] ([facility], [facility]) Body height 62 [in_i] 62 [in_i] [facility] ([facility], [facility]) 5'2" Body mass index (BMI) [Ratio] 30.2 kg/m2 30.2 k g/m2 [facility] ([facility], [facility]) Oxygen saturation in Arterial blood by Pulse oximetry 98 % 98 % [facility] ([facility], [facility]) Body weight 165.00 [lb_av] 165.00 [lb_av] [facility] ([facility], [facility]) Diastolic blood pressure 82 mm[Hg] 82 mm[Hg] [facility] ([facility]) Heart rate 87 /min 87 /min [facility] ([facility]) Body height 62.50 [in_i] 62.50 [in_i] [facility] ([facility]) 5'2.50" Body weight 165.00 [lb_av] 165.00 [lb_av] [facility] ([facility]) Body mass index (BMI) [Ratio] 29.7 kg/m2 29.7 k g/m2 [facility] ([facility]) Oxygen saturation in Arterial blood by Pulse oximetry 100 % 100 % [facility] ([facility]) Air Systolic blood pressure 122 mm[Hg] 122 mm[Hg] [facility] ([facility]) Body weight 159.00 [lb_av] 159.00 [lb_av] [facility] ([facility], [facility]) Systolic blood pressure 157 mm[Hg] 157 mm[Hg] [facility] ([facility], [facility]) pt has not taken meds in 2+ days Diastolic blood pressure 111 mm[Hg] 111 mm[Hg] [facility] ([facility], [facility]) pt has not taken meds in 2+ days Heart rate 113 /min 113 /min [facility] ([facility], [facility]) Oxygen saturation in Arterial blood by Pulse oximetry 98 % 98 % [facility] ([facility], [facility]) Body temperature 98.7 [degF] 98.7 [degF] [facility] ([facility], [facility]) Body height 62 [in_i] 62 [in_i] [facility] ([facility]) 5'2" Body mass index (BMI) [Ratio] 29.1 kg/m2 29.1 k g/m2 [facility] ([facility], [facility])
--- NOTE | 2021-04-02 19:38 | ECGEPIP ---
[facility] - ED Test Date: 2021-04-02 Pat Name: BRENDAN MANRIQUE Department: Room: - Gender: Female Poiser Balance: JIM : 1970 Requested By: ANDREI Martin Order Number: [id number] Reading MD: Mikael Katz Measurements Intervals [place] Rate: 90 P: 81 TX: 146 QRS: 8 QRSD: 78 T: 22 QT: 362 QTc: 442 Interpretive Statements Normal sinus rhythm Minimal voltage criteria for LVH, may be normal variant ( R in aVL ) Baseline wandering may affect reading Nonspecific ST T wave changes cw 03/07/[address] T wave changes Electronically Signed on 04-02-2021 19:38:28 EST by Mikael Katz
[2021-04-02] MEDS: BENZONATATE 100MG CAPSULE PO PRN (19:44)
[2021-04-02] MEDS: NICOTINE 14 MG/24 HR TRANSDERMAL TD SCH (19:45)
[2021-04-02] MEDS: methylPREDNISolone 125MG 2ML VIAL IV SCH (19:45)
[2021-04-02] MEDS: guaiFENesin ER 600 MG TAB PO SCH (19:45)
[2021-04-02] MEDS: ACETAMINOPHEN TAB 650MG DOSE (2X325MG) PO PRN (19:46)
[2021-04-02] MEDS: MORPHINE 2 MG/ML 1ML VIAL (J2270) IV PRN (19:46)
[2021-04-03] MEDS: ACETAMINOPHEN TAB 650MG DOSE (2X325MG) PO PRN ×2 (02:45→10:04)
[2021-04-03] MEDS: BENZONATATE 100MG CAPSULE PO PRN ×2 (02:45→21:55)
[2021-04-03] MEDS: MORPHINE 2 MG/ML 1ML VIAL (J2270) IV PRN ×4 (02:45→21:10)
[2021-04-03] MEDS: methylPREDNISolone 125MG 2ML VIAL IV SCH ×3 (02:46→21:10)
[2021-04-03 06:00] VITALS: BP 136/97
[2021-04-03 06:27] LABS: HEMATOCRIT 45.4 % (36.0-47.0); HEMOGLOBIN 15.3 g/dl (12.0-15.5); MEAN CORPUSCULAR HGB CONC 33.7 g/dl (32.0-36.5); MEAN CORPUSCULAR VOLUME 100.9 fl (80.0-96.0); PLATELET COUNT, AUTOMATED 347 10^3/uL (150-450)
[2021-04-03 06:31] LABS: BLOOD UREA NITROGEN 16 MG/DL (7-18); CALCIUM LEVEL 9.4 MG/DL (8.5-10.1); CARBON DIOXIDE LEVEL 26 MEQ/L (21-32); CHLORIDE LEVEL 104 MEQ/L (98-107); CREATININE FOR GFR 0.82 MG/DL (0.55-1.30); GLOMERULAR FILTRATION RATE > 60.0 (>58); GLUCOSE, FASTING 148 MG/DL (70-100); POTASSIUM SERUM 4.6 MEQ/L (3.5-5.1); SODIUM LEVEL 138 MEQ/L (136-145)
[2021-04-03 06:32] LABS: MAGNESIUM LEVEL 2.4 MG/DL (1.8-2.4)
[2021-04-03] MEDS: SYMBICORT 80/4.5MCG INHALER 6GM INH SCH ×2 (07:28→19:58)
[2021-04-03] MEDS: IPRATROPIUM 0.5MG/ALBUTEROL 2.5MG INH SOL UD 3ML (DUONEB) NEB SCH ×3 (07:28→20:00)
[2021-04-03] MEDS: NICOTINE 14 MG/24 HR TRANSDERMAL TD SCH (09:00)
[2021-04-03] MEDS: guaiFENesin ER 600 MG TAB PO SCH ×2 (09:29→21:10)
[2021-04-03] MEDS: ENOXAPARIN 40MG/0.4ML SYRINGE (J1650 PER 10MG) SC SCH (09:29)
--- NOTE | 2021-04-03 13:22 | HPEPDOC ---
[facility] Medical History & Physical Date of Admission Apr 02, 2021 Date of Service: Apr 02, 2021 Attending Physician: GRIFFIN PISANO MD History and Physical CHIEF COMPLAINT: Shortness of breath, cough, wheezing History of Present Illness 50-year-old W with a history of childhood asthma as a child, as well as a 60-[id number]-hayl history of smoking, who has been having problems with cough, shortness of breath as well as wheezing ongoing for 2w reporting recent prednisone for 2w, currently on antibiotics? for presumed PNA? with persisting SOB and wheezing, while also continuing to smoke through it all who now was brought in by EMS after being found in respiratory distress and placed on CPAP enroute and after nebs solumedrol is now back on room air. She otherwise had not had fever, chills, thick yellow, starkey or bloody sputum. She has no chest pain, palpitations. In the ER, she was wheezing as well as coughing and tachypneic, that all improved after some duonebs. CTA was negative PE, opacities or effusions, whilc CXR show acute cardiopulmonary pathology. Resp panel was positive for paraflu-4 and negative for covid-19, while WBC was 11.2, Hgb 16.6, platelets 375, Na 138, K 4.3, Cr 0.67, TSH wnl, LFTs wnl, proBNP 48. Ms. Robb was recently on steroids, was getting antibiotics that I am not sure are warranted and had a rescue inhaler but I think was continues to send her in exacerbations is parainfluenza with continued smoking. She was strongly counselled on the benefits of quitting smoking especially given currently URI and will admitted for what is likely an undiagnosed COPD + asthma exacerbation i/s/o parainfluenza URI with ongoing smoking. Home Medications: see below Allergies: Penicillins (Verified Allergy, Intermediate, RASH, 08/22/18) Past Medical History: Asthma as a child hypertension nicotine dependence/cigarette smoking Surgical History: Tonsillectomy and adenoidectomy, 4 sections, D&C, ventral hernia repair, exploratory laparoscopy Family History Dad when she was 6 weeks old from [place]. Mom from bleeding into her lungs at the age of 42 related to some pulmonary artery problem per the patient. Son at 4-1/2 years age from tetralogy of Fallot complications. Social History Smoker: >35y history Alcohol: occasional Drugs: denies Review of Systems Negative for 10 systems except as noted under history of present illness Physical Examination: General: NAD HEENT: NCAT, EOMI, MMM Pulm: diffuse scattered expiratory wheezing, diminished air movement, no crackles cardiac: RRR< no m/r/g Abd: soft, normoactive bowel sound, NTND Ext: No LE edema, WWP Labs and imaging: Reviewed above. See below for full details Assessment: 50-year-old W with a history of childhood asthma as a child, as well as a 60-qgrh-fmda history of smoking, who has been having problems with cough, shortness of breath as well as wheezing ongoing for 2w reporting recent prednisone for 2w, currently on antibiotics? for presumed PNA? with persisting SOB and wheezing, while also continuing to smoke through it all who now was brought in by EMS after being found in respiratory distress and now being admitted for what is likely an undiagnosed COPD + asthma exacerbation i/s/o parainfluenza URI with ongoing smoking. Acute asthma and likely undiagnosed COPD exacerbation i/s/o parainfluenza URI: -IV Solu-Medrol 80 kg every 8 hours -DuoNebs 4 times a day -albuterol nebs q4hp -Tessalon Perles prn cough -Mucinex 1200mg BID -DC all antibiotics, has been on them for 2 weeks? -Tylenol PRN Hypertension -Lisinopril 20 mg BID -BNP is normal, no lower extremity edema and no effusion or pulmonary edema on chest x-rayno indication for echocardiogram at this time Nicotine dependence/cigarette smoking: -Encouraged to quit smoking -Ordered nicotine replacement therapy DVT prophylaxis: -Encourage ambulation/ PT ordered -lovenox 40 QD CODE STATUS: -Full code per my discussion with the patient Disposition: -Admit as an inpatient to med/surg Vital Signs Vital Signs Date Time Temp Pulse Resp B/P (MAP) Pulse Ox O2 Delivery O2 Flow Rate FiO2 04/02/21 16:08 22 95 Room Air 04/02/21 16:00 90 143/89 (107) 04/02/21 14:48 97.2 Laboratory Data Labs 24H Laboratory Tests 2 04/02/21 14:39: Immature Granulocyte % (Auto) 0.7, Neutrophils (%) (Auto) 70.9H, Lymphocytes (%) (Auto) 22.2L, Monocytes (%) (Auto) 5.7, Eosinophils (%) (Auto) 0.1, Basophils (%) (Auto) 0.4, Neutrophils # (Auto) 7.9, Lymphocytes # (Auto) 2.5, Monocytes # (Auto) 0.6, Eosinophils # (Auto) 0.0, Basophils # (Auto) 0.0, Nucleated Red Blood Cells % (auto) 0.0, Anion Gap 9, Glomerular Filtration Rate > 60.0, Calcium Level 9.5, Total Bilirubin 0.6, Direct Bilirubin < 0.1, Aspartate Amino Transf (AST/SGOT) 25, Alanine Aminotransferase (ALT/SGPT) 37, Alkaline Phosphatase 100, Total Creatine Kinase 158, Creatine Kinase MB 1.6, Creatine Kinase MB Relative Index 1.01, Troponin I < 0.02, XF-Ojp-J-Type Natriuretic Peptide 48, Total Protein 7.0, Albumin 3.7, Albumin/Globulin Ratio 1.1L, Thyroid Stimulating Hormone (TSH) 1.060 04/02/21 16:11: Blood Gas Bicarbonate Standard 24.1, Venous Blood pH 7.435H, Venous Blood Parti al Pressure CO2 35.2L, Venous Blood Partial Pressure O2 82.0H, Venous Blood Total Carbon Dioxide 24.2, Venous Blood HCO3 23.1, Venous Blood Oxygen Saturation 96.6H, Venous Blood Base Excess -0.5 CBC/BMP Laboratory Tests 04/02/21 14:39 Microbiology Microbiology 04/02/21 Respiratory Virus Panel (PCR) ([facility]) - Final, Complete Parainfluenza 4 (Piv4) Home Medications Scheduled Guaifenesin (Mucinex) 600 Mg Tab.er.12h, 600 MG PO BID Levofloxacin (Levofloxacin) 750 Mg Tablet, 750 MG PO DAILY Lisinopril (Lisinopril) 10 Mg Tablet, 10 MG PO BID Prednisone (Prednisone) 20 Mg Tablet, 20 MG PO BID Scheduled PRN Albuterol Sulfate (Proair Hfa) 8.5 Gm Hfa.aer.ad, 2 PUFF INH Q4-6HP PRN for SOB/WHEEZING Benzonatate (Benzonatate) 200 Mg Capsule, 200 MG PO TID PRN for COUGH Allergies Coded Allergies: Penicillins (Verified Allergy, Intermediate, RASH, 08/05/19) A-FIB/CHADSVASC A-FIB History Current/History of A-Fib/PAF?: No Current PO Anticoag Therapy: No Age/Risk Factor Scoring CHADSVASC: CHADSVASC Response (Comments) Value Age Risk Factor Age < 65 years old 0 Gender Risk Factor Female 1 Hx of CHF No 0 Hx of HTN Yes 1 Hx of Stroke/TIA/or VTE No 0 Hx of Diabetes No 0 Hx of Vascular Disease No 0 Total 2 Treatment Treatment ordered: NONE Reason Anticoagulant not given: Not indicated/[id number] GRIFFIN PISANO MD Apr 02, 2021 17:27
--- NOTE | 2021-04-03 13:25 | IPNPDOC ---
Text Note Date of Service The patient was seen on 04/03/21. NOTE Subjective: -No acute complaints but continues to have exertional dyspnea and dyspnea with talking -Morphine is helping the rib pain from incessant coughing Physical Examination: Vitals: see below, afebrile, normotensive, on room air General: NAD HEENT: NCAT, EOMI, MMM Pulm: diffuse scattered expiratory wheezing, diminished air movement, no crackles cardiac: RRR< no m/r/g Abd: soft, normoactive bowel sound, NTND Ext: No LE edema, WWP Labs: Reviewed Imaging: Reviewed Assessment: 50-year-old W with a history of childhood asthma as a child, as well as a 34-gjob-rjrg history of smoking, who has been having problems with cough, shortness of breath as well as wheezing ongoing for 2w reporting recent prednisone for 2w, currently on antibiotics? for presumed PNA? with persisting SOB and wheezing, while also continuing to smoke through it all who now was brought in by EMS after being found in respiratory distress and now being admitted for what is likely an undiagnosed COPD + asthma exacerbation i/s/o parainfluenza URI with recent smoking. Acute asthma and likely undiagnosed COPD exacerbation i/s/o parainfluenza URI: -continue IV Solu-Medrol 80 kg every 8 hours -DuoNebs 4 times a day -albuterol nebs q4hp -Tessalon Perles prn cough -Mucinex 1200mg BID -holding off antibiotics -Tylenol PRN -morphine PRN for rib pain from severe coughing Hypertension -Lisinopril 20 mg BID -BNP is normal, no lower extremity edema and no effusion or pulmonary edema on chest x-rayno indication for echocardiogram at this time Nicotine dependence/cigarette smoking: -Encouraged to quit smoking -nicotine replacement therapy DVT prophylaxis: -Encourage ambulation -lovenox 40 QD Disposition: -inpatient med/surg [place],Pelon, I+O VSPelon, I+O Laboratory Tests 04/02/21 14:39 04/03/21 05:37 Vital Signs Date Time Temp Pulse Resp B/P (MAP) Pulse Ox O2 Delivery O2 Flow Rate FiO2 04/03/21 10:14 16 04/03/21 06:00 97.6 70 136/97 (110) 95 Room Air KUPGRIFFIN RAYGOZA MD Apr 03, 2021 13:25
[2021-04-03 14:00] VITALS: BP 142/95
[2021-04-03 22:00] VITALS: BP 141/90
[2021-04-03] MEDS: KETOROLAC 30 MG/ML 1ML VIAL IV PRN (23:02)
[2021-04-04] MEDS: IPRATROPIUM 0.5MG/ALBUTEROL 2.5MG INH SOL UD 3ML (DUONEB) NEB SCH ×4 (01:52→20:00)
[2021-04-04] MEDS: methylPREDNISolone 125MG 2ML VIAL IV SCH ×3 (04:08→18:33)
[2021-04-04 05:35] LABS: HEMATOCRIT 43.2 % (36.0-47.0); HEMOGLOBIN 14.6 g/dl (12.0-15.5); MEAN CORPUSCULAR HGB CONC 33.8 g/dl (32.0-36.5); MEAN CORPUSCULAR VOLUME 100.7 fl (80.0-96.0); PLATELET COUNT, AUTOMATED 333 10^3/uL (150-450); RED BLOOD COUNT 4.29 10^6/uL (4.00-5.40); WHITE BLOOD COUNT 18.1 10^3/uL (4.0-10.0)
[2021-04-04] MEDS: MORPHINE 2 MG/ML 1ML VIAL (J2270) IV PRN ×3 (05:45→22:07)
[2021-04-04 06:00] VITALS: BP 136/82
[2021-04-04 06:56] LABS: BLOOD UREA NITROGEN 23 MG/DL (7-18); CALCIUM LEVEL 8.9 MG/DL (8.5-10.1); CARBON DIOXIDE LEVEL 28 MEQ/L (21-32); CHLORIDE LEVEL 107 MEQ/L (98-107); CREATININE FOR GFR 0.72 MG/DL (0.55-1.30); GLOMERULAR FILTRATION RATE > 60.0 (>58); GLUCOSE, FASTING 134 MG/DL (70-100); MAGNESIUM LEVEL 2.4 MG/DL (1.8-2.4); POTASSIUM SERUM 4.2 MEQ/L (3.5-5.1); SODIUM LEVEL 140 MEQ/L (136-145)
[2021-04-04] MEDS: SYMBICORT 80/4.5MCG INHALER 6GM INH SCH ×2 (07:54→20:16)
[2021-04-04] MEDS: NICOTINE 14 MG/24 HR TRANSDERMAL TD SCH (09:00)
[2021-04-04] MEDS: guaiFENesin ER 600 MG TAB PO SCH ×2 (09:57→21:03)
[2021-04-04] MEDS: ENOXAPARIN 40MG/0.4ML SYRINGE (J1650 PER 10MG) SC SCH (09:58)
[2021-04-04] MEDS: BENZONATATE 100MG CAPSULE PO PRN ×2 (10:13→21:03)
[2021-04-04] MEDS: KETOROLAC 30 MG/ML 1ML VIAL IV PRN ×2 (10:14→18:39)
[2021-04-04 14:00] VITALS: BP 142/80
--- NOTE | 2021-04-04 14:52 | IPNPDOC ---
Text Note Date of Service The patient was seen on 04/04/21. NOTE Subjective: -No acute complaints, improving dyspnea Physical Examination: Vitals: see below, afebrile, normotensive, on room air General: NAD HEENT: NCAT, EOMI, MMM Pulm: Now rare expiratory wheezing, diminished air movement, no crackles cardiac: RRR< no m/r/g Abd: soft, normoactive bowel sound, NTND Ext: No LE edema, WWP Labs: Reviewed WBC now 18.1 since starting steroids Imaging: Reviewed Assessment: 50-year-old W with a history of childhood asthma as a child, as well as a 12-[id number]-cwhd history of smoking, who has been having problems with cough, shortness of breath as well as wheezing ongoing for 2w reporting recent prednisone for 2w, currently on antibiotics? for presumed PNA? with persisting SOB and wheezing, while also continuing to smoke through it all who now was brought in by EMS after being found in respiratory distress and now being admitted for what is likely an undiagnosed COPD + asthma exacerbation i/s/o parainfluenza URI with recent smoking. Acute asthma and likely undiagnosed COPD exacerbation i/s/o parainfluenza URI: -Reduce IV Solu-Medrol 80 kg every 8 hours to daily -DuoNebs 4 times a day -albuterol nebs q4hp -Tessalon Perles prn cough -Mucinex 1200mg BID -holding off antibiotics -Tylenol PRN -morphine and tramadol PRN for rib pain from severe coughing Hypertension -Lisinopril 20 mg BID -BNP is normal, no lower extremity edema and no effusion or pulmonary edema on chest x-rayno indication for echocardiogram at this time Nicotine dependence/cigarette smoking: -Encouraged to quit smoking -nicotine replacement therapy DVT prophylaxis: -Encourage ambulation -lovenox 40 QD Disposition: -inpatient med/surg [place],Pelon, I+O VSPelon, I+O Laboratory Tests 04/04/21 05:16 Vital Signs Date Time Temp Pulse Resp B/P (MAP) Pulse Ox O2 Delivery O2 Flow Rate FiO2 04/04/21 06:00 97.1 68 16 136/82 (100) 96 Room Air I&O- Last 24 Hours up to 6 AM 04/04/21 06:00 Intake Total 810 ml Balance 810 ml GRIFFIN PISANO MD Apr 04, 2021 10:34
[2021-04-04] MEDS: LEVALBUTEROL 1.25 MG/0.5 ML CONCENTRATE NEB NEB PRN (15:56)
[2021-04-04 22:00] VITALS: BP 100/60
[2021-04-05] MEDS: IPRATROPIUM 0.5MG/ALBUTEROL 2.5MG INH SOL UD 3ML (DUONEB) NEB SCH ×4 (01:30→19:50)
[2021-04-05] MEDS: methylPREDNISolone 125MG 2ML VIAL IV SCH ×2 (02:37→20:13)
[2021-04-05] MEDS: KETOROLAC 30 MG/ML 1ML VIAL IV PRN ×2 (02:51→14:21)
[2021-04-05 06:00] VITALS: BP 130/80
[2021-04-05 06:26] LABS: HEMATOCRIT 42.9 % (36.0-47.0); HEMOGLOBIN 14.5 g/dl (12.0-15.5); MEAN CORPUSCULAR HEMOGLOBIN 33.9 pg (27.0-33.0); MEAN CORPUSCULAR HGB CONC 33.8 g/dl (32.0-36.5); MEAN CORPUSCULAR VOLUME 100.2 fl (80.0-96.0); PLATELET COUNT, AUTOMATED 313 10^3/uL (150-450); RED BLOOD COUNT 4.28 10^6/uL (4.00-5.40); WHITE BLOOD COUNT 17.6 10^3/uL (4.0-10.0)
[2021-04-05 06:46] LABS: BLOOD UREA NITROGEN 26 MG/DL (7-18); CALCIUM LEVEL 8.2 MG/DL (8.5-10.1); CARBON DIOXIDE LEVEL 28 MEQ/L (21-32); CHLORIDE LEVEL 107 MEQ/L (98-107); CREATININE FOR GFR 0.69 MG/DL (0.55-1.30); GLOMERULAR FILTRATION RATE > 60.0 (>58); GLUCOSE, FASTING 133 MG/DL (70-100); MAGNESIUM LEVEL 2.5 MG/DL (1.8-2.4); POTASSIUM SERUM 4.1 MEQ/L (3.5-5.1); SODIUM LEVEL 141 MEQ/L (136-145)
[2021-04-05] MEDS: SYMBICORT 80/4.5MCG INHALER 6GM INH SCH ×2 (07:33→19:50)
[2021-04-05] MEDS ORDERED: methylPREDNISolone 125MG 2ML VIAL IV SCH (09:00)
[2021-04-05] MEDS: NICOTINE 14 MG/24 HR TRANSDERMAL TD SCH (09:00)
[2021-04-05] MEDS: ENOXAPARIN 40MG/0.4ML SYRINGE (J1650 PER 10MG) SC SCH (09:17)
[2021-04-05] MEDS: guaiFENesin ER 600 MG TAB PO SCH ×2 (09:17→20:13)
[2021-04-05] MEDS: MORPHINE 2 MG/ML 1ML VIAL (J2270) IV PRN ×2 (09:27→18:35)
[2021-04-05] MEDS: BENZONATATE 100MG CAPSULE PO PRN ×2 (09:27→20:13)
[2021-04-05 14:00] VITALS: BP 140/72
--- NOTE | 2021-04-05 14:35 | IPNPDOC ---
Text Note Date of Service The patient was seen on 04/05/21. NOTE Subjective: -No acute complaints -Still has significant dyspnea with talking and ambulation Objective: Vitals: see below, afebrile, normotensive, on room air General: NAD HEENT: NCAT, EOMI, MMM Pulm: Now rare expiratory wheezing, diminished air movement, no crackles, has severe coughing with deep breathing cardiac: RRR< no m/r/g Abd: soft, normoactive bowel sound, NTND Ext: No LE edema, WWP Labs: Reviewed, stable Imaging: Reviewed Assessment: 50-year-old W with a history of childhood asthma as a child, as well as a 17-tqxp-qfjq history of smoking, who has been having problems with cough, shortness of breath as well as wheezing ongoing for 2w reporting recent predn isone for 2w, currently on antibiotics? for presumed PNA? with persisting SOB and wheezing, while also continuing to smoke through it all who now was brought in by EMS after being found in respiratory distress and now being admitted for what is likely an undiagnosed COPD + asthma exacerbation i/s/o parainfluenza URI with recent smoking. Acute asthma and likely undiagnosed COPD exacerbation i/s/o parainfluenza URI: -Reduce IV Solu-Medrol 80 kg every 8 hours to BID this morning -DuoNebs 4 times a day -albuterol nebs q4hp -Tessalon Perles prn cough -Mucinex 1200mg BID -holding off antibiotics -Tylenol PRN -morphine and tramadol PRN for rib pain from severe coughing -Discussed her imaging with pulm, lung parenchyma and upper airway appear wnl on CT. To continue steroids and current treatment. Hypertension -Lisinopril 20 mg BID -BNP is normal, no lower extremity edema and no effusion or pulmonary edema on chest x-rayno indication for echocardiogram at this time Nicotine dependence/cigarette smoking: -Encouraged to quit smoking -nicotine replacement therapy DVT prophylaxis: -Encourage ambulation -lovenox 40 QD Disposition: -inpatient med/surg VS,Fishbone, I+O VS, Fishbone, I+O Laboratory Tests 04/05/21 05:37 Vital Signs Date Time Temp Pulse Resp B/P (MAP) Pulse Ox O2 Delivery O2 Flow Rate FiO2 04/05/21 06:00 97.6 90 20 130/80 (97) 99 Room Air I&O- Last 24 Hours up to 6 AM 04/05/21 05:59 Intake Total 1110 ml Output Total 350 ml Balance 760 ml GRIFFIN PISANO MD Apr 05, 2021 09:26
[2021-04-05] MEDS: RAMELTEON 8 MG TAB (ROZEREM) PO SCH (20:13)
[2021-04-05 22:00] VITALS: BP 138/72
[2021-04-06] MEDS: IPRATROPIUM 0.5MG/ALBUTEROL 2.5MG INH SOL UD 3ML (DUONEB) NEB SCH ×4 (02:06→19:29)
[2021-04-06] MEDS: MORPHINE 2 MG/ML 1ML VIAL (J2270) IV PRN ×2 (02:38→20:40)
[2021-04-06 06:00] VITALS: BP 151/82
[2021-04-06 06:41] LABS: HEMATOCRIT 40.3 % (36.0-47.0); HEMOGLOBIN 13.9 g/dl (12.0-15.5); MEAN CORPUSCULAR HEMOGLOBIN 34.2 pg (27.0-33.0); MEAN CORPUSCULAR HGB CONC 34.5 g/dl (32.0-36.5); MEAN CORPUSCULAR VOLUME 99.3 fl (80.0-96.0); PLATELET COUNT, AUTOMATED 297 10^3/uL (150-450); RED BLOOD COUNT 4.06 10^6/uL (4.00-5.40); WHITE BLOOD COUNT 15.2 10^3/uL (4.0-10.0)
[2021-04-06 07:04] LABS: BLOOD UREA NITROGEN 28 MG/DL (7-18); CALCIUM LEVEL 8.1 MG/DL (8.5-10.1); CARBON DIOXIDE LEVEL 26 MEQ/L (21-32); CHLORIDE LEVEL 109 MEQ/L (98-107); CREATININE FOR GFR 0.56 MG/DL (0.55-1.30); GLOMERULAR FILTRATION RATE > 60.0 (>58); GLUCOSE, FASTING 125 MG/DL (70-100); MAGNESIUM LEVEL 2.4 MG/DL (1.8-2.4); POTASSIUM SERUM 4.4 MEQ/L (3.5-5.1); SODIUM LEVEL 139 MEQ/L (136-145)
[2021-04-06] MEDS: SYMBICORT 80/4.5MCG INHALER 6GM INH SCH ×2 (07:14→19:29)
[2021-04-06] MEDS: guaiFENesin ER 600 MG TAB PO SCH (08:07)
[2021-04-06] MEDS: KETOROLAC 30 MG/ML 1ML VIAL IV PRN (08:08)
[2021-04-06] MEDS: methylPREDNISolone 125MG 2ML VIAL IV SCH ×2 (08:08→20:40)
[2021-04-06] MEDS: ENOXAPARIN 40MG/0.4ML SYRINGE (J1650 PER 10MG) SC SCH (08:09)
[2021-04-06] MEDS: NICOTINE 14 MG/24 HR TRANSDERMAL TD SCH (08:09)
[2021-04-06] MEDS ORDERED: BENZONATATE 100MG CAPSULE PO PRN (10:15)
--- NOTE | 2021-04-06 10:15 | IPNPDOC ---
Text Note Date of Service The patient was seen on 04/06/21. NOTE Subjective: -No acute complaints -Starting to have some tolerance to speech. I had a conversation with her this morning that to me was much less labored than when I admitted her. She reports that she continues to struggle with ambulation beyond a few steps before she is winded. Objective: Vitals: see below, afebrile, normotensive, on room air General: NAD HEENT: NCAT, EOMI, MMM Pulm: Now rare expiratory wheezing, diminished air movement, no crackles, has severe coughing with deep breathing cardiac: RRR< no m/r/g Abd: soft, normoactive bowel sound, NTND Ext: No LE edema, WWP Labs: Reviewed, stable Imaging: Reviewed Assessment: 50-year-old W with a history of childhood asthma as a child, as well as a 94-skyc-mkpj history of smoking, who has been having problems with cough, shortness of breath as well as wheezing ongoing for 2w reporting recent prednisone for 2w, currently on antibiotics? for presumed PNA? with persisting SOB and wheezing, while also continuing to smoke through it all who now was brought in by EMS after being found in respiratory distress and now being admitted for what is likely an undiagnosed COPD + asthma exacerbation i/s/o parainfluenza URI with recent smoking. Acute asthma and likely undiagnosed COPD exacerbation i/s/o parainfluenza URI: -IV Solu-Medrol 80 kg BID -DuoNebs 4 times a day -albuterol nebs q4hp -Tessalon Perles prn cough -Mucinex 1200mg BID -No antibiotics -Tylenol PRN -morphine and tramadol PRN for rib pain from severe coughing -Discussed her imaging with pulm, lung parenchyma and upper airway appear wnl on CT. To continue steroids and current treatment. -Pulm rehab Hypertension -Lisinopril 20 mg BID -BNP is normal, no lower extremity edema and no effusion or pulmonary edema on chest x-rayno indication for echocardiogram at this time Nicotine dependence/cigarette smoking: -Encouraged to quit smoking -nicotine replacement therapy DVT prophylaxis: -Encourage ambulation -lovenox 40 QD Disposition: -inpatient med/surg VS,Pelon, I+O VS, [place], I+O Laboratory Tests 04/06/21 06:13 Vital Signs Date Time Temp Pulse Resp B/P (MAP) Pulse Ox O2 Delivery O2 Flow Rate FiO2 04/06/21 06:00 96.8 78 18 151/82 (105) 94 Room Air I&O- Last 24 Hours up to 6 AM 04/06/21 06:00 Intake Total 1530 ml Output Total 1125 ml Balance 405 ml GRIFFIN PISANO MD Apr 06, 2021 08:51
[2021-04-06] MEDS: guaiFENesin/CODEINE SYRUP 5 ML UDC PO PRN ×2 (11:56→20:40)
[2021-04-06] MEDS: PANTOPRAZOLE 40MG TAB (PROTONIX) PO SCH ×2 (12:00→20:40)
[2021-04-06 14:00] VITALS: BP 138/84
[2021-04-06] MEDS: LEVALBUTEROL 1.25 MG/0.5 ML CONCENTRATE NEB NEB PRN (16:11)
[2021-04-06] MEDS: RAMELTEON 8 MG TAB (ROZEREM) PO SCH (20:40)
[2021-04-06 21:00] VITALS: BP 126/82
[2021-04-07] MEDS: LEVALBUTEROL 1.25 MG/0.5 ML CONCENTRATE NEB NEB PRN (00:55)
[2021-04-07] MEDS: IPRATROPIUM 0.5MG/ALBUTEROL 2.5MG INH SOL UD 3ML (DUONEB) NEB SCH ×4 (01:10→20:09)
[2021-04-07] MEDS: guaiFENesin/CODEINE SYRUP 5 ML UDC PO PRN ×3 (05:47→21:35)
[2021-04-07] MEDS: MORPHINE 2 MG/ML 1ML VIAL (J2270) IV PRN ×3 (05:48→23:54)
[2021-04-07 06:00] VITALS: BP 158/98
[2021-04-07 06:37] LABS: HEMATOCRIT 42.5 % (36.0-47.0); HEMOGLOBIN 14.6 g/dl (12.0-15.5); MEAN CORPUSCULAR HEMOGLOBIN 34.1 pg (27.0-33.0); MEAN CORPUSCULAR HGB CONC 34.4 g/dl (32.0-36.5); MEAN CORPUSCULAR VOLUME 99.3 fl (80.0-96.0); PLATELET COUNT, AUTOMATED 299 10^3/uL (150-450); RED BLOOD COUNT 4.28 10^6/uL (4.00-5.40); WHITE BLOOD COUNT 14.9 10^3/uL (4.0-10.0)
[2021-04-07 07:04] LABS: BLOOD UREA NITROGEN 25 MG/DL (7-18); CALCIUM LEVEL 8.5 MG/DL (8.5-10.1); CARBON DIOXIDE LEVEL 26 MEQ/L (21-32); CHLORIDE LEVEL 105 MEQ/L (98-107); CREATININE FOR GFR 0.66 MG/DL (0.55-1.30); GLOMERULAR FILTRATION RATE > 60.0 (>58); GLUCOSE, FASTING 132 MG/DL (70-100); MAGNESIUM LEVEL 2.4 MG/DL (1.8-2.4); POTASSIUM SERUM 4.4 MEQ/L (3.5-5.1); SODIUM LEVEL 139 MEQ/L (136-145)
[2021-04-07] MEDS: SYMBICORT 80/4.5MCG INHALER 6GM INH SCH ×2 (07:19→20:09)
[2021-04-07] MEDS: NICOTINE 14 MG/24 HR TRANSDERMAL TD SCH (09:00)
[2021-04-07] MEDS: methylPREDNISolone 125MG 2ML VIAL IV SCH (09:24)
[2021-04-07] MEDS: PANTOPRAZOLE 40MG TAB (PROTONIX) PO SCH ×2 (09:24→20:32)
[2021-04-07] MEDS: ENOXAPARIN 40MG/0.4ML SYRINGE (J1650 PER 10MG) SC SCH (09:25)
[2021-04-07] MEDS: KETOROLAC 30 MG/ML 1ML VIAL IV PRN ×2 (09:34→18:28)
--- NOTE | 2021-04-07 11:32 | IPNPDOC ---
Text Note Date of Service The patient was seen on 04/07/21. NOTE Subjective: -No acute complaints -Slowly improving tolerance to speech. Objective: Vitals: see below, afebrile, normotensive, on room air General: NAD HEENT: NCAT, EOMI, MMM Pulm: Now rare end expiratory wheezing, diminished air movement, no crackles, has severe coughing with deep breathing cardiac: RRR, no m/r/g Abd: soft, normoactive bowel sound, NTND Ext: No LE edema, WWP Labs: Reviewed, stable Imaging: Reviewed Assessment: 50-year-old W with a history of childhood asthma as a child, as well as a 98-vghc-sioh history of smoking, who has been having problems with cough, shortness of breath as well as wheezing ongoing for 2w reporting recent prednisone for 2w, currently on antibiotics? for presumed PNA? with persisting SOB and wheezing, while also continuing to smoke through it all who now was brought in by EMS after being found in respiratory distress and now being admitted for what is likely an undiagnosed COPD + asthma exacerbation i/s/o parainfluenza URI with recent smoking. Acute asthma and likely undiagnosed COPD exacerbation i/s/o parainfluenza URI: -IV Solu-Medrol 80 kg daily -DuoNebs 4 times a day -albuterol nebs q4hp -Tessalon Perles prn cough -guaifenesin with codeine BID -No antibiotics -Tylenol PRN -morphine and tramadol PRN for rib pain from severe coughing -Discussed her imaging with pulm, lung parenchyma and upper airway appear wnl on CT. To continue steroids and current treatment. -Pulm rehab Hypertension -Lisinopril 20 mg BID -BNP is normal, no lower extremity edema and no effusion or pulmonary edema on chest x-rayno indication for echocardiogram at this time Nicotine dependence/cigarette smoking: -Encouraged to quit smoking -nicotine replacement therapy DVT prophylaxis: -Encourage ambulation -lovenox 40 QD Disposition: -inpatient med/surg VS,Fishbone, I+O VS, Fishbone, I+O Laboratory Tests 04/07/21 06:10 Vital Signs Date Time Temp Pulse Resp B/P (MAP) Pulse Ox O2 Delivery O2 Flow Rate FiO2 04/07/21 09:23 128/78 04/07/21 06:00 97.5 74 19 96 Room Air I&O- Last 24 Hours up to 6 AM 04/07/21 06:00 Intake Total 1620 ml Output Total 1050 ml Balance 570 ml GRIFFIN PISANO MD Apr 07, 2021 10:12
[2021-04-07 14:00] VITALS: BP 124/80
[2021-04-07] MEDS: RAMELTEON 8 MG TAB (ROZEREM) PO SCH (20:32)
[2021-04-07 22:00] VITALS: BP 128/74
[2021-04-08] MEDS: IPRATROPIUM 0.5MG/ALBUTEROL 2.5MG INH SOL UD 3ML (DUONEB) NEB SCH ×2 (01:44→07:20)
[2021-04-08] MEDS: guaiFENesin/CODEINE SYRUP 5 ML UDC PO PRN ×2 (01:50→09:56)
[2021-04-08 06:00] VITALS: BP 151/94
[2021-04-08] MEDS: SYMBICORT 80/4.5MCG INHALER 6GM INH SCH (07:20)
[2021-04-08] MEDS: NICOTINE 14 MG/24 HR TRANSDERMAL TD SCH (09:00)
[2021-04-08] MEDS ORDERED: methylPREDNISolone 125MG 2ML VIAL IV SCH (09:00)
[2021-04-08 09:05] VITALS: BP 120/82
[2021-04-08] MEDS: PANTOPRAZOLE 40MG TAB (PROTONIX) PO SCH (09:05)
[2021-04-08] MEDS: KETOROLAC 30 MG/ML 1ML VIAL IV PRN (09:05)
[2021-04-08] MEDS: ENOXAPARIN 40MG/0.4ML SYRINGE (J1650 PER 10MG) SC SCH (09:06)
[2021-04-08] MEDS ORDERED: diphenhydrAMINE 25MG CAP PO PRN (09:20)
[2021-04-08] MEDS ORDERED: PROAAER10 INH (10:26)
[2021-04-08] MEDS ORDERED: SYMB80INH INH (10:26)
[2021-04-08] MEDS ORDERED: PRED10PA PO (10:26)
[2021-04-08] MEDS ORDERED: PANT40TA29 PO (10:26)
[2021-04-08] MEDS ORDERED: NICO14PA TD (10:26)
[2021-04-08] MEDS ORDERED: GUAI1SOL7 PO ×2 (10:26→11:23)
--- NOTE | 2021-04-08 10:52 | DS.PDOC ---
Discharge Summary General Date of Admission Apr 02, 2021 at 16:58 Date of Discharge 04/08/2021 Attending Physician: GRIFFIN PISANO MD Discharge Summary PROCEDURES PERFORMED DURING STAY: None ADMITTING DIAGNOSES: Parainfluenza URI Asthma exacerbation and suspicion of potential COPD? i/s/o parainfluenza DISCHARGE DIAGNOSES: Parainfluenza URI Asthma exacerbation and suspicion of potential COPD? i/s/o parainfluenza Nicotine dependence, active smoker HTN GERD COMPLICATIONS/CHIEF COMPLAINT: Parainfluenza Infection. HISTORY OF PRESENT ILLNESS: 50-year-old W with a history of childhood asthma as a child, as well as a 56-xucp-urdu history of smoking, who had been having problems with cough, shortness of breath as well as wheezing ongoing for 2w reporting recent pr ednisone for 2w, on antibiotics? for presumed bacterial PNA? with persisting SOB and wheezing, while also continuing to smoke through it all who now was brought in by EMS after being found in respiratory distress and placed on CPAP en-route and after nebs received solumedrol is now back on room air. She otherwise had not had fever, chills, thick yellow, starkey or bloody sputum. She has no chest pain, palpitations. HOSPITAL COURSE: In the ER, she was wheezing as well as coughing and tachypneic, that all impro yefri after some duonebs. CTA was negative PE, opacities or effusions, while CXR showed no acute cardiopulmonary pathology. Resp panel was positive for paraflu-4 and negative for covid-19, while WBC was 11.2, Hgb 16.6, platelets 375, Na 138, K 4.3, Cr 0.67, TSH wnl, LFTs wnl, proBNP 48. Ms. Robb was recently on steroids, was getting antibiotics that I am not sure are warranted and had a rescue inhaler but I think what continued to send her in exacerbation is parainfluenza with continued smoking. She was strongly counselled on the benefits of quitting smoking especially given current URI and was admitted for what is likely an undiagnosed COPD + asthma exacerbation i/s/o parainfluenza URI with ongoing smoking. I gave solumedrol, duonebs, started her on symbicort and aggressive treated her incessant cough. She had persistent exertional dyspnea with wheezing that eventually improved. She is now being discharged home on a short prednisone taper, symbicort, PRN, albuterol and nicotine patches and will be seen by her PCP shortly within the next few days. Given her exertional dyspnea that is now improving, I have also given prescribed respite at home for the next few days before returning to usual heavily active duties including work. Depending on her recovery, she may warrant a referal to pulmonary for PFTs. DISCHARGE MEDICATIONS: Please see below. ALLERGIES: Please see below. PHYSICAL EXAMINATION ON DISCHARGE: VITAL SIGNS: Please see below. General: NAD HEENT: NCAT, EOMI, MMM Pulm: Very slight rare end expiratory wheezing, air movement has improved, has no crackles, and coughing has improved. cardiac: RRR, no m/r/g Abd: soft, normoactive bowel sound, NTND Ext: No LE edema, WWP LABORATORY DATA: Please see below. IMAGING: CTA chest: Lungs: Clear, no infiltrate or nodule. Mediastinum: No pathologic sized adenopathy. Largest nodes are 8 mm short axis precarinal and AP window. Pulmonary arteries: No evidence of pulmonary embolism. Radha: No adenopathy. Axilla: No adenopathy. Pleura: No effusion. Heart: Not enlarged. No pericardial thickening or effusion. Thoracic aorta: No aneurysm or dissection. Upper abdominal structures: Unremarkable. Visualized osseous structures: Unremarkable. IMPRESSION: No CT evidence of pulmonary embolism.No infiltrate seen. Stable exam from 09/10/2019. CXR: The technique utilized in obtaining the radiograph has magnified the cardiac silhouette and accentuated the interstitial markings. The superior mediastinal structures are midline. The cardiac silhouette is unremarkable in size, shape, and position. The diaphragmatic surfaces of the lungs are regular, and the costophrenic angles are clear. The pulmonary pardo are clear. The imaged osseous structures are intact. IMPRESSION: There is no acute cardiopulmonary disease. PROGNOSIS: Good ACTIVITY: As tolerated DIET: regular DISCHARGE PLAN: Home with close PCP follow up, short prednisone taper, symbicort, PRN, albuterol and nicotine patches DISPOSITION: Home DISCHARGE INSTRUCTIONS: Home with close PCP follow up, short prednisone taper, symbicort, PRN, albuterol and nicotine patches ITEMS TO FOLLOWUP ON ON OUTPATIENT: Asthma exacerbation and suspicion of potential COPD? i/s/o parainfluenza DISCHARGE CONDITION: Stable TIME SPENT ON DISCHARGE: 44 minutes. Vital Signs/I&Os Vital Signs Date Time Temp Pulse Resp B/P (MAP) Pulse Ox O2 Delivery O2 Flow Rate FiO2 04/08/21 09:05 120/82 04/08/21 06:00 98.2 82 18 94 Room Air I&O- Last 24 Hours up to 6 AM 04/08/21 06:00 Intake Total 810 ml Output Total 1550 ml Balance -740 ml Microbiology Microbiology 04/02/21 Respiratory Virus Panel (PCR) ([facility]) - Final, Complete Parainfluenza 4 (Piv4) Discharge Medications Scheduled Budesonide/Formoterol (Symbicort 80-4.5 Mcg Inhaler) 6.9 Gm Hfa.aer.ad, 2 PUFF INH RBID Lisinopril (Lisinopril) 10 Mg Tablet, 10 MG PO BID, (Reported) Nicotine (Nicotine Patch) 14 Mg Patch.td24, 1 PATCH TD DAILY Pantoprazole Sodium (Pantoprazole Sodium) 40 Mg Tablet.dr, 40 MG PO DAILY Prednisone (Prednisone) 10 Mg Tab.ds.pk, 1 TAB PO ASDIRECTED 5tabs daily for 1d, then 4tabs daily for 1d, then 3tabs daily for 1d, then 2tabs daily for 1d, then 1 tab. Scheduled PRN Albuterol Sulfate (Proair Hfa) 8.5 Gm Hfa.aer.ad, 2 PUFF INH Q4-6HP PRN for SOB/WHEEZING Benzonatate (Benzonatate) 200 Mg Capsule, 200 MG PO TID PRN for COUGH, (Reported) Codeine Phosphate/Guaifenesin (Guaifen-Codeine 100-10 mg/5 ml) 5 Ml Liquid, 10 ML PO Q4HP PRN for COUGH Allergies Coded Allergies: Penicillins (Verified Allergy, Intermediate, RASH, 08/05/19) GRIFFIN PISANO MD Apr 08, 2021 10:52
== END 2021-04-08 12:00 | disposition home or self-care (01) | DRG 141 ==
LOC: M ED 14:29 → EDBD 14:29 → M ED INP 16:58 → M ED 18:15 → M MSPAV 04-03 00:06
PROVIDERS: ADMIT Internal Medicine; ATTEND Internal Medicine
DX: J45.901 Unspecified asthma with (acute) exacerbation (principal); J44.1 Chronic obstructive pulmonary disease with (acute) exacerbation; I10 Essential (primary) hypertension; J06.9 Acute upper respiratory infection, unspecified; F17.210 Nicotine dependence, cigarettes, uncomplicated; K21.9 Gastro-esophageal reflux disease without esophagitis; B34.8 Other viral infections of unspecified site; Z88.0 Allergy status to penicillin; Z79.899 Other long term (current) drug therapy

== ENCOUNTER 2021-04-10 16:46 | Observation (INO) | payer BC ==
[~2021-04-10] VITALS: Ht 157.5 cm; Wt 73.2 kg
[~2021-04-10 16:46] MED LIST changes: -[UNRECOGNIZED DRUG - CODE] PO
[2021-04-10 17:45] LABS: BASO # 0.1 10^3/uL (0.0-0.2); BASO % 0.2 % (0.0-1.0); HEMATOCRIT 46.5 % (36.0-47.0); LYMPH % 4.3 % (24.0-44.0); MEAN CORPUSCULAR HEMOGLOBIN 34.2 pg (27.0-33.0); MEAN CORPUSCULAR HGB CONC 34.4 g/dl (32.0-36.5); MEAN CORPUSCULAR VOLUME 99.4 fl (80.0-96.0); MONO # 0.5 10^3/uL (0.0-0.8); MONO % 2.2 % (2.0-8.0); NEUTROPHILS # 21.9 10^3/uL (1.5-8.5); NEUTROPHILS % 90.6 % (36.0-66.0); PLATELET COUNT, AUTOMATED 319 10^3/uL (150-450); RED BLOOD COUNT 4.68 10^6/uL (4.00-5.40); WHITE BLOOD COUNT 24.2 10^3/uL (4.0-10.0)
--- NOTE | 2021-04-10 17:50 | REP ---
INDICATION: DYSPNEA/COUGH COMPARISON: 04/10/2021 TECHNIQUE: Portable AP view of the chest FINDINGS: The mediastinum and cardiac silhouette are stable and within normal limits for portable technique. The lung pardo are clear without acute consolidation, effusion, or pneumothorax. Skeletal structures are intact. IMPRESSION: No acute cardiopulmonary process appreciated. <Electronically signed by Juaquin Worthington > 04/10/21 [id number]
[2021-04-10 18:13] LABS: CK-MB VALUE MASS 2.8 NG/ML (<3.6); CPK CREATINE PHOSPHOKINASE 104 U/L (26-192); MB/CK RELATIVE INDEX 2.69 (< OR =4); TROPONIN I < 0.02 NG/ML (< 0.10)
[2021-04-10 18:20] LABS: ALBUMIN 3.3 GM/DL (3.2-5.2); ALT/SGPT 46 U/L (12-78); BILIRUBIN,DIRECT 0.1 MG/DL (0.0-0.2); BILIRUBIN,TOTAL 0.3 MG/DL (0.2-1.0); BLOOD UREA NITROGEN 17 MG/DL (7-18); CALCIUM LEVEL 8.9 MG/DL (8.5-10.1); CARBON DIOXIDE LEVEL 26 MEQ/L (21-32); CHLORIDE LEVEL 105 MEQ/L (98-107); CREATININE FOR GFR 0.53 MG/DL (0.55-1.30); GLOMERULAR FILTRATION RATE > 60.0 (>58); GLUCOSE, FASTING 109 MG/DL (70-100); NT-PRO BNP 136 PG/ML (<125); POTASSIUM SERUM 3.8 MEQ/L (3.5-5.1); SODIUM LEVEL 142 MEQ/L (136-145); THYROID STIMULATING HORMONE 0.217 uIU/ML (0.358-3.740); TOTAL PROTEIN 6.4 GM/DL (6.4-8.2)
[2021-04-10] MEDS ORDERED: NS 1,000 ML IV ONE (18:50)
--- OUTSIDE RECORDS SUMMARY | 2021-04-10 18:53 | CCD ---
Author Author [facility] Organization [facility] Address Unknown Phone Unavailable Support Name Relationship Address Phone [facility]* Next Of Kin [address] [place] [address] [place] Next Of Kin [id number] [place] [address] [place] [address] [place]* Next Of Kin [address] [place] [address] UN Next Of Kin Unknown Unavailable NONE, PT PER Next Of Kin - -, - - - William Gonzalez Next Of Kin [address] [place] [address] UE Next Of Kin Unknown Unavailable OQO BHAVIK Next Of Kin [address] [place] [address] [place] [address] PIHARJEET MOFFETT Next Of Kin [address] [place] [address] JORDANA ZHANG Next Of Kin [address] [place] [address] [place]YR[place] [address] [employer] Next Of Kin [address] [place] [address] PRINCESS ROBB Next Of Kin [address] [facility] [place] [address] [employer] Next Of Kin [address] [facility] [address] [employer] Next Of Kin [address] [facility] [place] [address] ADRIANNE MARIE Next Of Kin [address] [place] [id number] John ROBB Next Of Kin [address] [place] [address] Tadeo Robb ECON [address] [facility] [place] [address] Unavailable Care Team Providers Care Physical Medicine Teacher Name Role Phone Sparks, Mireille BUGGY LOADER Unavailable Unavailable Sparks, Mireille BUGGY LOADER Unavailable Unavailable Sparks, Mireille BUGGY LOADER Unavailable Unavailable Sparks, Mireille BUGGY LOADER Unavailable Unavailable Sparks, Mireille BUGGY LOADER Unavailable Unavailable Sparks, Mireille BUGGY LOADER Unavailable Unavailable Sparks, Mireille BUGGY LOADER Unavailable Unavailable Sparks, Mireille BUGGY LOADER Unavailable Unavailable Sparks, Mireille BUGGY LOADER Unavailable Unavailable Sparks, Mireille BUGGY LOADER Unavailable Unavailable Sparks, Mireille BUGGY LOADER Unavailable Unavailable Sparks, Mireille BUGGY LOADER Unavailable Unavailable Sparks, Mireille BUGGY LOADER Unavailable Unavailable Nelly Kahn Unavailable Unavailable Myles, [...] Unavailable Unavailable Myles, Samantha DO Unavailable Unavailable Ymles, Samantha DO Unavailable Unavailable Myles, Samantha DO [...] is protected by Article 27-F of the [facility] Public Health law. If you continue you may have access to information: Regarding HIV / AIDS; Provided by facilities licensed or operated by the [facility] Office of Mental Health; or Provided by the [facility] Office for People With Developmental Disabilities. If such information is present, then the following [facility] mandated warning applies: This information has been [...] law may result in a fine or half-way sentence or both. A general authorization for the release of medical or other information is NOT sufficient authorization for further disc losure. Family History Family Member Name Family Member Gender Family Member Status Date o f Status Description Data Source(s) Unknown Unknown Problem [facility] ([facility]) mgf Encounters Encounter Providers Location Date Indications Data Source(s ) Outpatient Attender: Nelly NG 09/2020 01:44:20 PM EDT - 03/29/2021 04:27:13 PM EDT [facility] ([facility]) Outpatient Attender: Caroline Haddad MD 1 11:43:32 AM EDT - 03/22/2021 02:50:14 PM EDT [facility] ([facility]) Outpatient Attender: Samantha Schultz 03/14 08:00:00 AM EDT [facility] ([facility] ) Outpatient Attender: Caroline Haddad MD 0 01/30/2021 10:07:41 AM EDT - 01/30/2021 12:12:25 PM EDT [facility] Outpatient Attender: Samantha Schultz 09/06 01:15:00 PM EDT [facility] ([facility] ) Outpatient Attender: RALPH Rene 06/10/2020 07:45:00 AM EST [facility] ([facility]) Outpatient Attender: Samatnha Schultz 03/13 09:20:00 AM EDT [facility] ([facility] ) Outpatient Attender: Mireille albert 03/02/2020 09:10:00 AM EDT [facility] ([facility]) Outpatient Attender: Samantha Schultz 02/28 10:00:00 AM EDT [facility] ([facility] ) Outpatient Attender: Mireille albert 02/26/2020 09:55:00 AM EDT [facility] ([facility]) Immunizations Vaccine Date Status Description Data Source(s) Influenza, injectable, MDCK, preservative free, zuleika valent 03/14/2021 08:06:00 AM EDT completed [facility] ([facility]) COVID-19 VACCINE Pfizer 02/28/2021 12:00:00 AM EDT completed [facility] Vaccine Series Complete: YESThis Data wa s Submitted to [facility] [employer]. COVID-19 VACCINE Pfizer 02/07/2021 12:00:00 AM EDT completed [facility] Vaccine Series Complete: NOThis Data was Submitted to [facility] [employer]. Influenza, injectable, MDCK, preservative free, zuleika valent 02/29/2020 10:05:00 AM EDT completed [facility] ([facility]) Medications Medication Brand Name Start Date Product Form Dose Route Admi nistrative Instructions Pharmacy Instructions Status Indications Reaction Description Data Source(s) Doxycycline Monohydrate 100 MG Oral Capsule Doxycycline [place] hydrate 04/10/2021 12:00:00 AM EST active M EDENT ([facility]) pantoprazole 40 MG Delayed Release Oral Tablet PANTOPRAZOLE SODIUM 04/08/2021 12:00:00 AM EST tablet,delayed release (DR/EC) 30 T MYRON ONE TABLET BY MOUTH EVERY DAY TAKE ONE TABLET BY MOUTH EVERY DAY SOLD: 04/08/2021 [facility] 10 mg 04/08/2021 12:00:00 AM EST tablet 15 TAKE 5 TABLETS BY MOUTH DAILY FOR 1 DAY, THEN TAKE 4 TABLETS DAILY FOR 1 DAY, THEN 3 TABLETS DAILY FOR 1 DAY THEN 2 TABLETS DAILY FOR 1 DAY THEN TAKE 1 TABLET TAKE 5 TABLETS BY MOUTH DAILY FOR 1 DAY, THEN TAKE 4 TABLETS DAILY FOR 1 DAY, THEN 3 TABLETS DAILY FOR 1 DAY THEN 2 TABLETS DAILY FOR 1 DAY THEN TAKE 1 TABLET SOLD: 04/08/2021 [facility] 80-4.5 mcg/actuation 04/08/2021 12:00:00 AM EST HFA aerosol inhaler 10 INHALE 2 PUFFS BY MOUTH TWO TIMES A DAY INHALE 2 PUFFS BY MOUTH TWO TIMES A DAY SOLD: 04/08/2021 [facility] 10-100 mg/5 mL 04/08/2021 12:00:00 AM EST liquid 300 TAKE 10 ML BY MOUTH EVERY 4 HOURS NEEDED FOR COUGH MAXIMUM DAILY DOSE = 60 ML TAKE 10 ML BY MOUTH EVERY 4 HOURS NEEDED FOR COUGH MAXIMUM DAILY DOSE = 60 ML SOLD: 04/08/2021 [facility] 200 mg 04/08/2021 12:00:00 AM EST capsule 9 TAKE ONE CAPSULE BY MOUTH THREE TIMES A DAY NEEDED FOR COUGH, MAXIMUM DAILY DOSE = 3 TAKE ONE CAPSULE BY MOUTH THREE TIMES A DAY NEEDED FOR COUGH, MAXIMUM DAILY DOSE = 3 SOLD: 04/08/2021 [facility] 750 mg 03/30/2021 12:00:00 AM EDT tablet 6 TAKE ONE TABLET BY MOUTH EVERY DAY TAKE ONE TABLET BY MOUTH EVERY DAY SOLD: 03/30/2021 [facility] 12 HR Guaifenesin 600 MG Extended Release Oral Tablet GUAIFE NESIN 03/30/2021 12:00:00 AM EDT tablet extended release 12hr 20 ALEX E ONE TABLET BY MOUTH TWICE A DAY FOR COUGH TAKE ONE TABLET BY MOUTH TWICE A DAY FOR COUGH SOLD: [facility] 20 mg 03/22/2021 12:00:00 AM EDT [...] PUFFS EVERY 4 HOURS NEEDED SOLD: 03/30/2021 [facility] 5 mg/gram (0.5 %) 03/22/2021 12:00:00 [...] BY MOUTH TWICE A DAY SOLD: 03/23/2021 [facility] 500 mg 01/30/2021 12:00:00 AM EDT [...] 09/06/2020 12:00:00 AM EDT ORAL active [facility] 5 mg 08/06/2020 12:00:00 AM [...] Doxycycline Monohydrate 100 MG Oral Capsule Doxycycline [place] hydrate 06/10/2020 12:00:00 AM EST ORAL active M EDENT ([facility]) Prednisone 20 MG Oral Tablet Prednisone 06/10/2020 12:00:00 AM EST ORAL active MEDENT ([facility]) 200 ACTUAT Albuterol 0.09 MG/ACTUAT Metered Dose Inhaler [Pr oAir] Proair HFA 06/10/2020 12:00:00 AM EST ORAL active MED[facility] ([facility]) 90 mcg/actuation 03/08/2020 12:00:00 AM EDT HFA [...] Jude 2019 12:00:00 AM EDT active [facility] ([facility]) Dextromethorphan Hydrobromide 10 MG / Guaifenesin 200 MG Oral Capsule Coricidin HBP Chest Congestion & Cough 02/26/2020 12:00:00 AM EDT ORAL completed [facility] ([facility]) Sucralfate 1000 MG Oral Tablet [Carafate] Carafate 09/13/2019 1 2:00:00 AM EDT completed [facility] ([facility]) Omeprazole 40 MG Delayed Release Oral Capsule Omeprazole 09/13/2019 12:00:00 AM EDT ORAL completed [facility] ([facility]) 5 mg 07/02/2019 12:00:00 AM EST [...] [place] Plan Information BLUE CROSS FLEMING PLAN [id number] SP [id number] O BLUE [id number] SP [id number] [facility] [id number] SP [id number] [facility] MCDO [facility]AN [facility] [id number] Self BRENDAN ROBB [facility] PLAN MCDO [facility] Community Plan Medigap Part B [id number] Self [id number] [facility] Community Plan Medigap Part B [id number] Self [id number] [facility] Community Plan Medigap Part B [id number] Self [id number] [facility] Community Plan Medigap Part B [id number] Self [id number] [facility] Community Plan Medigap Part B [id number] Self [id number] [facility] Community Plan Medigap Part B [id number] Self [id number] [facility] Community Plan Medigap Part B [id number] Self [employer] COMMUNITY PLAN MCDHMO [id number] SP [id number] [employer] COMMUNITY PLAN MCDHMO [id number] SP [id number] [facility] [id number] S [id number] [facility]) Workers Compensation [id number] Self [id number] [facility]) Workers Compensation [id number] Self [facility] () Workers Compensation [id number] Self [id number] [facility] () Workers Compensation [id number] Self [id number] [facility] () Workers Compensation [id number] Self [id number] [facility] () Workers Compensation [id number] Self [id number] [facility] () Workers Compensation [id number] Self [id number] [employer] (pr) Medigap Part B [id number] [employer] (pr) Medigap Part B [id number] [facility] (pr) Commercial [id number] [id number] [employer] (pr) Commercial [id number] [facility] (pr) Medigap Part B [id number] [id number] [employer] (pr) Medigap Part B [id number] [facility] (pr) Medigap Part B [id number] [id number] [employer] Commercial [id number] .[id number] Self [id number] Cigna/MVP Con Gen/Prefcar Commercial [id number] Self [id number] Cigna Health Care P [id number] S [id number] CIGNA INSURANCE CO [id number] SP [id number] CIGNA HEALTHCARE [id number] SP U [id number] [place] 306/806 [id number] SP [id number] [employer] Blue Cross and Blue Shield - [place] Blue Cross/B lue Shield [id number] Self [id number] [facility] [id number] SP [id number] EXCELLUS BCBS P [id number] S [id number] [employer] [place] 306/806 [id number] SP [id number] SELF PAY ONLY [id number] CIGNA HealthCare Other 0 [id number] Family Dependent Tadeo Turnerwilla 0 BCBS [place] PPO 302/307 [id number] SP [id number] EXCELLUS BCBS B [id number] S VYS [id number] [employer] [place] 306/806 [id number] SP [id number] EXCELLUS BCBS B [id number] S VYS [id number] [place] [place] 306/806 [id number] SP [id number] CIGNA HEALTHCARE [id number] SP U [id number] CIGNA HEALTHCARE [id number] HU2 U [id number] CIGNA HEALTHCARE O [id number] S U [id number] OTHER WORKERS COMPENSATION [id number] SP [id number] Cigna/Conn Gen/Equicor Commercial [id number] Family Dependent [id number] Cigna/MVP Commercial [id number] Self [id number] Cigna/MVP Commercial [id number] Self [id number] CIGNA INSURANCE CO O [id number] O [id number] Cigna/MVP Commercial [id number] Self [id number] Cigna/Conn Gen/MVP Medigap Part B [id number] Self [id number] United [employer] Medigap Part B [id number] Family Dependent [id number] [facility] Health Maintenance Organization (HMO) [id number] Self [id number] [employer] Commercial [id number] .[id number] Self [id number] Cigna/MVP Commercial [id number] [id number] Self [id number] CIGNA HEALTHCARE [id number] SP U [id number] CIGNA HEALTHCARE [id number] SP U [id number] UNITED HEALTHCARE [id number] HU2 [id number] STATE INSURANCE FUND [id number] 2 [id number] STATE INSURANCE FUND [id number] SP [id number] [facility] Health Maintenance Organization (HMO) [id number] Self [id number] UNITED HEALTHCARE [id number] HU2 83 [id number] STATE INSURANCE FUND O [id number] S [id number] UNITED HEALTHCARE [id number] HU2 [id number] [facility] O [id number] P [id number] [facility] Health Maintenance Organization (HMO) [id number] Self [id number] [facility](MCAID) O [id number] S [id number] MEDICAID [id number] SP [id number] [facility] Health Maintenance Organization (O) [id number] Self Problems, Conditions, and Diagnoses No Information Surgeries/Procedures Procedure Description Date Indications Data Source(s) PERIODIC PREVENTIVE MED EST PATIENT 40-64YRS 12:00:00 AM EDT MEDENT ([facility]) Mammogram 03/15/2020 12:00:00 AM EDT M EDENT ([facility]) Results ID Date Data Source [id number] 04/10/2021 11:13:00 AM EST [facility] ([facility]) Name Value Range Interpretation Code Description Data Carie rce(s) Supporting Document(s) Leukocytes [#/volume] in Blood by Automated count 20.1 x10*3/UL 4.1-10.9 Above upper panic limits MED[facility] ([facility]) CRITICAL: CBC VERIFIED MALLORY NOTIFIED NOTE: MANUAL DIFFERENTIAL SENT TO [facility] FOR VERIFICATION. Erythrocytes [#/volume] in Blood by Automated count 4.61 x10*6/UL 4.2 0-6.30 [facility] ([facility]) Hemoglobin [Mass/volume] in Blood 15.8 g/dL 12.0-18.0 [facility] Hematocrit [Volume Fraction] of Blood by Automated count 45.2 % 3 7.0-51.0 [facility] ([facility]) MCV 98.0 fL 80.0-97.0 [facility] MCH 34.2 pg 26.0-32.0 [facility]) MCHC 34.9 g/dL 31.0-38.0 [facility]) Erythrocyte distribution width [Ratio] by Automated count 13.1 % 11.6-13.7 [facility] ([facility]) Platelets [#/volume] in Blood by Automated count 362 x10*3/UL 140-440 [facility] ([facility]) MPV 7.6 FL 7.8-11.0 [facility] ([facility]) Lymph % 5.4 % 10.0-58.5 [facility] ([facility]) Mid % 1.5 % 1.7-9.3 [facility] ([facility]) Neut % 93.1 % 37.0-92.0 [facility] ([facility]) Lymph # 1.1 x10*3/UL 0.6-4.1 [facility] ([facility]) Mid # 0.3 x10*3/UL 0.1-0.6 [facility] ([facility]) Neut # 18.7 x10*3/UL 2.0-7.8 [facility] ([facility]) ID Date Data Source [id number] 04/02/2021 02:37:00 PM EST [facility] Name Value Range Interpretation Code Description Data Carie rce(s) Supporting Document(s) SARS-CoV-2 (COVID 19) NEGATIVE - SARS-CoV-[facility] (COVID19) [facility] This lab was ordered by [facility] a nd reported by [facility]. ID Date Data Source [id number] 03/29/2021 02:00:00 PM EDT [facility] Name Value Range Interpretation Code Description Data Carie rce(s) Supporting Document(s) SARS-CoV-2 RNA Resp Ql HIRAL+probe NOT DETECTED [facility] This lab was ordered by [facility] and reported by [facility]. ID Date Data Source [id number] 03/22/2021 01:30:00 PM EDT [facility] Name Value Range Interpretation Code Description Data Carie rce(s) Supporting Document(s) SARS-CoV-2 RNA Resp Ql HIRAL+probe NOT DETECTED [facility] This lab was ordered by [facility] and reported by [facility]. ID Date Data Source [id number] 03/14/2021 07:52:00 AM EDT [facility] ([facility]) Name Value Range Interpretation Code Description Data Carie rce(s) Supporting Document(s) Glucose [Mass/volume] in Serum or Plasma 89 mg/dL 74-99 [facility] ([facility]) 100-125 mg/dL PRE-DIABETES/FASTING >126 mg/dL DIABETES/FASTING Urea nitrogen [Mass/volume] in Serum or Plasma 19 mg/dL 7-18 [facility] ([facility]) Creatinine 0.7 mg/dL 0.6-1.3 [facility] Sodium [Moles/volume] in Serum or Plasma 137 meq/L 136-145 [facility] ([facility]) Potassium [Moles/volume] in Serum or Plasma 4.6 meq/L 3.5-5.1 [facility] ([facility]) Chloride [Moles/volume] in Serum or Plasma 102 meq/L 98-107 [facility] ([facility]) Calcium [Mass/volume] in Serum or Plasma 9.3 mg/dL 8.5-10.1 [facility] ([facility]) Carbon dioxide, total [Moles/volume] in Serum or Plasma 28 meq/L 21 -32 [facility] ([facility]) Glomerular filtration rate/1.73 sq M pre dicted among non-blacks [Volume Rate/Area] in Serum or Plasma by Creatinine-based formula (MDRD) Laboratory test result MED[facility] ([facility] ) Glomerular filtration rate/1.73 sq M pre dicted among blacks [Volume Rate/Area] in Serum or Plasma by Creatinine-based formula (MDRD) Laboratory test result [facility]) <content>CHRONIC KIDNEY DISEASE STAGING PER NKF</content>
<content></content>
<content>STAGE I & II GFR >= 60 NORMAL TO MILDLY DECREASED</content>
<content>STAGE III GFR 30-59 MODERATELY DECREASED</content>
<content>STAGE IV GFR 15-29 SEVERELY DECREASED</content>
<content>STAGE V GFR <15 VERY LITTLE GFR LEFT</content>
<content>ESRD GFR <15 ON ELECTRIC METER SETTER</content>
<content></content> ID Date Data Source [id number] 09/06/2020 01:57:00 PM EDT [facility] ([facility]) Name Value Range Interpretation Code Description Data Carei rce(s) Supporting Document(s) Triglyceride [Mass/volume] in Serum or Plasma 330 mg/dL 30-150 [facility] ([facility]) Cholesterol [Mass/volume] in Serum or Plasma 233 mg/dL 131-200 [facility] ([facility]) Cholesterol in LDL [Mass/volume] in Serum or Plasma by calcu lation 110 CALC 50-159 [facility] ([facility]) Cholesterol in HDL [Mass/volume] in Serum or Plasma 57 mg/dL 35-60 [facility] ([facility]) ID Date Data Source [id number] 09/06/2020 01:57:00 PM EDT [facility] ([facility]) Name Value Range Interpretation Code Description Data Carie rce(s) Supporting Document(s) Glucose [Mass/volume] in Serum or Plasma 90 mg/dL 74-99 [facility] ([facility]) 100-125 mg/dL PRE-DIABETES/FASTING >126 mg/dL DIABETES/FASTING Creatinine 0.7 mg/dL 0.6-1.3 [facility] Urea nitrogen [Mass/volume] in Serum or Plasma 8 mg/dL 7-18 [facility] ([facility]) Potassium [Moles/volume] in Serum or Plasma 3.9 meq/L 3.5-5.1 [facility] ([facility]) Sodium [Moles/volume] in Serum or Plasma 137 meq/L 136-145 [facility] ([facility]) Chloride [Moles/volume] in Serum or Plasma 102 meq/L 98-107 [facility] ([facility]) Calcium [Mass/volume] in Serum or Plasma 9.1 mg/dL 8.5-10.1 [facility] ([facility]) Carbon dioxide, total [Moles/volume] in Serum or Plasma 28 meq/L 21 -32 [facility] ([facility]) Total Bilirubin 0.4 mg/dL 0.2-1.0 [facility] ([facility]) Alkaline phosphatase isoenzyme [Units/volume] in Serum or Pl asma 115 mg/dL 46-116 [facility] ([facility]) Aspartate aminotransferase [Enzymatic activity/volume] in Serum or Plasma 31 U/L 15-37 [facility] ([facility] ) Alanine aminotransferase [Enzymatic activity/volume] in Seru m or Plasma 39 U/L 12-78 [facility] Albumin [Mass/volume] in Serum or Plasma 3.9 g/dL 3.4-5.0 [facility] ([facility]) Proteinase 3 Ab [Units/volume] in Serum 7.0 g/dL 6.4-8.2 [facility] A/G Ratio 1.26 CALC 1.00-1.90 [facility] Glomerular filtration rate/1.73 sq M pre dicted among blacks [Volume Rate/Area] in Serum or Plasma by Creatinine-based formula (MDRD) Laboratory test result [facility] ([facility]) <content>CHRONIC KIDNEY DISEASE STAGING PER NKF</content>
<content></content>
<content>STAGE I & II GFR >= 60 NORMAL TO MILDLY DECREASED</content>
<content>STAGE III GFR 30-59 MODERATELY DECREASED</content>
<content>STAGE IV GFR 15-29 SEVERELY DECREASED</content>
<content>STAGE V GFR <15 VERY LITTLE GFR LEFT</content>
<content>ESRD GFR <15 ON ELECTRIC METER SETTER</content>
<content></content> Glomerular filtration rate/1.73 sq M pre dicted among non-blacks [Volume Rate/Area] in Serum or Plasma by Creatinine-based formula (MDRD) Laboratory test result [facility] ID Date Data Source [id number] 09/06/2020 01:57:00 PM EDT [facility] Name Value Range Interpretation Code Description Data Carie rce(s) Supporting Document(s) Leukocytes [#/volume] in Blood by Automated count 9.1 x10*3/UL 4.1-10 .9 [facility] Erythrocytes [#/volume] in Blood by Automated count 4.57 x10*6/UL 4.2 0-6.30 [facility] Hematocrit [Volume Fraction] of Blood by Automated count 46.3 % 3 7.0-51.0 [facility] ([facility]) MCV 101.1 fL 80.0-97.0 [facility] [facility] Hemoglobin [Mass/volume] in Blood 15.9 g/dL 12.0-18.0 [facility] ([facility]) MCHC 34.3 g/dL 31.0-38.0 [facility] MCH 34.7 pg 26.0-32.0 [facility] [facility] Platelets [#/volume] in Blood by Automated count 373 x10*3/UL 140-440 [facility] ([facility]) Erythrocyte distribution width [Ratio] by Automated count 13.4 % 11.6-13.7 [facility] ([facility]) Lymph % 23.9 % 10.0-58.5 [facility] [facility] MPV 7.3 FL 7.8-11.0 [facility] [facility] Mid % 5.9 % 1.7-9.3 [facility] [facility] Neut % 70.2 % 37.0-92.0 [facility] Lymph # 2.1 x10*3/UL 0.6-4.1 [facility] ([facility]) Neut # 6.4 x10*3/UL 2.0-7.8 [facility] ([facility]) Mid # 0.6 x10*3/UL 0.1-0.6 [facility] ([facility]) ID Date Data Source [id number] 06/28/2020 01:00:00 PM EST [facility] Name Value Range Interpretation Code Description Data Carie rce(s) Supporting Document(s) SARS coronavirus 2 RNA Not Detected [facility] This lab was ordered by [facility] and reported by [facility]. ID Date Data Source [id number] 06/11/2020 11:20:00 AM EST [facility] Name Value Range Interpretation Code Description Data Carie rce(s) Supporting Document(s) SARS coronavirus 2 RNA Not Detected [facility] [place] This lab was ordered by [facility] and reported by [facility]. ID Date Data Source [id number] 06/10/2020 12:00:00 AM EST [facility] Name Value Range Interpretation Code Description Data Carie rce(s) Supporting Document(s) SARS coronavirus 2 Ag Negative [facility] This lab was ordered by [facility] and reported by [facility]. ID Date Data Source [id number] 05/15/2020 12:15:00 PM EST [facility] Name Value Range Interpretation Code Description Data Carie rce(s) Supporting Document(s) [facility] was ordered by [facility] and reported by [facility]. ID Date Data Source [id number] 03/15/2020 12:00:00 AM EDT [facility] Samantha Bueno DO Patient Name: MARLO [id number] [facility] Date of : 1970[address] Date of Exam: 03/15/2020[place] [id number]#: Fax: [phone] EXAM: MAMMO SCREENING WITH CADCLINICAL [...] criteria for genetic testing established by National [facility] and [place] [employer] guidelines. She should pursue arisk assessment with a hereditary cancer specialist which may includetesting based on these criteria. The benefits and limitations of genetictesting would be discussed, including potential changes to medicalmanagement based on the results. [facility] at [facility].Digital screening (2D) mammography [...] mammogram was read with the assistance of [employer], an FDAapproved computer aided detection system for [...] rce(s) Supporting Document(s) ID Date Data Source [id number] 03/13/2020 09:48:00 AM EDT [facility]) Name Value Range Interpretation Code Description Data Carie rce(s) Supporting Document(s) Alkaline phosphatase isoenzyme [Units/volume] in Serum or Pl asma 116 mg/dL 46-116 [facility]) Total Bilirubin 1.0 mg/dL 0.2-1.0 [facility] ([facility]) Aspartate aminotransferase [Enzymatic activity/volume] in Serum or Plasma 22 U/L 15-37 [facility] ([facility] ) Albumin [Mass/volume] in Serum or Plasma 3.9 g/dL 3.4-5.0 [facility]) Alanine aminotransferase [Enzymatic activity/volume] in Seru m or Plasma 35 U/L 12-78 [facility]) Proteinase 3 Ab [Units/volume] in Serum 7.0 g/dL 6.4-8.2 [facility] A/G Ratio 1.26 CALC 1.00-1.90 [facility] Direct Bilirubin 0.2 mg/dL 0.0-0.2 [facility]) ID Date Data Source [id number] 03/07/2020 05:15:00 PM EDT [facility] Name Value Range Interpretation Code Description Data [facility]) Supporting Document(s) Respiratory Panel Laboratory test result [facility] ([facility]) This respiratory PCR panel detects Influ eduar [...] - SARS-CoV-2 (COVID19) ID Date Data Source [id number] 03/07/2020 05:04:00 PM EDT [facility] Name Value Range Interpretation Code Description Data Carie rce(s) Supporting Document(s) Blood Culture Laboratory test result [facility] ([facility]) No growth after 72 hours . All specimens observed for 5 days. Results final at that time. No growth after 48 hours . All specimens observed for 5 days. Results final at that time. No growth after 24 hours . All specimens observed for 5 days. Results final at that time. NO GROWTH AFTER 5 DAYS ID Date Data Source [id number] 03/07/2020 04:37:00 PM EDT [facility]) Name Value Range Interpretation Code Description Data Carie rce(s) Supporting Document(s) Glucose, Fasting 99 mg/dL 70-100 [facility] ([facility]) Blood Urea Nitrogen 12 mg/dL 7-18 [facility] ([facility]) Glomerular Filtration Rate Laboratory test result [facility] ([facility]) <content>Units are mL/min/1.73 m2</content>
<content></content>
<content>Chronic Kidney Disease Staging per NKF:</content>
<content></content>
<content>Stage I & II GFR >=60 Normal to Mildly Decreased</content>
<content>Stage III GFR 30- 59 Moderately Decreased</content>
<content>Stage IV GFR 15-29 Severely Decreased</content>
<content>Stage V GFR <15 Very Little GFR Left</content>
<content>ESRD GFR <15 on ELECTRIC METER SETTER</content>
<content></content> Creatinine For GFR 0.63 mg/dL 0.55-1.30 [facility] ([facility]) Chloride Level 109 meq/L 98-107 [facility] ([facility]) Potassium Serum 3.9 meq/L 3.5-5.1 [facility] ([facility]) Sodium Level 142 meq/L 136-145 [facility] ([facility]) Anion Gap 7 meq/L 8-16 [facility]) Carbon Dioxide Level 26 meq/L 21-32 [facility] Calcium Level 9.1 mg/dL 8.5-10.1 [facility] ([facility]) ID Date Data Source [id number] 03/07/2020 04:37:00 PM EDT [facility] ([facility]) Name Value Range Interpretation Code Description Data Carie rce(s) Supporting Document(s) Alt/SGPT 32 U/L 12-78 [facility] ([facility]) Alkaline Phosphatase 109 U/L 45-117 [facility] ([facility]) Ast/Sgot 16 U/L 7-37 [facility] ([facility]) Bilirubin,Total 0.4 mg/dL 0.2-1.0 [facility] ([facility]) Total Protein 6.9 GM/DL 6.4-8.2 [facility] ([facility]) Bilirubin,Direct 0.1 mg/dL 0.0-0.2 [facility] ([facility]) Albumin/Globulin Ratio 1.2 1.2-2.2 [facility] ([facility]) Albumin 3.7 GM/DL 3.2-5.2 [facility] ([facility]) ID Date Data Source [id number] 03/07/2020 04:37:00 PM EDT [facility]) Name Value Range Interpretation Code Description Data Carie rce(s) Supporting Document(s) CPK Creatine Phosphokinase 65 U/L 26-192 [facility] ([facility]) CK-MB Value Mass Laboratory test result [facility] ([facility]) MB/CK Relative Index 1.54 [facility] ([facility]) <content>DIAGNOSIS CRITERIA</content>
<content>MMB ng/ml Relative Index (RI)</content>
<content>NON-AMI < or = 5 N/A</content>
<content>HARDEN ZONE > 5 < or = 4</content>
<content>AMI > 5 > 4</content>
<content></content> Troponin I Laboratory test result [facility] ([facility]) <content>Troponin I Reference Interval f or Siemens [place] LOCI:</content>
<content></content>
<content>99th Percentile= 0.00-0.045 ng/ml</content>
<content></content>
<content>Risk Stratification:</content>
<content><= 0.10 ng/ml Decreased Risk for Adverse Clinical</content>
<content>Events.</content>
<content>0.10-1.50 ng/ml Increased Risk for Adverse Clinical</content>
<content>Events. Evaluation of additional</content>
<content>criterion and/or repeat testing in 2-6</content>
<content>hours is suggested to rule out myocardial</content>
<content>damage.</content>
<content>>= 1.50 ng/ml Indicative of Myocardial Injury.</content>
<content></content> ID Date Data Source [id number] 03/07/2020 04:37:00 PM EDT [facility] ([facility]) Name Value Range Interpretation Code Description Data Carie rce(s) Supporting Document(s) White Blood Count 7.6 10 4.0-10.0 [facility] ([facility]) Red Blood Count 4.65 10 4.00-5.40 [facility] ([facility]) Hemoglobin 16.0 g/dL 12.0-15.5 [facility] Hematocrit 47.0 % 36.0-47.0 [facility] ([facility]) Mean Corpuscular Hemoglobin 34.4 pg 27.0-33.0 [facility] ([facility]) Mean Corpuscular Volume 101.1 fl 80.0-96.0 [facility] ([facility]) Red Cell Distribution Width 12.0 % 11.5-14.5 [facility] ([facility]) Mean Corpuscular HGB Conc 34.0 g/dL 32.0-36.5 [facility] ([facility]) Neutrophils % 53.7 % 36.0-66.0 [facility] ([facility]) Platelet Count, Automated 308 10 150-450 [facility] ([facility]) [place] % 7.2 % 0.0-5.0 [facility]) Eos % 1.1 % 0.0-3.0 [facility]) Lymph % 37.2 % 24.0-44.0 [facility]) Baso % 0.4 % 0.0-1.0 [facility]) Nucleated Red Blood Cell % 0.0 % 0-0 [facility] ([facility]) Immature Granulocyte % 0.4 % 0-3.0 [facility] ([facility]) [place] # 0.6 10 0.0-0.8 [facility]) Lymph # 2.8 10 1.5-5.0 [facility]) Neutrophils # 4.1 10 1.5-8.5 [facility] ([facility]) Baso # 0.0 10 0.0-0.2 [facility]) Eos # 0.1 10 0.0-0.5 [facility]) ID Date Data Source [id number] 02/29/2020 10:24:00 AM EDT [facility] ([facility]) Name Value Range Interpretation Code Description Data Carie rce(s) Supporting Document(s) LDL Direct 131 mg/dL 0-99 [facility] Comment LDL Direct Laboratory test result [facility] ([facility]) Performed at: RN - [facility] [address] [id number] Water Well Driller: Bethanie Dale MD, Phone: [phone] ID Date Data Source [id number] 02/29/2020 10:24:00 AM EDT [facility] ([facility]) Name Value Range Interpretation Code Description Data Carie rce(s) Supporting Document(s) Cholesterol [Mass/volume] in Serum or Plasma 249 mg/dL 131-200 [facility] ([facility]) Cholesterol in HDL [Mass/volume] in Serum or Plasma 40 mg/dL 35-60 [facility] ([facility]) Triglyceride [Mass/volume] in Serum or Plasma 481 mg/dL 30-150 [facility] ([facility]) Cholesterol in LDL [Mass/volume] in Serum or Plasma by calculation Laboratory test result 50-159 [facility] ([facility] ) Unable to calculate ID Date Data Source [id number] 02/29/2020 10:24:00 AM EDT [facility] ([facility]) Name Value Range Interpretation Code Description Data Carie rce(s) Supporting Document(s) Glucose [Mass/volume] in Serum or Plasma 107 mg/dL 74-99 [facility] ([facility]) 100-125 mg/dL PRE-DIABETES/FASTING >126 mg/dL DIABETES/FASTING Urea nitrogen [Mass/volume] in Serum or Plasma 11 mg/dL 7-18 [facility] ([facility]) Potassium [Moles/volume] in Serum or Plasma 4.0 meq/L 3.5-5.1 [facility] ([facility]) Creatinine 0.7 mg/dL 0.6-1.3 [facility]) Sodium [Moles/volume] in Serum or Plasma 140 meq/L 136-145 [facility] ([facility]) Carbon dioxide, total [Moles/volume] in Serum or Plasma 26 meq/L 21 -32 [facility] ([facility]) Chloride [Moles/volume] in Serum or Plasma 103 meq/L 98-107 [facility] Calcium [Mass/volume] in Serum or Plasma 9.1 mg/dL 8.5-10.1 [facility] Glomerular filtration rate/1.73 sq M pre dicted among non-blacks [Volume Rate/Area] in Serum or Plasma by Creatinine-based formula (MDRD) Laboratory test result [facility] ([facility] Glomerular filtration rate/1.73 sq M pre dicted among blacks [Volume Rate/Area] in Serum or Plasma by Creatinine-based formula (MDRD) Laboratory test result [facility] ([facility]) <content>CHRONIC KIDNEY DISEASE STAGING PER NKF</content>
<content></content>
<content>STAGE I & II GFR >= 60 NORMAL TO MILDLY DECREASED</content>
<content>STAGE III GFR 30-59 MODERATELY DECREASED</content>
<content>STAGE IV GFR 15-29 SEVERELY DECREASED</content>
<content>STAGE V GFR <15 VERY LITTLE GFR LEFT</content>
<content>ESRD GFR <15 ON ELECTRIC METER SETTER</content>
<content></content> ID Date Data Source [id number] 02/29/2020 10:24:00 AM EDT [facility] ([facility]) Name Value Range Interpretation Code Description Data Carie rce(s) Supporting Document(s) Hemoglobin [Mass/volume] in Blood 16.4 g/dL 12.0-18.0 [facility] ([facility]) Leukocytes [#/volume] in Blood by Automated count 7.4 x10*3/UL 4.1-10 .9 [facility] Erythrocytes [#/volume] in Blood by Automated count 4.79 x10*6/UL 4.2 0-6.30 [facility] ([facility] Hematocrit [Volume Fraction] of Blood by Automated count 47.9 % 3 7.0-51.0 [facility] MCHC 34.3 g/dL 31.0-38.0 [facility] MCH 34.3 pg 26.0-32.0 [facility] ([facility]) MCV 100.0 fL 80.0-97.0 [facility] ([facility]) Platelets [#/volume] in Blood by Automated count 354 x10*3/UL 140-440 [facility] MPV 8.2 FL 7.8-11.0 [facility] Erythrocyte distribution width [Ratio] by Automated count 12.6 % 11.6-13.7 [facility] ([facility]) Lymph # 1.3 x10*3/UL 0.6-4.1 [facility] ([facility]) Neut % 77.6 % 37.0-92.0 [facility] Lymph % 18.2 % 10.0-58.5 [facility]) Mid % 4.2 % 1.7-9.3 [facility]) Mid # 0.3 x10*3/UL 0.1-0.6 [facility] ([facility]) Neut # 5.8 x10*3/UL 2.0-7.8 [facility] ([facility]) ID Date Data Source [id number] 02/29/2020 10:24:00 AM EDT [facility] ([facility]) Name Value Range Interpretation Code Description Data Carie rce(s) Supporting Document(s) Cholesterol in LDL [Mass/volume] in Serum or Plasma by Direct assay Laboratory test result [facility] ([facility] ) Procedure Social History Code Duration Value Status Description Data Source(s ) Smoking 12/05/2020 08:10:00 AM EDT Ex-smoker (finding) complet ed Ex-smoker (finding) [facility] (Roger Alford MD [facility]) Vital Signs ID Date Data Source [id number] Name Value Range Interpretation Code Description Data Source(s) Diastolic blood pressure 80 mm[Hg] 80 mm[Hg] [facility]) LT Arm Heart rate 124 /min 124 /min [facility] ([facility]) Body height 62.50 [in_i] 62.50 [in_i] [facility] ( [facility]) 5'2.50" Body weight 159.50 [lb_av] 159.50 [lb_av] [facility] ([facility]) Oxygen saturation in Arterial blood by Pulse oximetry --post exerci se 96 % 96 % [facility] ([facility]) RM Air Body mass index (BMI) [Ratio] 28.7 kg/m2 28.7 k g/m2 [facility] ([facility]) Systolic blood pressure 122 mm[Hg] 122 mm[Hg] [facility]) LT Arm Systolic blood pressure 122 mm[Hg] 122 mm[Hg] [facility]) Diastolic blood pressure 76 mm[Hg] 76 mm[Hg] [facility] ([facility]) Body weight 155.00 [lb_av] 155.00 [lb_av] [facility] ([facility]) Body mass index (BMI) [Ratio] 27.9 kg/m2 27.9 k g/m2 [facility] ([facility]) Heart rate 86 /min 86 /min [facility] ([facility]) Body height 62.50 [in_i] 62.50 [in_i] [facility] ([facility]) 5'2.50" Systolic blood pressure 122 mm[Hg] 122 mm[Hg] M [facility] ([facility]) Diastolic blood pressure 70 mm[Hg] 70 mm[Hg] [facility] ([facility]) Heart rate 102 /min 102 /min [facility] ([facility]) Body height 62.50 [in_i] 62.50 [in_i] [facility] ([facility]) 5'2.50" Body weight 163.00 [lb_av] 163.00 [lb_av] [facility] ([facility]) Oxygen saturation in Arterial blood by Pulse oximetry 95 % 95 % [facility] ([facility]) [facility] Body mass index (BMI) [Ratio] 29.3 kg/m2 29.3 k g/m2 [facility] ([facility]) Systolic blood pressure 138 mm[Hg] 138 mm[Hg] M [facility] ([facility]) Diastolic blood pressure 100 mm[Hg] 100 mm[Hg] [facility] ([facility], [facility]) Heart rate 103 /min 103 /min [facility] ([facility], [facility]) Respiratory rate 18 /min 18 /min [facility] ( [facility], [facility]) Oxygen saturation in Arterial blood by Pulse oximetry 97 % 97 % [facility] ([facility], [facility]) Body temperature 98.3 [degF] 98.3 [degF] [facility] ([facility], [facility]) Body weight 165.00 [lb_av] 165.00 [lb_av] [facility] ([facility], [facility]) Body height 62 [in_i] 62 [in_i] [facility] ([facility]) 5'2" Body mass index (BMI) [Ratio] 30.2 kg/m2 30.2 k g/m2 [facility] ([facility], [facility]) Systolic blood pressure 120 mm[Hg] 120 mm[Hg] M [facility] ([facility]) Diastolic blood pressure 82 mm[Hg] 82 mm[Hg] [facility] ([facility]) Body height 62.50 [in_i] 62.50 [in_i] [facility] 5'2.50" Body weight 163.00 [lb_av] 163.00 [lb_av] [facility] ([facility]) Body mass index (BMI) [Ratio] 29.3 kg/m2 29.3 k g/m2 [facility] ([facility]) Systolic blood pressure 139 mm[Hg] 139 mm[Hg] M [facility]ENT ([facility], [facility]) Diastolic blood pressure 96 mm[Hg] 96 mm[Hg] [facility] ([facility], [facility]) Heart rate 100 /min 100 /min [facility] ([facility], [facility]) Respiratory rate 14 /min 14 /min [facility] ( [facility], [facility]) Body temperature 98.7 [degF] 98.7 [degF] [facility] ([facility], [facility]) Body height 62 [in_i] 62 [in_i] [facility] ([facility], [facility]) 5'2" Body mass index (BMI) [Ratio] 30.2 kg/m2 30.2 k g/m2 [facility]) Oxygen saturation in Arterial blood by Pulse oximetry 98 % 98 % [facility] ([facility], [facility]) Body weight 165.00 [lb_av] 165.00 [lb_av] [facility] ([facility], [facility]) Diastolic blood pressure 82 mm[Hg] 82 mm[Hg] [facility] ([facility]) Heart rate 87 /min 87 /min [facility] ([facility]) Body height 62.50 [in_i] 62.50 [in_i] [facility] ( [facility] 5'2.50" Body weight 165.00 [lb_av] 165.00 [lb_av] [facility] ([facility]) Body mass index (BMI) [Ratio] 29.7 kg/m2 29.7 k g/m2 [facility] ([facility]) Oxygen saturation in Arterial blood by Pulse oximetry 100 % 100 % [facility] ([facility]) Air Systolic blood pressure 122 mm[Hg] 122 mm[Hg] M [facility] ([facility]) Body weight 159.00 [lb_av] 159.00 [lb_av] [facility] ([facility]) Systolic blood pressure 157 mm[Hg] 157 mm[Hg] [facility]) pt has not taken meds in 2+ days Diastolic blood pressure 111 mm[Hg] 111 mm[Hg] [facility] ([facility]) pt has not taken meds in 2+ days Heart rate 113 /min 113 /min [facility] ([facility], [facility]) Oxygen saturation in Arterial blood by Pulse oximetry 98 % 98 % [facility] ([facility]) Body temperature 98.7 [degF] 98.7 [degF] [facility] ([facility], [facility]) Body height 62 [in_i] 62 [in_i] [facility] ([facility], [facility]) 5'2" Body mass index (BMI) [Ratio] 29.1 kg/m2 29.1 k g/m2 [facility] ([facility], [facility])
[2021-04-10] MEDS ORDERED: SYMBICORT 80/4.5MCG INHALER 6GM INH SCH (20:00)
[2021-04-10 20:10] LABS: FREE T4 1.24 NG/DL (0.76-1.46)
[2021-04-10] MEDS ORDERED: ALBUTEROL SULFATE 2.5 MG/0.5 ML INH NEB SOLN NEB PRN (20:15)
[2021-04-10] MEDS ORDERED: MOM 30ML SUSPENSION UDC PO PRN (20:15)
[2021-04-10] MEDS ORDERED: methylPREDNISolone 125MG 2ML VIAL IV STA (20:15)
[2021-04-10] MEDS ORDERED: MAALOX 30 ML SUSP *UDC PO PRN (20:15)
--- NOTE | 2021-04-10 20:21 | HPEPDOC ---
[facility] Medical History & Physical Date of Admission Apr 10, 2021 Date of Service: Apr 10, 2021 Primary Care Physician: JENNIFER BAKER DO Attending Physician: ERICA YUEN MD History and Physical TIME OF SERVICE: 901PM CHIEF COMPLAINT: dizziness HISTORY OF PRESENT ILLNESS: presented to the ER w c/o of feeling ill for several weeks; she was admitted under our service from Apr 02 to for acute Asthma 2/2 parainfluenza. After she was discharged she continued to cough; her PCP started her on steroids but her symptoms didnt resolve. Today she had a follow up visit with her PCP who offered to start her on abx or send her to the ER for admission to the hospital. grant smoking after being discharged from the hospital and denies having n/v/d. She has been having episodes of chills and sweating. She has been weak and dizzy and almost passed out while in the shower this morning. REVIEW OF SYSTEMS: 10-point review of systems negative except as listed in HPI PAST MEDICAL/ SURGICAL HISTORY: Childhood Asthma / suspected COPD 2/2 tobacco abuse, HTN, Migraines, Tonsillectomy with adenoidectomy, 4 sections, D&C, ventral hernia repair, exploratory laparoscopy, Ventral Hernia repair SOCIAL HISTORY: 67-lodi-bsba history of smoking (quit about 1 month ago) / drinks alcohol occasionally / no recreational drug use FAMILY HISTORY: Dad from [place]. / Mom from bleeding into her lungs at the age of 42 related to some pulmonary artery problem per the patient. / Son at 4-1/2 years age from tetralogy of Fallot co mplications. ALLERGIES: Please see below. HOME MEDICATIONS: Please see below. PHYSICAL EXAMINATION: Vital Signs Date Time Temp Pulse Resp B/P (MAP) Pulse Ox O2 Delivery O2 Flow Rate FiO2 04/10/21 16:53 96.6 105 18 124/85 (98) 98 Room Air GENERAL APPEARANCE: well-nourished and developed /NAD HEENT: EOMI /MMM&P CARDIOVASCULAR: tachycardic/NMRG LUNGS: coughing/ not using accessory muscles/ has inspiratory wheezing ABDOMEN: contour flat MUSCULOSKELETAL: NCAT / ITZEL x 4 INTEGUMENT: not flushed pale or diaphoretic / lips not cyanotic NEUROLOGICAL: CN 2-12 grossly intact /speech not dysarthric PSYCHIATRIC: A&Ox 3 /able to understand and follow all commands LABORATORY DATA: IMAGING: Chest xray IMPRESSION: No acute cardiopulmonary process appreciated. MICROBIOLOGY: Respiratory panel neg ASSESSMENT: is a 50 yr old F w a hx of Childhood Asthma / suspected COPD 2/2 tobacco abuse, HTN & Migraines who is admitted for SIRS vs sepsis of unclear cause, and acute asthma. PLAN: 1 SIRS vs Sepsis She has leucocytosis which could be due to steroids and tachycardia which can also be caused by albuterol Cause TBD Plan: telemetry / Sepsis protocol w blood cx & lactic acid / will hold off abx bc this could be reactive / will hold off IVF bc her BP is high 2 Acute Asthma/ COPD Her viral panel is neg Plan: Magnesium IV / c/w supplemental O2 / continuous pulse ox / will ask RT to monitor peak expiratory flow daily ( can consider discharge when >70% of expected) / Dunebs Q6H, Q1H / solumedrol now then switch to oral Prednisone tomorrow / cough syrup / acapella and chest PT 3 Polycythemia She has had a history of polycythemia as far back as 2006 I suspect this could be 2/2 polycythemia due to COPD/ Asthma but she doesnt have clinical signs of cyanosis, her renal function studies are not c/w dehydration, and she has symptoms (dizziness, sweating and weakness) that warrant work-up to r/o polycythemia vera. Plan: f/u serum EPO and ELIAS [id number] mutation 4 Essential HTN Plan: Lisinopril DVT px w Lovenox Dispo: home after at least 2 midnights stay LATE ENTRY # Lactic acidosis -could be due to albuterol use Plan: IVF / f/u repeat lactic acid / blood cx are still pending Home Medications Scheduled Budesonide/Formoterol (Symbicort 80-4.5 Mcg Inhaler) 6.9 Gm Hfa.aer.ad, 2 PUFF INH BID Lisinopril (Lisinopril) 10 Mg Tablet, 10 MG PO BID Pantoprazole Sodium (Pantoprazole Sodium) 40 Mg Tablet.dr, 40 MG PO DAILY Prednisone (Prednisone) 10 Mg Tablet, 10 MG PO TAPER 50MG FOR 1 DAY, 40MG FOR 1 DAY, 30MG FOR 1 DAY, 20MG FOR 1 DAY, 10MG FOR 1 DAY: STARTED ON 04/09/21 Scheduled PRN Albuterol Sulfate (Proair Hfa) 8.5 Gm Hfa.aer.ad, 2 PUFF INH Q4H PRN for SHORTNESS OF BREATH Codeine Phosphate/Guaifenesin (Guaiatussin AC Liquid) 10 Ml Liquid, 10 ML PO Q4H PRN for COUGH Allergies Coded Allergies: Penicillins (Verified Allergy, Mild, RASH, 04/10/21) A-FIB/CHADSVASC A-FIB History Current/History of A-Fib/PAF?: No Current PO Anticoag Therapy: No ERICA YUEN MD Apr 10, 2021 20:21
--- OUTSIDE RECORDS SUMMARY | 2021-04-10 20:29 | CCD ---
Author Author [facility] Organization [facility] Address Unknown Phone Unavailable Support Name Relationship Address Phone [facility]* Next Of Kin [address] [place] [address] [place] Next Of Kin [id number] [place] [address] [place] [address] [place]* Next Of Kin [address] [place] [address] UN Next Of Kin Unknown Unavailable NONE, PT PER Next Of Kin - -, - - - William Gonzalez Next Of Kin [address] [place] [address] UE Next Of Kin Unknown Unavailable Active [employer] BHAVIK Next Of Kin [address] [place] [address] [place] [address] PIHARJEET MOFFETT Next Of Kin [address] [place] [address] JORDANA ZHANG Next Of Kin [address] [place] [address] TYR[place] [address] [employer] Next Of Kin [address] [place] [address] PRINCESS ROBB Next Of Kin [address] [place] [address] [employer] Next Of Kin [address] [facility] [place] [address] [employer] Next Of Kin [address] [facility] [place] [address] ADRIANNE MARIE Next Of Kin [address] [place] [id number] John ROBB Next Of Kin [address] [facility] [place] [address] Tadeo Robb ECON [address] [place] [address] Unavailable Care Team Providers Care Bottle Capper Name Role Phone Sparks, Mireille FILENET P8 DEVELOPER Unavailable Unavailable Sparks, Mireille FILENET P8 DEVELOPER Unavailable Unavailable Sparks, Mireille FILENET P8 DEVELOPER Unavailable Unavailable Sparks, Mireille FILENET P8 DEVELOPER Unavailable Unavailable Sparks, Mireille FILENET P8 DEVELOPER Unavailable Unavailable Sparks, Mireille FILENET P8 DEVELOPER Unavailable Unavailable Sparks, Mireille FILENET P8 DEVELOPER Unavailable Unavailable Sparks, Mireille FILENET P8 DEVELOPER Unavailable Unavailable Sparks, Mireille FILENET P8 DEVELOPER Unavailable Unavailable Sparks, Mireille FILENET P8 DEVELOPER Unavailable Unavailable Sparks, Mireille FILENET P8 DEVELOPER Unavailable Unavailable Sparks, Mireille FILENET P8 DEVELOPER Unavailable Unavailable Sparks, Mireille FILENET P8 DEVELOPER Unavailable Unavailable Nelly Kahn Unavailable Unavailable Myles, [...] is protected by Article 27-F of the [facility] Public Health law. If you continue you may have access to information: Regarding HIV / AIDS; Provided by facilities licensed or operated by the [facility] Office of Mental Health; or Provided by the [facility] Office for People With Developmental Disabilities. If such information is present, then the following [facility] mandated warning applies: This information [...] law may result in a fine or alf sentence or both. A general authorization for the release of medical or other information is NOT sufficient authorization for further disc losure. Family History Family Member Name Family Member Gender Family Member Status Date o f Status Description Data Source(s) Unknown Unknown Problem [facility] ([facility]) mgf Encounters Encounter Providers Location Date Indications Data Source(s ) Outpatient Attender: Nelly NG 09/2020 01:44:20 PM EDT - 03/29/2021 04:27:13 PM EDT [facility] ([facility]) Outpatient Attender: Caroline Haddad MD 1 11:43:32 AM EDT - 03/22/2021 02:50:14 PM EDT [facility] ([facility]) Outpatient Attender: Samantha Schultz 03/14 08:00:00 AM EDT [facility] ([facility] ) Outpatient Attender: Caroline Haddad MD 0 01/30/2021 10:07:41 AM EDT - 01/30/2021 12:12:25 PM EDT [facility] Outpatient Attender: Samantha Schultz 09/06 01:15:00 PM EDT [facility] ([facility] ) Outpatient Attender: RALPH Rene 06/10/2020 07:45:00 AM EST [facility] ([facility]) Outpatient Attender: Samantha Schultz 03/13 09:20:00 AM EDT [facility] ([facility] ) Outpatient Attender: Mireille albert 03/02/2020 09:10:00 AM EDT [facility] ([facility]) Outpatient Attender: Samantha Schultz 02/28 10:00:00 AM EDT [facility] ([facility] ) Outpatient Attender: Mireille albert 02/26/2020 09:55:00 AM EDT [facility] ([facility]) Immunizations Vaccine Date Status Description Data Source(s) Influenza, injectable, MDCK, preservative free, zuleika valent 03/14/2021 08:06:00 AM EDT completed [facility]) COVID-19 VACCINE Pfizer 02/28/2021 12:00:00 AM EDT completed [facility] Vaccine Series Complete: YESThis Data wa s Submitted to [facility] Via [employer]. COVID-19 VACCINE Pfizer 02/07/2021 12:00:00 AM EDT completed [facility] Vaccine Series Complete: NOThis Data was Submitted to [facility] Via [employer]. Influenza, injectable, MDCK, preservative free, zuleika valent 02/29/2020 10:05:00 AM EDT completed [facility]) Medications Medication Brand Name Start Date Product Form Dose Route Admi nistrative Instructions Pharmacy Instructions Status Indications Reaction Description Data Source(s) Doxycycline Monohydrate 100 MG Oral Capsule Doxycycline Wilkin hydrate 04/10/2021 12:00:00 AM EST active M EDENT ([facility]) pantoprazole 40 MG Delayed Release Oral [...] 09/06/2020 12:00:00 AM EDT ORAL active [facility] 5 mg 08/06/2020 12:00:00 AM [...] Doxycycline Monohydrate 100 MG Oral Capsule Doxycycline Wilkin hydrate 06/10/2020 12:00:00 AM EST ORAL active M EDENT ([facility]) Prednisone 20 MG Oral Tablet Prednisone 06/10/2020 12:00:00 AM EST ORAL active [facility] ([facility]) 200 ACTUAT Albuterol 0.09 MG/ACTUAT Metered Dose Inhaler [Pr oAir] Proair HFA 06/10/2020 12:00:00 AM EST ORAL active [facility] ([facility]) 90 mcg/actuation 03/08/2020 12:00:00 AM EDT HFA [...] Jude 2019 12:00:00 AM EDT active [facility] ([facility]) Dextromethorphan Hydrobromide 10 MG / Guaifenesin 200 MG Oral Capsule Coricidin HBP Chest Congestion & Cough 02/26/2020 12:00:00 AM EDT ORAL completed [facility] ([facility]) Sucralfate 1000 MG Oral Tablet [Carafate] Carafate 09/13/2019 1 2:00:00 AM EDT completed [facility] ([facility]) Omeprazole 40 MG Delayed Release Oral Capsule Omeprazole 09/13/2019 12:00:00 AM EDT ORAL completed [facility] ([facility]) 5 mg 07/02/2019 12:00:00 AM EST [...] [place] Plan Information BLUE CROSS FLEMING PLAN [id number] SP [id number] O BLUE [id number] SP [id number] [facility]ITY [facility] [id number] SP [id number] [facility] PLAN MCDO [facility] COMMUNITY PLAN [facility] [id number] Self BRENDAN ROBB [facility] COMMUNITY PLAN MCDO [facility] Community Plan Medigap Part B [id number] Self [id number] [facility] Community Plan Medigap Part B [id number] Self [id number] [facility] Community Plan Medigap Part B [id number] Self [id number] [facility] Community Plan Medigap Part B [id number] Self [id number] [facility] Community Plan Medigap Part B [id number] [id number] Self [id number] [facility] Community Plan Medigap Part B [id number] [id number] Self [id number] [facility] Community Plan Medigap Part B [id number] Self [employer] COMMUNITY PLAN MCDHMO [id number] SP [id number] [employer] COMMUNITY PLAN MCDHMO [id number] SP [id number] [facility] [id number] S [id number] [facility]) Workers Compensation [id number] Self [id number] [facility]) Workers Compensation [id number] Self [facility] () Workers Compensation [id number] Self [id number] [facility] () Workers Compensation [id number] 2.840.1.459[id number] Self [id number] [facility] () Workers Compensation [id number] [id number] Self [id number] [facility] () Workers Compensation [id number] Self [id number] [facility] () Workers Compensation [id number] [id number] Self [id number] [employer] (pr) Medigap Part B [id number] [employer] (pr) Medigap Part B [id number] [id number] [facility] (pr) Commercial [id number] [id number] [employer] (pr) Commercial [id number] [id number] [facility] (pr) Medigap Part B [id number] [id number] [employer] (pr) Medigap Part B [id number] [id number] [facility] (pr) Medigap Part B [id number] [id number] [employer] Commercial [id number] 2.840.1.627135.3.227.99 .[id number] Self [id number] Cigna/MVP Con Gen/Prefcar Commercial [id number] [id number] Self [id number] Cigna Health Care P [id number] S [id number] CIGNA INSURANCE CO [id number] SP [id number] CIGNA HEALTHCARE [id number] SP U [id number] [place] 306/806 [id number] SP [id number] [employer] Blue Cross and Blue Shield - [place] Blue Cross/B lue Shield [id number] Self [id number] [facility] COMMUNITY PLAN [facility] [id number] SP [id number] EXCELLUS BCBS P [id number] S [id number] [place] 306/806 [id number] SP [id number] CIGNA HEALTHCARE [id number] SP U [id number] SELF PAY ONLY [id number] CIGNA HealthCare Other 0 [id number] Family Dependent Tadeo Robb 0 BCBS [place] PPO 302/307 [id number] SP [id number] EXCELLUS BCBS B [id number] S VYS [id number] [place] 306/806 [id number] SP [id number] EXCELLUS BCBS B [id number] S VYS [id number] [place] 306/806 [id number] SP [id number] CIGNA HEALTHCARE [id number] HU2 U [id number] CIGNA HEALTHCARE O [id number] S U [id number] OTHER WORKERS COMPENSATION [id number] SP [id number] Cigna/Conn Gen/Equicor Commercial [id number] Family Dependent [id number] Cigna/MVP Commercial [id number] Self [id number] Cigna/MVP Commercial [id number] Self [id number] CIGNA INSURANCE CO O [id number] O [id number] Cigna/MVP Commercial [id number] [id number] Self [id number] Cigna/Conn Gen/MVP Medigap Part B [id number] Self [id number] United [employer] Medigap Part B [id number] Family Dependent [id number] [facility] Health Maintenance Organization (HMO) [id number] Self [id number] [employer] Commercial [id number] .[id number] .[id number] Self [id number] Cigna/MVP Commercial [id number] Self [id number] CIGNA HEALTHCARE [id number] SP U [id number] CIGNA HEALTHCARE [id number] SP U [id number] UNITED HEALTHCARE [id number] HU2 [id number] STATE INSURANCE FUND [id number] 2 [id number] STATE INSURANCE FUND [id number] SP [id number] [facility] Health Maintenance Organization (HMO) [id number] Self [id number] UNITED HEALTHCARE [id number] HU2 83 [id number] STATE INSURANCE FUND O [id number] S [id number] UNITED HEALTHCARE [id number] [id number] [facility] O [id number] P [id number] [facility] Health Maintenance Organization (HMO) [id number] Self [id number] [facility](MCAID) O [id number] S [id number] MEDICAID [id number] SP [id number] [facility] Health Maintenance Organization (O) [id number] Self Problems, Conditions, and Diagnoses No Information Surgeries/Procedures Procedure Description Date Indications Data Source(s) PERIODIC PREVENTIVE MED EST PATIENT 40-64YRS 12:00:00 AM EDT [facility] ([facility]) Mammogram 03/15/2020 12:00:00 AM EDT M EDENT ([facility]) Results ID Date Data Source [id number] 04/10/2021 11:13:00 AM EST [facility] ([facility]) Name Value Range Interpretation Code Description Data Carie rce(s) Supporting Document(s) Leukocytes [#/volume] in Blood by Automated count 20.1 x10*3/UL 4.1-10.9 Above upper panic limits MED[facility] ([facility]) CRITICAL: CBC VERIFIED MALLORY NOTIFIED NOTE: MANUAL DIFFERENTIAL SENT TO [facility] FOR VERIFICATION. Erythrocytes [#/volume] in Blood by Automated count 4.61 x10*6/UL 4.2 0-6.30 [facility] ([facility]) Hemoglobin [Mass/volume] in Blood 15.8 g/dL 12.0-18.0 [facility] ([facility]) Hematocrit [Volume Fraction] of Blood by Automated count 45.2 % 3 7.0-51.0 [facility] ([facility]) MCV 98.0 fL 80.0-97.0 [facility] MCH 34.2 pg 26.0-32.0 [facility]) MCHC 34.9 g/dL 31.0-38.0 [facility] Erythrocyte distribution width [Ratio] by Automated count 13.1 % 11.6-13.7 [facility] ([facility]) Platelets [#/volume] in Blood by Automated count 362 x10*3/UL 140-440 [facility] ([facility]) MPV 7.6 FL 7.8-11.0 [facility]) Lymph % 5.4 % 10.0-58.5 [facility]) Mid % 1.5 % 1.7-9.3 [facility]) Neut % 93.1 % 37.0-92.0 [facility]) Lymph # 1.1 x10*3/UL 0.6-4.1 [facility] ([facility]) Mid # 0.3 x10*3/UL 0.1-0.6 [facility] ([facility]) Neut # 18.7 x10*3/UL 2.0-7.8 [facility] ([facility]) ID Date Data Source [id number] 04/02/2021 02:37:00 PM EST [facility] Name Value Range Interpretation Code Description Data Carie rce(s) Supporting Document(s) SARS-CoV-2 (COVID 19) NEGATIVE - [facility]COVID19) [facility] This lab was ordered by [facility] a nd reported by [facility]. ID Date Data Source [id number] 03/29/2021 02:00:00 PM EDT [facility] Name Value Range Interpretation Code Description Data Carie rce(s) Supporting Document(s) SARS-CoV-2 RNA Resp Ql HIRAL+probe NOT DETECTED [facility] This lab was ordered by [facility] and reported by [facility]. ID Date Data Source [id number] 03/22/2021 01:30:00 PM EDT [facility] Name Value Range Interpretation Code Description Data Carie rce(s) Supporting Document(s) SARS-CoV-2 RNA Resp Ql HIRAL+probe NOT DETECTED [facility] This lab was ordered by [facility] and reported by [facility]. ID Date Data Source [id number] 03/14/2021 07:52:00 AM EDT [facility] ([facility]) Name Value Range Interpretation Code Description Data Carie rce(s) Supporting Document(s) Glucose [Mass/volume] in Serum or Plasma 89 mg/dL 74-99 [facility] ([facility]) 100-125 mg/dL PRE-DIABETES/FASTING >126 mg/dL DIABETES/FASTING Urea nitrogen [Mass/volume] in Serum or Plasma 19 mg/dL 7-18 [facility] ([facility]) Creatinine 0.7 mg/dL 0.6-1.3 [facility] ([facility]) Sodium [Moles/volume] in Serum or Plasma 137 meq/L 136-145 [facility] ([facility]) Potassium [Moles/volume] in Serum or Plasma 4.6 meq/L 3.5-5.1 [facility] ([facility]) Chloride [Moles/volume] in Serum or Plasma 102 meq/L 98-107 [facility] ([facility]) Calcium [Mass/volume] in Serum or Plasma 9.3 mg/dL 8.5-10.1 [facility] ([facility]) Carbon dioxide, total [Moles/volume] in Serum or Plasma 28 meq/L 21 -32 [facility] ([facility]) Glomerular filtration rate/1.73 sq M pre dicted among non-blacks [Volume Rate/Area] in Serum or Plasma by Creatinine-based formula (MDRD) Laboratory test result [facility] ([facility] ) Glomerular filtration rate/1.73 sq M pre dicted among blacks [Volume Rate/Area] in Serum or Plasma by Creatinine-based formula (MDRD) Laboratory test result [facility]) <content>CHRONIC KIDNEY DISEASE STAGING PER NKF</content>
<content></content>
<content>STAGE I & II GFR >= 60 NORMAL TO MILDLY DECREASED</content>
<content>STAGE III GFR 30-59 MODERATELY DECREASED</content>
<content>STAGE IV GFR 15-29 SEVERELY DECREASED</content>
<content>STAGE V GFR <15 VERY LITTLE GFR LEFT</content>
<content>ESRD GFR <15 ON PAVING INSPECTOR</content>
<content></content> ID Date Data Source [id number] 09/06/2020 01:57:00 PM EDT [facility] ([facility]) Name Value Range Interpretation Code Description Data Carie rce(s) Supporting Document(s) Triglyceride [Mass/volume] in Serum or Plasma 330 mg/dL 30-150 [facility] ([facility]) Cholesterol [Mass/volume] in Serum or Plasma 233 mg/dL 131-200 [facility] ([facility]) Cholesterol in LDL [Mass/volume] in Serum or Plasma by calcu lation 110 CALC 50-159 [facility] ([facility]) Cholesterol in HDL [Mass/volume] in Serum or Plasma 57 mg/dL 35-60 [facility] ([facility]) ID Date Data Source [id number] 09/06/2020 01:57:00 PM EDT [facility] ([facility]) Name Value Range Interpretation Code Description Data Carie rce(s) Supporting Document(s) Glucose [Mass/volume] in Serum or Plasma 90 mg/dL 74-99 [facility] ([facility]) 100-125 mg/dL PRE-DIABETES/FASTING >126 mg/dL DIABETES/FASTING Creatinine 0.7 mg/dL 0.6-1.3 [facility] ([facility]) Urea nitrogen [Mass/volume] in Serum or Plasma 8 mg/dL 7-18 [facility] ([facility]) Potassium [Moles/volume] in Serum or Plasma 3.9 meq/L 3.5-5.1 [facility] ([facility]) Sodium [Moles/volume] in Serum or Plasma 137 meq/L 136-145 [facility] ([facility]) Chloride [Moles/volume] in Serum or Plasma 102 meq/L 98-107 [facility] ([facility]) Calcium [Mass/volume] in Serum or Plasma 9.1 mg/dL 8.5-10.1 [facility] ([facility]) Carbon dioxide, total [Moles/volume] in Serum or Plasma 28 meq/L 21 -32 [facility] ([facility]) Total Bilirubin 0.4 mg/dL 0.2-1.0 [facility] ([facility]) Alkaline phosphatase isoenzyme [Units/volume] in Serum or Pl asma 115 mg/dL 46-116 [facility] ([facility]) Aspartate aminotransferase [Enzymatic activity/volume] in Serum or Plasma 31 U/L 15-37 [facility] ([facility] ) Alanine aminotransferase [Enzymatic activity/volume] in Seru m or Plasma 39 U/L 12-78 [facility]) Albumin [Mass/volume] in Serum or Plasma 3.9 g/dL 3.4-5.0 [facility] ([facility]) Proteinase 3 Ab [Units/volume] in Serum 7.0 g/dL 6.4-8.2 [facility] A/G Ratio 1.26 CALC 1.00-1.90 [facility] Glomerular filtration rate/1.73 sq M pre dicted among blacks [Volume Rate/Area] in Serum or Plasma by Creatinine-based formula (MDRD) Laboratory test result [facility] ([facility]) <content>CHRONIC KIDNEY DISEASE STAGING PER NKF</content>
<content></content>
<content>STAGE I & II GFR >= 60 NORMAL TO MILDLY DECREASED</content>
<content>STAGE III GFR 30-59 MODERATELY DECREASED</content>
<content>STAGE IV GFR 15-29 SEVERELY DECREASED</content>
<content>STAGE V GFR <15 VERY LITTLE GFR LEFT</content>
<content>ESRD GFR <15 ON PAVING INSPECTOR</content>
<content></content> Glomerular filtration rate/1.73 sq M pre dicted among non-blacks [Volume Rate/Area] in Serum or Plasma by Creatinine-based formula (MDRD) Laboratory test result [facility] ID Date Data Source [id number] 09/06/2020 01:57:00 PM EDT [facility] Name Value Range Interpretation Code Description Data Carie rce(s) Supporting Document(s) Leukocytes [#/volume] in Blood by Automated count 9.1 x10*3/UL 4.1-10 .9 [facility] Erythrocytes [#/volume] in Blood by Automated count 4.57 x10*6/UL 4.2 0-6.30 [facility] Hematocrit [Volume Fraction] of Blood by Automated count 46.3 % 3 7.0-51.0 [facility] ([facility]) MCV 101.1 fL 80.0-97.0 [facility] Hemoglobin [Mass/volume] in Blood 15.9 g/dL 12.0-18.0 [facility] ([facility]) MCHC 34.3 g/dL 31.0-38.0 [facility]) MCH 34.7 pg 26.0-32.0 [facility] Platelets [#/volume] in Blood by Automated count 373 x10*3/UL 140-440 [facility] ([facility]) Erythrocyte distribution width [Ratio] by Automated count 13.4 % 11.6-13.7 [facility] ([facility]) Lymph % 23.9 % 10.0-58.5 [facility] MPV 7.3 FL 7.8-11.0 [facility] Mid % 5.9 % 1.7-9.3 [facility] Neut % 70.2 % 37.0-92.0 [facility] Lymph # 2.1 x10*3/UL 0.6-4.1 [facility] ([facility]) Neut # 6.4 x10*3/UL 2.0-7.8 [facility] ([facility]) Mid # 0.6 x10*3/UL 0.1-0.6 [facility] ([facility]) ID Date Data Source [id number] 06/28/2020 01:00:00 PM EST [facility] Name Value Range Interpretation Code Description Data Carie rce(s) Supporting Document(s) SARS coronavirus 2 RNA Not Detected [facility] [place] This lab was ordered by [facility] and reported by [facility]. ID Date Data Source [id number] 06/11/2020 11:20:00 AM EST [facility] Name Value Range Interpretation Code Description Data Carie rce(s) Supporting Document(s) SARS coronavirus 2 RNA Not Detected [facility] [place] This lab was ordered by [facility] and reported by [facility]. ID Date Data Source [id number] 06/10/2020 12:00:00 AM EST [facility] Name Value Range Interpretation Code Description Data Carie rce(s) Supporting Document(s) SARS coronavirus 2 Ag Negative [facility] This lab was ordered by [facility] and reported by [facility]. ID Date Data Source [id number] 05/15/2020 12:15:00 PM EST [facility] Name Value Range Interpretation Code Description Data Carie rce(s) Supporting Document(s) SARS coronavirus 2 RNA [facility] This lab was ordered by [facility] and reported by [facility]. ID Date Data Source [id number] 03/15/2020 12:00:00 AM EDT [facility] Samantha Bueno DO Patient Name: MARLO [id number] [facility] Date of : 1970[address] Date of Exam: 03/15/2020TING [place] [id number]#: Fax: [phone] EXAM: MAMMO SCREENING WITH CADCLINICAL [...] criteria for genetic testing established by National [facility] and [place] [employer] guidelines. She should pursue arisk assessment with a hereditary cancer specialist which may includetesting based on these criteria. The benefits and limitations of genetictesting would be discussed, including potential changes to medicalmanagement based on the results. [facility].Digital screening (2D) mammography [...] mammogram was read with the assistance of [employer], an FDAapproved computer aided detection system for [...] rce(s) Supporting Document(s) ID Date Data Source [id number] 03/13/2020 09:48:00 AM EDT [facility] ([facility]) Name Value Range Interpretation Code Description Data Carie rce(s) Supporting Document(s) Alkaline phosphatase isoenzyme [Units/volume] in Serum or Pl asma 116 mg/dL 46-116 [facility] ([facility]) Total Bilirubin 1.0 mg/dL 0.2-1.0 [facility] ([facility]) Aspartate aminotransferase [Enzymatic activity/volume] in Serum or Plasma 22 U/L 15-37 [facility] ([facility] ) Albumin [Mass/volume] in Serum or Plasma 3.9 g/dL 3.4-5.0 [facility]) Alanine aminotransferase [Enzymatic activity/volume] in Seru m or Plasma 35 U/L 12-78 [facility] ([facility]) Proteinase 3 Ab [Units/volume] in Serum 7.0 g/dL 6.4-8.2 [facility] A/G Ratio 1.26 CALC 1.00-1.90 [facility] Direct Bilirubin 0.2 mg/dL 0.0-0.2 [facility] ([facility]) ID Date Data Source [id number] 03/07/2020 05:15:00 PM EDT [facility] Name Value Range Interpretation Code Description Data Carie caro center(s) Supporting Document(s) Respiratory Panel Laboratory test result [facility] ([facility]) This respiratory PCR panel detects Influ [...] - SARS-CoV-2 (COVID19) ID Date Data Source [id number] 03/07/2020 05:04:00 PM EDT [facility] Name Value Range Interpretation Code Description Data Carie rce(s) Supporting Document(s) Blood Culture Laboratory test result [facility] ([facility]) No growth after 72 hours . All specimens observed for 5 days. Results final at that time. No growth after 48 hours . All specimens observed for 5 days. Results final at that time. No growth after 24 hours . All specimens observed for 5 days. Results final at that time. NO GROWTH AFTER 5 DAYS ID Date Data Source [id number] 03/07/2020 04:37:00 PM EDT [facility] ([facility]) Name Value Range Interpretation Code Description Data Carie rce(s) Supporting Document(s) Glucose, Fasting 99 mg/dL 70-100 [facility] ([facility]) Blood Urea Nitrogen 12 mg/dL 7-18 [facility] ([facility]) Glomerular Filtration Rate Laboratory test result [facility] ([facility]) <content>Units are mL/min/1.73 m2</content>
<content></content>
<content>Chronic Kidney Disease Staging per NKF:</content>
<content></content>
<content>Stage I & II GFR >=60 Normal to Mildly Decreased</content>
<content>Stage III GFR 30- 59 Moderately Decreased</content>
<content>Stage IV GFR 15-29 Severely Decreased</content>
<content>Stage V GFR <15 Very Little GFR Left</content>
<content>ESRD GFR <15 on PAVING INSPECTOR</content>
<content></content> Creatinine For GFR 0.63 mg/dL 0.55-1.30 [facility] ([facility]) Chloride Level 109 meq/L 98-107 [facility] ([facility]) Potassium Serum 3.9 meq/L 3.5-5.1 [facility] ([facility]) Sodium Level 142 meq/L 136-145 [facility] ([facility]) Anion Gap 7 meq/L 8-16 [facility]) Carbon Dioxide Level 26 meq/L 21-32 [facility] ([facility] Calcium Level 9.1 mg/dL 8.5-10.1 [facility] ([facility]) ID Date Data Source [id number] 03/07/2020 04:37:00 PM EDT [facility] ([facility]) Name Value Range Interpretation Code Description Data Carie rce(s) Supporting Document(s) Alt/SGPT 32 U/L 12-78 [facility] ([facility]) Alkaline Phosphatase 109 U/L 45-117 [facility] ([facility]) Ast/Sgot 16 U/L 7-37 [facility] ([facility]) Bilirubin,Total 0.4 mg/dL 0.2-1.0 [facility] ([facility]) Total Protein 6.9 GM/DL 6.4-8.2 [facility] ([facility]) Bilirubin,Direct 0.1 mg/dL 0.0-0.2 [facility] ([facility]) Albumin/Globulin Ratio 1.2 1.2-2.2 [facility] ([facility]) Albumin 3.7 GM/DL 3.2-5.2 [facility] ([facility]) ID Date Data Source [id number] 03/07/2020 04:37:00 PM EDT [facility] ([facility]) Name Value Range Interpretation Code Description Data Carie rce(s) Supporting Document(s) CPK Creatine Phosphokinase 65 U/L 26-192 [facility] ([facility]) CK-MB Value Mass Laboratory test result [facility] ([facility]) MB/CK Relative Index 1.54 [facility] ([facility]) <content>DIAGNOSIS CRITERIA</content>
<content>MMB ng/ml Relative Index (RI)</content>
<content>NON-AMI < or = 5 N/A</content>
<content>HARDEN ZONE > 5 < or = 4</content>
<content>AMI > 5 > 4</content>
<content></content> Troponin I Laboratory test result [facility] ([facility]) <content>Troponin I Reference Interval f or Siemens [place] LOCI:</content>
<content></content>
<content>99th Percentile= 0.00-0.045 ng/ml</content>
<content></content>
<content>Risk Stratification:</content>
<content><= 0.10 ng/ml Decreased Risk for Adverse Clinical</content>
<content>Events.</content>
<content>0.10-1.50 ng/ml Increased Risk for Adverse Clinical</content>
<content>Events. Evaluation of additional</content>
<content>criterion and/or repeat testing in 2-6</content>
<content>hours is suggested to rule out myocardial</content>
<content>damage.</content>
<content>>= 1.50 ng/ml Indicative of Myocardial Injury.</content>
<content></content> ID Date Data Source [id number] 03/07/2020 04:37:00 PM EDT [facility] ([facility]) Name Value Range Interpretation Code Description Data Carie rce(s) Supporting Document(s) White Blood Count 7.6 10 4.0-10.0 [facility] ([facility]) Red Blood Count 4.65 10 4.00-5.40 [facility] ([facility]) Hemoglobin 16.0 g/dL 12.0-15.5 [facility]) Hematocrit 47.0 % 36.0-47.0 [facility] ([facility]) Mean Corpuscular Hemoglobin 34.4 pg 27.0-33.0 [facility] ([facility]) Mean Corpuscular Volume 101.1 fl 80.0-96.0 [facility] ([facility]) Red Cell Distribution Width 12.0 % 11.5-14.5 [facility] ([facility]) Mean Corpuscular HGB Conc 34.0 g/dL 32.0-36.5 [facility] ([facility]) Neutrophils % 53.7 % 36.0-66.0 [facility] ([facility]) Platelet Count, Automated 308 10 150-450 [facility] ([facility]) Wilkin % 7.2 % 0.0-5.0 [facility]) Eos % 1.1 % 0.0-3.0 [facility]) Lymph % 37.2 % 24.0-44.0 [facility]) Baso % 0.4 % 0.0-1.0 [facility]) Nucleated Red Blood Cell % 0.0 % 0-0 [facility] ([facility]) Immature Granulocyte % 0.4 % 0-3.0 [facility] ([facility]) Wilkin # 0.6 10 0.0-0.8 [facility]) Lymph # 2.8 10 1.5-5.0 [facility]) Neutrophils # 4.1 10 1.5-8.5 [facility] ([facility]) Baso # 0.0 10 0.0-0.2 [facility]) Eos # 0.1 10 0.0-0.5 [facility]) ID Date Data Source [id number] 02/29/2020 10:24:00 AM EDT [facility] ([facility]) Name Value Range Interpretation Code Description Data Carie rce(s) Supporting Document(s) LDL Direct 131 mg/dL 0-99 [facility]) Comment LDL Direct Laboratory test result [facility] ([facility]) Performed at: RN - [facility] [address] [id number] Director Quality Assurance: Bethanie Dale MD, Phone: [phone] ID Date Data Source [id number] 02/29/2020 10:24:00 AM EDT [facility] ([facility]) Name Value Range Interpretation Code Description Data Carie rce(s) Supporting Document(s) Cholesterol [Mass/volume] in Serum or Plasma 249 mg/dL 131-200 [facility] ([facility]) Cholesterol in HDL [Mass/volume] in Serum or Plasma 40 mg/dL 35-60 [facility] ([facility]) Triglyceride [Mass/volume] in Serum or Plasma 481 mg/dL 30-150 [facility] ([facility]) Cholesterol in LDL [Mass/volume] in Serum or Plasma by calculation Laboratory test result 50-159 [facility] ([facility] ) Unable to calculate ID Date Data Source [id number] 02/29/2020 10:24:00 AM EDT [facility] ([facility]) Name Value Range Interpretation Code Description Data Carie rce(s) Supporting Document(s) Glucose [Mass/volume] in Serum or Plasma 107 mg/dL 74-99 [facility] ([facility]) 100-125 mg/dL PRE-DIABETES/FASTING >126 mg/dL DIABETES/FASTING Urea nitrogen [Mass/volume] in Serum or Plasma 11 mg/dL 7-18 [facility] ([facility]) Potassium [Moles/volume] in Serum or Plasma 4.0 meq/L 3.5-5.1 [facility] ([facility]) Creatinine 0.7 mg/dL 0.6-1.3 [facility] ([facility]) Sodium [Moles/volume] in Serum or Plasma 140 meq/L 136-145 [facility] ([facility]) Carbon dioxide, total [Moles/volume] in Serum or Plasma 26 meq/L 21 -32 [facility] ([facility]) Chloride [Moles/volume] in Serum or Plasma 103 meq/L 98-107 [facility] Calcium [Mass/volume] in Serum or Plasma 9.1 mg/dL 8.5-10.1 [facility]) Glomerular filtration rate/1.73 sq M pre dicted among non-blacks [Volume Rate/Area] in Serum or Plasma by Creatinine-based formula (MDRD) Laboratory test result [facility] ([facility] Glomerular filtration rate/1.73 sq M pre dicted among blacks [Volume Rate/Area] in Serum or Plasma by Creatinine-based formula (MDRD) Laboratory test result [facility] ([facility]) <content>CHRONIC KIDNEY DISEASE STAGING PER NKF</content>
<content></content>
<content>STAGE I & II GFR >= 60 NORMAL TO MILDLY DECREASED</content>
<content>STAGE III GFR 30-59 MODERATELY DECREASED</content>
<content>STAGE IV GFR 15-29 SEVERELY DECREASED</content>
<content>STAGE V GFR <15 VERY LITTLE GFR LEFT</content>
<content>ESRD GFR <15 ON PAVING INSPECTOR</content>
<content></content> ID Date Data Source [id number] 02/29/2020 10:24:00 AM EDT [facility] ([facility]) Name Value Range Interpretation Code Description Data Carie rce(s) Supporting Document(s) Hemoglobin [Mass/volume] in Blood 16.4 g/dL 12.0-18.0 [facility] ([facility]) Leukocytes [#/volume] in Blood by Automated count 7.4 x10*3/UL 4.1-10 .9 [facility] ([facility] Erythrocytes [#/volume] in Blood by Automated count 4.79 x10*6/UL 4.2 0-6.30 [facility] ([facility] Hematocrit [Volume Fraction] of Blood by Automated count 47.9 % 3 7.0-51.0 [facility] ([facility]) MCHC 34.3 g/dL 31.0-38.0 [facility]) MCH 34.3 pg 26.0-32.0 [facility] ([facility]) MCV 100.0 fL 80.0-97.0 [facility] ([facility]) Platelets [#/volume] in Blood by Automated count 354 x10*3/UL 140-440 [facility] MPV 8.2 FL 7.8-11.0 [facility]) Erythrocyte distribution width [Ratio] by Automated count 12.6 % 11.6-13.7 [facility] ([facility]) Lymph # 1.3 x10*3/UL 0.6-4.1 [facility] ([facility]) Neut % 77.6 % 37.0-92.0 [facility] Lymph % 18.2 % 10.0-58.5 [facility]) Mid % 4.2 % 1.7-9.3 [facility]) Mid # 0.3 x10*3/UL 0.1-0.6 [facility] ([facility]) Neut # 5.8 x10*3/UL 2.0-7.8 [facility] ([facility]) ID Date Data Source [id number] 02/29/2020 10:24:00 AM EDT [facility] ([facility]) Name Value Range Interpretation Code Description Data Carie rce(s) Supporting Document(s) Cholesterol in LDL [Mass/volume] in Serum or Plasma by Direct assay Laboratory test result [facility] ([facility] ) Procedure Social History Code Duration Value Status Description Data Source(s ) Smoking 12/05/2020 08:10:00 AM EDT Ex-smoker (finding) complet ed Ex-smoker (finding) [place] (Roger Alford [facility]) Vital Signs ID Date Data Source [id number] Name Value Range Interpretation Code Description Data Source(s) Systolic blood pressure 122 mm[Hg] 122 mm[Hg] M [facility] ([facility]) LT Arm Diastolic blood pressure 80 mm[Hg] 80 mm[Hg] [facility] ([facility]) LT Arm Heart rate 124 /min 124 /min [facility] ([facility]) Body height 62.50 [in_i] 62.50 [in_i] [facility] ([facility]) 5'2.50" Body mass index (BMI) [Ratio] 28.7 kg/m2 28.7 k g/m2 [facility] ([facility]) Body weight 159.50 [lb_av] 159.50 [lb_av] [facility] Oxygen saturation in Arterial blood by Pulse oximetry --post exerci se 96 % 96 % [facility] ([facility]) RM Air Systolic blood pressure 122 mm[Hg] 122 mm[Hg] M [facility] ([facility]) Diastolic blood pressure 76 mm[Hg] 76 mm[Hg] [facility] ([facility]) Body weight 155.00 [lb_av] 155.00 [lb_av] [facility] ([facility]) Body mass index (BMI) [Ratio] 27.9 kg/m2 27.9 k g/m2 [facility] ([facility]) Heart rate 86 /min 86 /min [facility] ([facility]) Body height 62.50 [in_i] 62.50 [in_i] [facility] ([facility] 5'2.50" Systolic blood pressure 122 mm[Hg] 122 mm[Hg] M [facility]ENT ([facility]) Diastolic blood pressure 70 mm[Hg] 70 mm[Hg] [facility] ([facility]) Heart rate 102 /min 102 /min [facility] ([facility]) Body height 62.50 [in_i] 62.50 [in_i] [facility] 5'2.50" Body weight 163.00 [lb_av] 163.00 [lb_av] [facility] ([facility]) Oxygen saturation in Arterial blood by Pulse oximetry 95 % 95 % [facility] ([facility]) [facility] Body mass index (BMI) [Ratio] 29.3 kg/m2 29.3 k g/m2 [facility] ([facility]) Systolic blood pressure 138 mm[Hg] 138 mm[Hg] M EDENT ([facility], [facility]) Diastolic blood pressure 100 mm[Hg] 100 mm[Hg] [facility] ([facility], [facility]) Heart rate 103 /min 103 /min [facility] ([facility], [facility]) Respiratory rate 18 /min 18 /min [facility] ( [facility], [facility]) Oxygen saturation in Arterial blood by Pulse oximetry 97 % 97 % [facility] ([facility], [facility]) Body temperature 98.3 [degF] 98.3 [degF] [facility] ([facility], [facility]) Body weight 165.00 [lb_av] 165.00 [lb_av] [facility] ([facility], [facility]) Body height 62 [in_i] 62 [in_i] [facility] ([facility], [facility]) 5'2" Body mass index (BMI) [Ratio] 30.2 kg/m2 30.2 k g/m2 [facility] ([facility], [facility]) Systolic blood pressure 120 mm[Hg] 120 mm[Hg] M EDENT ([facility]) Diastolic blood pressure 82 mm[Hg] 82 mm[Hg] [facility] ([facility]) Body height 62.50 [in_i] 62.50 [in_i] [facility] 5'2.50" Body weight 163.00 [lb_av] 163.00 [lb_av] [facility] T ([facility]) Body mass index (BMI) [Ratio] 29.3 kg/m2 29.3 k g/m2 [facility] ([facility]) Body height 62 [in_i] 62 [in_i] [facility] ([facility]) 5'2" Body temperature 98.7 [degF] 98.7 [degF] [facility] ([facility], [facility]) Systolic blood pressure 139 mm[Hg] 139 mm[Hg] M EDENT ([facility], [facility]) Diastolic blood pressure 96 mm[Hg] 96 mm[Hg] [facility] ([facility], [facility]) Body mass index (BMI) [Ratio] 30.2 kg/m2 30.2 k g/m2 [facility] ([facility], [facility]) Heart rate 100 /min 100 /min [facility] ([facility], [facility]) Respiratory rate 14 /min 14 /min [facility] ( [facility], [facility]) Oxygen saturation in Arterial blood by Pulse oximetry 98 % 98 % [facility] ([facility], [facility]) Body weight 165.00 [lb_av] 165.00 [lb_av] [facility] ([facility], [facility]) Heart rate 87 /min 87 /min [facility] ([facility] Body height 62.50 [in_i] 62.50 [in_i] [facility] 5'2.50" Body weight 165.00 [lb_av] 165.00 [lb_av] [facility] ([facility]) Body mass index (BMI) [Ratio] 29.7 kg/m2 29.7 k g/m2 [facility] ([facility]) Diastolic blood pressure 82 mm[Hg] 82 mm[Hg] [facility] ([facility]) Oxygen saturation in Arterial blood by Pulse oximetry 100 % 100 % [facility] ([facility]) Air Systolic blood pressure 122 mm[Hg] 122 mm[Hg] M EDENT ([facility]) Body weight 159.00 [lb_av] 159.00 [lb_av] [facility] ([facility]) Systolic blood pressure 157 mm[Hg] 157 mm[Hg] M EDENT ([facility], [facility]) pt has not taken meds in 2+ days Diastolic blood pressure 111 mm[Hg] 111 mm[Hg] [facility] ([facility], [facility]) pt has not taken meds in 2+ days Heart rate 113 /min 113 /min [facility] ([facility], [facility]) Oxygen saturation in Arterial blood by Pulse oximetry 98 % 98 % [facility] ([facility], [facility]) Body temperature 98.7 [degF] 98.7 [degF] [facility] ([facility], [facility]) Body height 62 [in_i] 62 [in_i] [facility] ([facility], [facility]) 5'2" Body mass index (BMI) [Ratio] 29.1 kg/m2 29.1 k g/m2 [facility] ([facility], [facility])
[2021-04-10] MEDS: ACETAMINOPHEN TAB 650MG DOSE (2X325MG) PO PRN (20:41)
[2021-04-10] MEDS ORDERED: [UNRECOGNIZED DRUG - CODE] PO (20:57)
[2021-04-10] MEDS ORDERED: PANT40TA29 PO (20:57)
[2021-04-10] MEDS ORDERED: PROAAER10 INH (20:57)
[2021-04-10] MEDS ORDERED: PRED10TA2 PO (20:57)
[2021-04-10] MEDS ORDERED: SYMB80INH INH (20:57)
[2021-04-10] MEDS ORDERED: HOME MED LIST COMPLETE! XX SCH (21:00)
[2021-04-10 22:20] VITALS: BP 140/60
[2021-04-10] MEDS ORDERED: LIDOCAINE 4% CREAM 5GM (LMX4) TOP PRN (23:10)
[2021-04-11] MEDS ORDERED: NS 1,000 ML IV ONE
[2021-04-11] MEDS: IPRATROPIUM 0.5MG/ALBUTEROL 2.5MG INH SOL UD 3ML (DUONEB) NEB SCH ×2 (00:22→07:17)
[2021-04-11 02:19] LABS: HEMATOCRIT 42.8 % (36.0-47.0); HEMOGLOBIN 14.6 g/dl (12.0-15.5); MEAN CORPUSCULAR HEMOGLOBIN 34.1 pg (27.0-33.0); MEAN CORPUSCULAR HGB CONC 34.1 g/dl (32.0-36.5); PLATELET COUNT, AUTOMATED 274 10^3/uL (150-450); RED BLOOD COUNT 4.28 10^6/uL (4.00-5.40)
[2021-04-11 03:09] LABS: BLOOD UREA NITROGEN 16 MG/DL (7-18); CALCIUM LEVEL 8.1 MG/DL (8.5-10.1); CARBON DIOXIDE LEVEL 26 MEQ/L (21-32); CHLORIDE LEVEL 109 MEQ/L (98-107); CREATININE FOR GFR 0.72 MG/DL (0.55-1.30); GLOMERULAR FILTRATION RATE > 60.0 (>58); GLUCOSE, FASTING 143 MG/DL (70-100); POTASSIUM SERUM 4.3 MEQ/L (3.5-5.1); SODIUM LEVEL 140 MEQ/L (136-145)
[2021-04-11 08:27] LABS: HEMATOCRIT 42.6 % (36.0-47.0); HEMOGLOBIN 14.4 g/dl (12.0-15.5); MEAN CORPUSCULAR HGB CONC 33.8 g/dl (32.0-36.5); MEAN CORPUSCULAR VOLUME 100.7 fl (80.0-96.0); PLATELET COUNT, AUTOMATED 272 10^3/uL (150-450); RED BLOOD COUNT 4.23 10^6/uL (4.00-5.40); WHITE BLOOD COUNT 17.9 10^3/uL (4.0-10.0)
[2021-04-11 08:55] LABS: BLOOD UREA NITROGEN 16 MG/DL (7-18); CALCIUM LEVEL 8.1 MG/DL (8.5-10.1); CARBON DIOXIDE LEVEL 25 MEQ/L (21-32); CHLORIDE LEVEL 109 MEQ/L (98-107); CREATININE FOR GFR 0.63 MG/DL (0.55-1.30); GLOMERULAR FILTRATION RATE > 60.0 (>58); GLUCOSE, FASTING 181 MG/DL (70-100); SODIUM LEVEL 141 MEQ/L (136-145)
[2021-04-11] MEDS ORDERED: PANTOPRAZOLE 40MG TAB (PROTONIX) PO SCH (09:00)
--- NOTE | 2021-04-11 10:23 | REP ---
INDICATION: persistent cough, sob COMPARISON: 04/02/2021 TECHNIQUE: Axial noncontrast images from the thoracic inlet to the upper abdomen with coronal and sagittal reformations. This CT examination was performed using the following dose reduction techniques: Automated exposure control, adjustment of mA and/or kv according to the patient's size, and use of iterative reconstruction technique. FINDINGS: The bilateral lung pardo are well aerated and relatively clear. Very minimal acute bibasilar atelectatic changes are noted. No focal consolidation, suspicious nodule or mass. No effusion. No pneumothorax. Tracheobronchial tree is patent and without bronchiectasis. IMPRESSION: Mild bibasilar atelectasis. <Electronically signed by Juaquin Worthington > 04/11/21 1012
[2021-04-11] MEDS: ENOXAPARIN 40MG/0.4ML SYRINGE (J1650 PER 10MG) SC SCH (10:52)
[2021-04-11] MEDS: predniSONE 20 MG TAB PO SCH (10:52)
[2021-04-11] MEDS: PANTOPRAZOLE 40MG TAB (PROTONIX) PO SCH (10:53)
[2021-04-11] MEDS: guaiFENesin DM LIQ 10ML UD PO PRN ×2 (10:57→18:42)
[2021-04-11] MEDS ORDERED: RAMELTEON 8 MG TAB (ROZEREM) PO PRN (12:25)
--- NOTE | 2021-04-11 12:26 | IPNPDOC ---
Subjective Date Seen The patient was seen on 04/11/21. Subjective Chief Complaint/HPI Still feels wek and tired and intermittent dizzy, continues to have cough, breathing is better. Objective Physical Examination General Exam: Positive: Alert, Cooperative, No Acute Distress Eye Exam: Positive: PERRLA, Conjunctiva & lids normal, EOMI; Negative: Sclera icteric ENT Exam: Positive: Atraumatic, Mucous membr. moist/pink, Pharynx Normal Neck Exam: Positive: Supple; Negative: JVD, thyromegaly Chest Exam: Positive: Clear to auscultation, Normal air movement Heart Exam: Positive: Rate Normal, Regular Rhythm, Normal S1, Normal S2; Negative: Murmurs, Rubs Abdomen Exam: Positive: Normal bowel sounds, Soft; Negative: Tenderness, Hepatospenomegaly Extremity Exam: Positive: Normal pulses; Negative: Clubbing, Cyanosis, Edema Skin Exam: Positive: Nl turgor and temperature; Negative: Rash, Breakdown Assessment /Plan Assessment This is a 50 yr old F w a hx of Childhood Asthma / suspected COPD 2/2 tobacco abuse, HTN & Migraines who was recently in hospital from 04/03/21 to 04/08/21 for parainfluenza infection and asthma exacerbation. She was feeling dizzy, light headed and diaphoretic at home on standing up. Had 2 episodes after discharge. Went to see PMD on 04/10/21 and had blood work done. She came back to ED on 04/10/21 at the instruction of her PMD for elevated WBc of 24K. She was admitted for SIRS vs sepsis of unclear cause, and asthma exacerbation. SIRS She has leucocytosis which could be due to steroids and tachycardia which can also be caused by albuterol CT chest negative for any infiltrates or consolidation. Likely recovering viral infection. Presyncopal episode at home likely physical deconditioning from prolonged illness and recent ho spitalization. Possible mild dehydration. will reduce dose of lisinopril. Acute Asthma/ COPD Her viral panel is neg continue nebs, prednisone taper Polycythemia likely secondary to smoking. ordered work-up to r/o polycythemia vera. 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 Lactic acidosis could be due to albuterol use and asthma exacerbation. No signs of infection. Tobacco abuse advised smoking cessation. Plan/VTE VTE Prophylaxis Ordered?: Yes VS, I&O, 24H, Fishbone Vital Signs/I&O Vital Signs Date Time Temp Pulse Resp B/P (MAP) Pulse Ox O2 Delivery O2 Flow Rate FiO2 04/10/21 23:35 140/60 04/10/21 22:20 97.8 111 18 97 Room Air I&O- Last 24 Hours up to 6 AM 04/11/21 06:00 Intake Total 1000 ml Balance 1000 ml Laboratory Data 24H LABS Laboratory Tests 2 04/10/21 17:14: Immature Granulocyte % (Auto) 2.7, Neutrophils (%) (Auto) 90.6H, Lymphocytes (%) (Auto) 4.3L, Monocytes (%) (Auto) 2.2, Eosinophils (%) (Auto) 0.0, Basophils (%) (Auto) 0.2, Neutrophils # (Auto) 21.9H, Lymphocytes # (Auto) 1.0L, Monocytes # (Auto) 0.5, Eosinophils # (Auto) 0.0, Basophils # (Auto) 0.1, Nucleated Red Blood Cells % (auto) 0.0, Anion Gap 11, Glomerular Filtration Rate > 60.0, Calcium Level 8.9, Total Bilirubin 0.3, Direct Bilirubin 0.1, Aspartate Amino Transf (AST/SGOT) 11, Alanine Aminotransferase (ALT/SGPT) 46, Alkaline Phosp hatase 130H, Total Creatine Kinase 104, Creatine Kinase MB 2.8, Creatine Kinase MB Relative Index 2.69, Troponin I < 0.02, UL-Fqm-H-Type Natriuretic Peptide 136H, Total Protein 6.4, Albumin 3.3, Albumin/Globulin Ratio 1.1L, Thyroid Stimulating Hormone (TSH) 0.217L, Free Thyroxine 1.24 04/10/21 17:19: Lactic Acid Level 2.2*H 04/10/21 22:52: Lactic Acid Followup at 4 Hours 4.1*H 04/11/21 02:03: Nucleated Red Blood Cells % (auto) 0.0, Anion Gap 5L, Glomerular Filtration Rate > 60.0, Calcium Level 8.1L, Lactic Acid Level 3.6*H 04/11/21 07:49: 04/11/21 07:52: Nucleated Red Blood Cells % (auto) 0.0, Anion Gap 7L, Glomerular Filtration Rate > 60.0, Lactic Acid Followup at 4 Hours 3.0*H, Calcium Level 8.1L CBC/BMP Laboratory Tests 04/10/21 17:14 04/11/21 02:03 04/11/21 07:52 Microbiology Microbiology 04/11/21 Blood Culture, Received Pending 04/10/21 Respiratory Virus Panel (PCR) ([facility]) - Final, Complete RaySteffany MD Apr 11, 2021 12:26
[2021-04-11 12:45] VITALS: BP_SYST 146; BP_SYST 152; BP_DIAS 78; BP_DIAS 80; BP_DIAS 86
[2021-04-11] MEDS ORDERED: KETOROLAC 30 MG/ML 1ML VIAL IV ONE (13:05)
[2021-04-11 14:00] VITALS: BP 145/89
[2021-04-11] MEDS: ALBUTEROL SULFATE 2.5 MG/0.5 ML INH NEB SOLN NEB SCH (14:23)
[2021-04-11] MEDS ORDERED: LIDOCAINE 4% CREAM 5GM (LMX4) TOP PRN (15:00)
[2021-04-11 15:18] LABS: JAK2 MUTATIONS FOR PATH SENDOU See Pathology Report
[2021-04-11] MEDS ORDERED: ALBUTEROL SULFATE 2.5 MG/0.5 ML INH NEB SOLN NEB SCH (16:00)
[2021-04-11] MEDS: ACETAMINOPHEN TAB 650MG DOSE (2X325MG) PO PRN (18:41)
[2021-04-11] MEDS: SYMBICORT 160/4.5MCG INHALER 6GM INH SCH (19:14)
[2021-04-11 20:52] VITALS: BP 129/79
[2021-04-11 22:00] VITALS: BP 131/79
[2021-04-12 04:35] VITALS: BP_SYST 132; BP_SYST 137; BP_SYST 138; BP_DIAS 77; BP_DIAS 91
[2021-04-12 04:42] VITALS: BP 132/77
[2021-04-12] MEDS: ALBUTEROL SULFATE 2.5 MG/0.5 ML INH NEB SOLN NEB SCH ×2 (08:00)
[2021-04-12] MEDS: SYMBICORT 160/4.5MCG INHALER 6GM INH SCH (08:06)
[2021-04-12 09:04] LABS: BASO % 0.2 % (0.0-1.0); EOS % 0.1 % (0.0-3.0); HEMATOCRIT 40.4 % (36.0-47.0); HEMOGLOBIN 13.8 g/dl (12.0-15.5); LYMPH # 3.1 10^3/uL (1.5-5.0); LYMPH % 21.6 % (24.0-44.0); MEAN CORPUSCULAR HEMOGLOBIN 34.2 pg (27.0-33.0); MEAN CORPUSCULAR HGB CONC 34.2 g/dl (32.0-36.5); MONO # 0.7 10^3/uL (0.0-0.8); NEUTROPHILS # 10.3 10^3/uL (1.5-8.5); NEUTROPHILS % 70.8 % (36.0-66.0); PLATELET COUNT, AUTOMATED 218 10^3/uL (150-450); RED BLOOD COUNT 4.04 10^6/uL (4.00-5.40); WHITE BLOOD COUNT 14.5 10^3/uL (4.0-10.0)
[2021-04-12 09:08] LABS: ERYTHROPOIETIN 4.6 mIU/mL (2.6-18.5)
[2021-04-12 09:20] LABS: BLOOD UREA NITROGEN 22 MG/DL (7-18); CALCIUM LEVEL 8.5 MG/DL (8.5-10.1); CARBON DIOXIDE LEVEL 29 MEQ/L (21-32); CHLORIDE LEVEL 109 MEQ/L (98-107); CREATININE FOR GFR 0.67 MG/DL (0.55-1.30); GLOMERULAR FILTRATION RATE > 60.0 (>58); GLUCOSE, FASTING 90 MG/DL (70-100); SODIUM LEVEL 142 MEQ/L (136-145)
[2021-04-12] MEDS: PANTOPRAZOLE 40MG TAB (PROTONIX) PO SCH (10:35)
[2021-04-12] MEDS: predniSONE 20 MG TAB PO SCH (10:35)
[2021-04-12] MEDS: ENOXAPARIN 40MG/0.4ML SYRINGE (J1650 PER 10MG) SC SCH (10:36)
[2021-04-12] MEDS: guaiFENesin DM LIQ 10ML UD PO PRN (11:28)
[2021-04-12] MEDS ORDERED: LISI10TA22 PO (11:35)
--- NOTE | 2021-04-12 12:48 | DS.PDOC ---
Discharge Summary General Date of Admission Apr 10, 2021 at 16:47 Date of Discharge 04/12/21 Discharge Summary PROCEDURES PERFORMED DURING STAY: [None]. DISCHARGE DIAGNOSES: Presyncope due to deconditioning from prolonged viral illness and hospitalization. SIRS from recovering recent viral infection (parainfluenza) Leukocytosis due to steroids Asthma exacerbation Possible COPD Hypertension Lactic acidosis from likely from albuterol use Tobacco use disorder Migraine COMPLICATIONS/CHIEF COMPLAINT: Asthma Exacerbation, Pre-Syncope. HOSPITAL COURSE: This is a 50 yr old F w a hx of Childhood Asthma / suspected COPD 2/2 tobacco abuse, HTN & Migraines who was recently in hospital from 04/03/21 to 04/08/21 for parainfluenza infection and asthma exacerbation. She was feeling dizzy, light headed and diaphoretic at home on standing up. Had 2 episodes after discharge. Went to see PMD on 04/10/21 and had blood work done. She came back to ED on 04/10/21 at the instruction of her PMD for elevated WBc of 24K. She was admitted for SIRS vs sepsis of unclear cause, and asthma exacerbation. SIRS She has leucocytosis which could be due to steroids and tachycardia which can also be caused by albuterol CT chest negative for any infiltrates or consolidation. Recovering viral infection. Presyncopal episode at home likely physical deconditioning from prolonged illness and recent hospitalization. Possible mild dehydration. will reduce dose of lisinopril. Acute Asthma/ COPD Her viral panel is neg continue nebs, prednisone taper Polycythemia likely secondary to smoking. ordered work-up to r/o polycythemia vera. 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 Lactic acidosis could be due to albuterol use and asthma exacerbation. No signs of infection. Tobacco abuse advised smoking cessation. DISCHARGE MEDICATIONS: Please see below. ALLERGIES: Please see below. PHYSICAL EXAMINATION ON DISCHARGE: VITAL SIGNS: Please see below. General Exam: Positive: Alert, Cooperative, No Acute Distress Eye Exam: Positive: PERRLA, Conjunctiva & lids normal, EOMI; Negative: Sclera icteric ENT Exam: Positive: Atraumatic, Mucous membr. moist/pink, Pharynx Normal Neck Exam: Positive: Supple; Negative: JVD, thyromegaly Chest Exam: Positive: Clear to auscultation, Normal air movement Heart Exam: Positive: Rate Normal, Regular Rhythm, Normal S1, Normal S2; Negative: Murmurs, Rubs Abdomen Exam: Positive: Normal bowel sounds, Soft; Negative: Tenderness, Hepatosplenomegaly Extremity Exam: Positive: Normal pulses; Negative: Clubbing, Cyanosis, Edema Skin Exam: Positive: Nl turgor and temperature; Negative: Rash, Breakdown LABORATORY DATA: Please see below. IMAGING: CT chest FINDINGS: The bilateral lung pardo are well aerated and relatively clear. Very minimal acute bibasilar atelectatic changes are noted. No focal consolidation, suspicious nodule or mass. No effusion. No pneumothorax. Tracheobronchial tree is patent and without bronchiectasis. IMPRESSION: Mild bibasilar atelectasis. ACTIVITY: [As tolerated]. 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 TIME SPENT ON DISCHARGE: 35 minutes. Vital Signs/I&Os Vital Signs Date Time Temp Pulse Resp B/P (MAP) Pulse Ox O2 Delivery O2 Flow Rate FiO2 04/12/21 04:42 97.2 61 18 132/77 (95) 97 Room Air I&O- Last 24 Hours up to 6 AM 04/12/21 06:00 Intake Total 1390 ml Balance 1390 ml Microbiology Microbiology 04/11/21 Blood Culture - Preliminary, Resulted No growth after 24 hours . All specim... 04/10/21 Respiratory Virus Panel (PCR) ([facility]) - Final, Complete Discharge Medications Scheduled Budesonide/Formoterol (Symbicort 80-4.5 Mcg Inhaler) 6.9 Gm Hfa.aer.ad, 2 PUFF INH BID, (Reported) Lisinopril (Lisinopril) 10 Mg Tablet, 10 MG PO QHS Pantoprazole Sodium (Pantoprazole Sodium) 40 Mg Tablet.dr, 40 MG PO DAILY, (Reported) Prednisone (Prednisone) 10 Mg Tablet, 10 MG PO TAPER, (Reported) 50MG FOR 1 DAY, 40MG FOR 1 DAY, 30MG FOR 1 DAY, 20MG FOR 1 DAY, 10MG FOR 1 DAY: STARTED ON 04/09/21 Scheduled PRN Albuterol Sulfate (Proair Hfa) 8.5 Gm Hfa.aer.ad, 2 PUFF INH Q4H PRN for SHORTNESS OF BREATH, (Reported) Codeine Phosphate/Guaifenesin (Guaiatussin AC Liquid) 10 Ml Liquid, 10 ML PO Q4H PRN for COUGH, (Reported) Allergies Coded Allergies: Penicillins (Verified Allergy, Mild, RASH, 04/10/21) Steffany Boateng MD Apr 12, 2021 08:29
--- NOTE | 2021-04-13 07:41 | ECGEPIP ---
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
== END 2021-04-12 13:35 | disposition home or self-care (01) ==
LOC: M ED 16:46 → EDBD 16:46 → M ED INP 16:47 → M MSPAV 22:20
PROVIDERS: ADMIT Internal Medicine; ATTEND Internal Medicine Nephrology
DX: J45.901 Unspecified asthma with (acute) exacerbation (principal); R55 Syncope and collapse; R53.81 Other malaise; D72.829 Elevated white blood cell count, unspecified; G43.909 Migraine, unspecified, not intractable, without status migrainosus; F17.218 Nicotine dependence, cigarettes, with other nicotine-induced disorders; E87.2 Acidosis; J20.4 Acute bronchitis due to parainfluenza virus; I10 Essential (primary) hypertension; Z79.52 Long term (current) use of systemic steroids; Z88.0 Allergy status to penicillin; Z79.899 Other long term (current) drug therapy
CPT/HCPCS: 36415; 71045; 71250; 80048; 80076; 82550; 82553; 82668; 83605; 83880; 84145; 84439; 84443; 84484; 85025; 85027; 87040; 87798; 88300; 93005; 93041; 94640; 94760; 96361; 96372; 96374; 96375; 99285; J1650; J1885; J2930; J7512

== ENCOUNTER → 2021-04-10 | Outpatient (CLI) | payer BC ==
[~2021-04-10] MED LIST changes: +GUAI1SOL7 PO; +LISI10TA22 PO; +NICO14PA TD; +PANT40TA29 PO; +PRED10PA PO; +SYMB80INH INH; +[UNRECOGNIZED DRUG - CODE] PO
--- NOTE | 2021-04-10 13:44 | REP ---
INDICATION: COUGH SOB WHEEZING COMPARISON: 04/02/2021 TECHNIQUE: PA and lateral. FINDINGS: The mediastinum and cardiac silhouette are normal. The lung pardo are clear and without acute consolidation, effusion, or pneumothorax. The skeletal structures are intact and normal. IMPRESSION: No acute cardiopulmonary process. <Electronically signed by Juaquin Worthington > 04/10/21 [id number]
[2021-04-10 18:44] LABS: LYMPHOCYTES 6 % (16-44); MONOCYTES 2 % (0-5); NEUTROPHILS 91 % (28-66); PLATELET CLUMPS SMALL AMT; PLATELET ESTIMATE NORMAL (NORMAL)
== END ==
LOC: M WUC 13:22
PROVIDERS: ATTEND Registered Nurse
DX: B34.8 Other viral infections of unspecified site (principal); D72.829 Elevated white blood cell count, unspecified; R05.9 Cough, unspecified; R06.02 Shortness of breath; R06.2 Wheezing

== ENCOUNTER 2021-04-20 17:15 | Emergency (ER) | payer BC ==
[~2021-04-20] VITALS: Ht 157.5 cm; Wt 69.1 kg
[~2021-04-20 17:15] MED LIST changes: -LISI-898 PO; +LISI5TAB11 PO; +TIZA10TA PO; -TIZA4TAB4 PO; +[UNRECOGNIZED DRUG - CODE] PO
[2021-04-20] MEDS ORDERED: GUAISYP9 (17:26)
[2021-04-21] MEDS ORDERED: IBUPROFEN 400MG TAB PO ONE (07:55)
[2021-04-21] MEDS: ALBUTEROL SULFATE 2.5 MG/0.5 ML INH NEB SOLN INH SCH ×3 (08:00→08:14)
[2021-04-21] MEDS: IPRATROPIUM 0.5MG/ALBUTEROL 2.5MG INH SOL UD 3ML (DUONEB) NEB SCH ×3 (08:00→08:14)
[2021-04-21 10:32] VITALS: BP 137/83
== END 2021-04-21 10:33 | disposition home or self-care (01) ==
LOC: M ED 17:15
DX: J06.9 Acute upper respiratory infection, unspecified (principal); B34.9 Viral infection, unspecified; J45.901 Unspecified asthma with (acute) exacerbation; I10 Essential (primary) hypertension; E78.5 Hyperlipidemia, unspecified; Z88.0 Allergy status to penicillin; Z79.899 Other long term (current) drug therapy

== ENCOUNTER → 2021-05-22 | Outpatient (REF) ==
[~2021-05-22] MED LIST changes: +GUAISYP9; +LISI-898 PO; -LISI5TAB11 PO; -TIZA10TA PO; +TIZA4TAB4 PO
== END ==
LOC: M LABSMTC 10:05
PROVIDERS: ATTEND Pediatrics
DX: Z11.52 Encounter for screening for COVID-19 (principal)

== ENCOUNTER → 2021-06-06 | Outpatient (REF) ==
[~2021-06-06] MED LIST changes: -LISI-898 PO; +LISI5TAB11 PO; +TIZA10TA PO; -TIZA4TAB4 PO
== END ==
LOC: M LABSMTC 14:07
PROVIDERS: ATTEND Pediatrics
DX: Z20.822 Contact with and (suspected) exposure to COVID-19 (principal)

== ENCOUNTER 2021-06-15 12:21 | Emergency (ER) | payer BC ==
[~2021-06-15] VITALS: Ht 157.5 cm; Wt 68.6 kg
[2021-06-15] MEDS ORDERED: NS 1,000 ML IV ONE (13:10)
[2021-06-15] MEDS ORDERED: KETOROLAC 30 MG/ML 1ML VIAL IV ONE (13:10)
[2021-06-15 13:38] LABS: ALBUMIN 3.6 GM/DL (3.2-5.2); BILIRUBIN,DIRECT 0.1 MG/DL (0.0-0.2); BILIRUBIN,TOTAL 0.2 MG/DL (0.2-1.0); C REACTIVE PROTEIN QUANTITATIV 0.41 MG/DL (0.00-0.30); TOTAL PROTEIN 6.1 GM/DL (6.4-8.2)
[2021-06-15 14:28] LABS: BASO % 0.3 % (0.0-1.0); EOS # 0.1 10^3/uL (0.0-0.5); EOS % 1.1 % (0.0-3.0); HEMATOCRIT 38.6 % (36.0-47.0); HEMOGLOBIN 13.2 g/dl (12.0-15.5); LYMPH # 2.4 10^3/uL (1.5-5.0); LYMPH % 31.6 % (24.0-44.0); MEAN CORPUSCULAR HEMOGLOBIN 34.5 pg (27.0-33.0); MEAN CORPUSCULAR HGB CONC 34.2 g/dl (32.0-36.5); MEAN CORPUSCULAR VOLUME 100.8 fl (80.0-96.0); MONO # 0.5 10^3/uL (0.0-0.8); MONO % 7.2 % (2.0-8.0); NEUTROPHILS # 4.4 10^3/uL (1.5-8.5); NEUTROPHILS % 59.5 % (36.0-66.0); PLATELET COUNT, AUTOMATED 274 10^3/uL (150-450); RED BLOOD COUNT 3.83 10^6/uL (4.00-5.40); WHITE BLOOD COUNT 7.5 10^3/uL (4.0-10.0)
[2021-06-15 14:53] LABS: ERYTHROCYTE SEDIMENTATION RATE 1 mm/hr (0-20)
[2021-06-15] MEDS ORDERED: POTASSIUM CHLORIDE 10MEQ SR TABLET PO ONE (14:55)
[2021-06-15] MEDS ORDERED: ACETAMINOPHEN 500 MG TAB PO ONE ×2 (15:05→15:20)
[2021-06-15] MEDS ORDERED: MACR100C43 PO (15:13)
[2021-06-15 15:21] VITALS: BP 138/77
== END 2021-06-15 15:24 | disposition home or self-care (01) ==
LOC: M ED 12:21
DX: N39.0 Urinary tract infection, site not specified (principal); E87.6 Hypokalemia; I10 Essential (primary) hypertension; F17.200 Nicotine dependence, unspecified, uncomplicated; F10.10 Alcohol abuse, uncomplicated; Z87.442 Personal history of urinary calculi; Z88.0 Allergy status to penicillin; Z79.811 Long term (current) use of aromatase inhibitors; Z79.899 Other long term (current) drug therapy
CPT/HCPCS: 36415; 74176; 80047; 80076; 81001; 82150; 83690; 85025; 85652; 86140; 87086; 96361; 96374; 99284; J1885

== ENCOUNTER → 2021-06-17 | Outpatient (REF) ==
[~2021-06-17] MED LIST changes: +MACR100C43 PO
== END ==
LOC: M LABSMTC 13:12
PROVIDERS: ATTEND Pediatrics
DX: Z20.822 Contact with and (suspected) exposure to COVID-19 (principal)

== ENCOUNTER 2021-10-02 15:00 | Emergency (ER) | payer BC ==
[~2021-10-02] VITALS: Ht 160 cm; Wt 69.5 kg
[2021-10-02] MEDS ORDERED: LISI10TA22 PO (15:16)
[2021-10-02] MEDS ORDERED: NS 1,000 ML IV ONE (16:30)
[2021-10-02] MEDS ORDERED: ONDANSETRON 4MG/2ML VIAL IV ONE (16:30)
[2021-10-02] MEDS ORDERED: KETOROLAC 30 MG/ML 1ML VIAL IV ONE (16:30)
[2021-10-02 16:41] LABS: BASO % 0.4 % (0.0-1.0); EOS # 0.1 10^3/uL (0.0-0.5); EOS % 1.3 % (0.0-3.0); HEMOGLOBIN 15.2 g/dl (12.0-15.5); LYMPH # 2.8 10^3/uL (1.5-5.0); LYMPH % 36.9 % (24.0-44.0); MEAN CORPUSCULAR HEMOGLOBIN 35.1 pg (27.0-33.0); MEAN CORPUSCULAR HGB CONC 34.5 g/dl (32.0-36.5); MEAN CORPUSCULAR VOLUME 101.6 fl (80.0-96.0); MONO # 0.6 10^3/uL (0.0-0.8); MONO % 7.8 % (2.0-8.0); NEUTROPHILS % 53.2 % (36.0-66.0); PLATELET COUNT, AUTOMATED 332 10^3/uL (150-450); RED BLOOD COUNT 4.33 10^6/uL (4.00-5.40); WHITE BLOOD COUNT 7.6 10^3/uL (4.0-10.0)
[2021-10-02] MEDS ORDERED: MORPHINE 4 MG/ML 1ML VIAL/SYRINGE IV ONE ×2 (17:05→19:00)
[2021-10-02 17:14] LABS: ALBUMIN 3.9 GM/DL (3.2-5.2); ALT/SGPT 34 U/L (12-78); BILIRUBIN,DIRECT 0.1 MG/DL (0.0-0.2); BILIRUBIN,TOTAL 0.4 MG/DL (0.2-1.0); BLOOD UREA NITROGEN 10 MG/DL (7-18); CALCIUM LEVEL 9.1 MG/DL (8.5-10.1); CARBON DIOXIDE LEVEL 27 MEQ/L (21-32); CHLORIDE LEVEL 110 MEQ/L (98-107); CREATININE FOR GFR 0.65 MG/DL (0.55-1.30); GLOMERULAR FILTRATION RATE > 60.0 (>51); GLUCOSE, FASTING 101 MG/DL (70-100); LIPASE 160 U/L (73-393); POTASSIUM SERUM 4.1 MEQ/L (3.5-5.1); SODIUM LEVEL 142 MEQ/L (136-145); TOTAL PROTEIN 6.7 GM/DL (6.4-8.2)
[2021-10-02] MEDS ORDERED: ISOVUE-370 76% 100ML VIAL As Ordered ONE (17:24)
[2021-10-02 20:21] LABS: RSV AMPLIFICATION NEGATIVE (NEGATIVE)
[2021-10-02] MEDS ORDERED: SIME180C25 PO (20:30)
[2021-10-02] MEDS ORDERED: ONDA4TAB6 PO (20:30)
[2021-10-02 20:42] VITALS: BP 140/78
== END 2021-10-02 20:46 | disposition home or self-care (01) ==
LOC: M ED 15:00
DX: R10.84 Generalized abdominal pain (principal); I10 Essential (primary) hypertension; E78.5 Hyperlipidemia, unspecified; Z87.442 Personal history of urinary calculi; J45.909 Unspecified asthma, uncomplicated; M54.50 Low back pain, unspecified; F41.9 Anxiety disorder, unspecified; K58.9 Irritable bowel syndrome, unspecified; G43.909 Migraine, unspecified, not intractable, without status migrainosus; Z88.0 Allergy status to penicillin; Z79.811 Long term (current) use of aromatase inhibitors; Z79.899 Other long term (current) drug therapy
CPT/HCPCS: 74178; 80048; 80076; 81001; 83690; 85025; 87631; 96374; 96375; 99284; J1885; J2270; J2405; Q9967

== ENCOUNTER → 2021-10-24 | Outpatient (CLI) | payer BC ==
[~2021-10-24] MED LIST changes: +ONDA4TAB6 PO; +SIME180C25 PO; +nyquil
== END ==
LOC: M WHC 08:03
PROVIDERS: ATTEND Internal Medicine
DX: R92.2 Inconclusive mammogram (principal)

== ENCOUNTER 2021-10-28 08:41 | Emergency (ER) | payer BC ==
[~2021-10-28] VITALS: Ht 160 cm; Wt 67.7 kg
[~2021-10-28 08:41] MED LIST changes: -nyquil
[2021-10-28] MEDS ORDERED: nyquil (08:50)
[2021-10-28] MEDS ORDERED: IPRATROPIUM 0.5MG/ALBUTEROL 2.5MG INH SOL UD 3ML (DUONEB) NEB ONE (11:25)
[2021-10-28] MEDS ORDERED: NS 1,000 ML IV ONE (11:25)
[2021-10-28] MEDS ORDERED: KETOROLAC 30 MG/ML 1ML VIAL IV ONE (11:25)
[2021-10-28 11:44] LABS: BASO % 0.3 % (0.0-1.0); EOS % 0.3 % (0.0-3.0); HEMATOCRIT 44.7 % (36.0-47.0); HEMOGLOBIN 15.6 g/dl (12.0-15.5); LYMPH # 1.9 10^3/uL (1.5-5.0); LYMPH % 21.8 % (24.0-44.0); MEAN CORPUSCULAR HEMOGLOBIN 35.5 pg (27.0-33.0); MEAN CORPUSCULAR HGB CONC 34.9 g/dl (32.0-36.5); MEAN CORPUSCULAR VOLUME 101.6 fl (80.0-96.0); MONO % 11.4 % (2.0-8.0); NEUTROPHILS # 5.7 10^3/uL (1.5-8.5); NEUTROPHILS % 65.9 % (36.0-66.0); PLATELET COUNT, AUTOMATED 300 10^3/uL (150-450); WHITE BLOOD COUNT 8.7 10^3/uL (4.0-10.0)
[2021-10-28 12:15] LABS: BLOOD UREA NITROGEN 11 MG/DL (7-18); CALCIUM LEVEL 9.6 MG/DL (8.5-10.1); CARBON DIOXIDE LEVEL 25 MEQ/L (21-32); CHLORIDE LEVEL 108 MEQ/L (98-107); CREATININE FOR GFR 0.84 MG/DL (0.55-1.30); GLOMERULAR FILTRATION RATE > 60.0 (>51); GLUCOSE, FASTING 100 MG/DL (70-100); POTASSIUM SERUM 4.2 MEQ/L (3.5-5.1); SODIUM LEVEL 139 MEQ/L (136-145)
[2021-10-28] MEDS ORDERED: guaiFENesin DM LIQ 10ML UD PO ONE (12:20)
[2021-10-28] MEDS ORDERED: ACETAMINOPHEN 500 MG TAB PO ONE (12:20)
[2021-10-28] MEDS ORDERED: dexameTHASONE 20MG/5ML VIAL (J1100 PER 1MG) IV ONE (13:30)
[2021-10-28] MEDS ORDERED: PROAAER10 INH (13:32)
[2021-10-28 13:43] VITALS: BP 148/99
== END 2021-10-28 13:54 | disposition home or self-care (01) ==
LOC: M ED 08:41
DX: J06.9 Acute upper respiratory infection, unspecified (principal); B34.8 Other viral infections of unspecified site; I10 Essential (primary) hypertension; F17.200 Nicotine dependence, unspecified, uncomplicated; Z88.0 Allergy status to penicillin; Z79.811 Long term (current) use of aromatase inhibitors; Z79.899 Other long term (current) drug therapy
CPT/HCPCS: 71046; 80048; 85025; 87486; 87581; 87633; 87798; 94640; 96361; 96374; 96375; 99284; J1100; J1885

== ENCOUNTER 2021-11-05 15:12 | Emergency (ER) | payer BC ==
[~2021-11-05] VITALS: Ht 157.5 cm; Wt 68.2 kg
[~2021-11-05 15:12] MED LIST changes: -BENZ150C2 PO; -DOXY-342 PO
[2021-11-05] MEDS ORDERED: methylPREDNISolone 125MG 2ML VIAL IV ONE (16:55)
[2021-11-05] MEDS ORDERED: ALBUTEROL 90 MCG/ACT 8GM HFA INHALER INH ONE (16:55)
[2021-11-05] MEDS ORDERED: NS 1,000 ML IV ONE (16:55)
[2021-11-05] MEDS ORDERED: MORPHINE 4 MG/ML 1ML VIAL/SYRINGE IV ONE (16:55)
[2021-11-05] MEDS ORDERED: BENZONATATE 100MG CAPSULE PO ONE (16:55)
[2021-11-05 17:30] LABS: BASO # 0.1 10^3/uL (0.0-0.2); BASO % 0.5 % (0.0-1.0); EOS # 0.1 10^3/uL (0.0-0.5); EOS % 1.1 % (0.0-3.0); HEMATOCRIT 48.3 % (36.0-47.0); HEMOGLOBIN 16.3 g/dl (12.0-15.5); LYMPH # 3.6 10^3/uL (1.5-5.0); LYMPH % 32.4 % (24.0-44.0); MEAN CORPUSCULAR HGB CONC 33.7 g/dl (32.0-36.5); MEAN CORPUSCULAR VOLUME 100.8 fl (80.0-96.0); MONO # 0.7 10^3/uL (0.0-0.8); NEUTROPHILS # 6.5 10^3/uL (1.5-8.5); NEUTROPHILS % 58.8 % (36.0-66.0); PLATELET COUNT, AUTOMATED 372 10^3/uL (150-450); RED BLOOD COUNT 4.79 10^6/uL (4.00-5.40)
[2021-11-05 17:45] LABS: ALBUMIN 3.6 GM/DL (3.2-5.2); ALT/SGPT 28 U/L (12-78); BILIRUBIN,DIRECT 0.1 MG/DL (0.0-0.2); BILIRUBIN,TOTAL 0.2 MG/DL (0.2-1.0); BLOOD UREA NITROGEN 10 MG/DL (7-18); CALCIUM LEVEL 8.5 MG/DL (8.5-10.1); CARBON DIOXIDE LEVEL 23 MEQ/L (21-32); CHLORIDE LEVEL 108 MEQ/L (98-107); CREATININE FOR GFR 0.67 MG/DL (0.55-1.30); GLOMERULAR FILTRATION RATE > 60.0 (>51); GLUCOSE, FASTING 97 MG/DL (70-100); NT-PRO BNP 17 PG/ML (<125); POTASSIUM SERUM 4.1 MEQ/L (3.5-5.1); SODIUM LEVEL 140 MEQ/L (136-145); TOTAL PROTEIN 6.7 GM/DL (6.4-8.2)
[2021-11-05] MEDS ORDERED: ISOVUE-370 76% 100ML VIAL As Ordered ONE (17:48)
[2021-11-05] MEDS ORDERED: KETOROLAC 30 MG/ML 1ML VIAL IV ONE (18:50)
[2021-11-05 19:10] VITALS: O2SAT 96
[2021-11-05] MEDS ORDERED: DOXY-342 PO (19:32)
[2021-11-05] MEDS ORDERED: PRED20TA PO (19:32)
[2021-11-05] MEDS ORDERED: VENTAER INH (19:32)
[2021-11-05] MEDS ORDERED: BENZ150C2 PO (19:32)
[2021-11-05 19:48] VITALS: BP 135/77
== END 2021-11-05 19:51 | disposition home or self-care (01) ==
LOC: M ED 15:12
DX: J20.9 Acute bronchitis, unspecified (principal); E86.0 Dehydration; J02.9 Acute pharyngitis, unspecified; G43.909 Migraine, unspecified, not intractable, without status migrainosus; I10 Essential (primary) hypertension; E78.5 Hyperlipidemia, unspecified; K58.9 Irritable bowel syndrome, unspecified; Z87.442 Personal history of urinary calculi; K57.32 Diverticulitis of large intestine without perforation or abscess without bleeding; M54.9 Dorsalgia, unspecified; F41.9 Anxiety disorder, unspecified; Z88.0 Allergy status to penicillin; F17.210 Nicotine dependence, cigarettes, uncomplicated; Z79.899 Other long term (current) drug therapy
CPT/HCPCS: 71046; 71275; 80048; 80076; 83880; 84484; 85025; 87040; 87486; 87581; 87633; 87798; 93005; 94640; 96361; 96374; 96375; 99284; J1885; J2270; J2930; Q9967

== ENCOUNTER → 2021-11-05 | Outpatient (REF) ==
[~2021-11-05] MED LIST changes: +BENZ150C2 PO; +DOXY-342 PO; +nyquil
[2021-11-05 10:57] LABS: RSV AMPLIFICATION NEGATIVE (NEGATIVE)
== END ==
LOC: M EMP 09:07
PROVIDERS: ATTEND Family Medicine
DX: Z20.822 Contact with and (suspected) exposure to COVID-19 (principal)

== ENCOUNTER → 2021-11-06 | Outpatient (CLI) | payer BC ==
[~2021-11-06] MED LIST changes: +BENZ150C2 PO; +DOXY-342 PO
== END ==
LOC: M WHC 07:49
PROVIDERS: ATTEND Internal Medicine
DX: R92.2 Inconclusive mammogram (principal)
CPT/HCPCS: 76642; 77065; G0279

== ENCOUNTER → 2021-11-06 | Outpatient (CLI) | payer BC | LOC: M WHC 07:47 | PROVIDERS: ATTEND Physician Assistant | DX: K76.0 Fatty (change of) liver, not elsewhere classified (principal); R10.811 Right upper quadrant abdominal tenderness ==

== ENCOUNTER 2021-11-14 13:06 | Emergency (ER) | payer BC ==
[~2021-11-14] VITALS: Ht 157.5 cm; Wt 68.3 kg
[2021-11-14] MEDS ORDERED: IBUPROFEN 800 MG TAB PO ONE (18:45)
[2021-11-14] MEDS ORDERED: PROAAER10 INH (20:50)
[2021-11-14 20:59] VITALS: BP 129/86
== END 2021-11-14 21:00 | disposition home or self-care (01) ==
LOC: M ED 13:06
DX: J20.9 Acute bronchitis, unspecified (principal); M54.50 Low back pain, unspecified; I10 Essential (primary) hypertension; F17.200 Nicotine dependence, unspecified, uncomplicated; Z88.0 Allergy status to penicillin; Z79.51 Long term (current) use of inhaled steroids; Z79.899 Other long term (current) drug therapy

== ENCOUNTER 2021-11-24 22:23 | Emergency (ER) | payer BC ==
[~2021-11-24] VITALS: Ht 157.5 cm; Wt 71.1 kg
[2021-11-25] MEDS ORDERED: ACETAMINOPHEN 500 MG TAB PO ONE (06:55)
[2021-11-25] MEDS ORDERED: BENZ200C70 PO (06:57)
[2021-11-25 07:03] VITALS: BP 137/78
== END 2021-11-25 07:10 | disposition home or self-care (01) ==
LOC: M ED 22:23
DX: R05.3 Chronic cough (principal); I10 Essential (primary) hypertension; E78.5 Hyperlipidemia, unspecified; G43.909 Migraine, unspecified, not intractable, without status migrainosus; K21.9 Gastro-esophageal reflux disease without esophagitis; J45.909 Unspecified asthma, uncomplicated; F17.200 Nicotine dependence, unspecified, uncomplicated; Z86.73 Personal history of transient ischemic attack (TIA), and cerebral infarction without residual deficits; Z88.0 Allergy status to penicillin; Z79.51 Long term (current) use of inhaled steroids; Z79.1 Long term (current) use of non-steroidal anti-inflammatories (NSAID)

== ENCOUNTER → 2021-11-27 | Outpatient (CLI) | payer BC ==
[2021-11-27 14:49] VITALS: BP 140/74
== END ==
LOC: M WHCPRO 12:28
PROVIDERS: ATTEND Surgery
DX: R92.1 Mammographic calcification found on diagnostic imaging of breast (principal); N63.24 Unspecified lump in the left breast, lower inner quadrant

== ENCOUNTER → 2021-12-11 | Outpatient (CLI) | payer BC ==
[~2021-12-11] MED LIST changes: +METHACHOLINE KIT (J7674) INH ONE
== END ==
LOC: M CARPUL 08:44
PROVIDERS: ATTEND Internal Medicine
DX: R05.3 Chronic cough (principal)
CPT/HCPCS: 94070; J7674

== ENCOUNTER → 2021-12-26 | Outpatient (CLI) | payer BC ==
[~2021-12-26] MED LIST changes: +LEVO1TAB40 PO; -LEVO750T13 PO; +LOSA50TA28 PO; -METHACHOLINE KIT (J7674) INH ONE; +TREL1AER INH
== END ==
LOC: M LABSMTC 09:39
PROVIDERS: ATTEND Anesthesiology
DX: Z01.818 Encounter for other preprocedural examination (principal); Z11.52 Encounter for screening for COVID-19

== ENCOUNTER 2021-12-31 06:15 | Day surgery (SDC) | payer BC ==
[~2021-12-31] VITALS: Ht 160 cm; Wt 68.5 kg
[2021-12-31] MEDS ORDERED: NS 1,000 ML IV SCH (06:40)
[2021-12-31] MEDS ORDERED: HEPARIN SOD (PORCINE) 5000UNITS/ML 1ML VIAL/SYRINGE SQ ONE (06:40)
[2021-12-31] MEDS ORDERED: CLINDAMYCIN 900 MG in IV 1 EA IV ONE (06:40)
[2021-12-31] MEDS ORDERED: SEVOFLURANE INHAL SOLN 250 ML BTL As Ordered ONE (07:12)
[2021-12-31] MEDS ORDERED: ROCURONIUM BROMIDE 50 MG/5 ML VIAL As Ordered ONE (07:15)
[2021-12-31] MEDS ORDERED: propofoL 200 MG/20 ML VIAL As Ordered ONE ×2 (07:15→09:49)
[2021-12-31] MEDS ORDERED: fentaNYL 100 MCG/2 ML INJECTION As Ordered ONE ×2 (07:16→08:23)
[2021-12-31] MEDS ORDERED: MIDAZOLAM INJ 2MG/2ML VIAL (J2250 PER 1MG) As Ordered ONE (07:16)
[2021-12-31] MEDS ORDERED: dexameTHASONE 4 MG/ML 1ML VIAL (J1100 PER 1MG) As Ordered ONE (07:16)
[2021-12-31] MEDS ORDERED: LIDOCAINE 2% 100MG/5ML SDV (FOR ANES.) As Ordered ONE (07:17)
[2021-12-31] MEDS ORDERED: ONDANSETRON 4MG 2ML VIAL As Ordered ONE (07:17)
[2021-12-31] MEDS ORDERED: BUPIVACAINE HCL 0.25% 30ML VIAL As Ordered ONE (07:24)
[2021-12-31] MEDS ORDERED: LIDOCAINE 1% SDV 30ML VIAL As Ordered ONE (07:24)
[2021-12-31] MEDS ORDERED: LR 1,000 ML IV SCH ×2 (07:25→09:35)
[2021-12-31] MEDS ORDERED: PHENYLephrine 500MCG 5ML (100MCG/ML) SYRINGE As Ordered ONE (08:35)
[2021-12-31] MEDS ORDERED: ONDANSETRON 4MG 2ML VIAL IV PRN (09:35)
[2021-12-31] MEDS ORDERED: oxyCODONE 5MG TAB PO PRN (09:35)
[2021-12-31] MEDS ORDERED: fentaNYL 100 MCG/2 ML INJECTION IV PRN (09:35)
[2021-12-31] MEDS ORDERED: MORPHINE 2 MG/ML 1ML VIAL IV PRN (09:35)
[2021-12-31] MEDS ORDERED: ACETAMINOPHEN 1000MG 100ML IV BTL (OFIRMEV) (J0131 PER 10MG) As Ordered ONE (09:48)
[2021-12-31] MEDS ORDERED: ROXI1TAB2 PO (10:17)
[2021-12-31 12:07] VITALS: BP 143/83
== END 2021-12-31 12:10 | disposition home or self-care (01) ==
LOC: M SDC 06:15
PROVIDERS: ATTEND Surgery
DX: D24.2 Benign neoplasm of left breast (principal); R92.1 Mammographic calcification found on diagnostic imaging of breast; R23.4 Changes in skin texture; R07.89 Other chest pain; I10 Essential (primary) hypertension; K57.92 Diverticulitis of intestine, part unspecified, without perforation or abscess without bleeding; K58.8 Other irritable bowel syndrome; J45.909 Unspecified asthma, uncomplicated; Z79.51 Long term (current) use of inhaled steroids; Z79.899 Other long term (current) drug therapy; Z88.0 Allergy status to penicillin; F17.210 Nicotine dependence, cigarettes, uncomplicated; Z80.3 Family history of malignant neoplasm of breast; Z91.89 Other specified personal risk factors, not elsewhere classified; Z80.0 Family history of malignant neoplasm of digestive organs; Z80.6 Family history of leukemia; Z80.1 Family history of malignant neoplasm of trachea, bronchus and lung
CPT/HCPCS: 19125; 19126; 36415; 76942; 81025; 86850; 86900; 86901; 88307; A4648; J0131; J1100; J1644; J2250; J2370; J2405; J3010

== ENCOUNTER → 2022-01-21 | Outpatient (REF) ==
[~2022-01-21] MED LIST changes: +ROXI1TAB2 PO
== END ==
LOC: M LABSMTC 10:48
PROVIDERS: ATTEND Family Medicine
DX: Z11.52 Encounter for screening for COVID-19 (principal)

== ENCOUNTER → 2022-06-02 | Outpatient (CLI) | payer BC ==
[~2022-06-02] MED LIST changes: -DOXY-342 PO; -DOXY-350 PO; +DOXY-444 PO; +DOXY100C81 PO; +METR-265 PO
== END ==
LOC: M RAD 11:56
PROVIDERS: ATTEND Internal Medicine
DX: M25.551 Pain in right hip (principal); M25.552 Pain in left hip

== ENCOUNTER → 2022-06-02 | Outpatient (CLI) | payer BC ==
[2022-06-02 08:21] LABS: APPEARANCE, URINE MANUAL CLEAR (CLEAR); COLOR, URINE MANUAL YELLOW (YELLOW)
[2022-06-02 08:22] LABS: BILIRUBIN, URINE MANUAL NEGATIVE (NEGATIVE); BLOOD URINE MANUAL NEGATIVE (NEGATIVE); GLUCOSE, URINE (UA) MANUAL NEGATIVE (NEGATIVE); KETONE, URINE MANUAL NEGATIVE (NEGATIVE); LEUKOCYTE ESTERASE, URINE MAN TRACE (NEGATIVE); NITRITE, URINE MANUAL NEGATIVE (NEGATIVE); PROTEIN, URINE MANUAL NEGATIVE (NEGATIVE); UROBILINOGEN, URINE MANUAL NORMAL (NORMAL)
[2022-06-02 08:27] LABS: HEMATOCRIT 48.7 % (36.0-47.0); HEMOGLOBIN 16.4 g/dl (12.0-15.5); MEAN CORPUSCULAR HGB CONC 33.7 g/dl (32.0-36.5); MEAN CORPUSCULAR VOLUME 100.8 fl (80.0-96.0); PLATELET COUNT, AUTOMATED 322 10^3/uL (150-450); RED BLOOD COUNT 4.83 10^6/uL (4.00-5.40); WHITE BLOOD COUNT 8.1 10^3/uL (4.0-10.0)
[2022-06-02 08:36] LABS: BACTERIA, URINE MOD AMOUNT; HYALINE CAST, URINE NONE SEEN /lpf (0-1); RBC, URINE 0-1 /hpf (0-3); SQUAMOUS EPITHELIAL CELL URINE MOD AMOUNT /hpf (SMALL AMT)
[2022-06-02 08:37] LABS: MUCUS, URINE SMALL AMOUNT (NEGATIVE)
[2022-06-02 08:55] LABS: IRON (FE) 252 UG/DL (50-170)
[2022-06-02 08:56] LABS: ALKALINE PHOSPHATASE 121 U/L (46-116); ALT/SGPT 24 U/L (7.0-40); AST/SGOT 23 U/L (<34); BILIRUBIN,TOTAL 1.2 MG/DL (0.3-1.2); BLOOD UREA NITROGEN 16 MG/DL (9-23); CALCIUM LEVEL 9.9 MG/DL (8.5-10.1); CARBON DIOXIDE LEVEL 30 MMOL/L (20-31); CHLORIDE LEVEL 105 MMOL/L (98-107); CHOLESTEROL LEVEL 201 MG/DL (<200); CHOLESTEROL RISK RATIO 3.76 (<5); CREATININE FOR GFR 0.75 MG/DL (0.55-1.30); GLOMERULAR FILTRATION RATE > 60.0 (>51); GLUCOSE, FASTING 102 MG/DL (60-100); HDL CHOLESTEROL 53.4 MG/DL (>40); LDL CHOLESTEROL 108.2 MG/DL (<100); NON-HDL-C 148 MG/DL; POTASSIUM SERUM 4.7 MMOL/L (3.5-5.1); SODIUM LEVEL 140 MMOL/L (136-145); TOTAL PROTEIN 6.5 G/DL (5.7-8.2); TRIGLYCERIDES LEVEL 197 MG/DL (<150)
[2022-06-02 08:58] LABS: THYROID STIMULATING HORMONE 0.419 uIU/ML (0.55-4.78)
[2022-06-02 09:00] LABS: FOLATE 23.97 NG/ML (>5.4); FREE T4 1.45 NG/DL (0.89-1.76)
[2022-06-02 09:01] LABS: VITAMIN B12 LEVEL 350 PG/ML (211-911)
[2022-06-02 10:06] LABS: HEMOGLOBIN A1c 4.8 % (4.0-6.0)
== END ==
LOC: M LAB 07:19
PROVIDERS: ATTEND Internal Medicine
DX: Z00.00 Encounter for general adult medical examination without abnormal findings (principal); I10 Essential (primary) hypertension; Z13.1 Encounter for screening for diabetes mellitus; R53.83 Other fatigue

== ENCOUNTER 2022-06-10 14:58 | Emergency (ER) | payer BC ==
[~2022-06-10] VITALS: Ht 157.5 cm; Wt 71.2 kg
[~2022-06-10 14:58] MED LIST changes: -METR-265 PO
[2022-06-10 15:52] LABS: BASO % 0.2 % (0.0-1.0); EOS # 0.1 10^3/uL (0.0-0.5); EOS % 0.5 % (0.0-3.0); HEMATOCRIT 47.6 % (36.0-47.0); HEMOGLOBIN 16.4 g/dl (12.0-15.5); LYMPH # 1.8 10^3/uL (1.5-5.0); LYMPH % 12.8 % (24.0-44.0); MEAN CORPUSCULAR HGB CONC 34.5 g/dl (32.0-36.5); MEAN CORPUSCULAR VOLUME 98.8 fl (80.0-96.0); MONO # 0.8 10^3/uL (0.0-0.8); MONO % 5.8 % (2.0-8.0); NEUTROPHILS # 11.1 10^3/uL (1.5-8.5); NEUTROPHILS % 80.3 % (36.0-66.0); PLATELET COUNT, AUTOMATED 330 10^3/uL (150-450); RED BLOOD COUNT 4.82 10^6/uL (4.00-5.40); WHITE BLOOD COUNT 13.9 10^3/uL (4.0-10.0)
[2022-06-10 16:25] LABS: LIPASE 30 U/L (12-53)
[2022-06-10 16:27] LABS: ALBUMIN 4.1 G/DL (3.2-5.2); ALKALINE PHOSPHATASE 102 U/L (46-116); ALT/SGPT 25 U/L (7.0-40); AST/SGOT 20 U/L (<34); BILIRUBIN,DIRECT 0.2 MG/DL (<0.4); BILIRUBIN,TOTAL 0.6 MG/DL (0.3-1.2); BLOOD UREA NITROGEN 13 MG/DL (9-23); CALCIUM LEVEL 9.4 MG/DL (8.5-10.1); CARBON DIOXIDE LEVEL 28 MMOL/L (20-31); CHLORIDE LEVEL 107 MMOL/L (98-107); CREATININE FOR GFR 0.65 MG/DL (0.55-1.30); GLOMERULAR FILTRATION RATE > 60.0 (>51); GLUCOSE, FASTING 96 MG/DL (60-100); POTASSIUM SERUM 4.1 MMOL/L (3.5-5.1); SODIUM LEVEL 142 MMOL/L (136-145); TOTAL PROTEIN 6.6 G/DL (5.7-8.2)
[2022-06-10] MEDS ORDERED: PANTOPRAZOLE 40MG VIAL IV ONE (20:45)
[2022-06-10] MEDS ORDERED: ACETAMINOPHEN 1000MG 100ML IV BAG IV ONE (20:45)
[2022-06-10] MEDS ORDERED: ISOVUE-370 76% 100ML VIAL As Ordered ONE (20:50)
[2022-06-10] MEDS ORDERED: metroNIDAZOLE (FLAGYL) 500MG TABLET PO ONE (22:00)
[2022-06-10] MEDS ORDERED: CIPROFLOXACIN 500MG TABLET PO ONE (22:00)
[2022-06-10] MEDS ORDERED: CIPR-249 PO (22:53)
[2022-06-10] MEDS ORDERED: METR-265 PO (22:57)
[2022-06-10] MEDS ORDERED: diphenhydrAMINE 50MG/ML VIAL IV ONE (23:00)
[2022-06-10 23:08] VITALS: BP 141/91
== END 2022-06-10 23:15 | disposition home or self-care (01) ==
LOC: M ED 20:21
DX: A09 Infectious gastroenteritis and colitis, unspecified (principal); E86.0 Dehydration; J45.909 Unspecified asthma, uncomplicated; E78.5 Hyperlipidemia, unspecified; K58.9 Irritable bowel syndrome, unspecified; I10 Essential (primary) hypertension; M54.50 Low back pain, unspecified; G43.909 Migraine, unspecified, not intractable, without status migrainosus; F17.200 Nicotine dependence, unspecified, uncomplicated; Z87.442 Personal history of urinary calculi; Z88.0 Allergy status to penicillin
CPT/HCPCS: 74177; 80048; 80076; 81002; 83690; 85025; 96374; 99284; C9113

== ENCOUNTER → 2022-06-12 | Outpatient (CLI) | payer BC ==
[~2022-06-12] MED LIST changes: +METR-265 PO; +PROHANCE 279.3MG/ML 15ML VIAL As Ordered ONE
== END ==
LOC: M RAD 12:42
PROVIDERS: ATTEND Nurse Practitioner Women's Health
DX: Z12.31 Encounter for screening mammogram for malignant neoplasm of breast (principal); Z80.3 Family history of malignant neoplasm of breast; Z91.89 Other specified personal risk factors, not elsewhere classified
CPT/HCPCS: A9576; C8908

== ENCOUNTER 2022-07-14 13:29 | Emergency (ER) | payer BC ==
[~2022-07-14] VITALS: Ht 157.5 cm; Wt 69.1 kg
[~2022-07-14 13:29] MED LIST changes: -PROHANCE 279.3MG/ML 15ML VIAL As Ordered ONE
[2022-07-14] MEDS: COMBIVENT RESPIMAT 100-20MCG INHALER 4GM INH PRN (14:02)
[2022-07-14 14:45] LABS: BASO % 0.6 % (0.0-1.0); EOS # 0.1 10^3/uL (0.0-0.5); EOS % 1.2 % (0.0-3.0); HEMOGLOBIN 15.7 g/dl (12.0-15.5); LYMPH # 3.4 10^3/uL (1.5-5.0); LYMPH % 51.8 % (24.0-44.0); MEAN CORPUSCULAR HEMOGLOBIN 33.8 pg (27.0-33.0); MEAN CORPUSCULAR HGB CONC 33.4 g/dl (32.0-36.5); MEAN CORPUSCULAR VOLUME 101.1 fl (80.0-96.0); MONO # 0.5 10^3/uL (0.0-0.8); MONO % 7.7 % (2.0-8.0); NEUTROPHILS # 2.5 10^3/uL (1.5-8.5); NEUTROPHILS % 38.5 % (36.0-66.0); PLATELET COUNT, AUTOMATED 377 10^3/uL (150-450); RED BLOOD COUNT 4.65 10^6/uL (4.00-5.40); WHITE BLOOD COUNT 6.5 10^3/uL (4.0-10.0)
[2022-07-14 15:06] LABS: CK-MB VALUE MASS < 1.0 NG/ML (<3.6)
[2022-07-14 15:08] LABS: ALBUMIN 3.8 G/DL (3.2-5.2); ALKALINE PHOSPHATASE 93 U/L (46-116); ALT/SGPT 28 U/L (7.0-40); AST/SGOT 19 U/L (<34); BILIRUBIN,DIRECT 0.1 MG/DL (<0.4); BILIRUBIN,TOTAL 0.3 MG/DL (0.3-1.2); BLOOD UREA NITROGEN 9 MG/DL (9-23); CARBON DIOXIDE LEVEL 26 MMOL/L (20-31); CHLORIDE LEVEL 110 MMOL/L (98-107); CPK CREATINE PHOSPHOKINASE 55 U/L (34-145); CREATININE FOR GFR 0.66 MG/DL (0.55-1.30); GLOMERULAR FILTRATION RATE > 60.0 (>51); GLUCOSE, FASTING 98 MG/DL (60-100); MB/CK RELATIVE INDEX 1.81 (< OR =4); POTASSIUM SERUM 3.5 MMOL/L (3.5-5.1); SODIUM LEVEL 144 MMOL/L (136-145); TOTAL PROTEIN 6.4 G/DL (5.7-8.2)
[2022-07-14 15:10] LABS: THYROID STIMULATING HORMONE 0.929 uIU/ML (0.55-4.78)
[2022-07-14] MEDS ORDERED: KETOROLAC 30 MG/ML 1ML VIAL IV ONE (15:40)
[2022-07-14] MEDS ORDERED: ISOVUE-370 76% 100ML VIAL As Ordered ONE (15:43)
[2022-07-14 16:24] LABS: CK-MB VALUE MASS < 1.0 NG/ML (<3.6)
[2022-07-14 16:45] LABS: CPK CREATINE PHOSPHOKINASE 55 U/L (34-145); MB/CK RELATIVE INDEX 1.81 (< OR =4)
[2022-07-14] MEDS ORDERED: BENZ200C70 PO (18:25)
[2022-07-14] MEDS ORDERED: PRED20TA PO (18:25)
[2022-07-14 18:30] VITALS: BP 162/78
[2022-07-14] MEDS ORDERED: predniSONE 20 MG TAB PO ONE (18:30)
== END 2022-07-14 18:44 | disposition home or self-care (01) ==
LOC: M ED 13:29
DX: J06.9 Acute upper respiratory infection, unspecified (principal); I10 Essential (primary) hypertension; F17.200 Nicotine dependence, unspecified, uncomplicated; Z88.0 Allergy status to penicillin; Z79.52 Long term (current) use of systemic steroids; Z79.811 Long term (current) use of aromatase inhibitors; Z79.899 Other long term (current) drug therapy
CPT/HCPCS: 36600; 71045; 71275; 80048; 80076; 82550; 82553; 82803; 83605; 83880; 84443; 84484; 85025; 87040; 87486; 87581; 87633; 87798; 93005; 93041; 94640; 94760; 96374; 99285; J1885; J7512

== ENCOUNTER 2022-08-06 16:34 | Inpatient (IN) | payer BC ==
[~2022-08-06] VITALS: Ht 157.5 cm; Wt 70.9 kg
[2022-08-06] MEDS ORDERED: ACETAMINOPHEN TAB 650MG DOSE (2X325MG) PO ONE (17:05)
[2022-08-06] MEDS ORDERED: guaiFENesin SYRUP 200MG 10ML UDC PO ONE (17:05)
[2022-08-06] MEDS: IPRATROPIUM 0.5MG/ALBUTEROL 2.5MG INH SOL UD 3ML (DUONEB) NEB PRN ×3 (17:06→18:02)
[2022-08-06 17:21] LABS: ABG BASE EXCESS -2.4 (-2.0-2.0); ABG HCO3 22.3 MEQ/L (22.0-26.0); ABG PARTIAL PRESSURE CO2 38.5 mmHg (35.0-45.0); ABG PARTIAL PRESSURE O2 103.2 mmHg (75.0-100.0); ABG STANDARD HCO3 22.5 MEQ/L (22.0-26.0); ABG TOTAL CO2 23.4 MEQ/L (22.0-29.0)
[2022-08-06 17:29] LABS: BASO % 0.2 % (0.0-1.0); EOS # 0.1 10^3/uL (0.0-0.5); HEMATOCRIT 47.4 % (36.0-47.0); HEMOGLOBIN 16.1 g/dl (12.0-15.5); LYMPH # 3.2 10^3/uL (1.5-5.0); MEAN CORPUSCULAR HEMOGLOBIN 33.6 pg (27.0-33.0); MONO # 0.5 10^3/uL (0.0-0.8); MONO % 5.3 % (2.0-8.0); NEUTROPHILS # 5.6 10^3/uL (1.5-8.5); NEUTROPHILS % 59.3 % (36.0-66.0); PLATELET COUNT, AUTOMATED 331 10^3/uL (150-450); RED BLOOD COUNT 4.79 10^6/uL (4.00-5.40); WHITE BLOOD COUNT 9.4 10^3/uL (4.0-10.0)
[2022-08-06 17:40] LABS: INR 0.86; PROTHROMBIN TIME 11.9 SECONDS (12.5-14.5)
[2022-08-06 17:48] LABS: CK-MB VALUE MASS < 1.0 NG/ML (<3.6)
[2022-08-06 17:51] LABS: ALBUMIN 3.7 G/DL (3.2-5.2); ALKALINE PHOSPHATASE 103 U/L (46-116); ALT/SGPT 21 U/L (7.0-40); AST/SGOT 14 U/L (<34); BILIRUBIN,DIRECT < 0.1 MG/DL (<0.4); BILIRUBIN,TOTAL 0.3 MG/DL (0.3-1.2); BLOOD UREA NITROGEN 10 MG/DL (9-23); CARBON DIOXIDE LEVEL 26 MMOL/L (20-31); CHLORIDE LEVEL 104 MMOL/L (98-107); CPK CREATINE PHOSPHOKINASE 42 U/L (34-145); CREATININE FOR GFR 0.57 MG/DL (0.55-1.30); GLOMERULAR FILTRATION RATE > 60.0 (>51); GLUCOSE, FASTING 119 MG/DL (60-100); MB/CK RELATIVE INDEX 2.38 (< OR =4); POTASSIUM SERUM 3.7 MMOL/L (3.5-5.1); SODIUM LEVEL 140 MMOL/L (136-145); TOTAL PROTEIN 6.3 G/DL (5.7-8.2)
[2022-08-06] MEDS ORDERED: BENZONATATE 100MG CAPSULE PO ONE (18:05)
[2022-08-06] MEDS ORDERED: ISOVUE-370 76% 100ML VIAL As Ordered ONE (18:16)
[2022-08-06] MEDS ORDERED: ALBUTEROL SULFATE 2.5MG/0.5ML INH NEB SOLN NEB PRN (19:20)
[2022-08-06] MEDS ORDERED: ACETAMINOPHEN TAB 650MG DOSE (2X325MG) PO PRN (19:20)
[2022-08-06] MEDS ORDERED: ASPI-226 PO (19:32)
[2022-08-06] MEDS ORDERED: AZITHROMYCIN INJ 500 MG, VIAL MATE ADAPTER 1 EACH in NS 250 ML IV SCH (20:00)
[2022-08-06] MEDS: KETOROLAC 30 MG/ML 1ML VIAL IV PRN (20:10)
[2022-08-06] MEDS: methylPREDNISolone 125MG 2ML VIAL IV SCH (20:10)
[2022-08-06] MEDS: NS 1,000 ML IV SCH (20:10)
[2022-08-06] MEDS: IPRATROPIUM 0.5MG/ALBUTEROL 2.5MG INH SOL UD 3ML (DUONEB) NEB SCH ×2 (20:20→23:30)
[2022-08-06] MEDS: BENZONATATE 100MG CAPSULE PO PRN (20:28)
[2022-08-06] MEDS: guaiFENesin ER 600 MG TAB PO SCH (20:28)
[2022-08-06 21:45] VITALS: BP 148/72
[2022-08-06 22:00] VITALS: O2SAT 95
[2022-08-06] MEDS: traZODone 25MG PER 1/2 TABLET PO PRN (22:34)
[2022-08-06 23:00] VITALS: O2SAT 96
[2022-08-06] MEDS ORDERED: LR 2,000 ML IV ONE (23:30)
[2022-08-07] VITALS (27 sets, daily range): BP systolic 143–152; BP diastolic 70–81; O2SAT 92–98
[2022-08-07 02:32] LABS: APPEARANCE, URINE CLEAR (CLEAR); BACTERIA, URINE AUTO NEGATIVE (NEGATIVE); BILIRUBIN, URINE AUTO NEGATIVE (NEGATIVE); BLOOD, URINE BLOOD NEGATIVE (NEGATIVE); COLOR, URINE YELLOW (YELLOW); GLUCOSE, URINE (UA) AUTO 3+ mg/dL (NEGATIVE); KETONE, URINE AUTO TRACE mg/dL (NEGATIVE); LEUKOCYTE ESTERASE, URINE AUTO NEGATIVE (NEGATIVE); NITRITE, URINE AUTO NEGATIVE (NEGATIVE); PROTEIN, URINE AUTO NEGATIVE (NEGATIVE); RBC, URINE AUTO 0 /HPF (0-3); SPECIFIC GRAVITY URINE AUTO 1.038 (1.002-1.035); SQUAMOUS EPITHELIAL CELL UR AU 1 /HPF (0-6); UROBILINOGEN, URINE AUTO 0.2 mg/dL (0.0-2.0); WBC, URINE AUTO 1 /HPF (0-3)
[2022-08-07 02:32] LABS: HEMATOCRIT 43.1 % (36.0-47.0); HEMOGLOBIN 14.3 g/dl (12.0-15.5); MEAN CORPUSCULAR HEMOGLOBIN 33.6 pg (27.0-33.0); MEAN CORPUSCULAR HGB CONC 33.2 g/dl (32.0-36.5); MEAN CORPUSCULAR VOLUME 101.2 fl (80.0-96.0); PLATELET COUNT, AUTOMATED 285 10^3/uL (150-450); RED BLOOD COUNT 4.26 10^6/uL (4.00-5.40); WHITE BLOOD COUNT 4.9 10^3/uL (4.0-10.0)
[2022-08-07 02:53] LABS: BLOOD UREA NITROGEN 9 MG/DL (9-23); CALCIUM LEVEL 8.4 MG/DL (8.5-10.1); CARBON DIOXIDE LEVEL 22 MMOL/L (20-31); CHLORIDE LEVEL 107 MMOL/L (98-107); GLOMERULAR FILTRATION RATE > 60.0 (>51); GLUCOSE, FASTING 196 MG/DL (60-100); MAGNESIUM LEVEL 1.2 MG/DL (1.8-2.4); POTASSIUM SERUM 3.7 MMOL/L (3.5-5.1); SODIUM LEVEL 141 MMOL/L (136-145)
[2022-08-07] MEDS: IPRATROPIUM 0.5MG/ALBUTEROL 2.5MG INH SOL UD 3ML (DUONEB) NEB SCH ×2 (03:08→08:01)
[2022-08-07] MEDS: methylPREDNISolone 125MG 2ML VIAL IV SCH ×3 (03:19→20:04)
[2022-08-07] MEDS: MAG SULF 1GM/100ML (MAG RUN) 1 GM in IV 1 EA IV SCH ×2 (04:04→05:11)
[2022-08-07] MEDS: NS 1,000 ML IV SCH (06:12)
[2022-08-07] MEDS ORDERED: MAGNESIUM OXIDE 400MG TAB (MAG-OX) PO ONE (07:50)
[2022-08-07] MEDS: KETOROLAC 30 MG/ML 1ML VIAL IV PRN (08:17)
[2022-08-07] MEDS: ENOXAPARIN 40MG/0.4ML SYRINGE (J1650 PER 10MG) SC SCH (08:17)
[2022-08-07] MEDS: guaiFENesin ER 600 MG TAB PO SCH ×2 (08:18→20:17)
[2022-08-07] MEDS: ASPIRIN 81MG CHEW TABLET PO SCH (08:18)
[2022-08-07] MEDS: PANTOPRAZOLE 40MG TAB (PROTONIX) PO SCH (08:19)
[2022-08-07] MEDS: LOSARTAN 50MG TABLET PO SCH (08:20)
[2022-08-07 09:56] LABS: HEMOGLOBIN A1c 5.2 % (4.0-6.0)
[2022-08-07] MEDS: LEVALBUTEROL 1.25MG 0.5ML CONCENTRATE NEB INH SCH ×4 (11:14→23:28)
[2022-08-07] MEDS: BENZONATATE 100MG CAPSULE PO PRN (16:32)
[2022-08-07] MEDS ORDERED: AZITHROMYCIN 250MG TABLET PO SCH (20:00)
[2022-08-07] MEDS: traZODone 25MG PER 1/2 TABLET PO PRN (20:17)
[2022-08-08] VITALS (10 sets, daily range): BP systolic 133–139; BP diastolic 69–86; O2SAT 93–96
[2022-08-08] MEDS: BENZONATATE 100MG CAPSULE PO PRN ×2 (00:32→08:27)
[2022-08-08] MEDS: methylPREDNISolone 125MG 2ML VIAL IV SCH (03:51)
[2022-08-08] MEDS: LEVALBUTEROL 1.25MG 0.5ML CONCENTRATE NEB INH SCH ×2 (03:53→07:13)
[2022-08-08 06:25] LABS: BASO % 0.1 % (0.0-1.0); HEMATOCRIT 40.4 % (36.0-47.0); HEMOGLOBIN 13.5 g/dl (12.0-15.5); LYMPH # 0.7 10^3/uL (1.5-5.0); LYMPH % 3.9 % (24.0-44.0); MEAN CORPUSCULAR HEMOGLOBIN 34.1 pg (27.0-33.0); MEAN CORPUSCULAR HGB CONC 33.4 g/dl (32.0-36.5); MONO # 0.2 10^3/uL (0.0-0.8); MONO % 1.3 % (2.0-8.0); NEUTROPHILS # 15.7 10^3/uL (1.5-8.5); NEUTROPHILS % 93.3 % (36.0-66.0); PLATELET COUNT, AUTOMATED 261 10^3/uL (150-450); RED BLOOD COUNT 3.96 10^6/uL (4.00-5.40); WHITE BLOOD COUNT 16.8 10^3/uL (4.0-10.0)
[2022-08-08 06:56] LABS: ALBUMIN 3.2 G/DL (3.2-5.2); ALKALINE PHOSPHATASE 82 U/L (46-116); ALT/SGPT 23 U/L (7.0-40); AST/SGOT 18 U/L (<34); BILIRUBIN,TOTAL 0.4 MG/DL (0.3-1.2); BLOOD UREA NITROGEN 16 MG/DL (9-23); CALCIUM LEVEL 8.8 MG/DL (8.5-10.1); CARBON DIOXIDE LEVEL 24 MMOL/L (20-31); CHLORIDE LEVEL 109 MMOL/L (98-107); GLOMERULAR FILTRATION RATE > 60.0 (>51); GLUCOSE, FASTING 147 MG/DL (60-100); SODIUM LEVEL 142 MMOL/L (136-145); TOTAL PROTEIN 5.4 G/DL (5.7-8.2)
[2022-08-08] MEDS: PANTOPRAZOLE 40MG TAB (PROTONIX) PO SCH (08:27)
[2022-08-08] MEDS: guaiFENesin ER 600 MG TAB PO SCH (08:27)
[2022-08-08] MEDS: ASPIRIN 81MG CHEW TABLET PO SCH (08:27)
[2022-08-08] MEDS: LOSARTAN 50MG TABLET PO SCH (08:28)
[2022-08-08] MEDS: ENOXAPARIN 40MG/0.4ML SYRINGE (J1650 PER 10MG) SC SCH (08:28)
[2022-08-08] MEDS ORDERED: ALB2.5NEB NEB (08:35)
[2022-08-08] MEDS ORDERED: GUAI20TA PO (08:35)
[2022-08-08] MEDS ORDERED: PRED20TA PO (08:35)
[2022-08-08] MEDS ORDERED: AZITHROMYCIN 250MG TABLET PO ONE (08:40)
== END 2022-08-08 10:35 | disposition home or self-care (01) | DRG 141 ==
LOC: M ED 16:34 → M ED INP 19:19 → ENRESERV 20:37 → M PCU 21:45
PROVIDERS: ADMIT Internal Medicine; ATTEND Family Medicine
DX: J45.901 Unspecified asthma with (acute) exacerbation (principal); J96.01 Acute respiratory failure with hypoxia; E87.20 Acidosis, unspecified; B97.10 Unspecified enterovirus as the cause of diseases classified elsewhere; B97.89 Other viral agents as the cause of diseases classified elsewhere; I10 Essential (primary) hypertension; F17.210 Nicotine dependence, cigarettes, uncomplicated; K21.9 Gastro-esophageal reflux disease without esophagitis; Z79.82 Long term (current) use of aspirin; Z79.899 Other long term (current) drug therapy; Z88.0 Allergy status to penicillin

== ENCOUNTER 2022-08-18 17:13 | Emergency (ER) | payer BC ==
[~2022-08-18] VITALS: Ht 157.5 cm; Wt 69.1 kg
[~2022-08-18 17:13] MED LIST changes: +ALB2.5NEB NEB; +ASPI-226 PO; +GUAI20TA PO
[2022-08-18 19:45] LABS: BASO % 0.3 % (0.0-1.0); EOS % 0.3 % (0.0-3.0); HEMATOCRIT 46.3 % (36.0-47.0); HEMOGLOBIN 15.6 g/dl (12.0-15.5); LYMPH # 1.7 10^3/uL (1.5-5.0); LYMPH % 17.5 % (24.0-44.0); MEAN CORPUSCULAR HEMOGLOBIN 33.8 pg (27.0-33.0); MEAN CORPUSCULAR HGB CONC 33.7 g/dl (32.0-36.5); MEAN CORPUSCULAR VOLUME 100.2 fl (80.0-96.0); MONO # 0.2 10^3/uL (0.0-0.8); MONO % 1.6 % (2.0-8.0); NEUTROPHILS # 7.9 10^3/uL (1.5-8.5); NEUTROPHILS % 79.3 % (36.0-66.0); PLATELET COUNT, AUTOMATED 336 10^3/uL (150-450); RED BLOOD COUNT 4.62 10^6/uL (4.00-5.40); WHITE BLOOD COUNT 9.9 10^3/uL (4.0-10.0)
[2022-08-18 20:18] LABS: CK-MB VALUE MASS < 1.0 NG/ML (<3.6)
[2022-08-18 20:20] LABS: INR 0.91; PROTHROMBIN TIME 12.5 SECONDS (12.5-14.5)
[2022-08-18 20:21] LABS: CPK CREATINE PHOSPHOKINASE 30 U/L (34-145); MB/CK RELATIVE INDEX 3.33 (< OR =4)
[2022-08-18 20:22] LABS: ALBUMIN 3.7 G/DL (3.2-5.2); ALKALINE PHOSPHATASE 93 U/L (46-116); ALT/SGPT 24 U/L (7.0-40); AST/SGOT 11 U/L (<34); BILIRUBIN,DIRECT < 0.1 MG/DL (<0.4); BILIRUBIN,TOTAL 0.3 MG/DL (0.3-1.2); BLOOD UREA NITROGEN 14 MG/DL (9-23); CALCIUM LEVEL 8.6 MG/DL (8.5-10.1); CARBON DIOXIDE LEVEL 23 MMOL/L (20-31); CHLORIDE LEVEL 108 MMOL/L (98-107); CREATININE FOR GFR 0.59 MG/DL (0.55-1.30); GLOMERULAR FILTRATION RATE > 60.0 (>51); GLUCOSE, FASTING 118 MG/DL (60-100); POTASSIUM SERUM 3.9 MMOL/L (3.5-5.1); SODIUM LEVEL 141 MMOL/L (136-145); TOTAL PROTEIN 6.2 G/DL (5.7-8.2)
[2022-08-18 20:23] LABS: THYROID STIMULATING HORMONE 0.359 uIU/ML (0.55-4.78); THYROXINE (T4) 14.3 UG/DL (4.5-10.9)
[2022-08-18] MEDS ORDERED: IPRATROPIUM 0.5MG/ALBUTEROL 2.5MG INH SOL UD 3ML (DUONEB) NEB ONE ×2 (21:35)
[2022-08-18] MEDS ORDERED: ALBUTEROL SULFATE 2.5MG/0.5ML INH NEB SOLN NEB ONE (21:35)
[2022-08-18 21:50] LABS: ABG BASE EXCESS -3.3 (-2.0-2.0); ABG PARTIAL PRESSURE CO2 36.3 mmHg (35.0-45.0); ABG PARTIAL PRESSURE O2 106.8 mmHg (75.0-100.0); ABG STANDARD HCO3 21.7 MEQ/L (22.0-26.0); ABG TOTAL CO2 22.2 MEQ/L (22.0-29.0); ABG pH (ARTERIAL) 7.381 UNITS (7.350-7.450)
[2022-08-18] MEDS ORDERED: methylPREDNISolone 125MG 2ML VIAL IV ONE (21:50)
[2022-08-18] MEDS ORDERED: NS 1,000 ML IV ONE (22:10)
[2022-08-18] MEDS ORDERED: ISOVUE-370 76% 100ML VIAL As Ordered ONE (22:15)
[2022-08-18] MEDS ORDERED: NEBU1EAC74 MC ×2 (23:22→23:40)
[2022-08-18] MEDS ORDERED: ALB2.5NEB NEB (23:22)
[2022-08-18 23:28] VITALS: BP 154/89
== END 2022-08-19 00:17 | disposition home or self-care (01) ==
LOC: EDBD 17:13 → M ED 17:31
DX: J12.9 Viral pneumonia, unspecified (principal); J98.01 Acute bronchospasm; G43.909 Migraine, unspecified, not intractable, without status migrainosus; I10 Essential (primary) hypertension; K58.9 Irritable bowel syndrome, unspecified; M79.7 Fibromyalgia; Z88.0 Allergy status to penicillin; Z79.52 Long term (current) use of systemic steroids; Z79.811 Long term (current) use of aromatase inhibitors; Z79.899 Other long term (current) drug therapy
CPT/HCPCS: 36415; 36600; 71046; 71275; 80048; 80076; 82550; 82553; 82803; 83605; 83880; 84436; 84443; 84484; 85025; 85610; 87040; 87077; 87486; 87581; 87633; 87798; 87880; 93005; 94640; 96374; 99284; J2930; Q9967

== ENCOUNTER → 2022-11-11 | Outpatient (CLI) | payer BC ==
[~2022-11-11] MED LIST changes: -DOXY100C81 PO; +DOXY100C82 PO; +NEBU1EAC74 MC
== END ==
LOC: M WHC 07:50
PROVIDERS: ATTEND Nurse Practitioner Women's Health
DX: Z12.31 Encounter for screening mammogram for malignant neoplasm of breast (principal)
CPT/HCPCS: 77066; G0279

== ENCOUNTER 2023-09-20 09:44 | Emergency (ER) | payer OTHER, SELFPAY ==
[~2023-09-20] VITALS: Ht 160 cm; Wt 75.1 kg
[~2023-09-20 09:44] MED LIST changes: -BENZ150C2 PO; +BENZ150C5 PO; -MIRT-62 PO; +MIRT-88 PO
[2023-09-20] MEDS: IPRATROPIUM 0.5MG/ALBUTEROL 2.5MG INH SOL UD 3ML (DUONEB) NEB ONE (10:51)
[2023-09-20] MEDS: methylPREDNISolone 125MG 2ML VIAL IM ONE (10:55)
[2023-09-20] MEDS: diazePAM 10MG/2ML SYRINGE IM ONE (10:55)
[2023-09-20 10:58] VITALS: BP 144/95
[2023-09-20] MEDS: LOSARTAN 50MG TABLET PO ONE (10:58)
[2023-09-20 12:16] VITALS: BP 136/85; TEMP 97.9; O2SAT 96
[2023-09-20] MEDS: IBUPROFEN 800 MG TAB PO ONE (13:15)
[2023-09-20] MEDS ORDERED: METH-1165 PO (13:27)
[2023-09-20] MEDS ORDERED: IBUP80TA PO (13:27)
== END 2023-09-20 13:57 | disposition home or self-care (01) ==
LOC: M ED 09:44
DX: S39.012A Strain of muscle, fascia and tendon of lower back, initial encounter (principal); X50.0XXA Overexertion from strenuous movement or load, initial encounter; I10 Essential (primary) hypertension; M51.36 Other intervertebral disc degeneration, lumbar region; K21.9 Gastro-esophageal reflux disease without esophagitis; K57.30 Diverticulosis of large intestine without perforation or abscess without bleeding; G43.909 Migraine, unspecified, not intractable, without status migrainosus; M79.7 Fibromyalgia; F17.200 Nicotine dependence, unspecified, uncomplicated; F10.10 Alcohol abuse, uncomplicated; Z88.0 Allergy status to penicillin; Z79.52 Long term (current) use of systemic steroids; Z79.82 Long term (current) use of aspirin; Z79.811 Long term (current) use of aromatase inhibitors; Z79.899 Other long term (current) drug therapy; Y92.9 Unspecified place or not applicable; Y93.89 Activity, other specified; Y99.0 Civilian activity done for income or pay
CPT/HCPCS: 72110; 94640; 96372; 99283; J2919; J3360

== ENCOUNTER 2024-08-15 10:39 | Emergency (ER) | payer OTHER, SELFPAY ==
[~2024-08-15] VITALS: Ht 157.5 cm; Wt 71.0 kg
[~2024-08-15 10:39] MED LIST changes: +DOXY-440 PO; +DOXY-442 PO; -DOXY-444 PO; -DOXY100C82 PO; +LEVA15HF2 INH; -LEVAINH INH; +METH-1165 PO; +ONDA-282 PO; -ONDA4TAB6 PO; -SIME180C25 PO; +SIME1CAP4 PO
[2024-08-15] MEDS: AZITHROMYCIN 250MG TABLET PO ONE (14:49)
[2024-08-15] MEDS ORDERED: AZIT-12 PO (14:50)
[2024-08-15] MEDS: IPRATROPIUM 0.5MG/ALBUTEROL 2.5MG INH SOL UD 3ML (DUONEB) NEB ONE (15:09)
[2024-08-15] MEDS ORDERED: PRED20TA PO (15:24)
[2024-08-15] MEDS ORDERED: ALBU2.5V10 NEB (15:24)
[2024-08-15 15:32] VITALS: BP 175/95; TEMP 97.6; O2SAT 96
[2024-08-15] MEDS: predniSONE 20 MG TAB PO ONE (15:37)
== END 2024-08-15 15:40 | disposition home or self-care (01) ==
LOC: M ED 10:39
DX: J20.9 Acute bronchitis, unspecified (principal); I10 Essential (primary) hypertension; F17.200 Nicotine dependence, unspecified, uncomplicated; Z88.0 Allergy status to penicillin; Z79.52 Long term (current) use of systemic steroids; Z79.1 Long term (current) use of non-steroidal anti-inflammatories (NSAID); Z79.2 Long term (current) use of antibiotics; Z79.899 Other long term (current) drug therapy
CPT/HCPCS: 71046; 87486; 87581; 87633; 87798; 94640; 99283; J7512